=== PATIENT | female | born 1980 | race Caucasian/White ===

== ENCOUNTER 2016-07-28 13:05 | Day surgery (SDC) | payer OTHER ==
[2016-07-28 13:26] VITALS: BMI 36.8
[2016-07-28 13:38] LABS: BASO # 0.1 K/uL (0.0-0.2); BASO % 0.8 % (0.0-2.0); EOS # 0.2 K/uL (0.0-0.7); EOS % 2.1 % (0.0-4.0); HEMATOCRIT 33.2 % (34.0-47.0); LYMPH % 31.8 % (20.0-40.0); MEAN CORPUSCULAR HEMOGLOBIN 21.7 pg (27.0-31.0); MEAN CORPUSCULAR HGB CONC 31.1 g/dL (33.0-37.0); MEAN PLATELET VOLUME 7.8 fL (7.2-11.7); MONO # 0.7 K/uL (0.0-0.8); MONO % 7.1 % (0.0-10.0); RED CELL DISTRIBUTION WIDTH 19.2 % (11.5-14.5); WHITE BLOOD COUNT 9.5 K/uL (4.8-10.8)
[2016-07-28 13:44] LABS: MEAN CELL VOLUME 69.8 fL (81.0-99.0)
[2016-07-28 13:45] LABS: CHLORIDE 101 mmol/L (98-107); POTASSIUM 4.5 mmol/L (3.6-5.2); SODIUM 138 mmol/L (132-148)
[2016-07-28 13:48] LABS: BLOOD UREA NITROGEN 13 mg/dL (7-17); CARBON DIOXIDE 27 mmol/L (22-30); GFR AFRICAN-AMERICAN > 60; GLUCOSE,RANDOM 95 mg/dL (65-105)
[2016-07-28 13:49] LABS: CALCIUM 9.2 mg/dl (8.6-10.4)
[2016-07-28] MEDS ORDERED: Midazolam 2 MG/2 ML VIAL ONE (15:06)
[2016-07-28] MEDS ORDERED: Propofol 10 mg/ml Inj (20 ML) ONE (15:07)
[2016-07-28] MEDS ORDERED: cefTRIAXone IV 1 gm in Dextros 50 ML IVPB ONE (15:13)
[2016-07-28] MEDS ORDERED: Lactated Ringer's 1,000 ML IV ONE (15:15)
[2016-07-28] MEDS ORDERED: Iohexol 240 (50 ml) ONE (15:38)
[2016-07-28] MEDS ORDERED: Ciprofloxacin 400mg/200ml D5W 400 MG/200 ML BAG IVPB STA (16:01)
[2016-07-28] MEDS ORDERED: Dexamethasone 4 mg/1 ml IVP PRN (16:01)
[2016-07-28] MEDS ORDERED: HYDROmorphone 0.5 mg/0.5 ml ISec ONE (16:11)
[2016-07-28] MEDS: HYDROmorphone 0.5 mg/0.5 ml ISec IVP PRN ×2 (16:12→16:31)
[2016-07-28] MEDS ORDERED: Lactated Ringer's 1,000 ML IV SCH (16:15)
[2016-07-28] MEDS ORDERED: Gentamicin 80 mg in 0.9% NS 80 MG/100 ML BAG IVPB SCH (16:15)
[2016-07-28 17:31] VITALS: BP 132/70; PULSE 63; RESP 18; TEMP 97; O2SAT 100
--- NOTE | 2016-07-28 20:31 | OP ---
PROCEDURE DATE: 07/28/2016 PREOPERATIVE DIAGNOSES: Urolithiasis, retained stent, hematuria, recurrent infections. POSTOPERATIVE DIAGNOSES: Urolithiasis, retained stent, hematuria, recurrent infections. PROCEDURES: Cystoscopy, removal of a right double-J stent, right retrograde pyelogram, insertion of right double-J stent with dangles. COMPLICATIONS: There were no complications. BLOOD LOSS: Less than 10 mL. FINDINGS: A stent in the ureter, in the bladder. The portion of the stent that is in the bladder. First of all, to start with, there are no pelvic or rectal masses. The stent that is in the bladder is encrusted on the outside, but the ____ of it looks like it is ope mary. I did not even try to put a wire in. I do want to say that the wire, when I took out the stent, it came our very, very easily. I also wanted to say the other finding is the stent is encrusted on the outside, but we were able to eventually remove it with actually no difficulty and even when we inspect the upper portion of the st ent, there is really very little encrustation. There is encrustation down below on the bladder, but that is it. Otherwise the stent went in easily, in terms of having ____ . PROCEDURE: After obtaining informed consent, the patient was placed on the table, routine monitors p laced, timeouts were called. We explained everything in Guatemalan. A very pleasant lady who we explained everything in Guatemalan, wha t our plans were. The original plan was that we are going to do our best to get rid of the stent. I n fact, now that I did the procedure, I know that we were able to. What we did was we inserted the cystoscope via the urethra and I saw the stent was very encrusted, so before touching anything further, I put a wire up to the kidney and it went up very easily. We then used a grasping forceps to grab out the stent and it came out very easily, again, even though the chase ttom was encrusted. I was thinking about doing a laser or something, but it just came out very well and easily without any damage. At this point, I had the wire up in the kidney and I put an open-ended catheter, injected contrast ma terial to make sure everything was patent and open, and then I put a wire back up to the kidney and I put a double-J stent in. The double J was left with dangles so we can just remove it simply. The patient will be discharged home on Motrin, antibiotics, pain medicine, and then further plans ___ _. Jose Cruz Reyes MD cc: [id number] TT: 07/28/2016 20:30:24 rn
--- NOTE | 2016-07-28 21:11 | HP ---
UROLOGY ADMISSION REASON FOR ADMISSION: Treatment of a retained stent and to try to remove it. HISTORY OF PRESENT ILLNESS: A very pleasant lady, very noncompliant. She is a 35 years old. Years back, I apparently had put a stent in. I checked my notes through this time. Actually in fact, we had placed a stent here. The patient at that time was seeing Dr. Courtney and there were issues gynecology-wills. From our end, patient knew she had a stent and just for whatever reason did not come back in. She kn ew she was supposed to remove the stent. Even now I have known about this for quite some time when harriet blandon is just very pleasant about the entire matter, but just extremely noncompliant. So, she is here now today to try to remove the stent. See the plans as well. I explained to the amarjit kaur in the office with a custom protection officer and with her that my best effort is going to be to remove the stent and if I do remove the stent, more likely than not I would put a stent back in [facility] to leave it for a day or so. But, more likely I would expect to get a second stent in because I suspect that she will have a lot o f encrustations. Particularly she was most recently in either [facility] or [facility], I spoke to the urologist there, a , who then referred the patient back to me. She was treated with antibiotics and was apparently septic and then she came to my office. We discus sed options and I have been trying to call her and my office has reached out and spoke to her several times, but it took a while until we got her in today. She is now for a cystoscopy and a stent removal and most likely a stent insertion and maybe even 2 st ents will be left in place, depending on what we find clinically. See the addendum below. PAST MEDICAL AND SURGICAL HISTORY: Otherwise, no other changes. GYNECOLOGIC HISTORY: Remarkable for lack of children. REVIEW OF SYSTEMS: Listed above, noncontributory, weight loss, etc. SOCIAL HISTORY: Unremarkable. PHYSICAL EXAMINATION: GENERAL: Well-nourished female, in no apparent distress. VITAL SIGNS: Within normal limits. ABDOMEN: Overall soft, nontender. PELVIC: Deferred to cystoscopy, but there is no real pelvic or rectal masses. I will mention that n ow. DIAGNOSES: 1. Retained stent. 2. Recurrent infections and hematuria. Very pleasant about the whole matter, but extremely noncompliant lady. PLAN: We discussed options with the patient. Today we are going to try to remove the stent. I expl ained to her that if the stent comes out easily I will put a new one back in. Once it dangles, will just remove it. I also explained to her with a custom protection officer (everything was done with a [employer] paper machine tender) that I was going to plan for the other possibility for a cystoscopy and a double J, 2 s tents inserted and then if we would need to work on the other stent that is encrusted, though I suspe ct it is going to be encrusted again with her history being recently in the [place], etc., but I explained to her that sometimes we get michael and we are able to remove the stent. Then, I explained all the different options, risks, benefits and alternatives with the patient. Jose Cruz Reyes MD cc: [id number] TT: 07/28/2016 21:10:54 natalio
== END 2016-07-28 18:42 | disposition home or self-care (01) ==
LOC: C.SDS 13:05
PROVIDERS: ATTEND Urology
DX: T83.098A Other mechanical complication of other urinary catheter, initial encounter (principal); N20.0 Calculus of kidney; R31.9 Hematuria, unspecified; N13.39 Other hydronephrosis
CPT/HCPCS: 36415; 50385; 74022; 80048; 84703; 85025; J0696; J0744; J1170; J1580; J1885; J7120

== ENCOUNTER 2016-09-26 18:44 | Emergency (ER) | payer SELFPAY ==
[2016-09-26 18:44] VITALS: BMI 36.8
[2016-09-26] MEDS ORDERED: Sodium Chloride 0.9% 1,000 ML IV ONE (19:39)
[2016-09-26] MEDS ORDERED: Sodium Chloride 0.9% 1,000 ML ONE (20:00)
[2016-09-26 20:13] LABS: BASO # 0.1 K/uL (0.0-0.2); BASO % 0.4 % (0.0-2.0); EOS # 0.1 K/uL (0.0-0.7); HEMATOCRIT 32.8 % (34.0-47.0); LYMPH # 2.4 K/uL (1.0-4.3); MEAN CELL VOLUME 69.8 fL (81.0-99.0); MEAN CORPUSCULAR HEMOGLOBIN 22.2 pg (27.0-31.0); MEAN CORPUSCULAR HGB CONC 31.8 g/dL (33.0-37.0); MEAN PLATELET VOLUME 8.3 fL (7.2-11.7); MONO # 0.9 K/uL (0.0-0.8); RED CELL DISTRIBUTION WIDTH 17.2 % (11.5-14.5); WHITE BLOOD COUNT 12.3 K/uL (4.8-10.8)
[2016-09-26 20:19] LABS: CHLORIDE 101 mmol/L (98-107); POTASSIUM 4.3 mmol/L (3.6-5.2); SODIUM 137 mmol/L (132-148)
[2016-09-26 20:21] LABS: AST/SGOT 42 U/L (14-36); BILIRUBIN,TOTAL 0.8 mg/dL (0.2-1.3); CARBON DIOXIDE 24 mmol/L (22-30); GFR AFRICAN-AMERICAN > 60
[2016-09-26 20:22] LABS: ALKALINE PHOSPHATASE 103 U/L (38-126); ALT/SGPT 62 U/L (9-52); BLOOD UREA NITROGEN 9 mg/dL (7-17); GLUCOSE,RANDOM 123 mg/dL (65-105); TOTAL PROTEIN 7.8 g/dL (6.3-8.3)
[2016-09-26] MEDS ORDERED: Morphine 4 MG/ML VIAL IV STA ×2 (20:51→23:49)
[2016-09-26] MEDS ORDERED: Morphine 4 MG/ML VIAL ONE (20:57)
[2016-09-26 21:24] LABS: RBC URINE 3222 /hpf (0-3); URINE BACTERIA RARE (<OCC); URINE BILIRUBIN NEGATIVE (NEGATIVE); URINE BLOOD 3+ (NEGATIVE); URINE COLOR Yellow (YELLOW); URINE GLUCOSE (UA) NORMAL (Normal); URINE KETONE 1+ mg/dL (NEGATIVE); URINE LEUKOCYTE ESTERASE NEG Leu/uL (Negative); URINE PROTEIN 2+ mg/dL (NEGATIVE); URINE UROBILINOGEN NORMAL mg/dL (0.2-1.0); WBC URINE 1 /hpf (0-5)
[2016-09-26] MEDS ORDERED: Iohexol 350mg/ml 100 ML ONE (21:41)
--- NOTE | 2016-09-26 23:47 | US ---
EXAM: US Pelvis, Transabdominal and Transvaginal CLINICAL HISTORY: 36 years old, female; Signs and symptoms; Other: Vaginal bleeding pain ? toa vs torsion; Additional info: Vaginal bleeding/pain ? toa vs. Torsion TECHNIQUE: Real-time transabdominal and transvaginal pelvic ultrasound (complete) with image documentation. Transvaginal imaging was used for better evaluation of the endometrium and adnexa. COMPARISON: CT - ABD PELVIS IV CONTRAST ONLY 05/27/2015 2:05:26 AM FINDINGS: Uterus/cervix: Two fibroids are again identified. These are located within the posterior fundus measuring 4.8 cm in greatest dimension, unchanged from previous study. Normal endometrial stripe thickness, measuring 2.5 mm. Right ovary: Again identified within the right ovary/right adnexa is an avascular complex cyst, measuring 5.0 x 4.6 x 4.7 cm. This has increased in size from previous examination but similar in morphology (as described on previous studies, as no imaging was available comparison). Normal blood flow. Increased to transmission is detected. There is Left ovary: Unremarkable in echogenicity and size measuring 2.8 x 2.4 x 2.5 cm. No mass. Normal blood flow. Free fluid: No free fluid. IMPRESSION: Fibroid uterus. Increased size of the avascular complex cyst within the right ovary. Morphologically, this focus is suggestive of an endometrioma, versus a hemorrhagic cyst. A tubo-ovarian abscess, versus ovarian torsion is less likely.
--- NOTE | 2016-09-27 00:11 | CT ---
EXAM: CT Abdomen and Pelvis With Intravenous Contrast CLINICAL HISTORY: 36 years old, female; Pain; Abdominal pain; Patient HX: 05-27-15; Additional info: Llq and suprapubic tenderness TECHNIQUE: Axial computed tomography images of the abdomen and pelvis with intravenous contrast. All CT scans at this facility use one or more dose reduction techniques, viz.: automated exposure control; ma/kV adjustment per patient size (including targeted exams where dose is matched to indication; i.e. head); or iterative reconstruction technique. Coronal and sagittal reformatted images were created and reviewed. CONTRAST: 100 mL of [id number] administered intravenously. COMPARISON: CT - ABD PELVIS IV CONTRAST ONLY 05/27/2015 2:05:26 AM FINDINGS: Lower thorax: The bilateral lung bases are clear. ABDOMEN: Liver: Borderline enlarged, without acute findings. Gallbladder and bile ducts: The gallbladder is distended, without calcified stones. No significant intra- or extrahepatic biliary ductal dilation. Pancreas: Enhances homogeneously. No ductal dilation. No discrete mass. Spleen: No acute findings. Adrenals: No acute findings. Kidneys and ureters: No acute findings. No hydronephrosis or renal calculi. No discrete solid mass. PELVIS: Bladder: No acute findings. Reproductive: Asymmetric enlargement of the right ovary is again identified, consistent with ultrasound findings of the same day. This finding is similar to previous examination performed 05/27/2015. Appendix: The appendix is not definitively visualized, however no pericecal inflammatory change is identified to suggest the presence of acute appendicitis. ABDOMEN and PELVIS: Stomach and bowel: No obstruction. No mucosal thickening. Peritoneum: No significant fluid collection. No free air. Lymph nodes: No pathologically enlarged lymph nodes. Vasculature: Unremarkable. Bones: No acute fracture. IMPRESSION: Asymmetric enlargement of the right ovary, consistent with previous ultrasound findings performed the same day. Please see sonographic evaluation of the pelvis for additional details, performed 30 minutes earlier.
[2016-09-27 00:49] VITALS: BP 132/84; PULSE 88; RESP 18; TEMP 98.6; O2SAT 99
--- NOTE | 2016-09-27 00:55 | C.PDOC ---
Time Seen by Provider: 09/26/16 19:38 Chief Complaint (Nursing): Abdominal Pain Past Medical History Vital Signs: Last Vital Signs Temp 98.6 F 09/27/16 00:48 Pulse 88 09/27/16 00:48 Resp 18 09/27/16 00:48 BP 132/84 09/27/16 00:48 Pulse Ox 99 09/27/16 00:48 - Medical History PMH: Anemia, Diabetes (type II), Kidney Stones, Chronic Kidney Disease Surgical History: Endoscopy - [facility] Procedures BLOW THERAPEUT INTO TUBE (06/09/14) D & C NEC (06/09/14) PACKED CELL TRANSFUSION (09/27/13) RETROGRADE PYELOGRAM (06/20/14) TRANSFUSE NONAUT RED BLOOD CELLS IN PERIPH VEIN, PERC (02/28/15) URETERAL CATHETERIZATION (06/20/14) Family History: States: Unknown Family Hx - Social History Hx Tobacco Use: Yes Hx Alcohol Use: No Hx Substance Use: No - Immunization History Hx Tetanus Toxoid Vaccination: No Hx Influenza Vaccination: No Hx Pneumococcal Vaccination: No ED Course And Treatment - Laboratory Results Result Diagrams: 09/26/16 20:00 09/26/16 20:00 O2 Sat by Pulse Oximetry: 99 Disposition - Disposition Referrals: [facility] Lisa Mock, [Non-Staff] - Disposition: HOME/ ROUTINE Disposition Time: 00:15 Condition: IMPROVED Additional Instructions: Thank you for letting us take care of you today. Your provider was Dr. Allen. You were treated for an ovarian cyst. The emergency medical care you received today was directed at your acute symptoms. If you were prescribed any medication, please fill it and take as directed. It may take several days for your symptoms to resolve. Return to the Emergency Department if your symptoms worsen, do not improve, or if you have any other problems. Please contact your doctor or call one of the physicians/clinics you have been referred to that are listed on the Patient Visit Information form that is included in your discharge packet. Bring any paperwork you were given at discharge with you along with any medications you are taking to your follow up visit. Our treatment cannot replace ongoing medical care by a primary care provider (PCP) outside of the emergency department. Thank you for allowing the [facility] team to be part of your care today. Follow up with your [facility] doctor in 3-4 days for re-evaluation and further management. Prescriptions: Ibuprofen [Motrin] 600 mg PO Q6 PRN #20 tab PRN Reason: Pain, Moderate (4-7) Instructions: Ovarian Cyst (ED) Forms: [facility] (French) - Clinical Impression Clinical Impression: Ovarian cyst
== END 2016-09-27 00:49 | disposition home or self-care (01) ==
LOC: C.ER 18:44
DX: N83.209 Unspecified ovarian cyst, unspecified side (principal)
CPT/HCPCS: 74177; 76830; 76856; 80053; 81001; 83690; 84702; 85025; 86850; 86900; 87086; 96361; 96374; 96375; 96376; 99284; J1885; J2270; J7040; Q9967

== ENCOUNTER 2016-10-16 | Emergency (ER) | payer SELFPAY ==
[2016-10-16 00:01] VITALS: BMI 36.8
[2016-10-16 00:28] LABS: RBC URINE < 1 /hpf (0-3); URINE BILIRUBIN NEGATIVE (NEGATIVE); URINE BLOOD NEGATIVE (NEGATIVE); URINE COLOR Yellow (YELLOW); URINE GLUCOSE (UA) NORMAL (Normal); URINE KETONE NEGATIVE (NEGATIVE); URINE LEUKOCYTE ESTERASE NEG Leu/uL (Negative); URINE PROTEIN NEGATIVE (NEGATIVE); URINE UROBILINOGEN NORMAL mg/dL (0.2-1.0); WBC URINE < 1 /hpf (0-5)
[2016-10-16 01:23] LABS: BASO # 0.1 K/uL (0.0-0.2); BASO % 0.5 % (0.0-2.0); EOS # 0.1 K/uL (0.0-0.7); EOS % 1.5 % (0.0-4.0); HEMATOCRIT 30.7 % (34.0-47.0); LYMPH # 2.5 K/uL (1.0-4.3); LYMPH % 25.9 % (20.0-40.0); MEAN CELL VOLUME 69.1 fL (81.0-99.0); MEAN CORPUSCULAR HEMOGLOBIN 21.4 pg (27.0-31.0); MEAN PLATELET VOLUME 7.8 fL (7.2-11.7); MONO # 0.9 K/uL (0.0-0.8); RED CELL DISTRIBUTION WIDTH 16.3 % (11.5-14.5); WHITE BLOOD COUNT 9.7 K/uL (4.8-10.8)
[2016-10-16 01:40] LABS: ALB/GLOB RATIO 0.9 (1.0-2.1); ALKALINE PHOSPHATASE 123 U/L (38-126); ALT/SGPT 69 U/L (9-52); AST/SGOT 43 U/L (14-36); BILIRUBIN,TOTAL 0.4 mg/dL (0.2-1.3); BLOOD UREA NITROGEN 12 mg/dL (7-17); CALCIUM 9.2 mg/dl (8.6-10.4); CARBON DIOXIDE 27 mmol/L (22-30); CHLORIDE 100 mmol/L (98-107); GFR AFRICAN-AMERICAN > 60; GLUCOSE,RANDOM 101 mg/dL (65-105); SODIUM 140 mmol/L (132-148); TOTAL PROTEIN 7.8 g/dL (6.3-8.3)
[2016-10-16] MEDS ORDERED: Morphine 4 MG/ML VIAL IV ONE (02:17)
--- NOTE | 2016-10-16 02:59 | US ---
EXAM: US Pelvis, Transvaginal CLINICAL HISTORY: 36 years old, female; Pain; Pelvic pain; Additional info: Severe right suprapubic pain TECHNIQUE: Real-time transvaginal pelvic ultrasound (complete) with image documentation. Transvaginal imaging was used for better evaluation of the endometrium and adnexa. COMPARISON: CT - ABD PELVIS PO IV CONTRAST 09/26/2016 10:57:02 PM FINDINGS: Uterus/cervix: Uterus measures 10.7 x 6.1 x 7.1 cm in size. Two uterine masses, larger measuring 6.4 x 5.8 x 6.6 cm. Endometrium: 0.5 cm in thickness. Right ovary: 5.8 x 4.1 x 4.8 cm in size. 4.0 x 4.1 x 4.8 cm septated hypoechoic lesion with internal echoes. Normal flow. Left ovary: 2.9 x 2.5 x 2.5 cm in size. No mass. Normal flow. Free fluid: No significant free fluid. Bladder: Empty bladder which cannot be evaluated with this probe. IMPRESSION: 1. Probable hemorrhagic RIGHT ovarian cyst. Recommend sonographic followup in 6 weeks to ensure resolution and exclude other etiologies. 2. Probable fibroid uterus.
--- NOTE | 2016-10-16 03:57 | C.PDOC ---
History Of Present Illness 36 year old female who presents to the ER with a complaint of right sided suprapubic pain for the past 4 days that has worsened today, associated with pelvic pressure. Denies vaginal bleeding, dysuria, hematuria, nausea, or vomiting. Time Seen by Provider: 10/16/16 00:28 Chief Complaint (Nursing): Female Genitourinary History Per: Patient History/Exam Limitations: no limitations Onset/Duration Of Symptoms: Hrs Current Symptoms Are (Timing): Still Present Quality Of Discomfort: Unable To Describe Associated Symptoms: denies: Fever, Chills, Nausea, Vomiting, Urinary Symptoms Alleviating Factors: None Recent travel outside of the [place]: No Abnormal Vaginal Bleeding: No Past Medical History Reviewed: Historical Data, Nursing Documentation, Vital Signs Vital Signs: Last Vital Signs Temp 97.9 F 10/16/16 04:29 Pulse 73 10/16/16 04:29 Resp 18 10/16/16 04:29 BP 106/66 10/16/16 04:29 Pulse Ox 98 10/16/16 04:45 - Medical History PMH: Anemia, Diabetes (type II), Kidney Stones, Chronic Kidney Disease Surgical History: Endoscopy - [facility] Procedures BLOW THERAPEUT INTO TUBE (06/09/14) D & C NEC (06/09/14) PACKED CELL TRANSFUSION (09/27/13) RETROGRADE PYELOGRAM (06/20/14) TRANSFUSE NONAUT RED BLOOD CELLS IN PERIPH VEIN, PERC (02/28/15) URETERAL CATHETERIZATION (06/20/14) Family History: States: Unknown Family Hx - Social History Hx Tobacco Use: Yes Hx Alcohol Use: No Hx Substance Use: No - Immunization History Hx Tetanus Toxoid Vaccination: No Hx Influenza Vaccination: No Hx Pneumococcal Vaccination: No Review Of Systems Constitutional: Negative for: Fever, Chills Gastrointestinal: Positive for: Abdominal Pain. Negative for: Nausea, Vomiting Genitourinary: Negative for: Dysuria, Hematuria, Vaginal Bleeding Physical Exam - Physical Exam Appears: Non-toxic Skin: Normal Color, Warm, Dry Head: Atraumatic, Normacephalic Oral Mucosa: Moist Chest: Symmetrical, No Tenderness Cardiovascular: Rhythm Regular, No Murmur Respiratory: Normal Breath Sounds, No Rales, No Rhonchi, No Wheezing Gastrointestinal/Abdominal: Soft, No Tenderness Pelvic: No Vaginal Bleeding, Vaginal Discharge (Minimal clear), No Cervical Motion Tenderness, No Adnexal Tenderness Neurological/Psych: Oriented x3, Normal Speech, Normal Cognition ED Course And Treatment - Laboratory Results Result Diagrams: 10/16/16 01:19 10/16/16 01:19 O2 Sat by Pulse Oximetry: 98 (Room air) Pulse Ox Interpretation: Normal - CT Scan/US Transvaginal US Other Rad Studies (CT/US): Read By Radiologist, Radiology Report Reviewed CT/US Interpretation: EXAM: US Pelvis, Transvaginal. CLINICAL HISTORY: 36 years old, female; Pain; Pelvic pain; Additional info: Severe right suprapubic pain. TECHNIQUE: Real-time transvaginal pelvic ultrasound (complete) with image documentation. Transvaginal. imaging was used for better evaluation of the endometrium and adnexa. COMPARISON: CT - ABD PELVIS PO IV CONTRAST 2016 10:57:02 PM. FINDINGS: Uterus/cervix: Uterus measures 10.7 x 6.1 x 7.1 cm in size. Two uterine masses, larger measuring. 6.4 x 5.8 x 6.6 cm. Endometrium: 0.5 cm in thickness. Right ovary: 5.8 x 4.1 x 4.8 cm in size. 4.0 x 4.1 x 4.8 cm septated hypoechoic lesion with internal. echoes. Normal flow. Left ovary: 2.9 x 2.5 x 2.5 cm in size. No mass. Normal flow. Free fluid: No significant free fluid. Bladder: Empty bladder which cannot be evaluated with this probe. IMPRESSION: 1. Probable hemorrhagic RIGHT ovarian cyst. Recommend sonographic followup in 6 weeks to. ensure resolution and exclude other etiologies. 2. Probable fibroid uterus. Progress Note: Urine culture and US ordered. Morphine administered. Patient is still complaining of pain after 2 of IV morphine, will give another 2 mg of morphine and toradol IV.Prior records reviewed, patient was found to have been seen multiple times in the past for the same complaint at multiple facilities and has had multiple diagnostic testing, she has been told multiple times to follow up with [facility]. Patient reports improvement of pain, will discharge home. Reassessment Condition: Improved Disposition Counseled Patient/Family Regarding: Diagnosis, Need For Followup, Rx Given - Disposition Disposition: HOME/ ROUTINE Disposition Time: 04:16 Condition: STABLE Additional Instructions: Please follow up with PMD Take meds as directed Return to ER if worse Prescriptions: Naproxen [Naprosyn] 1 tab PO BID PRN #20 tab PRN Reason: Pain Instructions: Ovarian Cyst (ED) - Clinical Impression Clinical Impression: Ovarian cyst - Scribe Statement The provider has reviewed the documentation as recorded by the Scribe Jhon Bach All medical record entries made by the Gurdeepibmary ann were at my direction and personally dictated by me. I have reviewed the chart and agree that the record accurately reflects my personal performance of the history, physical exam, medical decision making, and the department course for this patient. I have also personally directed, reviewed, and agree with the discharge instructions and disposition.
[2016-10-16 04:29] VITALS: BP 106/66; PULSE 73; RESP 18; TEMP 97.9
[2016-10-16 04:30] VITALS: O2SAT 98
== END 2016-10-16 04:43 | disposition home or self-care (01) ==
LOC: C.ER
DX: N83.201 Unspecified ovarian cyst, right side (principal); E11.22 Type 2 diabetes mellitus with diabetic chronic kidney disease; N18.9 Chronic kidney disease, unspecified; D64.9 Anemia, unspecified
CPT/HCPCS: 76830; 80053; 81001; 83690; 84703; 85025; 87086; 96374; 96375; 96376; 99285; J1885; J2270

== ENCOUNTER 2016-11-01 15:16 | Emergency (ER) | payer OTHER ==
[2016-11-01 15:16] VITALS: BMI 36.8
[2016-11-01] MEDS ORDERED: Sodium Chloride 0.9% 1,000 ML IV ONE (16:26)
[2016-11-01] MEDS ORDERED: Morphine 4 MG/ML VIAL ONE ×2 (16:37→17:45)
[2016-11-01 16:57] LABS: BASO % 0.3 % (0.0-2.0); EOS % 0.2 % (0.0-4.0); HEMATOCRIT 31.7 % (34.0-47.0); LYMPH # 1.8 K/uL (1.0-4.3); LYMPH % 13.9 % (20.0-40.0); MEAN CELL VOLUME 67.8 fL (81.0-99.0); MEAN CORPUSCULAR HEMOGLOBIN 21.2 pg (27.0-31.0); MEAN CORPUSCULAR HGB CONC 31.2 g/dL (33.0-37.0); MONO # 0.8 K/uL (0.0-0.8); MONO % 5.8 % (0.0-10.0); RED CELL DISTRIBUTION WIDTH 16.3 % (11.5-14.5); WHITE BLOOD COUNT 13.1 K/uL (4.8-10.8)
[2016-11-01 17:10] LABS: CHLORIDE 103 mmol/L (98-107); POTASSIUM 3.4 mmol/L (3.6-5.2); SODIUM 138 mmol/L (132-148)
[2016-11-01 17:12] LABS: ALB/GLOB RATIO 1.1 (1.0-2.1); AST/SGOT 39 U/L (14-36); BILIRUBIN,TOTAL 0.7 mg/dL (0.2-1.3); CARBON DIOXIDE 25 mmol/L (22-30); GFR AFRICAN-AMERICAN > 60; TOTAL PROTEIN 8.2 g/dL (6.3-8.3)
[2016-11-01 17:13] LABS: ALKALINE PHOSPHATASE 105 U/L (38-126); ALT/SGPT 61 U/L (9-52); BLOOD UREA NITROGEN 10 mg/dL (7-17); CALCIUM 8.9 mg/dl (8.6-10.4); GLUCOSE,RANDOM 139 mg/dL (65-105)
[2016-11-01 17:49] LABS: RBC URINE 191 /hpf (0-3); URINE BACTERIA OCC (<OCC); URINE BILIRUBIN NEGATIVE (NEGATIVE); URINE BLOOD 3+ (NEGATIVE); URINE COLOR Yellow (YELLOW); URINE GLUCOSE (UA) NORMAL (Normal); URINE KETONE TRACE mg/dL (NEGATIVE); URINE LEUKOCYTE ESTERASE NEG Leu/uL (Negative); URINE PROTEIN 2+ mg/dL (NEGATIVE); URINE UROBILINOGEN NORMAL mg/dL (0.2-1.0); WBC URINE 1 /hpf (0-5)
--- NOTE | 2016-11-01 21:30 | US ---
EXAM: US Pelvis Complete, Transabdominal CLINICAL HISTORY: 36 years old, female; Pain; Pelvic pain; Patient HX: Prior 10-16-2016 TECHNIQUE: Real-time transabdominal pelvic ultrasound (complete) with image documentation. COMPARISON: Pelvic ultrasound 10/16/16, CT abdomen pelvis 09/26/16 FINDINGS: Uterus: Body habitus and incomplete bladder distention limits evaluation of the uterus. Uterine contour is lobular. The uterus measures approximately 10.2 x 5.4 x 7 cm. Endometrium is poorly visualized. Endometrium measures approximately 6 mm in width. Fibroids are difficult to delineate Right ovary: Right ovary measures approximately 5.6 x 4.5 x 6 cm. There is a low attenuation 4 x 3 cm right ovarian lesion. There is expected blood flow on Doppler imaging Left ovary: Left ovary could not be identified Free fluid: There is no free fluid. Bladder: The bladder is partially distended. IMPRESSION: Limited by body habitus and incomplete bladder distention; fibroid uterus; prominent right ovary with low attenuation lesion difficult to characterize, no torsion; nonvisualization left ovary EXAM: US Pelvis, Transvaginal EXAM DATE/TIME: 11/01/2016 5:38 PM CLINICAL HISTORY: 36 years old, female; Pain; Pelvic pain; Patient HX: Prior 10-16-2016 TECHNIQUE: Real-time transvaginal pelvic ultrasound (complete) with image documentation. Transvaginal imaging was used for better evaluation of the endometrium and adnexa. COMPARISON: CT - ABD PELVIS PO IV CONTRAST 09/26/2016 10:57:02 PM; pelvic ultrasound 10/16/16; CT abdomen pelvis 05/27/15 FINDINGS: Uterus: Uterus measures approximately 11.6 x 7.9 x 7.4 cm. Myometrium is diffusely heterogeneous. Endometrium measures 4.2 mm in width. Endometrium is distorted by fibroids. There is 4.5 x 3.5 x 4.2 cm posterior fundal fibroid. There is a complex 5.6 x 5.3 x 5.5 cm posterior body fibroid. Additional lesions cannot be excluded. Right ovary: Right ovary measures approximately 6.6 x 5.6 x 6.5 cm. There is a complex 5.2 x 4.x 4.3 cm cystic ovarian lesion. There is flow in the periphery of the right ovary. Left ovary: Left ovary could not be identified. There are no left adnexal masses. Free fluid:There is no free fluid. Bladder: Not visualized IMPRESSION: Enlarged fibroid uterus; persistent complex cystic right ovarian lesion difficult to further characterize Gynecologic consultation is advised
--- NOTE | 2016-11-01 21:37 | CP.PCM.CON ---
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 but when she went to clinic today she was told to come to er.Patient denies any new exual partner.last time sexually active 3 months ago.Denies fever , chills, vaginal discharge LMP 10/30/2016.Pain got worse with her period and it waxes and wanes and is sharp PMH endometriosis, hx of hydronephrosis, obesity, diabetes PSH laparoscopy, hysteroscopy, d&c, lysis of adhesions, cystocospy with stent insertion OBGYN HX LMP 10/30/2016; hx of irregular periods; denies hx of gonorrhea or chlamydia Social hx denies tobacco,alcohol or illicit drug use Review of Systems - Review of Systems All systems: reviewed and no additional remarkable complaints except - Cardiovascular Cardiovascular: absent: Chest Pain, Dyspnea - Respiratory Respiratory: absent: Dyspnea - Gastrointestinal Gastrointestinal: Abdominal Pain. absent: Heartburn, Nausea, Vomiting - Endocrine Endocrine: absent: Cold Intolorance Past Patient History - Infectious Disease Hx of Infectious Diseases: None - Past Medical History & Family History Past Medical History?: Yes - Past Social History Smoking Status: Light Smoker < 10 Cigarettes Daily - CARDIAC Hx Cardiac Disorders: No - NEUROLOGICAL Hx Neurological Disorder: No - HEENT Hx Cataracts: No - RENAL Hx Chronic Kidney Disease: Yes Hx Kidney Stones: Yes - ENDOCRINE/METABOLIC Hx Endocrine Disorders: Yes Hx Diabetes Mellitus Type 2: Yes - HEMATOLOGICAL/ONCOLOGICAL Hx Anemia: Yes - INTEGUMENTARY Hx Dermatological Problems: No - MUSCULOSKELETAL/RHEUMATOLOGICAL Hx Musculoskeletal Disorders: No Hx Falls: No - GASTROINTESTINAL Hx Gastrointestinal Disorders: No - GENITOURINARY/GYNECOLOGICAL Other/Comment: Ovarian cysts - PSYCHIATRIC Hx Psychophysiologic Disorder: No Hx Substance Use: No - SURGICAL HISTORY Hx Surgeries: Yes Other/Comment: Kidney stent; laparoscopy, d&c, hysteroscopy - ANESTHESIA Hx Anesthesia: Yes Hx Anesthesia Reactions: No Hx Malignant Hyperthermia: No Meds Allergies/Adverse Reactions: Allergies Allergy/AdvReac Type Severity Reaction Status Date / Time No Known Allergies Allergy Verified 11/01/16 15:45 Physical Exam - Constitutional Appears: In Acute Distress - Respiratory Exam Respiratory Exam: Clear to Auscultation Bilateral, NORMAL BREATHING PATTERN - Cardiovascular Exam Cardiovascular Exam: REGULAR RHYTHM - GI/Abdominal Exam GI & Abdominal Exam: Normal Bowel Sounds, Soft, Tenderness. absent: Rebound, Rigid - Exam Additional comments: patient refused pelvic exam - Extremities Exam Extremities exam: Negative for: calf tenderness - Back Exam Back exam: absent: CVA tenderness (L), CVA tenderness (R) - Neurological Exam Neurological exam: Alert, Oriented x3 - Psychiatric Exam Psychiatric exam: Normal Affect, Normal Mood - Skin Skin Exam: Normal Color Results - Vital Signs Recent Vital Signs: Last Vital Signs Temp 99.3 F 11/01/16 20:14 Pulse 88 11/01/16 20:14 Resp 16 11/01/16 20:14 BP 152/96 H 11/01/16 20:14 Pulse Ox 100 11/01/16 20:14 - Labs Result Diagrams: 11/01/16 16:53 11/01/16 16:53 Labs: Laboratory Results - last 24 hr 11/01/16 11/01/16 11/01/16 16:53 16:53 16:53 WBC 13.1 H RBC 4.68 Hgb 9.9 L Hct 31.7 L MCV 67.8 L MCH 21.2 L MCHC 31.2 L RDW 16.3 H Plt Count 338 MPV 8.0 Neut % (Auto) 79.8 H Lymph % (Auto) 13.9 L [place] % (Auto) 5.8 Eos % (Auto) 0.2 Baso % (Auto) 0.3 Neut # 10.4 H Lymph # 1.8 [place] # 0.8 Eos # 0.0 Baso # 0.0 Differential Comment Sodium 138 Potassium 3.4 L Chloride 103 Carbon Dioxide 25 Anion Gap 14 BUN 10 Creatinine 0.6 L Est GFR ( Amer) > 60 Est GFR (Non-Af Amer) > 60 Random Glucose 139 H Calcium 8.9 Total Bilirubin 0.7 AST 39 H ALT 61 H Alkaline Phosphatase 105 Total Protein 8.2 Albumin 4.2 Globulin 4.0 H Albumin/Globulin Ratio 1.1 Urine Color Yellow Urine Clarity Clear Urine pH 6.0 Ur Specific [place] 1.025 Urine Protein 2+ H Urine Glucose (UA) Normal Urine Ketones Trace Urine Blood 3+ H Urine Nitrate Negative Urine Bilirubin Negative Urine Urobilinogen Normal Ur Leukocyte Esterase Neg Urine WBC (Auto) 1 Urine RBC (Auto) 191 H Ur Squamous Epith Cells 1 Urine Bacteria Occ H Urine HCG, Qual Negative Assessment & Plan - Assessment and Plan (Free Text) Assessment: 36 y/o female with pelvic pain.Hx of endometriosis.Multiple visits to er due to pelvic pain since 2013 as per records.Ultrasound reports from 2015 reviewed and noticed the consistent findings of complex right ovarian cyst since 2014.Cyst size essentially stable.Suspect endometrioma.On exam no signs of acute abdomen. Recommend pain management and follow up with chef concierge as outpatient to further discuss management options for endometriosis and pelvic pain Discussed with patient the importance of outpatient follow up and need to follow through the treatment.Patient voices understanding the rationale for follow up Keep blood sugars under control Continue workup and management as per ER physciain
--- NOTE | 2016-11-01 22:28 | C.PDOC ---
Time Seen by Provider: 11/01/16 16:17 Chief Complaint (Nursing): Female Genitourinary History Per: Patient, Family Onset/Duration Of Symptoms: Days (few) Current Symptoms Are (Timing): Still Present Severity: Severe Quality Of Discomfort: Cramping, "Pain" Alleviating Factors: None Additional History Per: Prior Records Last Menstral Period: Now Past Medical History Reviewed: Historical Data, Nursing Documentation, Vital Signs Vital Signs: Last Vital Signs Temp 99.3 F 11/01/16 20:14 Pulse 88 11/01/16 20:14 Resp 16 11/01/16 20:14 BP 152/96 H 11/01/16 20:14 Pulse Ox 100 11/01/16 20:14 - Medical History PMH: Anemia, Diabetes (type II), Kidney Stones Surgical History: Endoscopy - [facility] Procedures BLOW THERAPEUT INTO TUBE (06/09/14) D & C NEC (06/09/14) PACKED CELL TRANSFUSION (09/27/13) RETROGRADE PYELOGRAM (06/20/14) TRANSFUSE NONAUT RED BLOOD CELLS IN PERIPH VEIN, PERC (02/28/15) URETERAL CATHETERIZATION (06/20/14) Family History: States: Unknown Family Hx - Social History Hx Tobacco Use: Yes Hx Alcohol Use: No Hx Substance Use: No - Immunization History Hx Tetanus Toxoid Vaccination: Yes Hx Influenza Vaccination: No Hx Pneumococcal Vaccination: No Review Of Systems Except As Marked, All Systems Reviewed And Found Negative. Constitutional: Negative for: Fever, Weakness Cardiovascular: Negative for: Chest Pain Respiratory: Negative for: Shortness of Breath Gastrointestinal: Negative for: Vomiting, Diarrhea Genitourinary: Positive for: Vaginal Bleeding, Pelvic Pain. Negative for: Dysuria Musculoskeletal: Negative for: Neck Pain, Back Pain Skin: Negative for: Rash Neurological: Negative for: Weakness, Numbness Physical Exam - Physical Exam Appears: Non-toxic, Other (Uncomfortable, in pain) Skin: Normal Color, Warm, Dry, No Rash Head: Atraumatic, Normacephalic Eye(s): bilateral: Normal Inspection, PERRL, EOMI Neck: Normal ROM, Supple Cardiovascular: Rhythm Regular Respiratory: Normal Breath Sounds, No Accessory Muscle Use Gastrointestinal/Abdominal: Soft, Tenderness (suprapubic) Back: No CVA Tenderness Pelvic: Other (Patient refused) Extremity: Normal ROM Neurological/Psych: Oriented x3, Normal Motor, Normal Sensation ED Course And Treatment - Laboratory Results Result Diagrams: 11/01/16 16:53 11/01/16 16:53 Urine POC: Negative O2 Sat by Pulse Oximetry: 100 Pulse Ox Interpretation: Normal - CT Scan/US Pelvic US Other Rad Studies (CT/US): Read By Radiologist, Radiology Report Reviewed CT/US Interpretation: IMPRESSION: Enlarged fibroid uterus; persistent complex cystic right ovarian. lesion difficult to further characterize Progress - Interventions Interventions:: Observation, Intravenous fluid - Medications Administered Intravenous: NSAID, Opiate - Data Reviewed Data Reviewed: Lab, Diagnostic imaging, Old records - Patient Status Patient status: Mostly improved - Continuity of Care Discussed patient case with:: Patient, Family-HIPPA compliant, ED Nurse Discussed pt. case with reporting consultant/specialty: Obstetrics/Gynecology - Patient Plan Patient Plan: Discharge, F/U with PCP, Continue present meds Disposition Discussed With : Filiberto Spivey Comment: She examined pt in the ED. She states pt likely has endometriosis. Doctor Will See Patient In The: ED Counseled Patient/Family Regarding: Studies Performed, Diagnosis, Need For Followup, Rx Given - Disposition Disposition: HOME/ ROUTINE Disposition Time: 22:29 Condition: IMPROVED Additional Instructions: Follow up with your Behavioral Medical Director for further evaluation and treatment. Return to the ER if you develop fever, vomiting, worsening of symptoms or if you have any other concerns. Prescriptions: traMADol/Acetaminophen [Ultracet 325 MG-37.5 MG] 1 tab PO Q4 PRN #30 tab PRN Reason: Pain Instructions: Endometriosis (ED) Forms: [employer] (Palestinian) Print Language: KINYARWANDA - Clinical Impression Clinical Impression: Pelvic pain, Endometriosis
[2016-11-01 22:38] VITALS: BP 129/75; PULSE 93; RESP 18; TEMP 98.4; O2SAT 99
== END 2016-11-01 22:55 | disposition home or self-care (01) ==
LOC: C.ER 15:16
DX: N80.9 Endometriosis, unspecified (principal); R10.2 Pelvic and perineal pain
CPT/HCPCS: 76830; 76856; 80053; 81001; 84703; 85025; 96361; 96374; 96375; 96376; 99285; J1885; J2270; J7040

== ENCOUNTER 2016-11-21 21:09 | Emergency (ER) | payer SELFPAY ==
[2016-11-21 21:10] VITALS: BMI 36.8
[2016-11-21 21:16] VITALS: O2SAT 98
[2016-11-21] MEDS ORDERED: Sodium Chloride 0.9% 1,000 ML IV ONE (21:39)
[2016-11-21] MEDS ORDERED: DiphenhydrAMINE 50 mg/ml Inj IVP STA (21:40)
--- NOTE | 2016-11-21 21:47 | C.PDOC ---
History Of Present Illness 36 yo female w/PMHx of endometriosis, chronic abdominal pain, come in for evaluation suprapubic lower abdominal pain gradually developed for past few days. Pt reports, similar sx in past. Pt describes pain as localized, severe associated with mild pain on urination. Pt denies fever, chills, recent illness , sore throat, CP, SOB, dyspnea, diaphoresis, palpitation, V/D, hematuria, vaginal irritation or discharges. At present time, pt appears in severe pain, crunching over, crying in pain. FYI: records from previous visit to ED review, when pt was seen in ED multiple, times due to abdominal pain and Tx with narcotic. Last visit was on 10/23/16. Time Seen by Provider: 11/21/16 21:34 Chief Complaint (Nursing): Abdominal Pain History Per: Patient Onset/Duration Of Symptoms: Gradual Past Medical History Reviewed: Historical Data, Nursing Documentation, Vital Signs Vital Signs: Last Vital Signs Temp 98.1 F 11/22/16 00:49 Pulse 78 11/22/16 00:49 Resp 18 11/22/16 00:49 BP 113/70 11/22/16 00:49 Pulse Ox 98 11/22/16 00:49 - Medical History PMH: Anemia, Diabetes (type II), Kidney Stones, Chronic Kidney Disease Surgical History: Endoscopy - [facility] Procedures BLOW THERAPEUT INTO TUBE (06/09/14) D & C NEC (06/09/14) PACKED CELL TRANSFUSION (09/27/13) RETROGRADE PYELOGRAM (06/20/14) TRANSFUSE NONAUT RED BLOOD CELLS IN PERIPH VEIN, PERC (02/28/15) URETERAL CATHETERIZATION (06/20/14) Family History: States: No Known Family Hx - Social History Hx Tobacco Use: Yes Hx Alcohol Use: No Hx Substance Use: No - Immunization History Hx Tetanus Toxoid Vaccination: No Hx Influenza Vaccination: No Hx Pneumococcal Vaccination: No Review Of Systems Except As Marked, All Systems Reviewed And Found Negative. Constitutional: Negative for: Fever, Chills ENT: Negative for: Ear Discharge, Nose Discharge, Throat Pain Cardiovascular: Negative for: Chest Pain Respiratory: Negative for: Cough, Shortness of Breath, Wheezing Gastrointestinal: Positive for: Abdominal Pain. Negative for: Vomiting, Diarrhea, Melena, Hematochezia, Hematemesis Genitourinary: Negative for: Dysuria, Frequency, Incontinence Musculoskeletal: Negative for: Back Pain Skin: Negative for: Rash Neurological: Negative for: Weakness, Numbness, Altered Mental Status, Headache , Dizziness Physical Exam - Physical Exam Appears: Well, Non-toxic, No Acute Distress Skin: Normal Color, Warm, Dry, No Rash Eye(s): bilateral: PERRL Nose: No Flaring, No Discharge Oral Mucosa: Moist, No Drooling Throat: No Erythema, No Exudate, No Drooling Neck: Supple Cardiovascular: Rhythm Regular Respiratory: No Decreased Breath Sounds, No Accessory Muscle Use, No Stridor, No Wheezing Gastrointestinal/Abdominal: Soft, Tenderness ((+)diffuse lower abdominal tenderness more suprapubic.), No Distention, No Guarding, No Rebound Back: No CVA Tenderness Extremity: No Tenderness, No Deformity, No Swelling Neurological/Psych: Oriented x3, Normal Speech ED Course And Treatment - Laboratory Results Result Diagrams: 11/21/16 21:50 11/21/16 21:50 Lab Interpretation: No Changes Compared To Prior Results Urine POC: Negative O2 Sat by Pulse Oximetry: 98 Pulse Ox Interpretation: Normal - CT Scan/US Transvaginal US Other Rad Studies (CT/US): Read By Radiologist, Radiology Report Reviewed CT/US Interpretation: CLINICAL HISTORY: 36 years old, female; Pain; Other: Suprapubic pain. TECHNIQUE: Real-time transvaginal pelvic ultrasound (complete ) with image documentation. Transvaginal. imaging was used for better evaluation of the endometrium and adnexa. COMPARISON: PELVIS/TRANSVAG US 2016 6:42:32 PM. FINDINGS: Uterus/cervix: Uterus measures 11.3 x 5.6 x 7.9 cm in size. Few uterine masses, largest measuring. 4.2 x 2.7 x 4.5 cm. Endometrium : 0.5 cm in thickness. Right ovary: 6.3 x 5.2 x 6.1 cm in size. 4.9 x 4.5 x 4.6 cm septated hypoechoic lesion with internal. echoes. Normal flow. Left ovary: 2.8 x 2.6 x 2.5 cm in size. No mass. Normal flow. Free fluid: No significant free fluid. Bladder: Empty bladder which cannot be evaluated with this probe. IMPRESSION: 1. Probable complex RIGHT ovarian cyst. Recommend sonographic followup in 6 weeks to ensure. resolution and exclude other etiologies. 2. Probable fibroid uterus. Dictated and Authenticated by: Jeet De Jesus MD. 11/22/2016 12:01 AM Eastern Time ([place] & [place]) Progress Note: Pt was OBs in ED for 3 hours and reports mod improvement in sx. On re-evaluation, pt is awake, not in any apparent distress. Afebrile hemodynamicaly stable. Non-toxic. Tolerate Po well in ED. PulseOx 98% RA. ENT: no acute findings. Neck: Supple, (-) meningeal sign. Lungs: CTA B/L, BS equal B /L. ABd: benign, (-) guarding, (-) rebound. Back: (-) CVA tenderness. Blood work, UA results review and appears without acute changes compare to previous visit to ED ( last 2 weeks ago). Imaging review and also c/w previous findings on US, no acute new changes noted. Patient has clinical findings c/w abdominal pain, chronic, hx of endometriosis, Right ovarian cyst. pt advised on course of ds. ref. to f/u with MEDICAL UNIT SECRETARY in 2-3 days for re-evaluation, pain management for further pain control. Return to ED if any worsening for new changes. Disposition Counseled Patient/Family Regarding: Studies Performed, Diagnosis, Need For Followup, Rx Given - Disposition [facility] [Provider Group] [facility] [Provider Group] Disposition: HOME/ ROUTINE Disposition Time: 00:22 Condition: STABLE Additional Instructions: FOLLOW UP WITH MEDICAL UNIT SECRETARY AND PAIN MANAGEMENT IN 2-3 DAYS FOR RE-EVALUATION AND PAIN CONTROL. RETURN TO ED IF ANY NEW CHANGES. Instructions: Ovarian Cyst (ED), Abdominal Pain (ED) Forms: [employer] (Norwegian) Print Language: SOUTH KOREAN - Clinical Impression Clinical Impression: Ovarian cyst, Abdominal pain
[2016-11-21 21:54] LABS: BASO # 0.1 K/uL (0.0-0.2); BASO % 1.3 % (0.0-2.0); EOS # 0.3 K/uL (0.0-0.7); EOS % 2.8 % (0.0-4.0); HEMATOCRIT 28.8 % (34.0-47.0); LYMPH # 2.6 K/uL (1.0-4.3); LYMPH % 25.1 % (20.0-40.0); MEAN CELL VOLUME 66.7 fL (81.0-99.0); MEAN CORPUSCULAR HEMOGLOBIN 21.1 pg (27.0-31.0); MEAN CORPUSCULAR HGB CONC 31.6 g/dL (33.0-37.0); MEAN PLATELET VOLUME 7.6 fL (7.2-11.7); MONO # 0.8 K/uL (0.0-0.8); MONO % 7.2 % (0.0-10.0); NRBC % 0.2 % (0.0-2.0); RED CELL DISTRIBUTION WIDTH 16.2 % (11.5-14.5); WHITE BLOOD COUNT 10.5 K/uL (4.8-10.8)
[2016-11-21] MEDS ORDERED: DiphenhydrAMINE 50 mg/ml Inj ONE (21:57)
[2016-11-21] MEDS ORDERED: Sodium Chloride 0.9% 1,000 ML ONE (21:57)
[2016-11-21 22:11] LABS: CHLORIDE 100 mmol/L (98-107); POTASSIUM 3.7 mmol/L (3.6-5.2); SODIUM 134 mmol/L (132-148)
[2016-11-21 22:13] LABS: ALKALINE PHOSPHATASE 94 U/L (38-126); AST/SGOT 52 U/L (14-36); BILIRUBIN,TOTAL 0.5 mg/dL (0.2-1.3); CARBON DIOXIDE 22 mmol/L (22-30); GFR AFRICAN-AMERICAN > 60; TOTAL PROTEIN 8.3 g/dL (6.3-8.3)
[2016-11-21 22:14] LABS: ALT/SGPT 66 U/L (9-52); BLOOD UREA NITROGEN 11 mg/dL (7-17); CALCIUM 8.9 mg/dl (8.6-10.4); GLUCOSE,RANDOM 91 mg/dL (65-105)
[2016-11-21 22:16] LABS: RBC URINE < 1 /hpf (0-3); URINE BILIRUBIN NEGATIVE (NEGATIVE); URINE BLOOD NEGATIVE (NEGATIVE); URINE COLOR Straw (YELLOW); URINE GLUCOSE (UA) NORMAL (Normal); URINE KETONE NEGATIVE (NEGATIVE); URINE LEUKOCYTE ESTERASE NEG Leu/uL (Negative); URINE PROTEIN NEGATIVE (NEGATIVE); URINE UROBILINOGEN NORMAL mg/dL (0.2-1.0); WBC URINE < 1 /hpf (0-5)
--- NOTE | 2016-11-22 00:02 | US ---
EXAM: US Pelvis Complete, Transabdominal CLINICAL HISTORY: 36 years old, female; Pain; Other: Suprapubic pain TECHNIQUE: Real-time transabdominal pelvic ultrasound (complete) with image documentation. COMPARISON: PELVIS/TRANSVAG US 11/01/2016 6:42:32 PM FINDINGS: Uterus/cervix: Uterus measures 11.3 x 5.6 x 7.9 cm in size. Few uterine masses, largest measuring 4.2 x 2.7 x 4.5 cm. Endometrium: 0.5 cm in thickness. Right ovary: 6.3 x 5.2 x 6.1 cm in size. 4.9 x 4.5 x 4.6 cm septated hypoechoic lesion with internal echoes. Normal flow. Left ovary: 2.8 x 2.6 x 2.5 cm in size. No mass. Normal flow. Free fluid: No significant free fluid. Bladder: Unremarkable as visualized. IMPRESSION: 1. Probable complex RIGHT ovarian cyst. Recommend sonographic followup in 6 weeks to ensure resolution and exclude other etiologies. 2. Probable fibroid uterus. EXAM: US Pelvis, Transvaginal CLINICAL HISTORY: 36 years old, female; Pain; Other: Suprapubic pain TECHNIQUE: Real-time transvaginal pelvic ultrasound (complete) with image documentation. Transvaginal imaging was used for better evaluation of the endometrium and adnexa. COMPARISON: PELVIS/TRANSVAG US 11/01/2016 6:42:32 PM FINDINGS: Uterus/cervix: Uterus measures 11.3 x 5.6 x 7.9 cm in size. Few uterine masses, largest measuring 4.2 x 2.7 x 4.5 cm. Endometrium: 0.5 cm in thickness. Right ovary: 6.3 x 5.2 x 6.1 cm in size. 4.9 x 4.5 x 4.6 cm septated hypoechoic lesion with internal echoes. Normal flow. Left ovary: 2.8 x 2.6 x 2.5 cm in size. No mass. Normal flow. Free fluid: No significant free fluid. Bladder: Empty bladder which cannot be evaluated with this probe.
[2016-11-22 01:01] VITALS: BP 113/70; PULSE 78; RESP 18; TEMP 98.1
== END 2016-11-22 01:10 | disposition home or self-care (01) ==
LOC: C.ER 21:09
DX: N83.209 Unspecified ovarian cyst, unspecified side (principal); R10.30 Lower abdominal pain, unspecified
CPT/HCPCS: 76830; 76856; 80053; 81001; 84703; 85025; 87086; 96365; 96375; 99284; G0480; J1200; J1741; J7040

== ENCOUNTER 2017-08-07 22:35 | Emergency (ER) | payer SELFPAY ==
[2017-08-07 22:35] VITALS: BMI 36.8
[2017-08-07 22:59] LABS: BASO # 0.1 K/uL (0.0-0.2); BASO % 1.1 % (0.0-2.0); EOS # 0.1 K/uL (0.0-0.7); EOS % 1.3 % (0.0-4.0); HEMOGLOBIN 9.8 g/dL (11.0-16.0); LYMPH # 2.7 K/uL (1.0-4.3); LYMPH % 27.1 % (20.0-40.0); MEAN CELL VOLUME 67.6 fL (81.0-99.0); MEAN CORPUSCULAR HEMOGLOBIN 21.8 pg (27.0-31.0); MEAN CORPUSCULAR HGB CONC 32.3 g/dL (33.0-37.0); MEAN PLATELET VOLUME 8.1 fL (7.2-11.7); MONO # 0.7 K/uL (0.0-0.8); MONO % 7.1 % (0.0-10.0); NEUT # 6.3 K/uL (1.8-7.0); NEUT % 63.4 % (50.0-75.0); RBC 4.48 Mil/uL (3.80-5.20); RED CELL DISTRIBUTION WIDTH 16.4 % (11.5-14.5)
[2017-08-07] MEDS ORDERED: Ammonia 2% Inhalant ONE (23:11)
[2017-08-07 23:18] LABS: ALB/GLOB RATIO 1.2 (1.0-2.1); ALBUMIN 4.3 g/dL (3.5-5.0); ALT/SGPT 63 U/L (9-52); AST/SGOT 42 U/L (14-36); BLOOD UREA NITROGEN 10 mg/dL (7-17); CALCIUM 9.1 mg/dl (8.6-10.4); GFR AFRICAN-AMERICAN > 60; GFR NON-AFRICAN AMERICAN > 60
[2017-08-07] MEDS ORDERED: Lactated Ringer's 1,000 ML IVB ONE (23:59)
--- NOTE | 2017-08-08 00:51 | C.PDOC ---
Time Seen by Provider: 08/07/17 23:38 Chief Complaint (Nursing): Altered Mental Status History Per: Patient, EMS Onset/Duration Of Symptoms: Other (tonight) Usual Baseline: Alert Oriented, Ambulatory Exacerbating Factor(s): Unknown Severity: Moderate Additional History Per: Prior Records Associated Symptoms: Confused Past Medical History Reviewed: Historical Data, Nursing Documentation, Vital Signs Vital Signs: Last Vital Signs Temp 97.8 F 08/07/17 22:43 Pulse 87 08/07/17 22:43 Resp 22 08/07/17 22:43 BP 135/79 08/07/17 22:43 Pulse Ox 100 08/08/17 00:52 - Medical History PMH: Anemia, Diabetes (type II), Kidney Stones, Chronic Kidney Disease Other PMH: Endometriosis Surgical History: Endoscopy - [facility] Procedures BLOW THERAPEUT INTO TUBE (06/09/14) D & C NEC (06/09/14) PACKED CELL TRANSFUSION (09/27/13) RETROGRADE PYELOGRAM (06/20/14) TRANSFUSE NONAUT RED BLOOD CELLS IN PERIPH VEIN, PERC (02/28/15) URETERAL CATHETERIZATION (06/20/14) Family History: States: Unknown Family Hx - Social History Hx Tobacco Use: Yes Hx Alcohol Use: No Hx Substance Use: No - Immunization History Hx Tetanus Toxoid Vaccination: No Hx Influenza Vaccination: No Hx Pneumococcal Vaccination: No Review Of Systems Except As Marked, All Systems Reviewed And Found Negative. Constitutional: Negative for: Fever Cardiovascular: Negative for: Chest Pain Respiratory: Negative for: Shortness of Breath Gastrointestinal: Positive for: Abdominal Pain (lower). Negative for: Vomiting Musculoskeletal: Negative for: Neck Pain, Back Pain Skin: Negative for: Rash Neurological: Positive for: Altered Mental Status. Negative for: Headache Psych: Negative for: Suicidal ideation Physical Exam - Physical Exam Appears: Non-toxic, No Acute Distress Skin: Normal Color, Warm, Dry Head: Atraumatic, Normacephalic Eye(s): bilateral: PERRL Neck: Normal ROM, Supple Cardiovascular: Rhythm Regular Respiratory: Normal Breath Sounds, No Accessory Muscle Use Gastrointestinal/Abdominal: Soft, Tenderness (suprapubic) Extremity: Normal ROM Neurological/Psych: Oriented x3, Slow To Respond With Command Gait: Unable To Assess ED Course And Treatment - Laboratory Results Result Diagrams: 08/07/17 22:57 08/07/17 22:57 O2 Sat by Pulse Oximetry: 100 Pulse Ox Interpretation: Normal Disposition - Disposition Disposition Time: 00:58 Condition: FAIR - Clinical Impression Clinical Impression: Altered mental status Physician Patient Turnover Patient Signed Over To: Jimmy Hu Handoff Comments: to f/up head CT and reassess/dispo pt.
[2017-08-08 01:24] LABS: HCG,QUALITATIVE URINE NEGATIVE (NEGATIVE)
[2017-08-08 01:34] LABS: SQUAMOUS EPITHIAL 1 /hpf (0-5); URINE BILIRUBIN NEGATIVE (NEGATIVE); URINE BLOOD NEGATIVE (NEGATIVE); URINE CLARITY Clear (Clear); URINE COLOR Straw (YELLOW); URINE GLUCOSE (UA) 3+ mg/dL (Normal); URINE LEUKOCYTE ESTERASE NEG Leu/uL (Negative); URINE PROTEIN NEGATIVE (NEGATIVE); URINE UROBILINOGEN NORMAL mg/dL (0.2-1.0)
[2017-08-08 01:40] LABS: BARBITURATES, UR NEGATIVE (NEGATIVE); BENZODIAZEPINES, UR NEGATIVE (NEGATIVE); OPIATES, UR NEGATIVE (NEGATIVE); PHENCYCLIDINE, UR NEGATIVE (NEGATIVE)
[2017-08-08 02:39] VITALS: BP 132/71; PULSE 92; TEMP 98.1; O2SAT 99
[2017-08-08 02:51] VITALS: RESP 18
--- NOTE | 2017-08-08 08:22 | CT ---
PROCEDURE: CT HEAD WITHOUT CONTRAST. HISTORY: Altered mental status COMPARISON: None available. TECHNIQUE: Axial computed tomography images were obtained through the head/brain without intravenous contrast. Radiation dose: Total exam DLP = 803 mGy-cm. This CT exam was performed using one or more of the following dose reduction techniques: Automated exposure control, adjustment of the mA and/or kV according to patient size, and/or use of iterative reconstruction technique. FINDINGS: HEMORRHAGE: No intracranial hemorrhage. BRAIN: No mass effect or edema. No atrophy or chronic microvascular ischemic changes. VENTRICLES: Unremarkable. No hydrocephalus. CALVARIUM: Unremarkable. PARANASAL SINUSES: Unremarkable as visualized. No significant inflammatory changes. MASTOID AIR CELLS: Unremarkable as visualized. No inflammatory changes. OTHER FINDINGS: None. IMPRESSION: No acute intracranial abnormalities. If symptoms persists, consider MRI. These findings were preliminarily reported at 1:05 a.m. on 08/08/[address] Vernon Constantino from [facility].
== END 2017-08-08 02:48 | disposition home or self-care (01) ==
LOC: C.ER 22:35
DX: F41.9 Anxiety disorder, unspecified (principal); F12.10 Cannabis abuse, uncomplicated; E11.22 Type 2 diabetes mellitus with diabetic chronic kidney disease; N18.9 Chronic kidney disease, unspecified
CPT/HCPCS: 70450; 80053; 81001; 82948; 84703; 85025; 99285; G0480; J7120

== ENCOUNTER 2017-11-21 17:50 | Inpatient (IN) | payer MEDICAID ==
[2017-11-21 17:51] VITALS: BMI 36.8
[2017-11-21 18:28] LABS: SQUAMOUS EPITHIAL 6 /hpf (0-5); URINE BACTERIA FEW (<OCC); URINE BILIRUBIN NEGATIVE (NEGATIVE); URINE BLOOD 1+ (NEGATIVE); URINE CLARITY Clear (Clear); URINE COLOR Straw (YELLOW); URINE GLUCOSE (UA) 3+ mg/dL (Normal); URINE LEUKOCYTE ESTERASE 1+ Leu/uL (Negative); URINE PROTEIN NEGATIVE (NEGATIVE); URINE UROBILINOGEN NORMAL mg/dL (0.2-1.0)
[2017-11-21 18:29] LABS: HCG,QUALITATIVE URINE NEGATIVE (NEGATIVE)
[2017-11-21] MEDS ORDERED: Sodium Chloride 0.9% 1,000 ML IV ONE ×2 (19:05→19:57)
[2017-11-21 19:23] LABS: BASO % 0.5 % (0.0-2.0); EOS # 0.1 K/uL (0.0-0.7); EOS % 1.1 % (0.0-4.0); LYMPH # 2.1 K/uL (1.0-4.3); LYMPH % 22.7 % (20.0-40.0); MEAN CORPUSCULAR HEMOGLOBIN 18.2 pg (27.0-31.0); MONO # 0.5 K/uL (0.0-0.8); MONO % 5.6 % (0.0-10.0); NEUT # 6.5 K/uL (1.8-7.0); NEUT % 70.1 % (50.0-75.0); NRBC % 0.1 % (0.0-2.0); RBC 4.16 Mil/uL (3.80-5.20); WHITE BLOOD COUNT 9.3 K/uL (4.8-10.8)
[2017-11-21 19:26] LABS: HEMOGLOBIN 7.6 g/dL (11.0-16.0); MEAN CELL VOLUME 60.7 fL (81.0-99.0)
--- NOTE | 2017-11-21 19:36 | C.PDOC ---
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 ALso c/o abdominal pain. States she has had the abdominal pain for over 8 years, varying in intensity. (+) dizziness, (+) sob (+) palpitations (+) mild swelling to her legs (L >R), fever (subjective), chills, and excessive thirst. Reports she is compliant with her medications and had a reading of 140 this morning when she checked her glucose. Patient also notes her last menstrual cycle from October 25 to was heavy. Admits she has not been sexually active for 2 weeks due to the vaginal pain. Denies concern for STDs. Denies vomiting, nausea, vaginal discharge, chest pain, syncope, travel and any other associated symptoms. Time Seen by Provider: 11/21/17 18:04 Chief Complaint (Nursing): Female Genitourinary History Per: Patient History/Exam Limitations: no limitations Onset/Duration Of Symptoms: Days Current Symptoms Are (Timing): Still Present Past Medical History Reviewed: Historical Data, Nursing Documentation, Vital Signs Vital Signs: Last Vital Signs Temp 98.6 F 11/21/17 17:57 Pulse 106 H 11/21/17 17:57 Resp 18 11/21/17 17:57 BP 108/73 11/21/17 17:57 Pulse Ox 99 11/21/17 17:57 - Medical History PMH: Anemia, Diabetes (type II), Kidney Stones, Chronic Kidney Disease Surgical History: Endoscopy - [facility] Procedures BLOW THERAPEUT INTO TUBE (06/09/14) D & C NEC (06/09/14) PACKED CELL TRANSFUSION (09/27/13) RETROGRADE PYELOGRAM (06/20/14) TRANSFUSE NONAUT RED BLOOD CELLS IN PERIPH VEIN, PERC (02/28/15) URETERAL CATHETERIZATION (06/20/14) Family History: States: Unknown Family Hx - Social History Hx Tobacco Use: Yes Hx Alcohol Use: No Hx Substance Use: No - Immunization History Hx Tetanus Toxoid Vaccination: No Hx Influenza Vaccination: No Hx Pneumococcal Vaccination: No Review Of Systems Except As Marked, All Systems Reviewed And Found Negative. Constitutional: Positive for: Fever, Chills, Other (excessive thirst.) Gastrointestinal: Negative for: Nausea, Vomiting Genitourinary: Positive for: Other (vaginal pain and irritation. small amounts of blood in the urine. ) Musculoskeletal: Positive for: Leg Pain (left leg swelling. ) Neurological: Positive for: Dizziness Physical Exam - Physical Exam Appears: Non-toxic, No Acute Distress, Other (obese) Skin: Normal Color, Warm, Dry Head: Atraumatic, Normacephalic Eye(s): bilateral: Normal Inspection, EOMI Nose: Normal Oral Mucosa: Moist Neck: Normal ROM, Supple Chest: Symmetrical, No Deformity Cardiovascular: Rhythm Regular Respiratory: Normal Breath Sounds, No Rales, No Rhonchi, No Wheezing Gastrointestinal/Abdominal: Soft, Tenderness (to the lower abdomen. ), No Mass, No Distention, No Rebound Back: No CVA Tenderness, No Vertebral Tenderness, No Paraspinal Tenderness Pelvic: No Normal External Exam (mild erythema), Vaginal Discharge ((+) thick white clumping, pt unable to tolerate full pelvic exam, Female pure culture operator: La Chance) Extremity: Normal ROM (x4), Pedal Edema (mild) Neurological/Psych: Oriented x3, Normal Speech, Normal Motor, Normal Sensation Gait: Steady ED Course And Treatment - Laboratory Results Result Diagrams: 11/21/17 19:18 11/21/17 19:18 O2 Sat by Pulse Oximetry: 99 (RA) Pulse Ox Interpretation: Normal Progress Note: Blood work sent. Given Diflucan and Novolin R. Urine culture sent. Urinalysis and Urine HCG ordered. Case discussed with Dr Manuel, agree dupon plan and admission. Case discussed with Dr Wallace, agreed upon admission and consult COMPACTOR DRIVER. Case discussed with Dr Saeed, informed of the consult. Disposition - Disposition Disposition: HOSPITALIZED Disposition Time: 20:30 Condition: STABLE - Clinical Impression Clinical Impression: Uncontrolled diabetes mellitus, Symptomatic anemia, Vulvovaginal candidiasis - PA / ENGINEERING PROGRAM ANALYST / Resident Statement MD/DO has reviewed & agrees with the documentation as recorded. - Scribe Statement The provider has reviewed the documentation as recorded by the Scribe (La Chance) All medical record entries made by the Scribe were at my direction and personally dictated by me. I have reviewed the chart and agree that the record accurately reflects my personal performance of the history, physical exam, medical decision making, and the department course for this patient. I have also personally directed, reviewed, and agree with the discharge instructions and disposition.
[2017-11-21 19:56] LABS: ALB/GLOB RATIO 1.1 (1.0-2.1); ALBUMIN 3.6 g/dL (3.5-5.0); ALT/SGPT 56 U/L (9-52); AST/SGOT 26 U/L (14-36); BLOOD UREA NITROGEN 15 mg/dL (7-17); CALCIUM 8.6 mg/dl (8.6-10.4); GFR NON-AFRICAN AMERICAN > 60; LIPASE 193 U/L (23-300)
[2017-11-21] MEDS ORDERED: (Novolin R) Insulin Human Regular 100 units/ml vial IVP ONE ×2 (20:05→21:50)
[2017-11-21] MEDS ORDERED: (Novolin R) Insulin Human Regular 100 units/ml vial ONE (20:19)
[2017-11-21] MEDS ORDERED: Glucagon Recombinant 1 mg Inj IM PRN (21:50)
[2017-11-21] MEDS ORDERED: Dextrose 50% SYRINGE Inj (50 ml) IV PRN (21:50)
[2017-11-21] MEDS: (Novolin R) Insulin Human Regular 100 units/ml vial SC SCH ×2 (22:51→22:56)
[2017-11-21] MEDS ORDERED: Tramadol 25 mg PO ONE (23:58)
[2017-11-22] MEDS: (Novolin R) Insulin Human Regular 100 units/ml vial SC SCH ×2 (00:08→21:40)
--- NOTE | 2017-11-22 00:11 | CP.PCM.HP ---
<Franky Alatorre - Last Filed: 11/22/17 00:09> History of Present Illness - History of Present Illness History of Present Illness: Franky Alatorre PGY1 H&P for Dr. Wallace Pt is a 37yo F with PMH endometriosis, DM2 who presented to ED with abdominal pain, vaginal itchiness, and increased thirst x2 weeks. She repots a constant, intense wilfred abdominal pain that she rates 7/10. She tried taking advil at home which did not help. She also reports vaginal irritation that causes pain with urination. She tried using monistat at home which hdid not help. She also reports increased thirst and urination, nausea, and decreased appetite and a 8lb weight loss over the past 2 weeks. She reports taking her insulin(?) and metformin 500 at home as prescribed and checking her sugars which ranged from 70-140, with the highest reading being 400. She reports associated palpitations, dizziness, and chest pain when walking. She also reports subjective fever, chills, and sweating. She denies any headaches, blurry vision, or diarrhea. LMP was 9/10 until 11/09, which was heavy with many clots. SxH: laparoscopy (endometriosis) SocH: smokes 2 cigs/day x15 yrs, denies etoh or recreational drug use FamH: DM in mother and father Allergies: NKDA Meds: insulin (unspecified), metformin 500 PMD: none Present on Admission - Present on Admission Any Indicators Present on Admission: No Review of Systems - Review of Systems Review of Systems: as per HPI Past Patient History - Infectious Disease Hx of Infectious Diseases: None - Past Medical History & Family History Past Medical History?: Yes - Past Social History Smoking Status: Light Smoker < 10 Cigarettes Daily - CARDIAC Hx Cardiac Disorders: No - NEUROLOGICAL Hx Neurological Disorder: No - HEENT Hx Cataracts: No - RENAL Hx Chronic Kidney Disease: Yes Hx Kidney Stones: Yes - ENDOCRINE/METABOLIC Hx Endocrine Disorders: Yes Hx Diabetes Mellitus Type 2: Yes - HEMATOLOGICAL/ONCOLOGICAL Hx Anemia: Yes - INTEGUMENTARY Hx Dermatological Problems: No - MUSCULOSKELETAL/RHEUMATOLOGICAL Hx Musculoskeletal Disorders: No Hx Falls: No - GASTROINTESTINAL Hx Gastrointestinal Disorders: No - PSYCHIATRIC Hx Substance Use: No - SURGICAL HISTORY Hx Surgeries: Yes Other/Comment: Kidney stent; laparoscopy, d&c, hysteroscopy - ANESTHESIA Hx Anesthesia: Yes Hx Anesthesia Reactions: No Hx Malignant Hyperthermia: No Meds Allergies/Adverse Reactions: Allergies Allergy/AdvReac Type Severity Reaction Status Date / Time No Known Allergies Allergy Verified 08/07/17 22:52 Physical Exam - Constitutional Appears: Well, No Acute Distress - Head Exam Head Exam: ATRAUMATIC, NORMOCEPHALIC - Eye Exam Eye Exam: EOMI, Normal appearance, PERRL Pupil Exam: NORMAL ACCOMODATION - ENT Exam ENT Exam: Mucous Membranes Moist - Respiratory Exam Respiratory Exam: Clear to Auscultation Bilateral, NORMAL BREATHING PATTERN. absent: Rales, Rhonchi, Wheezes - Cardiovascular Exam Cardiovascular Exam: REGULAR RHYTHM, +S1, +S2. absent: Gallop, Rubs, Systolic Murmur - GI/Abdominal Exam GI & Abdominal Exam: Normal Bowel Sounds, Soft, Tenderness. absent: Distended, Firm, Guarding Additional comments: tenderness to palpation of lower abdomen suprapubic tenderness - Extremities Exam Extremities exam: Positive for: normal inspection. Negative for: pedal edema - Neurological Exam Neurological exam: Alert, CN II-XII Intact, Oriented x3 - Psychiatric Exam Psychiatric exam: Normal Affect, Normal Mood - Skin Skin Exam: Normal Color Results - Vital Signs Recent Vital Signs: Last Vital Signs Temp 98.7 F 11/21/17 22:45 Pulse 87 11/21/17 22:45 Resp 16 11/21/17 22:45 BP 105/70 11/21/17 22:45 Pulse Ox 98 11/21/17 22:45 - Labs Result Diagrams: 11/21/17 19:18 11/21/17 19:18 Labs: Laboratory Results - last 24 hr 11/21/17 11/21/17 11/21/17 18:17 19:18 19:18 WBC 9.3 RBC 4.16 Hgb 7.6 L D Hct 25.2 L MCV 60.7 L D MCH 18.2 L MCHC 30.0 L RDW 18.0 H Plt Count 338 MPV 9.0 Neut % (Auto) 70.1 Lymph % (Auto) 22.7 Carlton % (Auto) 5.6 Eos % (Auto) 1.1 Baso % (Auto) 0.5 Neut # (Auto) 6.5 Lymph # (Auto) 2.1 Carlton # (Auto) 0.5 Eos # (Auto) 0.1 Baso # (Auto) 0.0 Differential Comment D-Dimer, Quantitative Sodium 130 L Potassium 4.2 Chloride 96 L Carbon Dioxide 23 Anion Gap 15 BUN 15 Creatinine 0.7 Est GFR ( Amer) > 60 Est GFR (Non-Af Amer) > 60 POC Glucose (mg/dL) Random Glucose 594 H* D Calcium 8.6 Total Bilirubin 0.4 AST 26 ALT 56 H Alkaline Phosphatase 153 H D Total Protein 6.7 Albumin 3.6 Globulin 3.1 Albumin/Globulin Ratio 1.1 Lipase 193 Urine Color Straw Urine Clarity Clear Urine pH 6.0 Ur Specific Omro 1.028 Urine Protein Negative Urine Glucose (UA) 3+ H Urine Ketones 1+ H Urine Blood 1+ H Urine Nitrate Negative Urine Bilirubin Negative Urine Urobilinogen Normal Ur Leukocyte Esterase 1+ H Urine WBC (Auto) 3 Urine RBC (Auto) 7 H Ur Squamous Epith Cells 6 H Urine Bacteria Few H Urine Yeast (Budding) Rare H Urine HCG, Qual Negative B-Hydroxybutyrate 0.70 H Blood Type Antibody Screen 11/21/17 11/21/17 11/21/17 19:18 20:16 21:47 WBC RBC Hgb Hct MCV MCH MCHC RDW Plt Count MPV Neut % (Auto) Lymph % (Auto) Carlton % (Auto) Eos % (Auto) Baso % (Auto) Neut # (Auto) Lymph # (Auto) Carlton # (Auto) Eos # (Auto) Baso # (Auto) Differential Comment D-Dimer, Quantitative < 200 Sodium Potassium Chloride Carbon Dioxide Anion Gap BUN Creatinine Est GFR ( Amer) Est GFR (Non-Af Amer) POC Glucose (mg/dL) 402 H* Random Glucose Calcium Total Bilirubin AST ALT Alkaline Phosphatase Total Protein Albumin Globulin Albumin/Globulin Ratio Lipase Urine Color Urine Clarity Urine pH Ur Specific Omro Urine Protein Urine Glucose (UA) Urine Ketones Urine Blood Urine Nitrate Urine Bilirubin Urine Urobilinogen Ur Leukocyte Esterase Urine WBC (Auto) Urine RBC (Auto) Ur Squamous Epith Cells Urine Bacteria Urine Yeast (Budding) Urine HCG, Qual B-Hydroxybutyrate Blood Type B NEGATIVE Antibody Screen Negative 11/21/17 23:52 WBC RBC Hgb Hct MCV MCH MCHC RDW Plt Count MPV Neut % (Auto) Lymph % (Auto) Carlton % (Auto) Eos % (Auto) Baso % (Auto) Neut # (Auto) Lymph # (Auto) Carlton # (Auto) Eos # (Auto) Baso # (Auto) Differential Comment D-Dimer, Quantitative Sodium Potassium Chloride Carbon Dioxide Anion Gap BUN Creatinine Est GFR ( Amer) Est GFR (Non-Af Amer) POC Glucose (mg/dL) 397 H Random Glucose Calcium Total Bilirubin AST ALT Alkaline Phosphatase Total Protein Albumin Globulin Albumin/Globulin Ratio Lipase Urine Color Urine Clarity Urine pH Ur Specific Omro Urine Protein Urine Glucose (UA) Urine Ketones Urine Blood Urine Nitrate Urine Bilirubin Urine Urobilinogen Ur Leukocyte Esterase Urine WBC (Auto) Urine RBC (Auto) Ur Squamous Epith Cells Urine Bacteria Urine Yeast (Budding) Urine HCG, Qual B-Hydroxybutyrate Blood Type Antibody Screen Assessment & Plan - Assessment and Plan (Free Text) Assessment: Pt is a 37yo F with PMH endometriosis, DM2 who presented to ED with abdominal pain, vaginal itchiness, and increased thirst x2 weeks admitted for evaluation and treatment of hyperglycemia Plan: Hyperglycemia - Pt with h/o DM2, reports compliance with home insulin and metformin - Glucose 594 - Given insulin 5u IV in ED - Accuchecks q6h - Sliding scale low dose - Hold home meds Abdominal Pain - Likely secondary to endometriosis - Long menstrual period with heavy bleeding - H/H 7.6/25.2 - To transfuse 1u PRBC - Monitor CBC in AM - f/u Iron studies - OB consulted, Dr. Saeed f/u recs Vaginal Itching - Likely secondary to yeast infection - Pt given 1 dose diflucan 150 in ED - UA + yeast - f/u UCx PPX - DVT: SCDs - GI: Pepcid - HHD Case reviewed and plan discussed with Dr. Wallace <August Wallace - Last Filed: 11/22/17 06:02> Results - Vital Signs Recent Vital Signs: Last Vital Signs Temp 98.3 F 11/22/17 05:11 Pulse 91 H 11/22/17 05:11 Resp 20 11/22/17 05:11 BP 110/63 11/22/17 05:11 Pulse Ox 98 11/22/17 05:11 - Labs Result Diagrams: 11/21/17 19:18 11/21/17 19:18 Labs: Laboratory Results - last 24 hr 11/21/17 11/21/17 11/21/17 18:17 19:18 19:18 WBC 9.3 RBC 4.16 Hgb 7.6 L D Hct 25.2 L MCV 60.7 L D MCH 18.2 L MCHC 30.0 L RDW 18.0 H Plt Count 338 MPV 9.0 Neut % (Auto) 70.1 Lymph % (Auto) 22.7 Carlton % (Auto) 5.6 Eos % (Auto) 1.1 Baso % (Auto) 0.5 Neut # (Auto) 6.5 Lymph # (Auto) 2.1 Carlton # (Auto) 0.5 Eos # (Auto) 0.1 Baso # (Auto) 0.0 Differential Comment D-Dimer, Quantitative Sodium 130 L Potassium 4.2 Chloride 96 L Carbon Dioxide 23 Anion Gap 15 BUN 15 Creatinine 0.7 Est GFR ( Amer) > 60 Est GFR (Non-Af Amer) > 60 POC Glucose (mg/dL) Random Glucose 594 H* D Calcium 8.6 Total Bilirubin 0.4 AST 26 ALT 56 H Alkaline Phosphatase 153 H D Total Protein 6.7 Albumin 3.6 Globulin 3.1 Albumin/Globulin Ratio 1.1 Lipase 193 Urine Color Straw Urine Clarity Clear Urine pH 6.0 Ur Specific Omro 1.028 Urine Protein Negative Urine Glucose (UA) 3+ H Urine Ketones 1+ H Urine Blood 1+ H Urine Nitrate Negative Urine Bilirubin Negative Urine Urobilinogen Normal Ur Leukocyte Esterase 1+ H Urine WBC (Auto) 3 Urine RBC (Auto) 7 H Ur Squamous Epith Cells 6 H Urine Bacteria Few H Urine Yeast (Budding) Rare H Urine HCG, Qual Negative B-Hydroxybutyrate 0.70 H Blood Type Antibody Screen 11/21/17 11/21/17 11/21/17 19:18 20:16 21:47 WBC RBC Hgb Hct MCV MCH MCHC RDW Plt Count MPV Neut % (Auto) Lymph % (Auto) Carlton % (Auto) Eos % (Auto) Baso % (Auto) Neut # (Auto) Lymph # (Auto) Carlton # (Auto) Eos # (Auto) Baso # (Auto) Differential Comment D-Dimer, Quantitative < 200 Sodium Potassium Chloride Carbon Dioxide Anion Gap BUN Creatinine Est GFR ( Amer) Est GFR (Non-Af Amer) POC Glucose (mg/dL) 402 H* Random Glucose Calcium Total Bilirubin AST ALT Alkaline Phosphatase Total Protein Albumin Globulin Albumin/Globulin Ratio Lipase Urine Color Urine Clarity Urine pH Ur Specific Omro Urine Protein Urine Glucose (UA) Urine Ketones Urine Blood Urine Nitrate Urine Bilirubin Urine Urobilinogen Ur Leukocyte Esterase Urine WBC (Auto) Urine RBC (Auto) Ur Squamous Epith Cells Urine Bacteria Urine Yeast (Budding) Urine HCG, Qual B-Hydroxybutyrate Blood Type B NEGATIVE Antibody Screen Negative 11/21/17 11/22/17 23:52 02:14 WBC RBC Hgb Hct MCV MCH MCHC RDW Plt Count MPV Neut % (Auto) Lymph % (Auto) Carlton % (Auto) Eos % (Auto) Baso % (Auto) Neut # (Auto) Lymph # (Auto) Carlton # (Auto) Eos # (Auto) Baso # (Auto) Differential Comment D-Dimer, Quantitative Sodium Potassium Chloride Carbon Dioxide Anion Gap BUN Creatinine Est GFR ( Amer) Est GFR (Non-Af Amer) POC Glucose (mg/dL) 397 H > 500 H* Random Glucose Calcium Total Bilirubin AST ALT Alkaline Phosphatase Total Protein Albumin Globulin Albumin/Globulin Ratio Lipase Urine Color Urine Clarity Urine pH Ur Specific Omro Urine Protein Urine Glucose (UA) Urine Ketones Urine Blood Urine Nitrate Urine Bilirubin Urine Urobilinogen Ur Leukocyte Esterase Urine WBC (Auto) Urine RBC (Auto) Ur Squamous Epith Cells Urine Bacteria Urine Yeast (Budding) Urine HCG, Qual B-Hydroxybutyrate Blood Type Antibody Screen Assessment & Plan - Date & Time Date: 11/22/17 (I have seen and examined the patient. I agree with the findings and plan of care as documented by Dr. Alatorre. Patient with uncontrolled diabetes. Reports to be compliant with home meds. Hold home meds for now. Accuchecks and NISS. Adjust as necessary. Also with anemia secondary to vaginal bleed. History of endometriosis. Consult to lumber handler. Transfuse 1 unit PRBCs. Recheck CBC in AM. Monitor for acute changes.) Time: 06:00 Attending/Attestation - Attestation I have personally seen and examined this patient.: Yes I have fully participated in the care of the patient.: Yes I have reviewed all pertinent clinical information: Yes
[2017-11-22] MEDS ORDERED: (Novolin R) Insulin Human Regular 100 units/ml vial IVP ONE (02:50)
[2017-11-22] MEDS ORDERED: Tramadol 25 mg PO ONE (03:00)
[2017-11-22 06:54] LABS: IRON 17 ug/dL (37-170)
[2017-11-22 07:01] LABS: ALB/GLOB RATIO 1.1 (1.0-2.1); ALBUMIN 3.6 g/dL (3.5-5.0); ALT/SGPT 46 U/L (9-52); AST/SGOT 23 U/L (14-36); BLOOD UREA NITROGEN 12 mg/dL (7-17); CALCIUM 8.8 mg/dl (8.6-10.4); GFR NON-AFRICAN AMERICAN > 60
[2017-11-22 07:04] LABS: % IRON SATURATION 4 (20-55); TOTAL IRON BINDING CAPACITY 413 ug/dL (250-450)
[2017-11-22 07:11] LABS: BASO % 0.3 % (0.0-2.0); EOS # 0.1 K/uL (0.0-0.7); EOS % 1.4 % (0.0-4.0); HEMOGLOBIN 8.2 g/dL (11.0-16.0); LYMPH # 3.5 K/uL (1.0-4.3); LYMPH % 35.2 % (20.0-40.0); MEAN CORPUSCULAR HEMOGLOBIN 19.1 pg (27.0-31.0); MEAN CORPUSCULAR HGB CONC 30.9 g/dL (33.0-37.0); MONO # 0.7 K/uL (0.0-0.8); NEUT # 5.6 K/uL (1.8-7.0); NEUT % 56.1 % (50.0-75.0); RBC 4.29 Mil/uL (3.80-5.20)
[2017-11-22] MEDS ORDERED: (Novolog) Insulin Aspart, Recombinant 100 u/ml 10 ml vial SC SCH ×3 (07:30→08:45)
[2017-11-22 10:14] LABS: HDL CHOLESTEROL 31 mg/dL (30-70)
[2017-11-22] MEDS ORDERED: Morphine 4 MG/ML VIAL IV ONE (10:20)
[2017-11-22 10:28] LABS: LDL CHOLESTEROL 45 mg/dL (0-129)
[2017-11-22] MEDS ORDERED: Bupivacaine 0.5% Inj(30mL) INJ ONE (10:30)
[2017-11-22] MEDS ORDERED: MethylPREDNISolone Depo 40 mg/ml Inj IM ONE (10:30)
[2017-11-22 10:44] LABS: SQUAMOUS EPITHIAL 2 /hpf (0-5); URINE BACTERIA OCC (<OCC); URINE BILIRUBIN NEGATIVE (NEGATIVE); URINE BLOOD NEGATIVE (NEGATIVE); URINE CLARITY Clear (Clear); URINE COLOR Yellow (YELLOW); URINE GLUCOSE (UA) 2+ mg/dL (Normal); URINE LEUKOCYTE ESTERASE 3+ Leu/uL (Negative); URINE PROTEIN NEGATIVE (NEGATIVE); URINE UROBILINOGEN NORMAL mg/dL (0.2-1.0)
--- NOTE | 2017-11-22 11:57 | CP.PCM.PN ---
<Kathrine Jerry P - Last Filed: 11/22/17 22:07> Subjective - Date & Time of Evaluation Date of Evaluation: 11/22/17 Time of Evaluation: 08:00 - Subjective Subjective: PGY-[address] Carcamo. Patient seen and examined sitting in bed, in acute distress with pain. She reported having cramps and severe L lower abdominal pain post ultrasound. She graded her pain to be a 12/10, and cramping. Patient also complains of vaginal pruritis. She denies vaginal bleeding, nausea, vomiting, diarrhea/constipation, headache, dizziness, chest pain or shortness of breath. Objective - Vital Signs/Intake and Output Vital Signs (last 24 hours): Temp Pulse Resp BP Pulse Ox 99.0 F 83 20 115/69 97 11/22/17 07:00 11/22/17 10:26 11/22/17 07:00 11/22/17 10:26 11/22/17 07:00 Intake and Output: 11/22/17 11/22/17 06:59 18:59 Intake Total 420 Balance 420 - Medications Medications: Current Medications Acetaminophen (Tylenol 325mg Tab) 650 mg PO Q6 PRN PRN Reason: Pain, Mild (1-3) Dextrose (Dextrose 50% Inj) 0 ml IV STAT PRN; Protocol PRN Reason: Hypoglycemia Protocol Dextrose (Glutose 15) 0 gm PO ONCE PRN; Protocol PRN Reason: Hypoglycemia Protocol Famotidine (Pepcid) 20 mg PO BID [facility] Last Admin: 11/22/17 10:18 Dose: 20 mg Glucagon (Glucagen Diagnostic Kit) 0 mg IM STAT PRN; Protocol PRN Reason: Hypoglycemia Protocol Dextrose (Dextrose 5% In Water 1000 Ml) 1,000 mls @ 0 mls/hr IV .Q0M PRN; Protocol PRN Reason: Hypoglycemia Protocol Insulin Aspart (Novolog) 0 unit SC ACHS [facility]; Protocol Pneumococcal Polyvalent Vaccine (Pneumovax 23 Vaccine) 0.5 ml IM .ONCE ONE Stop: 11/23/17 14:01 - Labs Labs: 11/22/17 06:30 11/22/17 06:30 - Constitutional Appears: In Acute Distress (with pain) - Head Exam Head Exam: ATRAUMATIC, NORMOCEPHALIC - Eye Exam Eye Exam: EOMI - ENT Exam ENT Exam: Mucous Membranes Moist - Respiratory Exam Respiratory Exam: Clear to Ausculation Bilateral. absent: Rales, Rhonchi, Wheezes - Cardiovascular Exam Cardiovascular Exam: REGULAR RHYTHM, +S1, +S2 - GI/Abdominal Exam GI & Abdominal Exam: Guarding, Soft, Tenderness (LLQ). absent: Rebound - Extremities Exam Extremities Exam: Full ROM. absent: Calf Tenderness, Pedal Edema - Neurological Exam Neurological Exam: Alert, Awake, Oriented x3 - Psychiatric Exam Psychiatric exam: Normal Affect, Normal Mood - Skin Skin Exam: Dry, Normal Color, Warm Assessment and Plan - Assessment and Plan (Free Text) Plan: Pt is a 37yo F with PMH endometriosis, DM2 who presented to ED with abdominal pain, vaginal itchiness, and increased thirst x2 weeks admitted for evaluation and treatment of hyperglycemia, abdominal pain, and anemia Hyperglycemia - Pt with h/o DM2, takes metformin and uses 18 units of a friend's insulin at bedtime - Accuchecks q6h - Sliding scale low dose - Hb A1c: 10.6 - Dr. Parker, endocrinology consulted. Help appreciated Novolin 20u HS Novolin 12u ACBD Abdominal Pain - US:Mild increase in size of complex right ovarian cyst with low-level echoes. Given the appearance and relative interval stability, this most likely represents an endometrioma. Left ovary not discretely identified. Septated cyst versus hydrosalpinx posterior to the uterus. This measures approximately 5.4 cm in greatest dimension and was not noted previously. Recommend follow-up transvaginal pelvic ultrasound examination in 6-8 weeks. Two discrete uterine fibroids. No other significant abnormality. - CT abdomen/pelvis: f/u - Tylenol 650 Q6H PRN for moderate pain - Morphine 2mg IV Q6H for severe pain Anemia likely secondary to menorrhagia - Long menstrual period with heavy bleeding - H/H 7.6/25.2 -> 8.8/26.6 following 1u PRBC - Monitor CBC - Iron: 17, TIBC: 413, %sat: 4 - OB consulted, Dr. Saeed f/u recs recommend outpatient endometrial biopsy UTI - UA: + Leuk esterase, +few bacteria - f/u Urine Cx - Rocephin 1g Q24H Vaginal Itching - UA + yeast - Pt given 1 dose diflucan 150 in ED PPX - DVT: SCDs - GI: Pepcid - HHD <Borker,Lanny V - Last Filed: 11/24/17 19:17> Objective - Vital Signs/Intake and Output Vital Signs (last 24 hours): Temp Pulse Resp BP Pulse Ox 98.2 F 94 H 20 108/69 99 11/24/17 07:00 11/24/17 07:00 11/24/17 07:00 11/24/17 07:00 11/24/17 08:14 - Medications Medications: Current Medications Acetaminophen (Tylenol 325mg Tab) 650 mg PO Q6 PRN PRN Reason: Pain, Mild (1-3) Last Admin: 11/24/17 14:36 Dose: 650 mg Dextrose (Dextrose 50% Inj) 0 ml IV STAT PRN; Protocol PRN Reason: Hypoglycemia Protocol Dextrose (Glutose 15) 0 gm PO ONCE PRN; Protocol PRN Reason: Hypoglycemia Protocol Famotidine (Pepcid) 20 mg PO BID [facility] Last Admin: 11/24/17 18:25 Dose: 20 mg Glucagon (Glucagen Diagnostic Kit) 0 mg IM STAT PRN; Protocol PRN Reason: Hypoglycemia Protocol Sodium Chloride (Sodium Chloride 0.9%) 1,000 mls @ 100 mls/hr IV .Q10H [facility] Last Admin: 11/24/17 12:57 Dose: 100 mls/hr Piperacillin Sod/Tazobactam (Sod 3.375 gm/ Sodium Chloride) 100 mls @ 200 mls/hr IVPB Q6H [facility]; Protocol Last Admin: 11/24/17 14:37 Dose: 200 mls/hr Insulin Human NPH (Novolin N) 50 unit SC HS [facility] Insulin Human Regular (Novolin R) 0 unit SC ACHS [facility]; Protocol Last Admin: 11/24/17 18:23 Dose: 3 units Insulin Human Regular (Novolin R) 20 unit SC AC [facility] Last Admin: 11/24/17 18:24 Dose: 20 u Miconazole Nitrate (Monistat 7 Vaginal Cream) 1 ea VG DAILY [facility] Last Admin: 11/24/17 13:02 Dose: 1 appl Rosuvastatin Calcium (Crestor) 2.5 mg PO HS [facility] Saccharomyces Boulardii (Florastor) 250 mg PO BID [facility] Last Admin: 11/24/17 18:23 Dose: 250 mg Tramadol HCl (Ultram) 25 mg PO TID PRN PRN Reason: Pain, moderate (4-7) Last Admin: 11/24/17 18:25 Dose: 25 mg - Labs Labs: 11/24/17 07:00 11/24/17 07:00 Attending/Attestation - Attestation I have personally seen and examined this patient.: Yes I have fully participated in the care of the patient.: Yes I have reviewed all pertinent clinical information, including history, physical exam and plan: Yes Notes (Text): This is a late computer entry for 11/22/2017. Patient seen, examined, case discussed with biomedical equipment technician. Patient seen at bedside this afternoon. Patient reports sugars are about 1 4170 but also reports at times sugars are 300. Patient reports she takes metformin but also admits that she bars her friends insulin and gives herself 18 units. I did ask her has shares a doctor about starting insulin she says no I've. I've asked her how does she determine 18 units she is unable to really indicate to me why. I did indicate to her that is quite inappropriate for her to restart insulin without proper guidance of a doctor. I also indicated to her that by taking her friends insulin insurance her friends insulin supply. She also reports dysuria for some days. We will check a UA and urine culture. We'll start her on empiric treatment of Rocephin 1 g IV every 24. Patient is also reporting left lower quadrant pain unclear if it's related to her fibroids or if there is anything else. HVAC/R INSTRUCTOR is on the case. Patient reports that she has attempted OCPs of last used 2 years ago, she reports reports desire for children which she has not had them yet. I've consulted endocrine in light of patient's A1c of 10.6. Education is a poorly controlled diabetic. Endocrine has started her on insulin we will adjust accordingly during hospitalization. 1) Poorly controlled diabetic Insulin-dependent diabetic Assessment/plan * Pt with h/o DM2, takes metformin and uses 18 units of a friend's insulin at bedtime * Hypoglycemic protocol * Accuchecks qAC and HS * Sliding scale low dose * Hb A1c: 10.6--->will need to start insulin in light of a1c>9.5 * Dr. Parker, endocrinology consulted. Help appreciated * Novolin 20u HS * Novolin 12u ACBD 2) Abdominal Pain Endometrioma Complex Ovarian Cyst Assessment/plan * Ob-store detective consult-->help appreciated * US:Mild increase in size of complex right ovarian cyst with low-level echoes. Given the appearance and relative interval stability, this most likely represents an endometrioma. Left ovary not discretely identified. Septated cyst versus hydrosalpinx posterior to the uterus. This measures approximately 5.4 cm in greatest dimension and was not noted previously. Recommend follow- up transvaginal pelvic ultrasound examination in 6-8 weeks. Two discrete uterine fibroids. No other significant abnormality. * CT abdomen/pelvis by mouth and IV contrast: f/u * Tylenol 650 Q6H PRN for moderate pain * Morphine 2mg IV Q6H for severe pain 3) Symptomatic Anemia likely secondary to menorrhagia Assessment/plan * Long menstrual period with heavy bleeding * US:Mild increase in size of complex right ovarian cyst with low-level echoes. Given the appearance and relative interval stability, this most likely represents an endometrioma. Left ovary not discretely identified. Septated cyst versus hydrosalpinx posterior to the uterus. This measures approximately 5.4 cm in greatest dimension and was not noted previously. Recommend follow- up transvaginal pelvic ultrasound examination in 6-8 weeks. Two discrete uterine fibroids. No other significant abnormality. 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
[2017-11-22] MEDS: (Novolog) Insulin Aspart, Recombinant 100 u/ml 10 ml vial SC SCH ×2 (12:17→17:15)
--- NOTE | 2017-11-22 14:23 | US ---
Date of service: 11/22/2017 HISTORY: Hx of Menorrhagia COMPARISON: None available. TECHNIQUE: Transabdominal and transvaginal. Please note that the transvaginal portion of the examination was limited by patient discomfort. FINDINGS: UTERUS: Measures 10.4 x 6.2 x 7.3 cm. Posterior subserosal/intramural uterine fibroid, 3.1 x 4.1 x 4.7 cm. Grossly no change from prior. Fundal subserosal/intramural fibroid, 2.0 x 3.4 x 3.6 cm, slightly smaller than on prior examination at which time it measured 3.9 cm in greatest dimension. No other discrete uterine mass. ENDOMETRIUM: Measures 6 mm in diameter. Unremarkable. CERVIX: No cervical abnormality identified. RIGHT OVARY: Measures 7.9 x 7.0 x 6.4 cm. No solid mass. Normal blood flow demonstrated. Complex cyst with homogeneous low-level echoes and a single internal septation. This measures 5.1 x 5.7 x 5.7 cm. Previously, this measured 4.9 cm in greatest dimension. Slight increase in size. No change in morphology. LEFT OVARY: Not discretely identified. Please note that there is a complex septated cyst posterior to the uterus with a thick internal septation measuring approximately 3.7 x 5.0 x 5.4 cm. This was not seen on prior examination it is possible that this is a hydrosalpinx and tubular rather than a septated cyst. This could be arising from the left ovary or could represent a paraovarian cyst. Follow-up with transvaginal pelvic ultrasound examination is advised in 6-8 weeks. FREE FLUID: No significant free fluid noted. OTHER FINDINGS: None. IMPRESSION: Mild increase in size of complex right ovarian cyst with low-level echoes. Given the appearance and relative interval stability, this most likely represents an endometrioma. Left ovary not discretely identified. Septated cyst versus hydrosalpinx posterior to the uterus. This measures approximately 5.4 cm in greatest dimension and was not noted previously. Recommend follow-up transvaginal pelvic ultrasound examination in 6-8 weeks. Two discrete uterine fibroids. No other significant abnormality.
--- NOTE | 2017-11-22 14:37 | CP.PCM.CON ---
History of Present Illness - History of Present Illness History of Present Illness: patient presents with abdominal pain, confined to LLQ. sometimes improved with motrin or ibuprofen. she also endorses vaginal itching. Review of Systems - Review of Systems All systems: reviewed and no additional remarkable complaints except - Constitutional Constitutional: As Per HPI. absent: Chills, Fever - Gastrointestinal Gastrointestinal: Abdominal Pain Additional comments: denies diarrhea or change in bowel habits - Genitourinary Genitourinary: As Per HPI - Reproductive: Female Reproductive:Female: As Per HPI, Heavy Menses - Menstruation Menstruation: Cycle >35 Days, Cycle Variable Past Patient History - Infectious Disease Hx of Infectious Diseases: None - Tetanus Immunizations Tetanus Immunization: Unknown - Past Medical History & Family History Past Medical History?: Yes Past Family History: Reviewed and not pertinent Pertinent Family History: parent with diabetes - Past Social History Smoking Status: Light Smoker < 10 Cigarettes Daily - CARDIAC Hx Cardiac Disorders: No - PULMONARY Hx Respiratory Disorders: No - NEUROLOGICAL Hx Neurological Disorder: No - HEENT Hx Cataracts: No - RENAL Hx Chronic Kidney Disease: Yes Hx Kidney Stones: Yes - ENDOCRINE/METABOLIC Hx Endocrine Disorders: Yes Hx Diabetes Mellitus Type 2: Yes - HEMATOLOGICAL/ONCOLOGICAL Hx Anemia: Yes - INTEGUMENTARY Hx Dermatological Problems: No - MUSCULOSKELETAL/RHEUMATOLOGICAL Hx Musculoskeletal Disorders: No Hx Falls: No - GASTROINTESTINAL Hx Gastrointestinal Disorders: No - PSYCHIATRIC Hx Substance Use: No - SURGICAL HISTORY Hx Surgeries: Yes Other/Comment: Kidney stent; laparoscopy, d&c, hysteroscopy - ANESTHESIA Hx Anesthesia: Yes Hx Anesthesia Reactions: No Hx Malignant Hyperthermia: No Meds Allergies/Adverse Reactions: Allergies Allergy/AdvReac Type Severity Reaction Status Date / Time No Known Allergies Allergy Verified 08/07/17 22:52 - Medications Medications: Current Medications Acetaminophen (Tylenol 325mg Tab) 650 mg PO Q6 PRN PRN Reason: Pain, Mild (1-3) Dextrose (Dextrose 50% Inj) 0 ml IV STAT PRN; Protocol PRN Reason: Hypoglycemia Protocol Dextrose (Glutose 15) 0 gm PO ONCE PRN; Protocol PRN Reason: Hypoglycemia Protocol Famotidine (Pepcid) 20 mg PO BID [facility] Last Admin: 11/22/17 10:18 Dose: 20 mg Glucagon (Glucagen Diagnostic Kit) 0 mg IM STAT PRN; Protocol PRN Reason: Hypoglycemia Protocol Dextrose (Dextrose 5% In Water 1000 Ml) 1,000 mls @ 0 mls/hr IV .Q0M PRN; Protocol PRN Reason: Hypoglycemia Protocol Insulin Aspart (Novolog) 0 unit SC ACHS [facility]; Protocol Last Admin: 11/22/17 12:17 Dose: 10 units Miconazole Nitrate (Miconazole 2% Cream) 1 ea TOP BID [facility] Morphine Sulfate (Morphine) 2 mg IV Q6 PRN PRN Reason: Pain, moderate (4-7) Pneumococcal Polyvalent Vaccine (Pneumovax 23 Vaccine) 0.5 ml IM .ONCE ONE Stop: 11/23/17 14:01 Physical Exam - Head Exam Head Exam: ATRAUMATIC - GI/Abdominal Exam GI & Abdominal Exam: Normal Bowel Sounds, Soft - Exam External exam: Erythema Bimanual exam: NORMAL BIMANUAL EXAM Results - Vital Signs Recent Vital Signs: Last Vital Signs Temp 99.0 F 11/22/17 07:00 Pulse 72 11/22/17 12:00 Resp 20 11/22/17 07:00 BP 115/69 11/22/17 10:26 Pulse Ox 97 11/22/17 07:00 - Labs Result Diagrams: 11/22/17 06:30 11/22/17 06:30 Labs: Laboratory Results - last 24 hr 11/21/17 11/21/17 11/21/17 18:17 19:18 19:18 WBC 9.3 RBC 4.16 Hgb 7.6 L D Hct 25.2 L MCV 60.7 L D MCH 18.2 L MCHC 30.0 L RDW 18.0 H Plt Count 338 MPV 9.0 Neut % (Auto) 70.1 Lymph % (Auto) 22.7 [place] % (Auto) 5.6 Eos % (Auto) 1.1 Baso % (Auto) 0.5 Neut # (Auto) 6.5 Lymph # (Auto) 2.1 [place] # (Auto) 0.5 Eos # (Auto) 0.1 Baso # (Auto) 0.0 Differential Comment D-Dimer, Quantitative Sodium 130 L Potassium 4.2 Chloride 96 L Carbon Dioxide 23 Anion Gap 15 BUN 15 Creatinine 0.7 Est GFR ( Amer) > 60 Est GFR (Non-Af Amer) > 60 POC Glucose (mg/dL) Random Glucose 594 H* D Hemoglobin A1c Calcium 8.6 Iron TIBC % Saturation Total Bilirubin 0.4 AST 26 ALT 56 H Alkaline Phosphatase 153 H D Total Protein 6.7 Albumin 3.6 Globulin 3.1 Albumin/Globulin Ratio 1.1 Triglycerides Cholesterol LDL Cholesterol Direct HDL Cholesterol Lipase 193 Urine Color Straw Urine Clarity Clear Urine pH 6.0 Ur Specific [place] 1.028 Urine Protein Negative Urine Glucose (UA) 3+ H Urine Ketones 1+ H Urine Blood 1+ H Urine Nitrate Negative Urine Bilirubin Negative Urine Urobilinogen Normal Ur Leukocyte Esterase 1+ H Urine WBC (Auto) 3 Urine RBC (Auto) 7 H Ur Squamous Epith Cells 6 H Urine Bacteria Few H Urine Yeast (Budding) Rare H Urine HCG, Qual Negative B-Hydroxybutyrate 0.70 H Blood Type Antibody Screen 11/21/17 11/21/17 11/21/17 19:18 20:16 21:47 WBC RBC Hgb Hct MCV MCH MCHC RDW Plt Count MPV Neut % (Auto) Lymph % (Auto) [place] % (Auto) Eos % (Auto) Baso % (Auto) Neut # (Auto) Lymph # (Auto) [place] # (Auto) Eos # (Auto) Baso # (Auto) Differential Comment D-Dimer, Quantitative < 200 Sodium Potassium Chloride Carbon Dioxide Anion Gap BUN Creatinine Est GFR ( Amer) Est GFR (Non-Af Amer) POC Glucose (mg/dL) 402 H* Random Glucose Hemoglobin A1c Calcium Iron TIBC % Saturation Total Bilirubin AST ALT Alkaline Phosphatase Total Protein Albumin Globulin Albumin/Globulin Ratio Triglycerides Cholesterol LDL Cholesterol Direct HDL Cholesterol Lipase Urine Color Urine Clarity Urine pH Ur Specific [place] Urine Protein Urine Glucose (UA) Urine Ketones Urine Blood Urine Nitrate Urine Bilirubin Urine Urobilinogen Ur Leukocyte Esterase Urine WBC (Auto) Urine RBC (Auto) Ur Squamous Epith Cells Urine Bacteria Urine Yeast (Budding) Urine HCG, Qual B-Hydroxybutyrate Blood Type B NEGATIVE Antibody Screen Negative 11/21/17 11/22/17 11/22/17 23:52 02:14 06:19 WBC RBC Hgb Hct MCV MCH MCHC RDW Plt Count MPV Neut % (Auto) Lymph % (Auto) [place] % (Auto) Eos % (Auto) Baso % (Auto) Neut # (Auto) Lymph # (Auto) [place] # (Auto) Eos # (Auto) Baso # (Auto) Differential Comment D-Dimer, Quantitative Sodium Potassium Chloride Carbon Dioxide Anion Gap BUN Creatinine Est GFR ( Amer) Est GFR (Non-Af Amer) POC Glucose (mg/dL) 397 H > 500 H* 310 H Random Glucose Hemoglobin A1c Calcium Iron TIBC % Saturation Total Bilirubin AST ALT Alkaline Phosphatase Total Protein Albumin Globulin Albumin/Globulin Ratio Triglycerides Cholesterol LDL Cholesterol Direct HDL Cholesterol Lipase Urine Color Urine Clarity Urine pH Ur Specific [place] Urine Protein Urine Glucose (UA) Urine Ketones Urine Blood Urine Nitrate Urine Bilirubin Urine Urobilinogen Ur Leukocyte Esterase Urine WBC (Auto) Urine RBC (Auto) Ur Squamous Epith Cells Urine Bacteria Urine Yeast (Budding) Urine HCG, Qual B-Hydroxybutyrate Blood Type Antibody Screen 11/22/17 11/22/17 11/22/17 06:30 06:30 06:30 WBC 10.0 RBC 4.29 Hgb 8.2 L Hct 26.6 L MCV 62.0 L MCH 19.1 L MCHC 30.9 L RDW 19.0 H Plt Count 327 MPV 9.0 Neut % (Auto) 56.1 Lymph % (Auto) 35.2 [place] % (Auto) 7.0 Eos % (Auto) 1.4 Baso % (Auto) 0.3 Neut # (Auto) 5.6 Lymph # (Auto) 3.5 [place] # (Auto) 0.7 Eos # (Auto) 0.1 Baso # (Auto) 0.0 Differential Comment D-Dimer, Quantitative Sodium 138 Potassium 4.3 Chloride 103 Carbon Dioxide 23 Anion Gap 16 BUN 12 Creatinine 0.6 L Est GFR ( Amer) > 60 Est GFR (Non-Af Amer) > 60 POC Glucose (mg/dL) Random Glucose 327 H Hemoglobin A1c Calcium 8.8 Iron 17 L TIBC 413 % Saturation 4 L Total Bilirubin 0.4 AST 23 ALT 46 Alkaline Phosphatase 117 Total Protein 6.8 Albumin 3.6 Globulin 3.2 Albumin/Globulin Ratio 1.1 Triglycerides Cholesterol LDL Cholesterol Direct HDL Cholesterol Lipase Urine Color Urine Clarity Urine pH Ur Specific [place] Urine Protein Urine Glucose (UA) Urine Ketones Urine Blood Urine Nitrate Urine Bilirubin Urine Urobilinogen Ur Leukocyte Esterase Urine WBC (Auto) Urine RBC (Auto) Ur Squamous Epith Cells Urine Bacteria Urine Yeast (Budding) Urine HCG, Qual B-Hydroxybutyrate Blood Type Antibody Screen 11/22/17 11/22/17 11/22/17 09:59 09:59 09:59 WBC RBC Hgb Hct MCV MCH MCHC RDW Plt Count MPV Neut % (Auto) Lymph % (Auto) [place] % (Auto) Eos % (Auto) Baso % (Auto) Neut # (Auto) Lymph # (Auto) [place] # (Auto) Eos # (Auto) Baso # (Auto) Differential Comment D-Dimer, Quantitative Sodium Potassium Chloride Carbon Dioxide Anion Gap BUN Creatinine Est GFR ( Amer) Est GFR (Non-Af Amer) POC Glucose (mg/dL) Random Glucose Hemoglobin A1c 10.6 H D Calcium Iron TIBC % Saturation Total Bilirubin AST ALT Alkaline Phosphatase Total Protein Albumin Globulin Albumin/Globulin Ratio Triglycerides 119 D Cholesterol 102 LDL Cholesterol Direct 45 HDL Cholesterol 31 Lipase Urine Color Yellow Urine Clarity Clear Urine pH 6.0 Ur Specific [place] 1.012 Urine Protein Negative Urine Glucose (UA) 2+ H Urine Ketones Trace Urine Blood Negative Urine Nitrate Negative Urine Bilirubin Negative Urine Urobilinogen Normal Ur Leukocyte Esterase 3+ H Urine WBC (Auto) 13 H Urine RBC (Auto) 4 H Ur Squamous Epith Cells 2 Urine Bacteria Occ H Urine Yeast (Budding) Urine HCG, Qual B-Hydroxybutyrate Blood Type Antibody Screen Assessment & Plan (1) Uncontrolled diabetes mellitus Status: Acute (2) Vulvovaginal candidiasis Status: Acute (3) Abdominal pain Status: Acute (4) Ovarian cyst Status: Acute (5) Uterine fibroid Status: Acute - Assessment and Plan (Free Text) Assessment: 38 yo nulligravida with abdominal pain diabetes management as per primary team yeast infection s/p fluconazole continue miconazole cool compress for relief abdominal pain imaging reviewed uterine fibroids and right ovarian cyst - slightly larger than prior patient considering surgical management advised that medical condition should be optimized prior to intervention abnormal uterine bleeding recommend outpatient endometrial biopsy patient will need outpatient CASINO DEALER follow up once diabetes control achieved
[2017-11-22] MEDS ORDERED: Iohexol 240 (50 ml) PO ONE (17:00)
[2017-11-22] MEDS ORDERED: Miconazole 2% Cream(30 gm) TOP SCH (18:00)
[2017-11-22] MEDS ORDERED: Iohexol 300 100 ML IJ ONE (19:28)
[2017-11-22] MEDS ORDERED: (Novolin N) Insulin Human Isophane (NPH) 100 u/ml 10 ml vial SC SCH (22:00)
[2017-11-23] MEDS ORDERED: (Novolin R) Insulin Human Regular 100 units/ml vial SC ONE (02:33)
--- NOTE | 2017-11-23 04:36 | CON ---
DATE: 11/22/2017 ENDOCRINOLOGY CONSULT LOCATION: Room 657. HISTORY OF PRESENT ILLNESS: This is a 37-year-old female with recent uncontrolled type 2 insulin-requiring diabetes with worsening vaginal infection and associated polyuria and polydipsia and is being referred now for diabetic evaluation because of recent hyperglycemic acceleration as noted thereof. PAST MEDICAL HISTORY: History of type 2 diabetes, currently on metformin taking as 850 mg b.i.d. with erratic use of insulin because of financial constraints. FAMILY HISTORY: Positive for diabetes and hypertension. SOCIAL HISTORY: The patient admits to smoking half a pack a day some years now. Has a supportive family otherwise. REVIEW OF SYSTEMS: As mentioned above. Admits to generalized body weakness with episodic dizziness and lightheadedness, worse on the day of admission. No chest pains, palpitations, or PNDs. Her oral intake is variable with occasional nausea and dyspepsia. Also admits to marked polyuria, nocturia, and polydipsia. PHYSICAL EXAMINATION: GENERAL: This is an obese female, in no apparent distress. VITAL SIGNS: With a blood pressure of 140/80, pulse of 70 beats per minute and regular, temperature 98, respirations 20. Height is 5 feet and 8 inches. Weight is 238 pounds. HEENT: Head is normocephalic. Eyes anicteric with pink conjunctivae. Funduscopy is not possible at this time. Ears, nose and throat otherwise normal. NECK: Supple. Thyroid gland is normal in size. No carotid bruits or cervical adenopathy. CARDIOPULMONARY: Some adynamic precordium. S1 and S2 are rapid and regular. LUNGS: Clear to auscultation. ABDOMEN: Flat, soft with positive bowel sounds. EXTREMITIES: Peripheral edema. Pulses are +2 bilaterally. LABORATORY DATA: Chemistry showed a BUN of 12, sodium 138, potassium 4.3, chloride 103, CO2 of 23, glucose 327, and creatinine 0.6. A1c 10.6%. ASSESSMENT: This is a 37-year-old female with uncontrolled and decompensated type 2 insulin-requiring diabetes and is now being referred for diabetic evaluation and management. There is also underlying morbid obesity contributing to the increased insulin resistance and further impaired glucose tolerance thereof. PLAN OF MANAGEMENT: We will modify her current insulin regimen to a more affordable and conventional insulin vials as available. We will start Novolin NPH as 20 units at bedtime today and modify the coverage scale to obviate hypoglycemia. We will also add Novolin regular insulin as 12 units b.i.d. before breakfast and dinner to start tomorrow morning. We will obtain serial chemistries and supplement accordingly as needed. We will continue the IV hydration as ordered. We will follow. Marcelle Parker MD
[2017-11-23 07:30] LABS: BASO % 0.6 % (0.0-2.0); EOS # 0.2 K/uL (0.0-0.7); EOS % 2.5 % (0.0-4.0); HEMOGLOBIN 8.5 g/dL (11.0-16.0); LYMPH # 2.5 K/uL (1.0-4.3); LYMPH % 34.5 % (20.0-40.0); MEAN CELL VOLUME 61.5 fL (81.0-99.0); MEAN CORPUSCULAR HEMOGLOBIN 18.9 pg (27.0-31.0); MEAN CORPUSCULAR HGB CONC 30.8 g/dL (33.0-37.0); MEAN PLATELET VOLUME 8.7 fL (7.2-11.7); MONO # 0.5 K/uL (0.0-0.8); NEUT # 4.1 K/uL (1.8-7.0); NEUT % 55.4 % (50.0-75.0); RBC 4.51 Mil/uL (3.80-5.20); RED CELL DISTRIBUTION WIDTH 19.1 % (11.5-14.5); WHITE BLOOD COUNT 7.4 K/uL (4.8-10.8)
[2017-11-23] MEDS ORDERED: (Novolin R) Insulin Human Regular 100 units/ml vial SC SCH (07:30)
[2017-11-23 08:22] LABS: ALB/GLOB RATIO 1.1 (1.0-2.1); ALBUMIN 3.5 g/dL (3.5-5.0); ALT/SGPT 66 U/L (9-52); AST/SGOT 53 U/L (14-36); BLOOD UREA NITROGEN 8 mg/dL (7-17); GFR NON-AFRICAN AMERICAN > 60
[2017-11-23] MEDS: (Novolin R) Insulin Human Regular 100 units/ml vial SC SCH ×6 (08:30→21:19)
[2017-11-23] MEDS ORDERED: Influenza Vaccine 60 MCG/0.5 ML SYR (3 yr & up) IM ONE (14:00)
[2017-11-23] MEDS ORDERED: Pneumococcal 23-Valent Vaccine IM ONE (14:00)
--- NOTE | 2017-11-23 14:19 | CT ---
Date of service: 11/22/2017 PROCEDURE: CT Abdomen and Pelvis with contrast HISTORY: LLQ abdominal pain COMPARISON: None. TECHNIQUE: Contrast dose: 100 cc of Omni 300 Radiation dose: Total exam DLP = 1184 mGy-cm. This CT exam was performed using one or more of the following dose reduction techniques: Automated exposure control, adjustment of the mA and/or kV according to patient size, and/or use of iterative reconstruction technique. FINDINGS: LOWER THORAX: Unremarkable. LIVER: Unremarkable. No gross lesion or ductal dilatation. GALLBLADDER AND BILE DUCTS: Unremarkable. PANCREAS: Unremarkable. No gross lesion or ductal dilatation. SPLEEN: Unremarkable. ADRENALS: Unremarkable. No mass. KIDNEYS AND URETERS: Unremarkable. No hydronephrosis. No solid mass. VASCULATURE: Unremarkable. No aortic aneurysm. BOWEL: Unremarkable. No obstruction. No gross mural thickening. APPENDIX: Normal appendix. PERITONEUM: Unremarkable. No free fluid. No free air. LYMPH NODES: Unremarkable. No enlarged lymph nodes. BLADDER: Unremarkable. REPRODUCTIVE: There is a large right ovarian cyst which has slightly increased in size now measuring 5 x 6.8 cm previously 4 x 5.7 cm in the coronal plane. Smaller cysts are seen superior to the uterine fundus. BONES: No acute fracture. OTHER FINDINGS: None. IMPRESSION: There is a large right ovarian cyst which has slightly increased in size now measuring 5 x 6.8 cm previously 4 x 5.7 cm in the coronal plane. Smaller cysts are seen superior to the uterine fundus. No acute intra-abdominal findings.
--- NOTE | 2017-11-23 16:26 | PN ---
DATE: 11/23/2017 ENDO FOLLOWUP NOTE LOCATION: In room 657. SUBJECTIVE: This is a 37-year-old female with recent uncontrolled type 2 insulin-requiring diabetes, now being followed closely for metabolic management. Her glycemic levels are fluctuating as noted overnight and the glucose values have ranged from 423 to 446 mg/dL. Her A1c is 10.6%, which is quite elevated and indicative of very poor suboptimal metabolic control of her diabetic condition. LABORATORY DATA: Her chemistries showed a BUN of 8, sodium 135, potassium 4.3, chloride 98, CO2 of 28, glucose 354, and creatinine 0.6. ASSESSMENT AND PLAN: So this time, we will modify once again her basal and bolus insulin regimen and increase the NPH to 40 units subcutaneously at bedtime daily to start tonight. We will modify her prandial insulin to a higher dose of regular insulin given as 14 units subcutaneously t.i.d. before each meal start at lunch time today as ordered. We will modify the coverage scale to obviate hypoglycemia and detailed orders have been given. We will obtain serial chemistries and supplement accordingly as needed. We will follow. Marcelle Parker MD
--- NOTE | 2017-11-23 20:38 | CP.PCM.PN ---
Subjective - Date & Time of Evaluation Date of Evaluation: 11/23/17 Time of Evaluation: 08:00 - Subjective Subjective: PGY-[address] Lu. Patient seen and examined laying in bed. In no acute distress. She reported feeling better than yesterday, she is still having the abdominal pain but grades it to be a 6/10 today. She feels that the medications helps with the pain. She denies headache, dizziness, nausea, vomiting, fevers or chills, she has some constipation. Objective - Vital Signs/Intake and Output Vital Signs (last 24 hours): Temp Pulse Resp BP Pulse Ox 98.2 F 91 H 20 127/75 98 11/23/17 15:51 11/23/17 15:51 11/23/17 15:51 11/23/17 15:51 11/23/17 15:51 Intake and Output: 11/23/17 11/24/17 18:59 06:59 Intake Total 120 Balance 120 - Medications Medications: Current Medications Acetaminophen (Tylenol 325mg Tab) 650 mg PO Q6 PRN PRN Reason: Pain, Mild (1-3) Dextrose (Dextrose 50% Inj) 0 ml IV STAT PRN; Protocol PRN Reason: Hypoglycemia Protocol Dextrose (Glutose 15) 0 gm PO ONCE PRN; Protocol PRN Reason: Hypoglycemia Protocol Famotidine (Pepcid) 20 mg PO BID CECI Last Admin: 11/23/17 17:33 Dose: 20 mg Glucagon (Glucagen Diagnostic Kit) 0 mg IM STAT PRN; Protocol PRN Reason: Hypoglycemia Protocol Dextrose (Dextrose 5% In Water 1000 Ml) 1,000 mls @ 0 mls/hr IV .Q0M PRN; Protocol PRN Reason: Hypoglycemia Protocol Ceftriaxone Sodium 1 gm/ (Sodium Chloride) 100 mls @ 100 mls/hr IVPB Q24H CECI; Protocol Last Admin: 11/23/17 16:16 Dose: 100 mls/hr Insulin Human NPH (Novolin N) 40 unit SC HS CECI Insulin Human Regular (Novolin R) 0 unit SC ACHS CECI; Protocol Last Admin: 11/23/17 17:29 Dose: 4 units Insulin Human Regular (Novolin R) 14 unit SC AC CECI Last Admin: 11/23/17 16:30 Dose: 14 units Ketorolac Tromethamine (Toradol) 30 mg IVP Q6 PRN PRN Reason: Pain, moderate (4-7) Last Admin: 11/23/17 15:52 Dose: 30 mg Morphine Sulfate (Morphine) 2 mg IV Q6 PRN PRN Reason: Pain, moderate (4-7) Last Admin: 11/23/17 09:05 Dose: 2 mg - Labs Labs: 11/23/17 07:22 11/23/17 07:22 - Constitutional Appears: No Acute Distress - Head Exam Head Exam: ATRAUMATIC, NORMOCEPHALIC - Eye Exam Eye Exam: EOMI - ENT Exam ENT Exam: Mucous Membranes Moist - Neck Exam Neck Exam: Full ROM, Normal Inspection - Respiratory Exam Respiratory Exam: Clear to Ausculation Bilateral. absent: Rales, Rhonchi, Wheezes - Cardiovascular Exam Cardiovascular Exam: REGULAR RHYTHM, +S1, +S2 - GI/Abdominal Exam GI & Abdominal Exam: Soft, Tenderness (LLQ), Normal Bowel Sounds - Extremities Exam Extremities Exam: Full ROM, Normal Inspection. absent: Pedal Edema, Tenderness - Back Exam Back Exam: CVA tenderness (R) - Neurological Exam Neurological Exam: Alert, Awake - Psychiatric Exam Psychiatric exam: Normal Affect, Normal Mood - Skin Skin Exam: Dry, Normal Color, Warm Assessment and Plan - Assessment and Plan (Free Text) Plan: Pt is a 37yo F with PMH endometriosis, DM2 who presented to ED with abdominal pain, vaginal itchiness, and increased thirst x2 weeks admitted for evaluation and treatment of hyperglycemia, abdominal pain, and anemia Hyperglycemia - Pt with h/o DM2, takes metformin and uses 18 units of a friend's insulin at bedtime - Accuchecks q6h - Sliding scale low dose - Hb A1c: 10.6 - Dr. Parker, endocrinology consulted. Help appreciated Blood glucose levels continue to be elevated Novolin N increased to 40u HS Novolin increased to 14u ACBD Abdominal Pain - US: Mild increase in size of complex right ovarian cyst with low-level echoes. Given the appearance and relative interval stability, this most likely represents an endometrioma. Left ovary not discretely identified. Septated cyst versus hydrosalpinx posterior to the uterus. This measures approximately 5.4 cm in greatest dimension and was not noted previously. Recommend follow-up transvaginal pelvic ultrasound examination in 6-8 weeks. Two discrete uterine fibroids. No other significant abnormality. - CT abdomen/pelvis: There is a large right ovarian cyst which has slightly increased in size now measuring 5 x 6.8 cm previously 4 x 5.7 cm in the coronal plane. Smaller cysts are seen superior to the uterine fundus. No acute intra- abdominal findings. (see full report) - Tylenol 650 Q6H PRN for moderate pain - Tramadol 25mg PO TID for severe pain Anemia likely secondary to menorrhagia - Long menstrual period with heavy bleeding - H/H 7.6/25.2 -> 8.5/27.8 following 1u PRBC - Monitor CBC - Iron: 17, TIBC: 413, %sat: 4 - OB consulted, Dr. Saeed f/u recs recommend outpatient endometrial biopsy Pyelonephritis - UA: + Leuk esterase, +few bacteria - Urine Cx:Gram positive cocci, preliminary - Rocephin 1g IV Q24H for 6-7 days (started 11/22/17) Vaginal Candidiasis - UA + yeast - Pt given 1 dose diflucan 150 in ED PPX - DVT: SCDs - GI: Pepcid - HHD
[2017-11-23] MEDS ORDERED: (Novolin N) Insulin Human Isophane (NPH) 100 u/ml 10 ml vial SC SCH (22:00)
[2017-11-24] MEDS: Tramadol 25 mg PO PRN ×3 (00:10→18:25)
[2017-11-24 07:29] LABS: BASO # 0.1 K/uL (0.0-0.2); BASO % 0.8 % (0.0-2.0); EOS # 0.2 K/uL (0.0-0.7); HEMOGLOBIN 8.7 g/dL (11.0-16.0); LYMPH # 2.1 K/uL (1.0-4.3); LYMPH % 28.6 % (20.0-40.0); MEAN CELL VOLUME 61.8 fL (81.0-99.0); MEAN CORPUSCULAR HGB CONC 30.8 g/dL (33.0-37.0); MEAN PLATELET VOLUME 8.8 fL (7.2-11.7); MONO # 0.5 K/uL (0.0-0.8); MONO % 7.1 % (0.0-10.0); NEUT # 4.6 K/uL (1.8-7.0); NEUT % 61.5 % (50.0-75.0); NRBC % 0.1 % (0.0-2.0); RBC 4.54 Mil/uL (3.80-5.20); RED CELL DISTRIBUTION WIDTH 18.9 % (11.5-14.5); WHITE BLOOD COUNT 7.5 K/uL (4.8-10.8)
[2017-11-24 07:54] LABS: ALB/GLOB RATIO 1.1 (1.0-2.1); ALBUMIN 3.6 g/dL (3.5-5.0); ALT/SGPT 75 U/L (9-52); AST/SGOT 61 U/L (14-36); BLOOD UREA NITROGEN 8 mg/dL (7-17); CALCIUM 9.1 mg/dl (8.6-10.4); GFR NON-AFRICAN AMERICAN > 60
[2017-11-24] MEDS: (Novolin R) Insulin Human Regular 100 units/ml vial SC SCH ×7 (08:52→21:53)
--- NOTE | 2017-11-24 09:37 | CP.PCM.HP ---
History of Present Illness - History of Present Illness History of Present Illness: PGY-[address] Carcamo. Past Patient History - Infectious Disease Hx of Infectious Diseases: None - Tetanus Immunizations Tetanus Immunization: Unknown - Past Medical History & Family History Past Medical History?: Yes Past Family History: Reviewed and not pertinent - Past Social History Smoking Status: Light Smoker < 10 Cigarettes Daily - CARDIAC Hx Cardiac Disorders: No - PULMONARY Hx Respiratory Disorders: No - NEUROLOGICAL Hx Neurological Disorder: No - HEENT Hx Cataracts: No - RENAL Hx Chronic Kidney Disease: Yes Hx Kidney Stones: Yes - ENDOCRINE/METABOLIC Hx Endocrine Disorders: Yes Hx Diabetes Mellitus Type 2: Yes - HEMATOLOGICAL/ONCOLOGICAL Hx Anemia: Yes - INTEGUMENTARY Hx Dermatological Problems: No - MUSCULOSKELETAL/RHEUMATOLOGICAL Hx Musculoskeletal Disorders: No Hx Falls: No - GASTROINTESTINAL Hx Gastrointestinal Disorders: No - PSYCHIATRIC Hx Substance Use: No - SURGICAL HISTORY Hx Surgeries: Yes Other/Comment: Kidney stent; laparoscopy, d&c, hysteroscopy - ANESTHESIA Hx Anesthesia: Yes Hx Anesthesia Reactions: No Hx Malignant Hyperthermia: No Meds Allergies/Adverse Reactions: Allergies Allergy/AdvReac Type Severity Reaction Status Date / Time No Known Allergies Allergy Verified 08/07/17 22:52 Results - Vital Signs Recent Vital Signs: Last Vital Signs Temp 98.2 F 11/24/17 07:00 Pulse 94 H 11/24/17 07:00 Resp 20 11/24/17 07:00 BP 108/69 11/24/17 07:00 Pulse Ox 99 11/24/17 08:14 - Labs Result Diagrams: 11/24/17 07:00 11/24/17 07:00 Labs: Laboratory Results - last 24 hr 11/23/17 11/23/17 11/23/17 06:56 11:32 16:31 WBC RBC Hgb Hct MCV MCH MCHC RDW Plt Count MPV Neut % (Auto) Lymph % (Auto) [place] % (Auto) Eos % (Auto) Baso % (Auto) Neut # (Auto) Lymph # (Auto) [place] # (Auto) Eos # (Auto) Baso # (Auto) Sodium Potassium Chloride Carbon Dioxide Anion Gap BUN Creatinine Est GFR ( Amer) Est GFR (Non-Af Amer) POC Glucose (mg/dL) 320 H 458 H* 330 H Random Glucose Calcium Total Bilirubin AST ALT Alkaline Phosphatase Total Protein Albumin Globulin Albumin/Globulin Ratio 11/23/17 11/24/17 11/24/17 21:11 02:37 06:13 WBC RBC Hgb Hct MCV MCH MCHC RDW Plt Count MPV Neut % (Auto) Lymph % (Auto) [place] % (Auto) Eos % (Auto) Baso % (Auto) Neut # (Auto) Lymph # (Auto) [place] # (Auto) Eos # (Auto) Baso # (Auto) Sodium Potassium Chloride Carbon Dioxide Anion Gap BUN Creatinine Est GFR ( Amer) Est GFR (Non-Af Amer) POC Glucose (mg/dL) 421 H* 331 H 319 H Random Glucose Calcium Total Bilirubin AST ALT Alkaline Phosphatase Total Protein Albumin Globulin Albumin/Globulin Ratio 11/24/17 11/24/17 07:00 07:00 WBC 7.5 RBC 4.54 Hgb 8.7 L Hct 28.1 L MCV 61.8 L MCH 19.0 L MCHC 30.8 L RDW 18.9 H Plt Count 321 MPV 8.8 Neut % (Auto) 61.5 Lymph % (Auto) 28.6 [place] % (Auto) 7.1 Eos % (Auto) 2.0 Baso % (Auto) 0.8 Neut # (Auto) 4.6 Lymph # (Auto) 2.1 [place] # (Auto) 0.5 Eos # (Auto) 0.2 Baso # (Auto) 0.1 Sodium 137 Potassium 4.3 Chloride 99 Carbon Dioxide 28 Anion Gap 15 BUN 8 Creatinine 0.6 L Est GFR ( Amer) > 60 Est GFR (Non-Af Amer) > 60 POC Glucose (mg/dL) Random Glucose 316 H Calcium 9.1 Total Bilirubin 0.5 AST 61 H ALT 75 H Alkaline Phosphatase 103 Total Protein 6.8 Albumin 3.6 Globulin 3.2 Albumin/Globulin Ratio 1.1
[2017-11-24] MEDS ORDERED: Amoxicillin-Clav 500-125 mg Tab PO SCH (10:30)
[2017-11-24] MEDS: Sodium Chloride 0.9% 1,000 ML IV SCH ×2 (12:57→21:45)
[2017-11-24] MEDS: Miconazole 2% Vaginal Cream(45 gm) VG SCH (13:02)
[2017-11-24] MEDS: Piperacillin/Tazobact 3.375 GM in Sodium Chloride 100 ML IVPB SCH ×2 (14:37→19:16)
[2017-11-24 15:12] LABS: CK-MB < 0.22 ng/mL (0.0-3.38)
[2017-11-24 18:08] LABS: SQUAMOUS EPITHIAL 4 /hpf (0-5); URINE BILIRUBIN NEGATIVE (NEGATIVE); URINE BLOOD 1+ (NEGATIVE); URINE CLARITY Clear (Clear); URINE COLOR Straw (YELLOW); URINE GLUCOSE (UA) 3+ mg/dL (Normal); URINE LEUKOCYTE ESTERASE NEG Leu/uL (Negative); URINE PROTEIN NEGATIVE (NEGATIVE); URINE UROBILINOGEN NORMAL mg/dL (0.2-1.0)
[2017-11-24] MEDS: Saccharomyces Boulardi 250 mg Cap PO SCH (18:23)
--- NOTE | 2017-11-24 19:41 | PN ---
DATE: 11/24/2017 ENDO FOLLOWUP NOTE LOCATION: In room 657. SUBJECTIVE: This is a 37-year-old female with recent uncontrolled type 2 insulin-requiring diabetes, now being followed closely for metabolic management. Her glycemic levels are still fluctuating as noted overnight and the glucose values have ranged from 319 to 351 mg/dL. LABORATORY DATA: Her chemistries showed a BUN of 8, sodium 137, potassium 4.3, chloride , CO2 of 28, glucose 316, and creatinine 0.6. ASSESSMENT AND PLAN: So at this time because of the tremendous underlying insulin resistance, the patient needs a much higher dosing of her insulin regimen to override the insulin resistance thereof. We will titrate once again her basal and bolus insulin regimen and increase the NPH to 50 units subcutaneously at bedtime daily to start tonight. We will also increase her regular insulin to 20 units subcutaneously t.i.d. before meals as ordered. We will titrate incrementally as indicated to optimize metabolic control. We will obtain serial chemistries and supplement accordingly as needed. We will also from the diabetic care at this point and would suggest that she can titrate upwards especially her basal insulin until she has a fasting glucose level of around 140 to 180 mg/dL and the postprandial glucose level around 140 to 200 mg/dL. We will also recommend addition of glycemic therapy as indicated to help improve the insulin sensitivity thereof. We will follow. Marcelle Parker MD
[2017-11-24] MEDS: Rosuvastatin Calcium 2.5 mg Tab PO SCH (21:34)
[2017-11-24] MEDS: (Novolin N) Insulin Human Isophane (NPH) 100 u/ml 10 ml vial SC SCH (22:10)
--- NOTE | 2017-11-24 22:10 | CP.PCM.PN ---
<Kathrine Jerry P - Last Filed: 11/24/17 22:08> Subjective - Date & Time of Evaluation Date of Evaluation: 11/24/17 Time of Evaluation: 08:00 - Subjective Subjective: Patient seen and evaluated at bedside. Reports continued pain in the LLQ, R flank as well as vaginal puritis. Also reports palpitations with ambulation. Denies chest pain, shortness of breath, nausea, vomiting, diarrhea, fevers and chills. Blood sugars remain elevated. Objective - Vital Signs/Intake and Output Vital Signs (last 24 hours): Temp Pulse Resp BP Pulse Ox 98.0 F 73 20 99/62 L 97 11/24/17 15:00 11/24/17 15:00 11/24/17 15:00 11/24/17 15:00 11/24/17 15:00 - Medications Medications: Current Medications Acetaminophen (Tylenol 325mg Tab) 650 mg PO Q6 PRN PRN Reason: Pain, Mild (1-3) Last Admin: 11/24/17 21:37 Dose: 650 mg Dextrose (Dextrose 50% Inj) 0 ml IV STAT PRN; Protocol PRN Reason: Hypoglycemia Protocol Dextrose (Glutose 15) 0 gm PO ONCE PRN; Protocol PRN Reason: Hypoglycemia Protocol Famotidine (Pepcid) 20 mg PO BID [facility] Last Admin: 11/24/17 18:25 Dose: 20 mg Glucagon (Glucagen Diagnostic Kit) 0 mg IM STAT PRN; Protocol PRN Reason: Hypoglycemia Protocol Sodium Chloride (Sodium Chloride 0.9%) 1,000 mls @ 100 mls/hr IV .Q10H [facility] Last Admin: 11/24/17 21:45 Dose: Not Given Piperacillin Sod/Tazobactam (Sod 3.375 gm/ Sodium Chloride) 100 mls @ 200 mls/hr IVPB Q6H [facility]; Protocol Last Admin: 11/24/17 19:16 Dose: 200 mls/hr Insulin Human NPH (Novolin N) 50 unit SC HS [facility] Insulin Human Regular (Novolin R) 0 unit SC ACHS [facility]; Protocol Last Admin: 11/24/17 21:53 Dose: Not Given Insulin Human Regular (Novolin R) 20 unit SC AC [facility] Last Admin: 11/24/17 18:24 Dose: 20 u Miconazole Nitrate (Monistat 7 Vaginal Cream) 1 ea VG DAILY [facility] Last Admin: 11/24/17 13:02 Dose: 1 appl Rosuvastatin Calcium (Crestor) 2.5 mg PO HS [facility] Last Admin: 11/24/17 21:34 Dose: 2.5 mg Saccharomyces Boulardii (Florastor) 250 mg PO BID [facility] Last Admin: 11/24/17 18:23 Dose: 250 mg Tramadol HCl (Ultram) 25 mg PO TID PRN PRN Reason: Pain, moderate (4-7) Last Admin: 11/24/17 18:25 Dose: 25 mg - Labs Labs: 11/24/17 07:00 11/24/17 07:00 - Additional Findings Additional findings: Appears: No Acute Distress - Head Exam Head Exam: ATRAUMATIC, NORMOCEPHALIC - Eye Exam Eye Exam: EOMI - ENT Exam ENT Exam: Mucous Membranes Moist - Neck Exam Neck Exam: Full ROM, Normal Inspection - Respiratory Exam Respiratory Exam: Clear to Ausculation Bilateral. absent: Rales, Rhonchi, Wheezes - Cardiovascular Exam Cardiovascular Exam: REGULAR RHYTHM, +S1, +S2 - GI/Abdominal Exam GI & Abdominal Exam: Soft, Tenderness (LLQ), Normal Bowel Sounds - Extremities Exam Extremities Exam: Full ROM, Normal Inspection. absent: Pedal Edema, Tenderness - Back Exam Back Exam: R CVA tenderness - Neurological Exam Neurological Exam: Alert, Awake - Psychiatric Exam Psychiatric exam: Normal Affect, Normal Mood - Skin Skin Exam: Dry, Normal Color, Warm Assessment and Plan - Assessment and Plan (Free Text) Plan: Pt is a 37yo F with PMH endometriosis, DM2 who presented to ED with abdominal pain, vaginal itchiness, and increased thirst x2 weeks admitted for evaluation and treatment of hyperglycemia, abdominal pain, and anemia Uncontrolled DM2 - Pt with h/o DM2, takes metformin and uses 18 units of a friend's insulin at bedtime - Accuchecks q6h - Sliding scale low dose - Hb A1c: 10.6 - Dr. Parker, endocrinology consulted. Help appreciated Blood glucose levels continue to be elevated Novolin N increased to 50u HS Novolin R increased to 20u TID - Crestor 2.5mg - IVF Abdominal Pain - US: Mild increase in size of complex right ovarian cyst with low-level echoes. Given the appearance and relative interval stability, this most likely represents an endometrioma. Left ovary not discretely identified. Septated cyst versus hydrosalpinx posterior to the uterus. This measures approximately 5.4 cm in greatest dimension and was not noted previously. Recommend follow-up transva ginal pelvic ultrasound examination in 6-8 weeks. Two discrete uterine fibroids. No other significant abnormality. - CT abdomen/pelvis: There is a large right ovarian cyst which has slightly increased in size now measuring 5 x 6.8 cm previously 4 x 5.7 cm in the coronal plane. Smaller cysts are seen superior to the uterine fundus. No acute intra- abdominal findings. (see full report) - Tylenol 650 Q6H PRN for moderate pain - Tramadol 25mg PO TID for severe pain Anemia likely secondary to menorrhagia - Long menstrual period with heavy bleeding - H/H 7.6/25.2 -> 8.5/27.8 following 1u PRBC - Monitor CBC - Iron: 17, TIBC: 413, %sat: 4 - OB consulted, Dr. Saeed f/u recs recommend outpatient endometrial biopsy Pyelonephritis - 11/21 UA: + Leuk esterase, +few bacteria - 11/24 repeat UA: 3+protein, 1+ blood, 2 wbc, 2rbc - 11/21 Urine Cx: Staph aureus, yeast - f/u repeat cx - Due to sensitivities, started Zosyn 3.375 IV Q6H on 11/24/17. D'hugo Rocephin 1g IV Q24H Vaginal Candidiasis - UA + yeast - Pt given 1 dose diflucan 150 in ED - Miconazole 2% PPX - DVT: SCDs - GI: Pepcid - HHD - Florastor 250 BID - PT/OT <Lanny Carcamo V - Last Filed: 11/25/17 15:33> Objective - Vital Signs/Intake and Output Vital Signs (last 24 hours): Temp Pulse Resp BP Pulse Ox 97.7 F 67 20 102/59 L 96 11/25/17 07:00 11/25/17 07:00 11/25/17 07:00 11/25/17 07:00 11/25/17 07:00 Intake and Output: 11/25/17 11/25/17 06:59 18:59 Intake Total 700 Balance 700 - Medications Medications: Current Medications Acetaminophen (Tylenol 325mg Tab) 650 mg PO Q6 PRN PRN Reason: Pain, Mild (1-3) Last Admin: 11/25/17 13:27 Dose: 650 mg Dextrose (Dextrose 50% Inj) 0 ml IV STAT PRN; Protocol PRN Reason: Hypoglycemia Protocol Dextrose (Glutose 15) 0 gm PO ONCE PRN; Protocol PRN Reason: Hypoglycemia Protocol Famotidine (Pepcid) 20 mg PO BID [facility] Last Admin: 11/25/17 09:12 Dose: 20 mg Glucagon (Glucagen Diagnostic Kit) 0 mg IM STAT PRN; Protocol PRN Reason: Hypoglycemia Protocol Sodium Chloride (Sodium Chloride 0.9%) 1,000 mls @ 100 mls/hr IV .Q10H [facility] Last Admin: 11/25/17 06:26 Dose: 100 mls/hr Piperacillin Sod/Tazobactam (Sod 3.375 gm/ Sodium Chloride) 100 mls @ 200 mls/hr IVPB Q6H [facility]; Protocol Last Admin: 11/25/17 14:22 Dose: 200 mls/hr Insulin Human NPH (Novolin N) 50 unit SC [facility] Last Admin: 11/24/17 22:10 Dose: 50 u Insulin Human Regular (Novolin R) 0 unit SC ACHS [facility]; Protocol Last Admin: 11/25/17 14:26 Dose: 4 units Insulin Human Regular (Novolin R) 20 unit SC AC [facility] Last Admin: 11/25/17 14:25 Dose: 20 u Metformin HCl (Glucophage) 850 mg PO BID [facility] Miconazole Nitrate (Monistat 7 Vaginal Cream) 1 ea VG DAILY [facility] Last Admin: 11/25/17 09:12 Dose: 1 appl Phenazopyridine HCl (Pyridium) 200 mg PO TIDPC [facility] Pneumococcal Polyvalent Vaccine (Pneumovax 23 Vaccine) 0.5 ml IM .ONCE ONE Stop: 11/27/17 01:01 Rosuvastatin Calcium (Crestor) 2.5 mg PO [facility] Last Admin: 11/24/17 21:34 Dose: 2.5 mg Saccharomyces Boulardii (Florastor) 250 mg PO BID [facility] Last Admin: 11/25/17 09:11 Dose: 250 mg Tramadol HCl (Ultram) 25 mg PO TID PRN PRN Reason: Pain, moderate (4-7) Last Admin: 11/25/17 11:14 Dose: 25 mg - Labs Labs: 11/25/17 06:19 11/25/17 06:19 Attending/Attestation - Attestation I have personally seen and examined this patient.: Yes I have fully participated in the care of the patient.: Yes I have reviewed all pertinent clinical information, including history, physical exam and plan: Yes Notes (Text): This is a late computer entry for 11/24/2017 Patient seen, examined, case discussed with medical superintendent. Patient seen at bedside this afternoon. Patient sugars to uncontrolled. Insulin adjusted per endocrinology. Patient being treated for pyelonephritis. Patient reports a left lower quadrant pain suprapubic pain. Will order repeat UA urine culture to see the urinary tract infection is clearing. Order for physical therapy eval and treat. She complained of one episode of palpitations this morning SERENA is negative. 1) Poorly controlled diabetic Insulin-dependent diabetic Assessment/plan * Pt with h/o DM2, takes metformin and uses 18 units of a friend's insulin at b edtime * Hypoglycemic protocol * Accuchecks qAC and HS * Hb A1c: 10.6--->will need to start insulin in light of a1c>9.5 * Dr. Parker, endocrinology consulted. Help appreciated * Novolin N 50 units subcutaneous daily at bedtime * Novolin R 20 u AC * Regular insulin sliding scale * Crestor 2.5 by mouth daily at bedtime * And is 100 mL/h * Dietitian referral * certified breastfeeding educator 2) Abdominal Pain Endometrioma Complex Ovarian Cyst Assessment/plan * Ob-infusion nurse consult-->help appreciated * US:Mild increase in size of complex right ovarian cyst with low-level echoes. Given the appearance and relative interval stability, this most likely represents an endometrioma. Left ovary not discretely identified. Septated cyst versus hydrosalpinx posterior to the uterus. This measures approximately 5.4 cm in greatest dimension and was not noted previously. Recommend follow- up transvaginal pelvic ultrasound examination in 6-8 weeks. Two discrete uterine fibroids. No other significant abnormality. * CT abdomen/pelvis by mouth and IV contrast: Large right ovarian cyst which has slightly increased in size now 56.8 previously 4 x 5.7 in coronal plane small cysts are seen superior in the uterine fundus. No intra-abdominal findings * Tylenol 650 Q6H PRN for moderate pain * Morphine 2mg IV Q6H for severe pain * OB-GRAVEL SCREENER hospitalist * patient considering surgical management * advised that medical condition should be optimized prior to intervention 3) Symptomatic Anemia likely secondary to menorrhagia Assessment/plan * Long menstrual period with heavy bleeding * US:Mild increase in size of complex right ovarian cyst with low-level echoes. Given the appearance and relative interval stability, this most likely represents an endometrioma. Left ovary not discretely identified. Septated cyst versus hydrosalpinx posterior to the uterus. This measures approximately 5.4 cm in greatest dimension and was not noted previously. Recommend follow- up transvaginal pelvic ultrasound examination in 6-8 weeks. Two discrete uterine fibroids. No other significant abnormality. * CT abdomen/pelvis by mouth and IV contrast: Large right ovarian cyst which has slightly increased in size now 56.8 previously 4 x 5.7 in coronal plane small cysts are seen superior in the uterine fundus. No intra-abdominal findings * H/H 7.6/25.2 -> 8.8/26.6 following 1u PRBC * Monitor CBC * Iron: 17, TIBC: 413, %sat: 4 * OB-GRAVEL SCREENER hospitalist * recommend outpatient endometrial biopsy 4)Pyelonephritis Dysuria Assessment/plan * UA: + Leuk esterase, +few bacteria * Urine culture: Staph Aureus and E.coli---MSSA sensitive * Patient switched to Zosyn 3.375 IV every 6 are since 11/24/2017 * NS 100 mL/h * Tramdol 25 mg by mouth 3 times a day for moderate pain * Floor start to 50 by mouth twice a day 5) Vaginal Itching Assessment/plan * UA + yeast * Monistat 7 vaginal cream 1 each per vagina daily * Per obgyn, * s/p fluconazole * continue miconazole * cool compress for relief 6) PPX * DVT PPX: SCDs * Chemical anticoagulaton secondary to worsening anemia secondary to menorhaagia * GI: Pepcid 20mg PO BID * Physical therapy eval and treat
[2017-11-25] MEDS: Piperacillin/Tazobact 3.375 GM in Sodium Chloride 100 ML IVPB SCH ×4 (00:44→19:30)
[2017-11-25] MEDS: Tramadol 25 mg PO PRN ×2 (01:31→11:14)
--- NOTE | 2017-11-25 03:17 | CP.PCM.PN ---
<Min Mac - Last Filed: 11/25/17 08:43> Subjective - Date & Time of Evaluation Date of Evaluation: 11/25/17 Time of Evaluation: 08:44 - Subjective Subjective: Min Mac PGY-1, Medicine progress note Pt was seen and examined at bedside. Pt had episode of nausea overnight, without vomiting, with treatment of Zofran 4 mg PO. Pt state sthat her nausea has improved. She reports abdominal pain, worse on the left lower abdomen and left flank. She denies dyspnea on exertion but states that she feels like her heart rate increases while walking. Denies chest pain, shortness of breath, vomiting, diarrhea, fevers and chills. Objective - Vital Signs/Intake and Output Vital Signs (last 24 hours): Temp Pulse Resp BP Pulse Ox 98.2 F 96 H 20 109/75 98 11/24/17 23:05 11/25/17 01:30 11/24/17 23:05 11/25/17 01:30 11/24/17 23:05 Intake and Output: 11/24/17 11/25/17 18:59 06:59 Intake Total 700 Balance 700 - Medications Medications: Current Medications Acetaminophen (Tylenol 325mg Tab) 650 mg PO Q6 PRN PRN Reason: Pain, Mild (1-3) Last Admin: 11/24/17 21:37 Dose: 650 mg Dextrose (Dextrose 50% Inj) 0 ml IV STAT PRN; Protocol PRN Reason: Hypoglycemia Protocol Dextrose (Glutose 15) 0 gm PO ONCE PRN; Protocol PRN Reason: Hypoglycemia Protocol Famotidine (Pepcid) 20 mg PO BID [facility] Last Admin: 11/24/17 18:25 Dose: 20 mg Glucagon (Glucagen Diagnostic Kit) 0 mg IM STAT PRN; Protocol PRN Reason: Hypoglycemia Protocol Sodium Chloride (Sodium Chloride 0.9%) 1,000 mls @ 100 mls/hr IV .Q10H [facility] Last Admin: 11/24/17 21:45 Dose: Not Given Piperacillin Sod/Tazobactam (Sod 3.375 gm/ Sodium Chloride) 100 mls @ 200 mls/hr IVPB Q6H [facility]; Protocol Last Admin: 11/25/17 00:44 Dose: 200 mls/hr Insulin Human NPH (Novolin N) 50 unit SC HS [facility] Last Admin: 11/24/17 22:10 Dose: 50 u Insulin Human Regular (Novolin R) 0 unit SC ACHS [facility]; Protocol Last Admin: 11/24/17 21:53 Dose: Not Given Insulin Human Regular (Novolin R) 20 unit SC AC [facility] Last Admin: 11/24/17 18:24 Dose: 20 u Miconazole Nitrate (Monistat 7 Vaginal Cream) 1 ea VG DAILY [facility] Last Admin: 11/24/17 13:02 Dose: 1 appl Rosuvastatin Calcium (Crestor) 2.5 mg PO HS [facility] Last Admin: 11/24/17 21:34 Dose: 2.5 mg Saccharomyces Boulardii (Florastor) 250 mg PO BID [facility] Last Admin: 11/24/17 18:23 Dose: 250 mg Tramadol HCl (Ultram) 25 mg PO TID PRN PRN Reason: Pain, moderate (4-7) Last Admin: 11/25/17 01:31 Dose: 25 mg - Labs Labs: 11/24/17 07:00 11/24/17 07:00 - Constitutional Appears: Non-toxic, No Acute Distress - Head Exam Head Exam: NORMAL INSPECTION, NORMOCEPHALIC - Eye Exam Eye Exam: EOMI, Normal appearance - ENT Exam ENT Exam: Mucous Membranes Moist - Neck Exam Neck Exam: Normal Inspection - Respiratory Exam Respiratory Exam: Clear to Ausculation Bilateral, NORMAL BREATHING PATTERN. absent: Rales, Rhonchi, Wheezes, Respiratory Distress - Cardiovascular Exam Cardiovascular Exam: REGULAR RHYTHM, +S1, +S2 - GI/Abdominal Exam GI & Abdominal Exam: Soft, Tenderness (moderate LLQ tenderness), Normal Bowel Sounds. absent: Firm, Guarding, Rigid, Rebound - Extremities Exam Extremities Exam: Normal Inspection. absent: Calf Tenderness, Pedal Edema, Tenderness - Back Exam Back Exam: CVA tenderness (L), CVA tenderness (R), NORMAL INSPECTION - Neurological Exam Neurological Exam: Alert, Awake - Psychiatric Exam Psychiatric exam: Normal Affect, Normal Mood - Skin Skin Exam: Dry, Normal Color, Warm Assessment and Plan - Assessment and Plan (Free Text) Assessment: Pt is a 37yo F with PMH endometriosis, DM2 who presented to ED with abdominal pain, vaginal itchiness, and increased thirst x2 weeks admitted for evaluation and treatment of hyperglycemia, abdominal pain, and anemia Uncontrolled DM2 - Pt with h/o DM2, takes metformin and uses 18 units of a friend's insulin at bedtime - Accuchecks q6h - Sliding scale low dose - Hb A1c: 10.6 - Dr. Parker, endocrinology consulted. Help appreciated Blood glucose levels continue to be elevated Novolin N increased to 50u HS Novolin R increased to 20u ACHS - Crestor 2.5mg - IVF Abdominal Pain - US: Mild increase in size of complex right ovarian cyst with low-level echoes. Given the appearance and relative interval stability, this most likely represents an endometrioma. Left ovary not discretely identified. Septated cyst versus hydrosalpinx posterior to the uterus. This measures approximately 5.4 cm in greatest dimension and was not noted previously. Recommend follow-up transvaginal pelvic ultrasound examination in 6-8 weeks. Two discrete uterine fibroids. No other significant abnormality. - CT abdomen/pelvis: There is a large right ovarian cyst which has slightly increased in size now measuring 5 x 6.8 cm previously 4 x 5.7 cm in the coronal plane. Smaller cysts are seen superior to the uterine fundus. No acute intra- abdominal findings. (see full report) - Tylenol 650 Q6H PRN for moderate pain - Tramadol 25mg PO TID for severe pain Anemia likely secondary to menorrhagia - Long menstrual period with heavy bleeding - H/H 7.6/25.2 -> 8.5/27.8 following 1u PRBC - H/H is stable - Iron: 17, TIBC: 413, %sat: 4 - OB consulted, Dr. Saeed f/u recs recommend outpatient endometrial biopsy Pyelonephritis - no leukocytosis, pt afebrile not tachycardic - 11/21 UA: + Leuk esterase, +few bacteria - 11/24 repeat UA: 3+protein, 1+ blood, 2 wbc, 2rbc - 11/21 Urine Cx: Staph aureus, yeast - f/u repeat cx - Continue Zosyn 3.375 IV Q6H (11/24). Vaginal Candidiasis - UA + yeast - Pt given 1 dose diflucan 150 in ED - Miconazole 2% PPX - DVT: SCDs - GI: Pepcid - HHD - Florastor 250 BID - PT/OT Case discussed with attending physician <Lanny Carcamo V - Last Filed: 10/13/18 15:54> Objective - Vital Signs/Intake and Output Vital Signs (last 24 hours): Temp Pulse Resp BP Pulse Ox 97.7 F 67 20 102/59 L 96 11/25/17 07:00 11/25/17 07:00 11/25/17 07:00 11/25/17 07:00 11/25/17 07:00 Intake and Output: 11/25/17 11/25/17 06:59 18:59 Intake Total 700 Balance 700 - Medications Medications: Current Medications Acetaminophen (Tylenol 325mg Tab) 650 mg PO Q6 PRN PRN Reason: Pain, Mild (1-3) Last Admin: 11/25/17 13:27 Dose: 650 mg Dextrose (Dextrose 50% Inj) 0 ml IV STAT PRN; Protocol PRN Reason: Hypoglycemia Protocol Dextrose (Glutose 15) 0 gm PO ONCE PRN; Protocol PRN Reason: Hypoglycemia Protocol Famotidine (Pepcid) 20 mg PO BID [facility] Last Admin: 11/25/17 09:12 Dose: 20 mg Glucagon (Glucagen Diagnostic Kit) 0 mg IM STAT PRN; Protocol PRN Reason: Hypoglycemia Protocol Sodium Chloride (Sodium Chloride 0.9%) 1,000 mls @ 100 mls/hr IV .Q10H [facility] Last Admin: 11/25/17 06:26 Dose: 100 mls/hr Piperacillin Sod/Tazobactam (Sod 3.375 gm/ Sodium Chloride) 100 mls @ 200 mls/hr IVPB Q6H [facility]; Protocol Last Admin: 11/25/17 14:22 Dose: 200 mls/hr Insulin Human NPH (Novolin N) 50 unit SC HS [facility] Last Admin: 11/24/17 22:10 Dose: 50 u Insulin Human Regular (Novolin R) 0 unit SC ACHS [facility]; Protocol Last Admin: 11/25/17 14:26 Dose: 4 units Insulin Human Regular (Novolin R) 20 unit SC AC [facility] Last Admin: 11/25/17 14:25 Dose: 20 u Metformin HCl (Glucophage) 850 mg PO BID [facility] Miconazole Nitrate (Monistat 7 Vaginal Cream) 1 ea VG DAILY [facility] Last Admin: 11/25/17 09:12 Dose: 1 appl Phenazopyridine HCl (Pyridium) 200 mg PO TIDPC [facility] Pneumococcal Polyvalent Vaccine (Pneumovax 23 Vaccine) 0.5 ml IM .ONCE ONE Stop: 11/27/17 01:01 Rosuvastatin Calcium (Crestor) 2.5 mg PO HS [facility] Last Admin: 11/24/17 21:34 Dose: 2.5 mg Saccharomyces Boulardii (Florastor) 250 mg PO BID [facility] Last Admin: 11/25/17 09:11 Dose: 250 mg Tramadol HCl (Ultram) 25 mg PO TID PRN PRN Reason: Pain, moderate (4-7) Last Admin: 11/25/17 11:14 Dose: 25 mg - Labs Labs: 11/25/17 06:19 11/25/17 06:19 Attending/Attestation - Attestation I have personally seen and examined this patient.: Yes I have fully participated in the care of the patient.: Yes I have reviewed all pertinent clinical information, including history, physical exam and plan: Yes Notes (Text): Patient seen, examined, case discussed with medical office administrator. Patient seen this morning. Patient denies feeling lightheadedness, denies di zziness, reports left lower quadrant pain is more or less the same compared to yesterday as well as she does have left-sided CVA tenderness. We are awaiting results of urine culture from the . We will start her on when necessary Toradol to reduce inflammation from infection. We'll start on peridium will advise her of the side effects will cause redness. Sugars are better controlled. Will continue IV antibiotic for coverage of pyelonephritis. 1) Poorly controlled diabetic Insulin-dependent diabetic Assessment/plan * Pt with h/o DM2, takes metformin and uses 18 units of a friend's insulin at bedtime * Hypoglycemic protocol * Accuchecks qAC and HS * Hb A1c: 10.6--->will need to start insulin in light of a1c>9.5 * Dr. Parker, endocrinology consulted. Help appreciated * Novolin N 50 units subcutaneous daily at bedtime * Novolin R 20 u AC * Regular insulin sliding scale * Metformin 850mg PO BID * Crestor 2.5 by mouth daily at bedtime * NS 100 mL/h * Dietitian referral * public health educator 2) Abdominal Pain Endometrioma Complex Ovarian Cyst Assessment/plan * Ob-licensed tax consultant consult-->help appreciated * US:Mild increase in size of complex right ovarian cyst with low-level echoes. Given the appearance and relative interval stability, this most likely represents an endometrioma. Left ovary not discretely identified. Septated cyst versus hydrosalpinx posterior to the uterus. This measures approximately 5.4 cm in greatest dimension and was not noted previously. Recommend follow- up transvaginal pelvic ultrasound examination in 6-8 weeks. Two discrete uterine fibroids. No other significant abnormality. * CT abdomen/pelvis by mouth and IV contrast: Large right ovarian cyst which has slightly increased in size now 56.8 previously 4 x 5.7 in coronal plane small cysts are seen superior in the uterine fundus. No intra-abdominal findings * Tylenol 650 Q6H PRN for moderate pain * Morphine 2mg IV Q6H for severe pain * OB-SENIOR FIELD ENGINEER hospitalist * patient considering surgical management * advised that medical condition should be optimized prior to intervention 3) Symptomatic Anemia likely secondary to menorrhagia Assessment/plan * Long menstrual period with heavy bleeding * US:Mild increase in size of complex right ovarian cyst with low-level echoes. Given the appearance and relative interval stability, this most likely represents an endometrioma. Left ovary not discretely identified. Septated cyst versus hydrosalpinx posterior to the uterus. This measures approximately 5.4 cm in greatest dimension and was not noted previously. Recommend follow- up transvaginal pelvic ultrasound examination in 6-8 weeks. Two discrete uterine fibroids. No other significant abnormality. * CT abdomen/pelvis by mouth and IV contrast: Large right ovarian cyst which has slightly increased in size now 56.8 previously 4 x 5.7 in coronal plane small cysts are seen superior in the uterine fundus. No intra-abdominal findings * H/H 7.6/25.2 -> 8.8/26.6 following 1u PRBC * Monitor CBC * Iron: 17, TIBC: 413, %sat: 4 * OB-SENIOR FIELD ENGINEER hospitalist * recommend outpatient endometrial biopsy 4)Pyelonephritis Dysuria Assessment/plan * UA: + Leuk esterase, +few bacteria * Urine culture: Staph Aureus and E.coli---MSSA sensitive * Pending repeat urine culture from 11/24/2017 * Patient switched to Zosyn 3.375 IV every 6 are since 11/24/2017 * NS 100 mL/h * Tramdol 25 mg by mouth 3 times a day for moderate pain * Floor start to 50 by mouth twice a day * Patient started on pyridium * Note side effect will cause coloring of urine 5) Vaginal Itching Assessment/plan * UA + yeast * Monistat 7 vaginal cream 1 each per vagina daily * Per obgyn, * s/p fluconazole * continue miconazole * cool compress for relief 6) PPX * DVT PPX: SCDs * Chemical anticoagulaton secondary to worsening anemia secondary to menorhaagia * GI: Pepcid 20mg PO BID * Physical therapy eval and treat: home * d/c telemetry * Patient may shower Disposition: we are awaiting repeat urine culture from 11/24/17 to show clearance of UTI while on Zosyn will switch to PO meds. Patient will need voucher to offset cost of insulin and will need insulin foundation paperwork to be filled to prepare for delivery to her house.
[2017-11-25] MEDS: Sodium Chloride 0.9% 1,000 ML IV SCH (06:26)
[2017-11-25 06:42] LABS: BASO # 0.1 K/uL (0.0-0.2); BASO % 0.7 % (0.0-2.0); EOS # 0.2 K/uL (0.0-0.7); EOS % 2.3 % (0.0-4.0); HEMOGLOBIN 8.1 g/dL (11.0-16.0); LYMPH # 2.4 K/uL (1.0-4.3); MEAN CELL VOLUME 62.4 fL (81.0-99.0); MEAN CORPUSCULAR HGB CONC 30.4 g/dL (33.0-37.0); MEAN PLATELET VOLUME 8.8 fL (7.2-11.7); MONO # 0.7 K/uL (0.0-0.8); MONO % 9.5 % (0.0-10.0); NEUT # 4.3 K/uL (1.8-7.0); NEUT % 56.5 % (50.0-75.0); NRBC % 0.1 % (0.0-2.0); RBC 4.26 Mil/uL (3.80-5.20); RED CELL DISTRIBUTION WIDTH 18.8 % (11.5-14.5); WHITE BLOOD COUNT 7.6 K/uL (4.8-10.8)
[2017-11-25 07:49] LABS: ALBUMIN 3.2 g/dL (3.5-5.0); ALT/SGPT 70 U/L (9-52); AST/SGOT 52 U/L (14-36); BLOOD UREA NITROGEN 9 mg/dL (7-17); CALCIUM 8.6 mg/dl (8.6-10.4); GFR NON-AFRICAN AMERICAN > 60
[2017-11-25] MEDS: (Novolin R) Insulin Human Regular 100 units/ml vial SC SCH ×6 (08:31→17:00)
[2017-11-25] MEDS: Saccharomyces Boulardi 250 mg Cap PO SCH ×2 (09:11→17:58)
[2017-11-25] MEDS: Miconazole 2% Vaginal Cream(45 gm) VG SCH (09:12)
[2017-11-25] MEDS ORDERED: Tramadol 25 mg PO ONE (15:43)
--- NOTE | 2017-11-25 18:12 | PN ---
DATE: 11/25/2017 ENDO FOLLOWUP NOTE LOCATION: Room 657. SUBJECTIVE: This is a 37-year-old female with recent uncontrolled type 2 insulin requiring diabetes, now being followed closely for metabolic management. Her glycemic levels are fluctuating, but improved as noted overnight and the glucose values have ranged from 223 to 290 mg/dL. LABORATORY DATA: Her chemistries showed a BUN of 9, sodium 137, potassium 4.3, chloride 103, CO2 of 26, glucose 223, and creatinine 0.6. ASSESSMENT AND PLAN: So at this time, we will continue the same modified basal and bolus insulin regimen to allow for dose equilibration and keep her on the NPH given at 50 units subcutaneous at bedtime daily as given. We will also continue the regular insulin given at 30 units subcutaneous t.i.d. before meals as ordered. We will titrate incrementally as indicated to optimize metabolic control. We will resume and restart her metformin given at 850 mg b.i.d. as ordered. We will sign off from the endocrine care at this time and would recommend the same dosing regimen as currently ordered. We will follow. Marcelle Parker MD
[2017-11-25] MEDS ORDERED: Vitamins A & D Oint UD Foilpak TOP PRN (20:05)
[2017-11-25] MEDS: (Novolin N) Insulin Human Isophane (NPH) 100 u/ml 10 ml vial SC SCH (22:03)
[2017-11-26] MEDS: Piperacillin/Tazobact 3.375 GM in Sodium Chloride 100 ML IVPB SCH ×4 (00:08→18:10)
[2017-11-26] MEDS: Sodium Chloride 0.9% 1,000 ML IV SCH ×2 (00:14→14:00)
[2017-11-26 07:25] LABS: BASO % 0.6 % (0.0-2.0); EOS # 0.1 K/uL (0.0-0.7); EOS % 1.7 % (0.0-4.0); HEMOGLOBIN 7.9 g/dL (11.0-16.0); LYMPH # 2.5 K/uL (1.0-4.3); LYMPH % 36.2 % (20.0-40.0); MEAN CELL VOLUME 62.3 fL (81.0-99.0); MEAN CORPUSCULAR HEMOGLOBIN 18.6 pg (27.0-31.0); MEAN CORPUSCULAR HGB CONC 29.8 g/dL (33.0-37.0); MONO # 0.6 K/uL (0.0-0.8); MONO % 9.2 % (0.0-10.0); NEUT # 3.6 K/uL (1.8-7.0); NEUT % 52.3 % (50.0-75.0); NRBC % 0.1 % (0.0-2.0); RBC 4.22 Mil/uL (3.80-5.20); RED CELL DISTRIBUTION WIDTH 19.5 % (11.5-14.5); WHITE BLOOD COUNT 6.9 K/uL (4.8-10.8)
[2017-11-26 07:56] LABS: ALT/SGPT 51 U/L (9-52); AST/SGOT 21 U/L (14-36); BLOOD UREA NITROGEN 7 mg/dL (7-17); CALCIUM 8.4 mg/dl (8.6-10.4); GFR NON-AFRICAN AMERICAN > 60
[2017-11-26] MEDS: (Novolin R) Insulin Human Regular 100 units/ml vial SC SCH ×7 (08:30→21:55)
[2017-11-26] MEDS: Saccharomyces Boulardi 250 mg Cap PO SCH ×2 (09:14→18:08)
[2017-11-26] MEDS: Miconazole 2% Vaginal Cream(45 gm) VG SCH (09:17)
[2017-11-26] MEDS: Tramadol 25 mg PO PRN (13:15)
[2017-11-26] MEDS ORDERED: Oxycodone/Acetaminophen 5/325 mg Tab PO STA (15:58)
--- NOTE | 2017-11-26 16:51 | CP.PCM.PN ---
Subjective - Date & Time of Evaluation Date of Evaluation: 11/26/17 Time of Evaluation: 13:00 - Subjective Subjective: Medical attending note Patient seen, examined. Patient denies headache, denies chest pain, denies palpitations, denies nausea, a denies vomiting. Patient reports left lower quadrant pain about the same compared to yesterday. Patient reports mild left flank pain. Patient denies dysuria. Patient reports she felt better after her shower yesterday. Objective - Vital Signs/Intake and Output Vital Signs (last 24 hours): Temp Pulse Resp BP Pulse Ox 97.8 F 65 20 131/78 98 11/26/17 07:00 11/26/17 07:00 11/26/17 07:00 11/25/17 23:50 11/26/17 07:00 Intake and Output: 11/26/17 11/26/17 06:59 18:59 Intake Total 2400 Balance 2400 - Medications Medications: Current Medications Acetaminophen (Tylenol 325mg Tab) 650 mg PO Q6 PRN PRN Reason: Pain, Mild (1-3) Last Admin: 11/26/17 15:25 Dose: 650 mg Dextrose (Dextrose 50% Inj) 0 ml IV STAT PRN; Protocol PRN Reason: Hypoglycemia Protocol Dextrose (Glutose 15) 0 gm PO ONCE PRN; Protocol PRN Reason: Hypoglycemia Protocol Famotidine (Pepcid) 20 mg PO BID [facility] Last Admin: 11/26/17 09:14 Dose: 20 mg Glucagon (Glucagen Diagnostic Kit) 0 mg IM STAT PRN; Protocol PRN Reason: Hypoglycemia Protocol Sodium Chloride (Sodium Chloride 0.9%) 1,000 mls @ 100 mls/hr IV .Q10H [facility] Last Admin: 11/26/17 00:14 Dose: 100 mls/hr Piperacillin Sod/Tazobactam (Sod 3.375 gm/ Sodium Chloride) 100 mls @ 200 mls/hr IVPB Q6H [facility]; Protocol Last Admin: 11/26/17 14:17 Dose: 200 mls/hr Insulin Human NPH (Novolin N) 50 unit SC HS [facility] Last Admin: 11/25/17 22:03 Dose: 50 u Insulin Human Regular (Novolin R) 0 unit SC ACHS [facility]; Protocol Last Admin: 11/26/17 14:13 Dose: Not Given Insulin Human Regular (Novolin R) 20 unit SC AC [facility] Last Admin: 11/26/17 14:13 Dose: Not Given Ketorolac Tromethamine (Toradol) 10 mg PO Q6 PRN PRN Reason: Pain, moderate (4-7) Last Admin: 11/26/17 04:08 Dose: 10 mg Metformin HCl (Glucophage) 850 mg PO BID [facility] Last Admin: 11/26/17 09:13 Dose: 850 mg Miconazole Nitrate (Monistat 7 Vaginal Cream) 1 ea VG DAILY [facility] Last Admin: 11/26/17 09:17 Dose: 1 appl Phenazopyridine HCl (Pyridium) 200 mg PO TIDPC [facility] Last Admin: 11/26/17 14:17 Dose: 200 mg Pneumococcal Polyvalent Vaccine (Pneumovax 23 Vaccine) 0.5 ml IM .ONCE ONE Stop: 11/27/17 01:01 Rosuvastatin Calcium (Crestor) 2.5 mg PO HS [facility] Last Admin: 11/24/17 21:34 Dose: 2.5 mg Saccharomyces Boulardii (Florastor) 250 mg PO BID [facility] Last Admin: 11/26/17 09:14 Dose: 250 mg Tramadol HCl (Ultram) 25 mg PO TID PRN PRN Reason: Pain, moderate (4-7) Last Admin: 11/26/17 13:15 Dose: 25 mg Vitamin A (Vitamin A & D Oint Ud Foilpak) 1 ea TOP DAILY PRN PRN Reason: dry lips Last Admin: 11/25/17 22:03 Dose: 1 ea - Labs Labs: 11/26/17 07:15 11/26/17 07:15 - Constitutional Appears: Non-toxic, No Acute Distress - Head Exam Head Exam: NORMAL INSPECTION - Eye Exam Eye Exam: EOMI - ENT Exam ENT Exam: Mucous Membranes Moist - Respiratory Exam Respiratory Exam: Clear to Ausculation Bilateral, NORMAL BREATHING PATTERN. absent: Rales, Rhonchi, Wheezes - Cardiovascular Exam Cardiovascular Exam: REGULAR RHYTHM, +S1, +S2 - GI/Abdominal Exam GI & Abdominal Exam: Distended (obese habitus), Soft, Tenderness (mild left lower quadrant), Normal Bowel Sounds, Rebound (left lower quadrant). absent: Firm, Guarding, Rigid - Extremities Exam Extremities Exam: absent: Pedal Edema, Tenderness - Back Exam Back Exam: CVA tenderness (L) - Neurological Exam Neurological Exam: Alert, Awake, Oriented x3 - Psychiatric Exam Psychiatric exam: Normal Affect, Normal Mood - Skin Skin Exam: Dry, Intact, Normal Color, Warm Assessment and Plan (1) Pyelonephritis Status: Acute (2) Symptomatic anemia Status: Acute (3) Uncontrolled diabetes mellitus Status: Acute (4) Prophylactic measure Status: Acute Attending/Attestation - Attestation I have personally seen and examined this patient.: Yes I have fully participated in the care of the patient.: Yes I have reviewed all pertinent clinical information, including history, physical exam and plan: Yes Notes (Text): patient seen, examined. Patient sugars are better controlled. Patient is receiving when necessary Toradol. Given patient a dose of Percocet see if pain was improved. Sugars are better controlled. Will continue IV antibiotic for coverage of pyelonephritis. patient's repeat urine culture. Plan for discharge planning tomorrow. Upon discharge patient will need insulin, glucometer, test strips, syringes, lancets. Case management to assist in providing Rishi to offset initial costs of insulin. Patient to have insulin foundation set up for further insulin to be delivered to the [facility]. Medicine team to follow-up with case management for insulin foundation forms to be filled out prior to discharge for patient. Patient on day 2 of Zosyn. Repeat urine cultures negative. Patient started on peridium yesterday. Patient receiving Monistat today is day 3. Upon discharge the followin) Novolin N 50 units at night (5030 = 1 500 units over one month) patient will need 2 vials for one month coverage. 2) Novolin R 20 units before each meal ( 2030 = 600 units over one month) 1 vial should suffice for one month coverage. 3) metformin 850 mg by mouth twice a day Please educate patient that she is receiving 2 different insulin types 1 at night and the second insulin before each meal. 4) Crestor 2.5 mg once at night 5) ferrous sulfate 325 mg by mouth 3 times a day: these advise patient that side effects including constipation and black stool. Recommended to drink wit oral orange juice to increase absorption. Can use [id number] stool softeners. 6) complete Monistat for yeast Patient recommended to establish care at the [facility]. Patient has been seen at the [facility]. Patient will need referral to both rn diabetes educator, podiatry and ophthalmology for diabetic screening exams, and for the [facility] clinic. patient to have repeat CBC Assessment/Plan 1) Poorly controlled diabetic Insulin-dependent diabetic Assessment/plan * Pt with h/o DM2, takes metformin and uses 18 units of a friend's insulin at bedtime * Hypoglycemic protocol * Accuchecks qAC and HS * Hb A1c: 10.6--->will need to start insulin in light of a1c>9.5 * Dr. Parker, endocrinology consulted. Help appreciated * Novolin N 50 units subcutaneous daily at bedtime * Novolin R 20 u AC * Regular insulin sliding scale * Metformin 850mg PO BID * Crestor 2.5 by mouth daily at bedtime * NS 100 mL/h * Dietitian referral * community educator 2) Abdominal Pain Endometrioma Complex Ovarian Cyst Assessment/plan * Ob-roller turner consult-->help appreciated * US:Mild increase in size of complex right ovarian cyst with low-level echoes. Given the appearance and relative interval stability, this most likely r epresents an endometrioma. Left ovary not discretely identified. Septated cyst versus hydrosalpinx posterior to the uterus. This measures approximately 5.4 cm in greatest dimension and was not noted previously. Recommend follow- up transvaginal pelvic ultrasound examination in 6-8 weeks. Two discrete uterine fibroids. No other significant abnormality. * CT abdomen/pelvis by mouth and IV contrast: Large right ovarian cyst which has slightly increased in size now 56.8 previously 4 x 5.7 in coronal plane small cysts are seen superior in the uterine fundus. No intra-abdominal findings * Tylenol 650 Q6H PRN for moderate pain * Morphine 2mg IV Q6H for severe pain * OB-CAUSTIC PURIFICATION OPERATOR hospitalist * patient considering surgical management * advised that medical condition should be optimized prior to intervention 3) Symptomatic Anemia likely secondary to menorrhagia Assessment/plan * Long menstrual period with heavy bleeding * US:Mild increase in size of complex right ovarian cyst with low-level echoes. Given the appearance and relative interval stability, this most likely re presents an endometrioma. Left ovary not discretely identified. Septated cyst versus hydrosalpinx posterior to the uterus. This measures approximately 5.4 cm in greatest dimension and was not noted previously. Recommend follow- up transvaginal pelvic ultrasound examination in 6-8 weeks. Two discrete uterine fibroids. No other significant abnormality. * CT abdomen/pelvis by mouth and IV contrast: Large right ovarian cyst which has slightly increased in size now 56.8 previously 4 x 5.7 in coronal plane small cysts are seen superior in the uterine fundus. No intra-abdominal findings * H/H 7.6/25.2 -> 8.8/26.6 following 1u PRBC * Monitor CBC * Iron: 17, TIBC: 413, %sat: 4 * OB-CAUSTIC PURIFICATION OPERATOR hospitalist * recommend outpatient endometrial biopsy 4)Pyelonephritis Dysuria Assessment/plan * UA: + Leuk esterase, +few bacteria * Urine culture: Staph Aureus and E.coli---MSSA sensitive * Patient switched to Zosyn 3.375 IV every 6 are since 11/24/2017 * Repeat urine culture: no growth * NS 100 mL/h * Tramdol 25 mg by mouth 3 times a day for moderate pain * Floor start to 50 by mouth twice a day * Patient c/w on pyridium * Note side effect will cause coloring of urine 5) Vaginal Itching Assessment/plan * UA + yeast * Monistat 7 vaginal cream 1 each per vagina daily * Per obgyn, * s/p fluconazole * continue miconazole * cool compress for relief 6) PPX * DVT PPX: SCDs * Chemical anticoagulaton secondary to worsening anemia secondary to menorhaagia * GI: Pepcid 20mg PO BID * Physical therapy eval and treat: home * d/c telemetry * Patient may shower Disposition: pain control for pyleonephritis. to setup patient with voucher and insulin foundation prior to discharge for diabetes.
[2017-11-26] MEDS: Rosuvastatin Calcium 2.5 mg Tab PO SCH (21:33)
[2017-11-26] MEDS: (Novolin N) Insulin Human Isophane (NPH) 100 u/ml 10 ml vial SC SCH (22:17)
[2017-11-27] MEDS: Piperacillin/Tazobact 3.375 GM in Sodium Chloride 100 ML IVPB SCH ×4 (00:22→19:04)
[2017-11-27] MEDS ORDERED: Pneumococcal 23-Valent Vaccine IM ONE (01:00)
[2017-11-27 06:58] LABS: BASO # 0.1 K/uL (0.0-0.2); BASO % 0.7 % (0.0-2.0); EOS # 0.1 K/uL (0.0-0.7); EOS % 1.9 % (0.0-4.0); HEMOGLOBIN 7.6 g/dL (11.0-16.0); LYMPH # 2.6 K/uL (1.0-4.3); LYMPH % 36.1 % (20.0-40.0); MEAN CELL VOLUME 62.6 fL (81.0-99.0); MEAN CORPUSCULAR HEMOGLOBIN 18.7 pg (27.0-31.0); MEAN CORPUSCULAR HGB CONC 29.9 g/dL (33.0-37.0); MONO # 0.5 K/uL (0.0-0.8); MONO % 6.8 % (0.0-10.0); NEUT % 54.5 % (50.0-75.0); NRBC % 0.1 % (0.0-2.0); RBC 4.07 Mil/uL (3.80-5.20); RED CELL DISTRIBUTION WIDTH 19.4 % (11.5-14.5); WHITE BLOOD COUNT 7.2 K/uL (4.8-10.8)
[2017-11-27] MEDS: Sodium Chloride 0.9% 1,000 ML IV SCH ×4 (07:00→19:02)
[2017-11-27 07:06] LABS: ALBUMIN 3.1 g/dL (3.5-5.0); ALT/SGPT 40 U/L (9-52); AST/SGOT 15 U/L (14-36); BLOOD UREA NITROGEN 6 mg/dL (7-17); CALCIUM 8.3 mg/dl (8.6-10.4); GFR NON-AFRICAN AMERICAN > 60
[2017-11-27] MEDS: (Novolin R) Insulin Human Regular 100 units/ml vial SC SCH ×7 (08:12→21:50)
[2017-11-27] MEDS: Saccharomyces Boulardi 250 mg Cap PO SCH ×2 (10:11→17:48)
[2017-11-27] MEDS: Miconazole 2% Vaginal Cream(45 gm) VG SCH (10:12)
--- NOTE | 2017-11-27 15:04 | CP.PCM.PN ---
Subjective - Date & Time of Evaluation Date of Evaluation: 11/27/17 Time of Evaluation: 08:00 - Subjective Subjective: Min Mac PGY-1, Medicine progress note Pt was seen and examined at bedside. No acute events overnight. Pt reports that her abdominal pain is better. Pt denies fever, chills, chest pain, dyspnea, abdominal pain, n/v/d, dysuria, burning on urination. Objective - Vital Signs/Intake and Output Vital Signs (last 24 hours): Temp Pulse Resp BP Pulse Ox 98.1 F 66 20 113/73 99 11/27/17 07:00 11/27/17 07:00 11/27/17 07:00 11/27/17 07:00 11/27/17 07:00 - Medications Medications: Current Medications Acetaminophen (Tylenol 325mg Tab) 650 mg PO Q6 PRN PRN Reason: Pain, Mild (1-3) Last Admin: 11/26/17 21:33 Dose: 650 mg Dextrose (Dextrose 50% Inj) 0 ml IV STAT PRN; Protocol PRN Reason: Hypoglycemia Protocol Dextrose (Glutose 15) 0 gm PO ONCE PRN; Protocol PRN Reason: Hypoglycemia Protocol Famotidine (Pepcid) 20 mg PO BID [facility] Last Admin: 11/27/17 10:11 Dose: 20 mg Glucagon (Glucagen Diagnostic Kit) 0 mg IM STAT PRN; Protocol PRN Reason: Hypoglycemia Protocol Piperacillin Sod/Tazobactam (Sod 3.375 gm/ Sodium Chloride) 100 mls @ 200 mls/hr IVPB Q6H [facility]; Protocol Last Admin: 11/27/17 13:14 Dose: 200 mls/hr Insulin Human NPH (Novolin N) 50 unit SC HS [facility] Last Admin: 11/26/17 22:17 Dose: 50 u Insulin Human Regular (Novolin R) 0 unit SC ACHS [facility]; Protocol Last Admin: 11/27/17 12:08 Dose: 3 units Insulin Human Regular (Novolin R) 20 unit SC AC [facility] Last Admin: 11/27/17 12:07 Dose: 20 u Ketorolac Tromethamine (Toradol) 10 mg PO Q6 PRN PRN Reason: Pain, moderate (4-7) Last Admin: 11/27/17 08:27 Dose: 10 mg Metformin HCl (Glucophage) 850 mg PO BID [facility] Last Admin: 11/27/17 10:12 Dose: 850 mg Miconazole Nitrate (Monistat 7 Vaginal Cream) 1 ea VG DAILY [facility] Last Admin: 11/27/17 10:12 Dose: 1 appl Phenazopyridine HCl (Pyridium) 200 mg PO TIDPC [facility] Last Admin: 11/27/17 13:14 Dose: 200 mg Rosuvastatin Calcium (Crestor) 2.5 mg PO HS [facility] Last Admin: 11/26/17 21:33 Dose: 2.5 mg Saccharomyces Boulardii (Florastor) 250 mg PO BID [facility] Last Admin: 11/27/17 10:11 Dose: 250 mg Tramadol HCl (Ultram) 25 mg PO TID PRN PRN Reason: Pain, moderate (4-7) Last Admin: 11/26/17 13:15 Dose: 25 mg Vitamin A (Vitamin A & D Oint Ud Foilpak) 1 ea TOP DAILY PRN PRN Reason: dry lips Last Admin: 11/25/17 22:03 Dose: 1 ea - Labs Labs: 11/27/17 06:47 11/27/17 06:47 - Constitutional Appears: Non-toxic, No Acute Distress - Head Exam Head Exam: NORMAL INSPECTION - Eye Exam Eye Exam: EOMI, Normal appearance - ENT Exam ENT Exam: Mucous Membranes Moist - Neck Exam Neck Exam: Normal Inspection - Respiratory Exam Respiratory Exam: Clear to Ausculation Bilateral. absent: Rales, Rhonchi, Wheezes - Cardiovascular Exam Cardiovascular Exam: REGULAR RHYTHM, +S1, +S2 - GI/Abdominal Exam GI & Abdominal Exam: Soft, Tenderness (LLQ tenderness), Normal Bowel Sounds, Rebound. absent: Distended, Firm, Guarding, Rigid - Extremities Exam Extremities Exam: Normal Inspection. absent: Calf Tenderness, Pedal Edema, Te nderness - Back Exam Back Exam: CVA tenderness (L), NORMAL INSPECTION - Neurological Exam Neurological Exam: Alert, Awake - Psychiatric Exam Psychiatric exam: Normal Affect, Normal Mood - Skin Skin Exam: Dry, Normal Color, Warm Assessment and Plan - Assessment and Plan (Free Text) Assessment: Pt is a 37yo F with PMH endometriosis, DM2 who presented to ED with abdominal pain, vaginal itchiness, and increased thirst x2 weeks admitted for evaluation and treatment of hyperglycemia, abdominal pain, and anemia 1) Poorly controlled diabetic Insulin-dependent diabetic * Pt with h/o DM2, takes metformin and uses 18 units of a friend's insulin at bedtime * Hypoglycemic protocol * Accuchecks qAC and HS * Hb A1c: 10.6--->will need to start insulin in light of a1c>9.5 * Dr. Parker, endocrinology consulted. Help appreciated * Novolin N 50 units subcutaneous daily at bedtime * Novolin R 20 u AC * Regular insulin sliding scale * Metformin 850mg PO BID * Crestor 2.5 by mouth daily at bedtime * continue NS 100 mL/h * Dietitian referral * clinical trial educator 2) Abdominal Pain Endometrioma Complex Ovarian Cyst * Ob-awning assembler consult-->help appreciated * US:Mild increase in size of complex right ovarian cyst with low-level echoes. Given the appearance and relative interval stability, this most likely represents an endometrioma. Left ovary not discretely identified. Septated cyst versus hydrosalpinx posterior to the uterus. This measures approximately 5.4 cm in greatest dimension and was not noted previously. Recommend follow-u p transvaginal pelvic ultrasound examination in 6-8 weeks. Two discrete uterine fibroids. No other significant abnormality. * CT abdomen/pelvis by mouth and IV contrast: Large right ovarian cyst which has slightly increased in size now 56.8 previously 4 x 5.7 in coronal plane small cysts are seen superior in the uterine fundus. No intra-abdominal findings * Tylenol 650 Q6H PRN for moderate pain * Morphine 2mg IV Q6H for severe pain * OB-MANAGER TRAINEE hospitalist * patient considering surgical management * advised that medical condition should be optimized prior to intervention 3) Symptomatic Anemia likely secondary to menorrhagia * Long menstrual period with heavy bleeding * US:Mild increase in size of complex right ovarian cyst with low-level echoes. Given the appearance and relative interval stability, this most likely represents an endometrioma. Left ovary not discretely identified. Septated cyst versus hydrosalpinx posterior to the uterus. This measures approximately 5.4 cm in greatest dimension and was not noted previously. Recommend follow- up transvaginal pelvic ultrasound examination in 6-8 weeks. Two discrete uterine fibroids. No other significant abnormality. * CT abdomen/pelvis by mouth and IV contrast: Large right ovarian cyst which has slightly increased in size now 56.8 previously 4 x 5.7 in coronal plane small cysts are seen superior in the uterine fundus. No intra-abdominal findings * H/H 7.6/25.2 -> 8.8/26.6 following 1u PRBC * Monitor CBC * H/H is stable. 7.6 today, 7.9 yesterday * Iron: 17, TIBC: 413, %sat: 4 * OB-MANAGER TRAINEE hospitalist * recommend outpatient endometrial biopsy 4)Pyelonephritis Dysuria * UA: + Leuk esterase, +few bacteria * Urine culture: Staph Aureus and E.coli---MSSA sensitive * Patient switched to Zosyn 3.375 IV every 6h since 11/24/2017 * Repeat urine culture: no growth * blood culture x negative prelim for 3 days * NS 100 mL/h * Tramdol 25 mg by mouth 3 times a day for moderate pain * Floor start to 50 by mouth twice a day * Patient c/w on pyridium * Note side effect will cause coloring of urine * Infectious disease consulted, Dr. Anthony * echocardiogram due to staph in the urine * Bactrim DS x1 tab PO q12h 5) Vaginal Itching * UA + yeast * Monistat 7 vaginal cream 1 each per vagina daily * Per obgyn, * s/p fluconazole * continue miconazole * cool compress for relief 6) PPX * DVT PPX: SCDs * Chemical anticoagulaton secondary to worsening anemia secondary to menorhaagia * GI: Pepcid 20mg PO BID * Physical therapy eval and treat: home * d/c telemetry Disposition: pain control for pyleonephritis. to setup patient with voucher and insulin foundation prior to discharge for diabetes. Case reviewed and discussed with attending physician, Dr. Lu
[2017-11-27] MEDS ORDERED: Tmp-Smz 800 mg-160 mg DS Tab PO SCH (16:00)
--- NOTE | 2017-11-27 19:10 | CP.PCM.CON ---
History of Present Illness - History of Present Illness History of Present Illness: dictated Past Patient History - Infectious Disease Hx of Infectious Diseases: None - Tetanus Immunizations Tetanus Immunization: Unknown - Past Medical History & Family History Past Medical History?: Yes - Past Social History Smoking Status: Never Smoked - CARDIAC Hx Cardiac Disorders: No - PULMONARY Hx Respiratory Disorders: No - NEUROLOGICAL Hx Neurological Disorder: No - HEENT Hx Cataracts: No - RENAL Hx Chronic Kidney Disease: Yes Hx Kidney Stones: Yes - ENDOCRINE/METABOLIC Hx Diabetes Mellitus Type 2: Yes - HEMATOLOGICAL/ONCOLOGICAL Hx Anemia: Yes - INTEGUMENTARY Hx Dermatological Problems: No - MUSCULOSKELETAL/RHEUMATOLOGICAL Hx Musculoskeletal Disorders: No Hx Falls: No - GASTROINTESTINAL Hx Gastrointestinal Disorders: No - PSYCHIATRIC Hx Substance Use: No - SURGICAL HISTORY Hx Surgeries: Yes Other/Comment: Kidney stent; laparoscopy, d&c, hysteroscopy - ANESTHESIA Hx Anesthesia: Yes Hx Anesthesia Reactions: No Hx Malignant Hyperthermia: No Meds Allergies/Adverse Reactions: Allergies Allergy/AdvReac Type Severity Reaction Status Date / Time No Known Allergies Allergy Verified 08/07/17 22:52 - Medications Medications: Current Medications Acetaminophen (Tylenol 325mg Tab) 650 mg PO Q6 PRN PRN Reason: Pain, Mild (1-3) Last Admin: 11/26/17 21:33 Dose: 650 mg Dextrose (Dextrose 50% Inj) 0 ml IV STAT PRN; Protocol PRN Reason: Hypoglycemia Protocol Dextrose (Glutose 15) 0 gm PO ONCE PRN; Protocol PRN Reason: Hypoglycemia Protocol Famotidine (Pepcid) 20 mg PO BID [facility] Last Admin: 11/27/17 17:49 Dose: 20 mg Fluconazole (Diflucan) 150 mg PO DAILY [facility]; Protocol Last Admin: 11/27/17 16:56 Dose: 150 mg Glucagon (Glucagen Diagnostic Kit) 0 mg IM STAT PRN; Protocol PRN Reason: Hypoglycemia Protocol Piperacillin Sod/Tazobactam (Sod 3.375 gm/ Sodium Chloride) 100 mls @ 200 mls/hr IVPB Q6H [facility]; Protocol Last Admin: 11/27/17 13:14 Dose: 200 mls/hr Sodium Chloride (Sodium Chloride 0.9%) 1,000 mls @ 100 mls/hr IV .Q10H [facility] Insulin Human NPH (Novolin N) 50 unit SC HS [facility] Last Admin: 11/26/17 22:17 Dose: 50 u Insulin Human Regular (Novolin R) 0 unit SC ACHS [facility]; Protocol Last Admin: 11/27/17 16:52 Dose: Not Given Insulin Human Regular (Novolin R) 20 unit SC AC [facility] Last Admin: 11/27/17 16:52 Dose: Not Given Ketorolac Tromethamine (Toradol) 10 mg PO Q6 PRN PRN Reason: Pain, moderate (4-7) Last Admin: 11/27/17 17:49 Dose: 10 mg Metformin HCl (Glucophage) 850 mg PO BID [facility] Last Admin: 11/27/17 17:49 Dose: 850 mg Miconazole Nitrate (Monistat 7 Vaginal Cream) 1 ea VG DAILY [facility] Last Admin: 11/27/17 10:12 Dose: 1 appl Phenazopyridine HCl (Pyridium) 200 mg PO TIDPC [facility] Last Admin: 11/27/17 17:48 Dose: 200 mg Rosuvastatin Calcium (Crestor) 2.5 mg PO HS [facility] Last Admin: 11/26/17 21:33 Dose: 2.5 mg Saccharomyces Boulardii (Florastor) 250 mg PO BID [facility] Last Admin: 11/27/17 17:48 Dose: 250 mg Tramadol HCl (Ultram) 25 mg PO TID PRN PRN Reason: Pain, moderate (4-7) Last Admin: 11/26/17 13:15 Dose: 25 mg Trimethoprim/Sulfamethoxazole (Bactrim Ds Tab) 1 tab PO Q12H [facility]; Protocol Last Admin: 11/27/17 16:48 Dose: 1 tab Vitamin A (Vitamin A & D Oint Ud Foilpak) 1 ea TOP DAILY PRN PRN Reason: dry lips Last Admin: 11/25/17 22:03 Dose: 1 ea Results - Vital Signs Recent Vital Signs: Last Vital Signs Temp 98.1 F 11/27/17 15:00 Pulse 66 11/27/17 15:00 Resp 20 11/27/17 15:00 BP 110/72 11/27/17 15:00 Pulse Ox 95 11/27/17 15:00 - Labs Result Diagrams: 11/27/17 06:47 11/27/17 06:47 Labs: Laboratory Results - last 24 hr 11/26/17 11/27/17 11/27/17 21:01 06:05 06:47 WBC 7.2 RBC 4.07 Hgb 7.6 L Hct 25.5 L MCV 62.6 L MCH 18.7 L MCHC 29.9 L RDW 19.4 H Plt Count 246 MPV 9.0 Neut % (Auto) 54.5 Lymph % (Auto) 36.1 [place] % (Auto) 6.8 Eos % (Auto) 1.9 Baso % (Auto) 0.7 Neut # (Auto) 4.0 Lymph # (Auto) 2.6 [place] # (Auto) 0.5 Eos # (Auto) 0.1 Baso # (Auto) 0.1 Sodium Potassium Chloride Carbon Dioxide Anion Gap BUN Creatinine Est GFR ( Amer) Est GFR (Non-Af Amer) POC Glucose (mg/dL) 300 H 239 H Random Glucose Calcium Phosphorus Magnesium Total Bilirubin AST ALT Alkaline Phosphatase Total Protein Albumin Globulin Albumin/Globulin Ratio 11/27/17 11/27/17 11/27/17 06:47 11:08 17:19 WBC RBC Hgb Hct MCV MCH MCHC RDW Plt Count MPV Neut % (Auto) Lymph % (Auto) [place] % (Auto) Eos % (Auto) Baso % (Auto) Neut # (Auto) Lymph # (Auto) [place] # (Auto) Eos # (Auto) Baso # (Auto) Sodium 139 Potassium 4.3 Chloride 105 Carbon Dioxide 27 Anion Gap 11 BUN 6 L Creatinine 0.6 L Est GFR ( Amer) > 60 Est GFR (Non-Af Amer) > 60 POC Glucose (mg/dL) 275 H 81 Random Glucose 225 H Calcium 8.3 L Phosphorus 3.3 Magnesium 1.8 Total Bilirubin 0.4 AST 15 ALT 40 Alkaline Phosphatase 75 Total Protein 6.1 L Albumin 3.1 L Globulin 3.0 Albumin/Globulin Ratio 1.0
--- NOTE | 2017-11-27 20:46 | CARD ---
APPROVED REPORT Date of service: 11/24/2017 EKG Measurement Heart [id number] <Conclusion> Normal sinus rhythm Normal ECG
[2017-11-27] MEDS: Rosuvastatin Calcium 2.5 mg Tab PO SCH (22:01)
[2017-11-27] MEDS: Tramadol 25 mg PO PRN (22:02)
[2017-11-27] MEDS: (Novolin N) Insulin Human Isophane (NPH) 100 u/ml 10 ml vial SC SCH (22:04)
[2017-11-28] MEDS: Piperacillin/Tazobact 3.375 GM in Sodium Chloride 100 ML IVPB SCH ×4 (00:29→19:00)
--- NOTE | 2017-11-28 03:44 | CON ---
DATE: 11/27/2017 INFECTIOUS DISEASE CONSULT REQUESTED BY: Lanny Carcamo DO HISTORY OF PRESENT ILLNESS: This patient is 37-year-old with history of endometriosis, abdominal pain, itching. She was admitted on 11/22. She has been here. I am asked to evaluate her for antibiotics to go home with. She complains of mild abdominal pain, otherwise, is feeling better. Denies any urinary discomfort or any rash. She is diabetic. She is not having any chest pain. No nausea, no vomiting. No fevers at this time. She has been on Zosyn, and she also got miconazole. SURGICAL HISTORY: Significant for laparoscopy for endometriosis. SOCIAL HISTORY: Significant for smoking 2 cigarettes per day into 15 years. Denies any ETOH or recreational medications. ALLERGIES: NO ALLERGIES. MEDICATIONS: She is on metformin before. Her medications, she is on here Pepcid. She was getting Novolin N, Novolin R, Toradol. She is on Glucophage, Monistat cream, Pyridium, and she is on Zosyn and Florastor. FAMILY HISTORY: Noncontributory except that the parents have diabetes. PAST MEDICAL HISTORY: smoker. No cardiac. No neurologic. She does have history of chronic kidney disease, kidney stones, diabetic, anemia. No skin problems. No joint pains. No psych issues. She did have surgery for a kidney stent and laparoscopy, and D and C and hysteroscopy. She denies any back pain. PHYSICAL EXAMINATION: VITAL SIGNS: On exam now, I find her temperature is 98.1, heart rate of 66, blood pressure 113/73, respirations are 20. HEENT: Head is atraumatic, normocephalic. She is still drowsy, probably on the pain medications. Eye movements are unremarkable. NECK: Supple. JVP is flat. LUNGS: Clear. No crackles or rales present. HEART: S1, S2 regular. No murmur present. ABDOMEN: Soft, nontender. No guarding, no rigidity present. She complains of mild pain in the suprapubic area, otherwise. EXTREMITIES: Have no edema, clubbing, or cyanosis. Micro wills, her blood cultures were negative. Urine culture has Staph aureus and yeast, and she has no CVA tenderness. Urine culture is negative. Blood cultures were negative, 11/22. She had a pelvic CT done which shows a large right ovarian cyst which is slightly increased now measuring 5 x 6.8 and 4 x 5.7, so she needs to follow with the MOTORCYCLE REPAIRER. She has no other acute abnormalities. Urine culture, no hydronephrosis. No solid mass, so at this time, since she has Staph aureus, I will order an echo just to be sure. However, blood cultures have been negative and if this is negative, then we can switch her. She can probably go on Bactrim and give her one dose of Diflucan 150 mg to treat, and she needs to take care of her MOTORCYCLE REPAIRER issues as well as diabetes as outpatient. Radha Anthony MD
[2017-11-28] MEDS: Sodium Chloride 0.9% 1,000 ML IV SCH ×2 (06:09→06:10)
[2017-11-28] MEDS: (Novolin R) Insulin Human Regular 100 units/ml vial SC SCH ×7 (08:30→21:34)
[2017-11-28] MEDS: Saccharomyces Boulardi 250 mg Cap PO SCH ×2 (11:00→17:23)
[2017-11-28] MEDS: Tmp-Smz 800 mg-160 mg DS Tab PO SCH ×2 (11:00→17:22)
[2017-11-28 11:36] LABS: BASO % 0.5 % (0.0-2.0); EOS # 0.1 K/uL (0.0-0.7); EOS % 1.6 % (0.0-4.0); HEMOGLOBIN 7.7 g/dL (11.0-16.0); LYMPH # 2.3 K/uL (1.0-4.3); LYMPH % 32.1 % (20.0-40.0); MEAN CELL VOLUME 62.3 fL (81.0-99.0); MEAN CORPUSCULAR HEMOGLOBIN 18.9 pg (27.0-31.0); MEAN CORPUSCULAR HGB CONC 30.3 g/dL (33.0-37.0); MEAN PLATELET VOLUME 9.1 fL (7.2-11.7); MONO # 0.5 K/uL (0.0-0.8); MONO % 6.5 % (0.0-10.0); NEUT # 4.3 K/uL (1.8-7.0); NEUT % 59.3 % (50.0-75.0); NRBC % 0.1 % (0.0-2.0); RBC 4.04 Mil/uL (3.80-5.20); RED CELL DISTRIBUTION WIDTH 19.1 % (11.5-14.5); WHITE BLOOD COUNT 7.2 K/uL (4.8-10.8)
[2017-11-28 11:51] LABS: ALB/GLOB RATIO 1.1 (1.0-2.1); ALBUMIN 3.3 g/dL (3.5-5.0); ALT/SGPT 34 U/L (9-52); AST/SGOT 18 U/L (14-36); BLOOD UREA NITROGEN 10 mg/dL (7-17); CALCIUM 8.6 mg/dl (8.6-10.4); GFR NON-AFRICAN AMERICAN > 60
[2017-11-28] MEDS: Miconazole 2% Vaginal Cream(45 gm) VG SCH (11:51)
--- NOTE | 2017-11-28 19:33 | CARD ---
APPROVED REPORT Date of service: 11/28/2017 EXAM: Two-dimensional and M-mode echocardiogram with Doppler and color Doppler. Other Information Quality : Good[employer] : RISK FACTORS Diabetes 2D DIMENSIONS IVSd1.0 (0.7-1.1cm)LVDd5.1 (3.9-5.9cm) PWd0.9 (0.7-1.1cm)LA Clxurs18 (18-58mL) LVDs3.4 (2.5-4.0cm)FS (%) 33.9 % LVEF (%)62.5 (>50%)LVEF (Kessler's)61.75 % M-Mode DIMENSIONS Left Atrium (MM)4.23 (2.5-4.0cm)IVSd0.88 (0.7-1.1cm) Aortic Root2.78 (2.2-3.7cm)LVDd5.27 (4.0-5.6cm) Aortic Cusp Exc.1.96 (1.5-2.0cm)PWd0.83 (0.7-1.1cm) FS (%) 33 %LVDs3.52 (2.0-3.8cm) LVEF (%)61 (>50%) Mitral Valve MV E Qbgkvbny166.1cm/sMV A Xcdtzfzu91.9cm/sE/A ratio1.1 TDI Lateral E' Peak V14.06cm/sMedial E' Peak V8.04cm/sE/Lateral E'7.8 E/Medial E'13.6 Tricuspid Valve TR Peak Nhmjpatb906aj/sTR Peak Gr.23mmHg <Conclusion> poor window. normal size lv,ra & rv. la is mildly dilated. normal lv wall motion,thickness,systolic & diastolic funciton with lvef of 60-65%. normal aortic,mitral,tv & pv. trace mr & tr. no pericardial effusion. normal size aortic root. ivc is mildly dilated,2.4 cm.
[2017-11-28] MEDS: Rosuvastatin Calcium 2.5 mg Tab PO SCH (21:34)
[2017-11-28] MEDS: (Novolin N) Insulin Human Isophane (NPH) 100 u/ml 10 ml vial SC SCH (21:34)
--- NOTE | 2017-11-28 22:33 | CP.PCM.PN ---
<Kathrine Jerry P - Last Filed: 11/28/17 22:25> Subjective - Date & Time of Evaluation Date of Evaluation: 11/28/17 Time of Evaluation: 06:00 - Subjective Subjective: PGY-[address] Shaw. Patient seen and examined. States LLQ pain is improved. Reports lightheadedness with walking and generalized weakness. Denies chest pain, shortness of breath, palpitations, fever, and chills. Hemoglobin dropped to 7.6 today. Patient transfused 1unit of PRBC. Objective - Vital Signs/Intake and Output Vital Signs (last 24 hours): Temp Pulse Resp BP Pulse Ox 98.7 F 78 18 124/71 99 11/28/17 18:07 11/28/17 18:07 11/28/17 18:07 11/28/17 18:07 11/28/17 16:04 Intake and Output: 11/28/17 11/29/17 18:59 06:59 Intake Total 2950 Balance 2950 - Medications Medications: Current Medications Acetaminophen (Tylenol 325mg Tab) 650 mg PO Q6 PRN PRN Reason: Pain, Mild (1-3) Last Admin: 11/26/17 21:33 Dose: 650 mg Dextrose (Dextrose 50% Inj) 0 ml IV STAT PRN; Protocol PRN Reason: Hypoglycemia Protocol Dextrose (Glutose 15) 0 gm PO ONCE PRN; Protocol PRN Reason: Hypoglycemia Protocol Famotidine (Pepcid) 20 mg PO BID [facility] Last Admin: 11/28/17 17:22 Dose: 20 mg Fluconazole (Diflucan) 150 mg PO DAILY [facility]; Protocol Last Admin: 11/28/17 11:00 Dose: 150 mg Glucagon (Glucagen Diagnostic Kit) 0 mg IM STAT PRN; Protocol PRN Reason: Hypoglycemia Protocol Sodium Chloride (Sodium Chloride 0.9%) 1,000 mls @ 100 mls/hr IV .Q10H [facility] Last Admin: 11/28/17 06:10 Dose: Not Given Insulin Human NPH (Novolin N) 50 unit SC HS [facility] Last Admin: 11/28/17 21:34 Dose: 50 u Insulin Human Regular (Novolin R) 0 unit SC ACHS [facility]; Protocol Last Admin: 11/28/17 21:34 Dose: Not Given Insulin Human Regular (Novolin R) 20 unit SC AC [facility] Last Admin: 11/28/17 17:24 Dose: 20 u Ketorolac Tromethamine (Toradol) 10 mg PO Q6 PRN PRN Reason: Pain, moderate (4-7) Last Admin: 11/28/17 21:39 Dose: 10 mg Metformin HCl (Glucophage) 850 mg PO BID [facility] Last Admin: 11/28/17 17:22 Dose: 850 mg Miconazole Nitrate (Monistat 7 Vaginal Cream) 1 ea VG DAILY [facility] Stop: 12/01/17 11:00 Phenazopyridine HCl (Pyridium) 200 mg PO TIDPC [facility] Last Admin: 11/28/17 17:23 Dose: 200 mg Rosuvastatin Calcium (Crestor) 2.5 mg PO HS [facility] Last Admin: 11/28/17 21:34 Dose: 2.5 mg Saccharomyces Boulardii (Florastor) 250 mg PO BID [facility] Last Admin: 11/28/17 17:23 Dose: 250 mg Tramadol HCl (Ultram) 25 mg PO TID PRN PRN Reason: Pain, moderate (4-7) Last Admin: 11/27/17 22:02 Dose: 25 mg Trimethoprim/Sulfamethoxazole (Bactrim Ds Tab) 1 tab PO BID [facility]; Protocol Last Admin: 11/28/17 17:22 Dose: 1 tab Vitamin A (Vitamin A & D Oint Ud Foilpak) 1 ea TOP DAILY PRN PRN Reason: dry lips Last Admin: 11/25/17 22:03 Dose: 1 ea - Labs Labs: 11/28/17 11:20 11/28/17 11:20 - Constitutional Appears: No Acute Distress - Head Exam Head Exam: ATRAUMATIC, NORMOCEPHALIC - Eye Exam Eye Exam: EOMI - ENT Exam ENT Exam: Mucous Membranes Moist - Neck Exam Neck Exam: Full ROM, Normal Inspection - Respiratory Exam Respiratory Exam: Clear to Ausculation Bilateral, NORMAL BREATHING PATTERN. absent: Rales, Rhonchi, Wheezes - Cardiovascular Exam Cardiovascular Exam: REGULAR RHYTHM, +S1, +S2 - GI/Abdominal Exam GI & Abdominal Exam: Soft, Tenderness (mild LLQ), Normal Bowel Sounds. absent: Guarding, Rebound - Extremities Exam Extremities Exam: Full ROM. absent: Calf Tenderness, Normal Inspection (spider veins over L anterior lower leg, mild tenderness, no swelling, warmth, erythema ) - Neurological Exam Neurological Exam: Alert, Awake, Oriented x3 - Psychiatric Exam Psychiatric exam: Normal Affect, Normal Mood - Skin Skin Exam: Dry, Normal Color, Warm Assessment and Plan - Assessment and Plan (Free Text) Plan: Pt is a 37yo F with PMH endometriosis, DM2 who presented to ED with abdominal pain, vaginal itchiness, and increased thirst x2 weeks admitted for evaluation and treatment of hyperglycemia, abdominal pain, and anemia 1) Poorly controlled diabetic Insulin-dependent diabetic * Pt with h/o DM2, takes metformin and uses 18 units of a friend's insulin at bedtime * Hypoglycemic protocol * Accuchecks qAC and HS * Hb A1c: 10.6--->will need to start insulin in light of a1c>9.5 * Dr. Parker, endocrinology consulted. Help appreciated * Novolin N 50 units subcutaneous daily at bedtime * Novolin R 20 u AC * Regular insulin sliding scale * Metformin 850mg PO BID * follow up on economic options to dc patient with * Crestor 2.5 by mouth daily at bedtime * continue NS 100 mL/h * Dietitian referral * staff development educator- Patient education completed on 11/24. Arkray meter given to patient and instructions for use reviewed with patient. 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 Given the appearance and relative interval stability, this most likely represents an endometrioma. Left ovary not discretely identified. Septated cyst versus hydrosalpinx posterior to the uterus. This measures approximately 5.4 cm in greatest dimension and was not noted previously. Recommend follow- up transvaginal pelvic ultrasound examination in 6-8 weeks. Two discrete uterine fibroids. No other significant abnormality. * CT abdomen/pelvis by mouth and IV contrast: Large right ovarian cyst which has slightly increased in size now 56.8 previously 4 x 5.7 in coronal plane small cysts are seen superior in the uterine fundus. No intra-abdominal findings * Tylenol 650 Q6H PRN for moderate pain * Toradol 10mg PO Q6H PRN for severe pain * OB-WATCH ELECTRICIAN hospitalist * patient considering surgical management * advised that medical condition should be optimized prior to intervention * recommend out patient endometrial biopsy 3) Symptomatic Anemia likely secondary to menorrhagia * Long menstrual period with heavy bleeding * US:Mild increase in size of complex right ovarian cyst with low-level echoes. Given the appearance and relative interval stability, this most likely represents an endometrioma. Left ovary not discretely identified. Septated cyst versus hydrosalpinx posterior to the uterus. This measures approximately 5.4 cm in greatest dimension and was not noted previously. Recommend follow- up transvaginal pelvic ultrasound examination in 6-8 weeks. Two discrete uterine fibroids. No other significant abnormality. * CT abdomen/pelvis by mouth and IV contrast: Large right ovarian cyst which has slightly increased in size now 56.8 previously 4 x 5.7 in coronal plane small cysts are seen superior in the uterine fundus. No intra-abdominal findings * On admission H/H 7.6/25.2 -> 8.8/26.6 following 1u PRBC * 11/28 hgb drop to 7.6, patient sx with lightheadedness, 1unit PRBC transfused * Monitor CBC * Iron: 17, TIBC: 413, %sat: 4 * Stool occult negative * Recommend outpatient GI follow up for colonoscopy. This was relayed to patient and she expressed understanding. * OB-[employer]ATCH ELECT[employer]ICIAN hospitalist * recommend outpatient endometrial biopsy 4) Clinically suspected pyelonephritis with UTI Dysuria * UA: + Leuk esterase, +few bacteria * Urine culture: Staph Aureus and E.coli * Repeat urine cx negative * Patient switched to Zosyn 3.375 IV every 6h since 11/24/2017, completed 11/28 * Repeat urine culture: no growth * blood culture x negative prelim for 3 days * NS 100 mL/h * Tramdol 25 mg by mouth 3 times a day for moderate pain * Floor start to 50 by mouth twice a day * Patient c/w on pyridium * Note side effect will cause coloring of urine * Infectious disease consulted, Dr. Anthony * f/u echocardiogram due to staph in the urine * Bactrim DS x1 tab PO q12h 5) Vaginal candidiasis * UA + yeast * Monistat 7 vaginal cream 1 each per vagina daily * Per obgyn, * s/p fluconazole * continue miconazole * cool compress for relief 6) PPX * DVT PPX: SCDs * Chemical anticoagulaton secondary to worsening anemia secondary to menorhaagia * GI: Pepcid 20mg PO BID * Physical therapy eval and treat: home * d/c telemetry Disposition: Insulin foundation to be completed prior to discharge for diabetes. Will f/u with Dr. Parker regarding most economic medication option to d/c patient on. Patient transfused 1 unit PRBC today due to symptomatic anemia. Recheck CBC in AM. If stable, may be discharged. All grades 1 thru 6 home teacher and GI follow up recommendations were explained to patient and was given opportunity to ask questions. Patient expressed understanding. <Santino Shaw - Last Filed: 11/29/17 19:28> Objective - Vital Signs/Intake and Output Vital Signs (last 24 hours): Temp Pulse Resp BP Pulse Ox 98.5 F 73 20 93/55 L 97 11/29/17 16:00 11/29/17 16:00 11/29/17 16:00 11/29/17 16:00 11/29/17 16:00 Intake and Output: 11/29/17 11/30/17 18:59 06:59 Intake Total 1280 Balance 1280 - Medications Medications: Current Medications Acetaminophen (Tylenol 325mg Tab) 650 mg PO Q6 [facility] Stop: 11/30/17 15:30 Last Admin: 11/29/17 16:20 Dose: 650 mg Dextrose (Dextrose 50% Inj) 0 ml IV STAT PRN; Protocol PRN Reason: Hypoglycemia Protocol Dextrose (Glutose 15) 0 gm PO ONCE PRN; Protocol PRN Reason: Hypoglycemia Protocol Famotidine (Pepcid) 20 mg PO BID [facility] Last Admin: 11/29/17 17:06 Dose: 20 mg Glucagon (Glucagen Diagnostic Kit) 0 mg IM STAT PRN; Protocol PRN Reason: Hypoglycemia Protocol Sodium Chloride (Sodium Chloride 0.9%) 1,000 mls @ 100 mls/hr IV .Q10H [facility] Last Admin: 11/29/17 14:22 Dose: 100 mls/hr Insulin Human NPH (Novolin N) 50 unit SC HS [facility] Last Admin: 11/28/17 21:34 Dose: 50 u Insulin Human Regular (Novolin R) 0 unit SC ACHS [facility]; Protocol Last Admin: 11/29/17 17:07 Dose: Not Given Insulin Human Regular (Novolin R) 20 unit SC AC [facility] Last Admin: 11/29/17 17:09 Dose: 20 u Metformin HCl (Glucophage) 850 mg PO BID [facility] Last Admin: 11/29/17 17:06 Dose: 850 mg Miconazole Nitrate (Monistat 7 Vaginal Cream) 1 ea VG DAILY [facility] Stop: 12/01/17 11:00 Last Admin: 11/29/17 11:00 Dose: 1 ea Phenazopyridine HCl (Pyridium) 200 mg PO TIDPC [facility] Last Admin: 11/29/17 17:06 Dose: 200 mg Rosuvastatin Calcium (Crestor) 2.5 mg PO HS [facility] Last Admin: 11/28/17 21:34 Dose: 2.5 mg Saccharomyces Boulardii (Florastor) 250 mg PO BID [facility] Last Admin: 11/29/17 17:06 Dose: 250 mg Trimethoprim/Sulfamethoxazole (Bactrim Ds Tab) 1 tab PO BID [facility]; Protocol Last Admin: 11/29/17 17:06 Dose: 1 tab Vitamin A (Vitamin A & D Oint Ud Foilpak) 1 ea TOP DAILY PRN PRN Reason: dry lips Last Admin: 11/25/17 22:03 Dose: 1 ea - Labs Labs: 11/29/17 08:00 11/29/17 08:00 Attending/Attestation - Attestation I have personally seen and examined this patient.: Yes I have fully participated in the care of the patient.: Yes I have reviewed all pertinent clinical information, including history, physical exam and plan: Yes Notes (Text): 11/29/17 19:27 This is a late entry. Patient was seen and examined with resident. Care of this patient was gone over in detail with the resident. Santino Shaw D.O.
[2017-11-28 22:45] LABS: HEMOGLOBIN 9.1 g/dL (11.0-16.0); MEAN CELL VOLUME 63.2 fL (81.0-99.0); MEAN CORPUSCULAR HEMOGLOBIN 19.5 pg (27.0-31.0); MEAN CORPUSCULAR HGB CONC 30.9 g/dL (33.0-37.0); MEAN PLATELET VOLUME 8.7 fL (7.2-11.7); RBC 4.67 Mil/uL (3.80-5.20); RED CELL DISTRIBUTION WIDTH 20.9 % (11.5-14.5); WHITE BLOOD COUNT 10.2 K/uL (4.8-10.8)
[2017-11-29] MEDS: Sodium Chloride 0.9% 1,000 ML IV SCH ×4 (00:54→21:40)
[2017-11-29 08:10] LABS: BASO % 0.4 % (0.0-2.0); EOS # 0.1 K/uL (0.0-0.7); EOS % 1.1 % (0.0-4.0); LYMPH # 2.6 K/uL (1.0-4.3); LYMPH % 30.3 % (20.0-40.0); MEAN CELL VOLUME 63.2 fL (81.0-99.0); MEAN CORPUSCULAR HEMOGLOBIN 19.1 pg (27.0-31.0); MEAN CORPUSCULAR HGB CONC 30.2 g/dL (33.0-37.0); MEAN PLATELET VOLUME 8.6 fL (7.2-11.7); MONO # 0.6 K/uL (0.0-0.8); MONO % 7.4 % (0.0-10.0); NEUT # 5.3 K/uL (1.8-7.0); NEUT % 60.8 % (50.0-75.0); NRBC % 0.1 % (0.0-2.0); RBC 4.72 Mil/uL (3.80-5.20); RED CELL DISTRIBUTION WIDTH 21.7 % (11.5-14.5); WHITE BLOOD COUNT 8.7 K/uL (4.8-10.8)
[2017-11-29 08:22] LABS: ALB/GLOB RATIO 1.2 (1.0-2.1); ALBUMIN 3.7 g/dL (3.5-5.0); ALT/SGPT 33 U/L (9-52); AST/SGOT 20 U/L (14-36); BLOOD UREA NITROGEN 9 mg/dL (7-17); GFR NON-AFRICAN AMERICAN > 60
[2017-11-29] MEDS: (Novolin R) Insulin Human Regular 100 units/ml vial SC SCH ×7 (08:24→21:39)
[2017-11-29] MEDS: Tramadol 25 mg PO PRN (08:41)
[2017-11-29] MEDS: Tmp-Smz 800 mg-160 mg DS Tab PO SCH ×2 (09:53→17:06)
[2017-11-29] MEDS: Saccharomyces Boulardi 250 mg Cap PO SCH ×2 (09:53→17:06)
[2017-11-29] MEDS: Miconazole 2% Vaginal Cream(45 gm) VG SCH (11:00)
--- NOTE | 2017-11-29 20:26 | CP.PCM.PN ---
<Kathrine Jerry P - Last Filed: 11/29/17 22:46> Subjective - Date & Time of Evaluation Date of Evaluation: 11/29/17 Time of Evaluation: 08:00 - Subjective Subjective: PGY-[address] Ludmila Shaw. Patient seen and examined at bedside. States she feels much better following blood transfusion last night. However reports mild dizziness on ambulation this morning, which she attributes to her blood glucose being low at 74. Patient states she has not had much of an appetite and has not been eating much of her meals. Patient was educated on the importance of finishing her meals and never skipping. Denies chest pain, shortness of breath, nausea, vomiting, diarrhea, constipation, and syncope. Objective - Vital Signs/Intake and Output Vital Signs (last 24 hours): Temp Pulse Resp BP Pulse Ox 98.5 F 73 20 93/55 L 97 11/29/17 16:00 11/29/17 16:00 11/29/17 16:00 11/29/17 16:00 11/29/17 16:00 Intake and Output: 11/29/17 11/30/17 18:59 06:59 Intake Total 1280 Balance 1280 - Medications Medications: Current Medications Acetaminophen (Tylenol 325mg Tab) 650 mg PO Q6 [facility] Stop: 11/30/17 15:30 Last Admin: 11/29/17 16:20 Dose: 650 mg Dextrose (Dextrose 50% Inj) 0 ml IV STAT PRN; Protocol PRN Reason: Hypoglycemia Protocol Dextrose (Glutose 15) 0 gm PO ONCE PRN; Protocol PRN Reason: Hypoglycemia Protocol Famotidine (Pepcid) 20 mg PO BID [facility] Last Admin: 11/29/17 17:06 Dose: 20 mg Glucagon (Glucagen Diagnostic Kit) 0 mg IM STAT PRN; Protocol PRN Reason: Hypoglycemia Protocol Sodium Chloride (Sodium Chloride 0.9%) 1,000 mls @ 100 mls/hr IV .Q10H [facility] Last Admin: 11/29/17 14:22 Dose: 100 mls/hr Insulin Human NPH (Novolin N) 50 unit SC HS [facility] Last Admin: 11/28/17 21:34 Dose: 50 u Insulin Human Regular (Novolin R) 0 unit SC ACHS [facility]; Protocol Last Admin: 11/29/17 17:07 Dose: Not Given Insulin Human Regular (Novolin R) 20 unit SC AC [facility] Last Admin: 11/29/17 17:09 Dose: 20 u Metformin HCl (Glucophage) 850 mg PO BID [facility] Last Admin: 11/29/17 17:06 Dose: 850 mg Miconazole Nitrate (Monistat 7 Vaginal Cream) 1 ea VG DAILY [facility] Stop: 12/01/17 11:00 Last Admin: 11/29/17 11:00 Dose: 1 ea Phenazopyridine HCl (Pyridium) 200 mg PO TIDPC [facility] Last Admin: 11/29/17 17:06 Dose: 200 mg Rosuvastatin Calcium (Crestor) 2.5 mg PO HS [facility] Last Admin: 11/28/17 21:34 Dose: 2.5 mg Saccharomyces Boulardii (Florastor) 250 mg PO BID [facility] Last Admin: 11/29/17 17:06 Dose: 250 mg Trimethoprim/Sulfamethoxazole (Bactrim Ds Tab) 1 tab PO BID [facility]; Protocol Last Admin: 11/29/17 17:06 Dose: 1 tab Vitamin A (Vitamin A & D Oint Ud Foilpak) 1 ea TOP DAILY PRN PRN Reason: dry lips Last Admin: 11/25/17 22:03 Dose: 1 ea - Labs Labs: 11/29/17 08:00 11/29/17 08:00 - Constitutional Appears: No Acute Distress - Head Exam Head Exam: ATRAUMATIC, NORMOCEPHALIC - Eye Exam Eye Exam: EOMI, Normal appearance, PERRL - ENT Exam ENT Exam: Mucous Membranes Moist - Respiratory Exam Respiratory Exam: Clear to Ausculation Bilateral. absent: Rales, Rhonchi, Wheezes - Cardiovascular Exam Cardiovascular Exam: REGULAR RHYTHM, +S1, +S2 - GI/Abdominal Exam GI & Abdominal Exam: Soft, Tenderness (mild LLQ), Normal Bowel Sounds. absent: Guarding, Rebound - Extremities Exam Extremities Exam: Full ROM, Tenderness (mild over varicose veins of L lower leg. No swelling, redness or warmth.). absent: Pedal Edema - Neurological Exam Neurological Exam: Alert, Awake, Oriented x3 - Psychiatric Exam Psychiatric exam: Normal Affect, Normal Mood - Skin Skin Exam: Dry, Intact, Normal Color, Warm Assessment and Plan - Assessment and Plan (Free Text) Plan: Pt is a 37yo F with PMHx of endometriosis, DM2 who presented to ED with abdominal pain, vaginal itchiness, and increased thirst x2 weeks admitted for evaluation and treatment of hyperglycemia, abdominal pain, and anemia 1) Poorly controlled diabetic Insulin-dependent diabetic * Pt with h/o DM2, takes metformin and uses 18 units of a friend's insulin at bedtime * Hypoglycemic protocol * Accuchecks qAC and HS * Hb A1c: 10.6--->will need to start insulin in light of a1c>9.5 * Dr. Parker, endocrinology consulted. Help appreciated * Novolin N 50 units subcutaneous daily at bedtime * Novolin R 20 u AC * Regular insulin sliding scale * Metformin 850mg PO BID * Crestor 2.5 by mouth daily at bedtime * continue NS 100 mL/h * Dietitian referral * early childhood special educator- Patient education completed on 11/24. Arkray meter given to patient and instructions for use reviewed with patient. 2) Abdominal Pain Endometrioma Complex Ovarian Cyst * Ob-block setter gypsum consult-->help appreciated * US:Mild increase in size of complex right ovarian cyst with low-level echoes. Given the appearance and relative interval stability, this most likely represents an endometrioma. Left ovary not discretely identified. Septated cyst versus hydrosalpinx posterior to the uterus. This measures approximately 5.4 cm in greatest dimension and was not noted previously. Recommend follow- up transvaginal pelvic ultrasound examination in 6-8 weeks. Two discrete uterine fibroids. No other significant abnormality. * CT abdomen/pelvis by mouth and IV contrast: Large right ovarian cyst which has slightly increased in size now 56.8 previously 4 x 5.7 in coronal plane small cysts are seen superior in the uterine fundus. No intra-abdominal findings * Tylenol 650 Q6H [facility] through 11/30 3:30pm for moderate pain * Discontinue Toradol 10mg PO Q6H PRN * OB-ORTHODONTIC TECHNICIAN ASSISTANT hospitalist * patient considering surgical management * advised that medical condition should be optimized prior to intervention * recommend out patient endometrial biopsy 3) Symptomatic Anemia likely secondary to menorrhagia * Long menstrual period with heavy bleeding * US:Mild increase in size of complex right ovarian cyst with low-level echoes. Given the appearance and relative interval stability, this most likely represents an endometrioma. Left ovary not discretely identified. Septated cyst versus hydrosalpinx posterior to the uterus. This measures approximately 5.4 cm in greatest dimension and was not noted previously. Recommend follow- up transvaginal pelvic ultrasound examination in 6-8 weeks. Two discrete uterine fibroids. No other significant abnormality. * CT abdomen/pelvis by mouth and IV contrast: Large right ovarian cyst which has slightly increased in size now 56.8 previously 4 x 5.7 in coronal plane small cysts are seen superior in the uterine fundus. No intra-abdominal findings * On admission H/H 7.6/25.2 -> 8.8/26.6 following 1u PRBC * 11/28 hgb drop to 7.6, patient sx with lightheadedness, 1unit PRBC transfused * Monitor CBC * Iron: 17, TIBC: 413, %sat: 4 * Stool occult negative * Recommend outpatient GI follow up for colonoscopy. This was relayed to patient and she expressed understanding. * OB-ORTHODONTIC TECHNICIAN ASSISTANT hospitalist * recommend outpatient endometrial biopsy 4) Clinically suspected pyelonephritis with UTI Dysuria * UA: + Leuk esterase, +few bacteria * Urine culture: Staph Aureus and E.coli * Repeat urine cx negative * Patient switched to Zosyn 3.375 IV every 6h since 11/24/2017, completed 11/28 * Repeat urine culture: no growth * blood culture x negative prelim for 3 days * NS 100 mL/h * Tramdol 25 mg by mouth 3 times a day for moderate pain * Floor start to 50 by mouth twice a day * Patient c/w on pyridium * Note side effect will cause coloring of urine * Infectious disease consulted, Dr. Anthony * echocardiogram: EF 62.5%, LA mildly dilated, Trace MR and TR, IVC mildly dilated at 2.4cm, otherwise normal (see full report) * Bactrim DS x1 tab PO q12h 5) Vaginal candidiasis * UA + yeast * Monistat 7 vaginal cream 1 each per vagina daily, ms 12/01 * Per obgyn, * s/p fluconazole * continue miconazole * cool compress for relief 6) PPX * DVT PPX: SCDs * Chemical anticoagulaton secondary to worsening anemia secondary to menorhaagia * GI: Pepcid 20mg PO BID * Physical therapy eval and treat: home * d/c telemetry Disposition: Discharge pending Insulin foundation approval, paperwork submitted. Dr. Parker recommended to dc patient on current insulin regimen. All block setter gypsum and GI follow up recommendations were explained to patient and was given opportunity to ask questions. Patient expressed understanding. <Santino Shaw - Last Filed: 12/03/17 19:12> Objective - Vital Signs/Intake and Output Vital Signs (last 24 hours): Temp Pulse Resp BP Pulse Ox 98.5 F 100 H 20 123/80 97 12/03/17 16:00 12/03/17 16:00 12/03/17 16:00 12/03/17 16:00 12/03/17 16:00 Intake and Output: 12/03/17 12/04/17 18:59 06:59 Intake Total 500 Balance 500 - Medications Medications: Current Medications Acetaminophen (Tylenol 325mg Tab) 650 mg PO Q6 PRN PRN Reason: Pain, moderate (4-7) Last Admin: 12/02/17 21:34 Dose: 650 mg Dextrose (Dextrose 50% Inj) 0 ml IV STAT PRN; Protocol PRN Reason: Hypoglycemia Protocol Dextrose (Glutose 15) 0 gm PO ONCE PRN; Protocol PRN Reason: Hypoglycemia Protocol Famotidine (Pepcid) 20 mg PO BID [facility] Last Admin: 12/03/17 17:38 Dose: 20 mg Glucagon (Glucagen Diagnostic Kit) 0 mg IM STAT PRN; Protocol PRN Reason: Hypoglycemia Protocol Insulin Human NPH (Novolin N) 25 unit SC [facility] Last Admin: 12/02/17 21:30 Dose: 25 units Insulin Human Regular (Novolin R) 0 unit SC [facility]; Protocol Last Admin: 12/03/17 16:30 Dose: Not Given Insulin Human Regular (Novolin R) 20 unit SC AC [facility] Last Admin: 12/03/17 17:00 Dose: 20 u Lisinopril (Zestril) 2.5 mg PO DAILY [facility] Last Admin: 12/03/17 11:10 Dose: 2.5 mg Metformin HCl (Glucophage) 850 mg PO BID [facility] Last Admin: 12/01/17 09:02 Dose: 850 mg Phenazopyridine HCl (Pyridium) 200 mg PO TIDPC [facility] Last Admin: 12/03/17 17:40 Dose: 200 mg Rosuvastatin Calcium (Crestor) 2.5 mg PO HS [facility] Last Admin: 12/02/17 21:30 Dose: 2.5 mg Saccharomyces Boulardii (Florastor) 250 mg PO BID [facility] Last Admin: 12/03/17 17:38 Dose: 250 mg Tramadol HCl (Ultram) 25 mg PO TID PRN PRN Reason: Pain, severe (8-10) Last Admin: 12/03/17 16:09 Dose: 25 mg Trimethoprim/Sulfamethoxazole (Bactrim Ds Tab) 1 tab PO Q12H [facility]; Protocol Stop: 12/08/17 20:00 Last Admin: 12/03/17 16:13 Dose: 1 tab Vitamin A (Vitamin A & D Oint Ud Foilpak) 1 ea TOP DAILY PRN PRN Reason: dry lips Last Admin: 11/25/17 22:03 Dose: 1 ea - Labs Labs: 12/03/17 07:20 12/03/17 07:20 Attending/Attestation - Attestation I have personally seen and examined this patient.: Yes I have fully participated in the care of the patient.: Yes I have reviewed all pertinent clinical information, including history, physical exam and plan: Yes Notes (Text): 12/03/17 19:08 This is a late entry Care of this patient was gone over in detail with resident Dr. Claritza Shaw D.O.
[2017-11-29] MEDS: Rosuvastatin Calcium 2.5 mg Tab PO SCH (21:39)
[2017-11-29] MEDS: (Novolin N) Insulin Human Isophane (NPH) 100 u/ml 10 ml vial SC SCH (21:39)
[2017-11-30 06:42] LABS: BASO # 0.1 K/uL (0.0-0.2); BASO % 0.7 % (0.0-2.0); EOS # 0.1 K/uL (0.0-0.7); EOS % 1.5 % (0.0-4.0); HEMOGLOBIN 8.7 g/dL (11.0-16.0); LYMPH # 3.4 K/uL (1.0-4.3); LYMPH % 37.8 % (20.0-40.0); MEAN CELL VOLUME 63.3 fL (81.0-99.0); MEAN CORPUSCULAR HEMOGLOBIN 19.3 pg (27.0-31.0); MEAN CORPUSCULAR HGB CONC 30.5 g/dL (33.0-37.0); MEAN PLATELET VOLUME 8.8 fL (7.2-11.7); MONO # 0.7 K/uL (0.0-0.8); MONO % 7.9 % (0.0-10.0); NEUT # 4.7 K/uL (1.8-7.0); NEUT % 52.1 % (50.0-75.0); NRBC % 0.1 % (0.0-2.0); RBC 4.51 Mil/uL (3.80-5.20); RED CELL DISTRIBUTION WIDTH 21.8 % (11.5-14.5)
[2017-11-30 06:45] LABS: ALB/GLOB RATIO 1.1 (1.0-2.1); ALBUMIN 3.4 g/dL (3.5-5.0); ALT/SGPT 28 U/L (9-52); AST/SGOT 22 U/L (14-36); BLOOD UREA NITROGEN 9 mg/dL (7-17); CALCIUM 9.1 mg/dl (8.6-10.4); GFR NON-AFRICAN AMERICAN > 60
[2017-11-30] MEDS: Sodium Chloride 0.9% 1,000 ML IV SCH (08:00)
[2017-11-30] MEDS: (Novolin R) Insulin Human Regular 100 units/ml vial SC SCH ×7 (08:30→21:44)
[2017-11-30] MEDS: Saccharomyces Boulardi 250 mg Cap PO SCH ×2 (09:40→17:52)
[2017-11-30] MEDS: Tmp-Smz 800 mg-160 mg DS Tab PO SCH ×2 (09:40→17:52)
[2017-11-30] MEDS: Miconazole 2% Vaginal Cream(45 gm) VG SCH (09:42)
[2017-11-30] MEDS ORDERED: Tramadol 25 mg PO ONE (09:45)
--- NOTE | 2017-11-30 11:09 | CP.PCM.PN ---
<Kathrine Jerry P - Last Filed: 11/30/17 20:42> Subjective - Date & Time of Evaluation Date of Evaluation: 11/30/17 Time of Evaluation: 08:00 - Subjective Subjective: PGY-[address] Shaw. Patient seen and evaluated at bedside. Patient is resting in bed in no acute distress. States that she feels a slight generalized weakness and persistent LLQ pain. Patient denies fevers, chills, nausea, vomiting, chest pain, palpitations, shortness of breath. Objective - Vital Signs/Intake and Output Vital Signs (last 24 hours): Temp Pulse Resp BP Pulse Ox 98.1 F 74 20 106/63 95 11/30/17 08:23 11/30/17 08:23 11/30/17 08:23 11/30/17 08:23 11/30/17 08:23 - Medications Medications: Current Medications Acetaminophen (Tylenol 325mg Tab) 650 mg PO Q6 [facility] Stop: 11/30/17 15:30 Last Admin: 11/30/17 05:47 Dose: 650 mg Dextrose (Dextrose 50% Inj) 0 ml IV STAT PRN; Protocol PRN Reason: Hypoglycemia Protocol Dextrose (Glutose 15) 0 gm PO ONCE PRN; Protocol PRN Reason: Hypoglycemia Protocol Famotidine (Pepcid) 20 mg PO BID [facility] Last Admin: 11/30/17 09:40 Dose: 20 mg Glucagon (Glucagen Diagnostic Kit) 0 mg IM STAT PRN; Protocol PRN Reason: Hypoglycemia Protocol Sodium Chloride (Sodium Chloride 0.9%) 1,000 mls @ 100 mls/hr IV .Q10H [facility] Last Admin: 11/30/17 08:00 Dose: Not Given Insulin Human NPH (Novolin N) 50 unit SC HS [facility] Last Admin: 11/29/17 21:39 Dose: Not Given Insulin Human Regular (Novolin R) 0 unit SC ACHS [facility]; Protocol Last Admin: 11/30/17 08:30 Dose: Not Given Insulin Human Regular (Novolin R) 20 unit SC AC [facility] Last Admin: 11/30/17 08:30 Dose: 20 u Metformin HCl (Glucophage) 850 mg PO BID [facility] Last Admin: 11/30/17 09:40 Dose: 850 mg Miconazole Nitrate (Monistat 7 Vaginal Cream) 1 ea VG DAILY [facility] Stop: 12/01/17 11:00 Last Admin: 11/30/17 09:42 Dose: 1 ea Phenazopyridine HCl (Pyridium) 200 mg PO TIDPC [facility] Last Admin: 11/30/17 09:40 Dose: 200 mg Rosuvastatin Calcium (Crestor) 2.5 mg PO HS [facility] Last Admin: 11/29/17 21:39 Dose: 2.5 mg Saccharomyces Boulardii (Florastor) 250 mg PO BID [facility] Last Admin: 11/30/17 09:40 Dose: 250 mg Trimethoprim/Sulfamethoxazole (Bactrim Ds Tab) 1 tab PO BID [facility]; Protocol Last Admin: 11/30/17 09:40 Dose: 1 tab Vitamin A (Vitamin A & D Oint Ud Foilpak) 1 ea TOP DAILY PRN PRN Reason: dry lips Last Admin: 11/25/17 22:03 Dose: 1 ea - Labs Labs: 11/30/17 06:25 11/30/17 06:25 - Additional Findings Additional findings: - Constitutional Appears: No Acute Distress - Head Exam Head Exam: ATRAUMATIC, NORMOCEPHALIC - Eye Exam Eye Exam: EOMI, Normal appearance, PERRL - ENT Exam ENT Exam: Mucous Membranes Moist - Respiratory Exam Respiratory Exam: Clear to Ausculation Bilateral. absent: Rales, Rhonchi, Wheezes - Cardiovascular Exam Cardiovascular Exam: REGULAR RHYTHM, +S1, +S2 - GI/Abdominal Exam GI & Abdominal Exam: Soft, Tenderness (mild LLQ), Normal Bowel Sounds. absent: Guarding, Rebound - Extremities Exam Extremities Exam: Full ROM, non-tender. absent: Pedal Edema - Neurological Exam Neurological Exam: Alert, Awake, Oriented x3 - Psychiatric Exam Psychiatric exam: Normal Affect, Normal Mood - Skin Skin Exam: Dry, Intact, Normal Color, Warm Assessment and Plan - Assessment and Plan (Free Text) Plan: Pt is a 37yo F with PMHx of endometriosis, DM2 who presented to ED with abdominal pain, vaginal itchiness, and increased thirst x2 weeks admitted for evaluation and treatment of hyperglycemia, abdominal pain, UTI, and anemia 1) Poorly controlled diabetic Insulin-dependent diabetic * Pt with h/o DM2, takes metformin and uses 18 units of a friend's insulin at bedtime * Hypoglycemic protocol * Accuchecks qAC and HS * Hb A1c: 10.6, will need to start insulin in light of a1c>9.5 * Dr. Parker, endocrinology consulted. Help appreciated * Novolin N 50 units subcutaneous daily at bedtime * Novolin R 20 u AC * Regular insulin sliding scale * Metformin 850mg PO BID * Crestor 2.5 by mouth daily at bedtime * continue NS 100 mL/h * Dietitian referral * tobacco educator- Patient education completed on 11/24. Arkray meter given to patient and instructions for use reviewed with patient. 2) Abdominal Pain Endometrioma Complex Ovarian Cyst * Ob-duralumin metalworker consult, help appreciated * US:Mild increase in size of complex right ovarian cyst with low-level echoes. Given the appearance and relative interval stability, this most likely represents an endometrioma. Left ovary not discretely identified. Septated cyst versus hydrosalpinx posterior to the uterus. This measures approximately 5.4 cm in greatest dimension and was not noted previously. Recommend follow- up transvaginal pelvic ultrasound examination in 6-8 weeks. Two discrete uterine fibroids. No other significant abnormality. * CT abdomen/pelvis by mouth and IV contrast: Large right ovarian cyst which has slightly increased in size now 56.8 previously 4 x 5.7 in coronal plane small cysts are seen superior in the uterine fundus. No intra-abdominal findings * Tylenol 650 Q6H [facility] through 11/30 3:30pm for moderate pain * Discontinue Toradol 10mg PO Q6H PRN * OB-ARTIFICIAL CANDY MAKER hospitalist * patient considering surgical management * advised that medical condition should be optimized prior to intervention * recommend out patient endometrial biopsy 3) Symptomatic Anemia likely secondary to menorrhagia * Long menstrual period with heavy bleeding * US:Mild increase in size of complex right ovarian cyst with low-level echoes. Given the appearance and relative interval stability, this most likely represents an endometrioma. Left ovary not discretely identified. Septated cyst versus hydrosalpinx posterior to the uterus. This measures approximately 5.4 cm in greatest dimension and was not noted previously. Recommend follow- up transvaginal pelvic ultrasound examination in 6-8 weeks. Two discrete uterine fibroids. No other significant abnormality. * CT abdomen/pelvis by mouth and IV contrast: Large right ovarian cyst which has slightly increased in size now 56.8 previously 4 x 5.7 in coronal plane small cysts are seen superior in the uterine fundus. No intra-abdominal findings * On admission H/H 7.6/25.2 -> 8.8/26.6 following 1u PRBC * 11/28 hgb drop to 7.6, patient sx with lightheadedness, 1unit PRBC transfused * Monitor CBC * Iron: 17, TIBC: 413, %sat: 4 * Stool occult negative * Recommend outpatient GI follow up for colonoscopy. This was relayed to patient and she expressed understanding. * OB-ARTIFICIAL CANDY MAKER hospitalist * recommend outpatient endometrial biopsy 4) Clinically suspected pyelonephritis with UTI Dysuria * UA: + Leuk esterase, +few bacteria * Urine culture: Staph Aureus and E.coli * Repeat urine cx negative * Patient switched to Zosyn 3.375 IV every 6h since 11/24/2017, completed 11/28 * Repeat urine culture: no growth * blood culture x negative prelim for 3 days * NS 100 mL/h * Tramdol 25 mg by mouth 3 times a day for moderate pain * Floor start to 50 by mouth twice a day * Patient c/w on pyridium * Note side effect will cause coloring of urine * Infectious disease consulted, Dr. Anthony * echocardiogram: EF 62.5%, LA mildly dilated, Trace MR and TR, IVC mildly dilated at 2.4cm, otherwise normal (see full report) * Bactrim DS x1 tab PO q12h 5) Vaginal candidiasis * UA + yeast * Monistat 7 vaginal cream 1 each per vagina daily, dc 12/01 * Per obgyn, * s/p fluconazole * continue miconazole * cool compress for relief 6) PPX * DVT PPX: SCDs * Chemical anticoagulaton secondary to worsening anemia secondary to menorhaagia * GI: Pepcid 20mg PO BID * Physical therapy eval and treat: home * d/c telemetry Disposition: Discharge pending Insulin foundation approval, paperwork was submitted. All duralumin metalworker and GI follow up recommendations were explained to patient and was given opportunity to ask questions. Patient expressed understanding. <Santino Shaw - Last Filed: 12/03/17 19:12> Objective - Vital Signs/Intake and Output Vital Signs (last 24 hours): Temp Pulse Resp BP Pulse Ox 98.5 F 100 H 20 123/80 97 12/03/17 16:00 12/03/17 16:00 12/03/17 16:00 12/03/17 16:00 12/03/17 16:00 Intake and Output: 12/03/17 12/04/17 18:59 06:59 Intake Total 500 Balance 500 - Medications Medications: Current Medications Acetaminophen (Tylenol 325mg Tab) 650 mg PO Q6 PRN PRN Reason: Pain, moderate (4-7) Last Admin: 12/02/17 21:34 Dose: 650 mg Dextrose (Dextrose 50% Inj) 0 ml IV STAT PRN; Protocol PRN Reason: Hypoglycemia Protocol Dextrose (Glutose 15) 0 gm PO ONCE PRN; Protocol PRN Reason: Hypoglycemia Protocol Famotidine (Pepcid) 20 mg PO BID [facility] Last Admin: 12/03/17 17:38 Dose: 20 mg Glucagon (Glucagen Diagnostic Kit) 0 mg IM STAT PRN; Protocol PRN Reason: Hypoglycemia Protocol Insulin Human NPH (Novolin N) 25 unit SC [facility] Last Admin: 12/02/17 21:30 Dose: 25 units Insulin Human Regular (Novolin R) 0 unit SC ACHS [facility]; Protocol Last Admin: 12/03/17 16:30 Dose: Not Given Insulin Human Regular (Novolin R) 20 unit SC AC [facility] Last Admin: 12/03/17 17:00 Dose: 20 u Lisinopril (Zestril) 2.5 mg PO DAILY [facility] Last Admin: 12/03/17 11:10 Dose: 2.5 mg Metformin HCl (Glucophage) 850 mg PO BID [facility] Last Admin: 12/01/17 09:02 Dose: 850 mg Phenazopyridine HCl (Pyridium) 200 mg PO TIDPC [facility] Last Admin: 12/03/17 17:40 Dose: 200 mg Rosuvastatin Calcium (Crestor) 2.5 mg PO [facility] Last Admin: 12/02/17 21:30 Dose: 2.5 mg Saccharomyces Boulardii (Florastor) 250 mg PO BID [facility] Last Admin: 12/03/17 17:38 Dose: 250 mg Tramadol HCl (Ultram) 25 mg PO TID PRN PRN Reason: Pain, severe (8-10) Last Admin: 12/03/17 16:09 Dose: 25 mg Trimethoprim/Sulfamethoxazole (Bactrim Ds Tab) 1 tab PO Q12H [facility]; Protocol Stop: 12/08/17 20:00 Last Admin: 12/03/17 16:13 Dose: 1 tab Vitamin A (Vitamin A & D Oint Ud Foilpak) 1 ea TOP DAILY PRN PRN Reason: dry lips Last Admin: 11/25/17 22:03 Dose: 1 ea - Labs Labs: 12/03/17 07:20 12/03/17 07:20 Attending/Attestation - Attestation I have personally seen and examined this patient.: Yes I have fully participated in the care of the patient.: Yes I have reviewed all pertinent clinical information, including history, physical exam and plan: Yes Notes (Text): 12/03/17 19:12 This is a late entry Care of this patient was gone over in detail with resident Dr. Claritza Shaw D.O.
[2017-11-30] MEDS: Tramadol 25 mg PO PRN (20:33)
[2017-11-30] MEDS: Rosuvastatin Calcium 2.5 mg Tab PO SCH (21:54)
[2017-11-30] MEDS: (Novolin N) Insulin Human Isophane (NPH) 100 u/ml 10 ml vial SC SCH (21:55)
[2017-12-01 08:04] LABS: BASO # 0.1 K/uL (0.0-0.2); BASO % 0.6 % (0.0-2.0); EOS # 0.2 K/uL (0.0-0.7); EOS % 1.7 % (0.0-4.0); HEMOGLOBIN 9.3 g/dL (11.0-16.0); LYMPH # 2.7 K/uL (1.0-4.3); LYMPH % 28.8 % (20.0-40.0); MEAN CORPUSCULAR HEMOGLOBIN 19.6 pg (27.0-31.0); MEAN CORPUSCULAR HGB CONC 30.6 g/dL (33.0-37.0); MEAN PLATELET VOLUME 9.1 fL (7.2-11.7); MONO # 0.7 K/uL (0.0-0.8); MONO % 7.7 % (0.0-10.0); NEUT # 5.7 K/uL (1.8-7.0); NEUT % 61.2 % (50.0-75.0); NRBC % 0.1 % (0.0-2.0); RBC 4.76 Mil/uL (3.80-5.20); RED CELL DISTRIBUTION WIDTH 22.8 % (11.5-14.5); WHITE BLOOD COUNT 9.3 K/uL (4.8-10.8)
[2017-12-01] MEDS: Tramadol 25 mg PO PRN ×2 (08:18→17:41)
[2017-12-01] MEDS: (Novolin R) Insulin Human Regular 100 units/ml vial SC SCH ×7 (08:19→21:37)
[2017-12-01 08:25] LABS: ALB/GLOB RATIO 1.1 (1.0-2.1); ALT/SGPT 31 U/L (9-52); AST/SGOT 28 U/L (14-36); BLOOD UREA NITROGEN 10 mg/dL (7-17); CALCIUM 9.4 mg/dl (8.6-10.4); GFR NON-AFRICAN AMERICAN > 60
[2017-12-01] MEDS: Tmp-Smz 800 mg-160 mg DS Tab PO SCH ×2 (09:01→17:34)
[2017-12-01] MEDS: Saccharomyces Boulardi 250 mg Cap PO SCH ×2 (09:01→17:34)
[2017-12-01] MEDS: Miconazole 2% Vaginal Cream(45 gm) VG SCH (09:04)
--- NOTE | 2017-12-01 10:03 | CP.PCM.PN ---
<Kathrine Jerry P - Last Filed: 12/01/17 20:06> Subjective - Date & Time of Evaluation Date of Evaluation: 12/01/17 Time of Evaluation: 10:03 - Subjective Subjective: PGY-[address] Shaw, Patient was seen and examined. Resting in bed, no acute distress. States she has persistent LLQ abdominal pain described as pulsating sensation that waxes and wanes. Reports getting fatigued when walking laps in the hallways. Patient states she had an episode of sudden generalized weakness and diaphoresis last night, which resolved after having apple juice. Her blood sugar was taken after having juice and was 111. Denies current weakness, diaphoresis, chest pain, shortness of breath, nausea, vomiting, fever and chills. Objective - Vital Signs/Intake and Output Vital Signs (last 24 hours): Temp Pulse Resp BP Pulse Ox 98.7 F 78 20 110/67 97 12/01/17 08:00 12/01/17 08:00 12/01/17 08:00 12/01/17 08:00 12/01/17 08:00 Intake and Output: 12/01/17 12/01/17 06:59 18:59 Intake Total 820 Balance 820 - Medications Medications: Current Medications Acetaminophen (Tylenol 325mg Tab) 650 mg PO Q6 PRN PRN Reason: Pain, moderate (4-7) Last Admin: 12/01/17 00:21 Dose: 650 mg Dextrose (Dextrose 50% Inj) 0 ml IV STAT PRN; Protocol PRN Reason: Hypoglycemia Protocol Dextrose (Glutose 15) 0 gm PO ONCE PRN; Protocol PRN Reason: Hypoglycemia Protocol Famotidine (Pepcid) 20 mg PO BID [facility] Last Admin: 12/01/17 09:01 Dose: 20 mg Glucagon (Glucagen Diagnostic Kit) 0 mg IM STAT PRN; Protocol PRN Reason: Hypoglycemia Protocol Insulin Human NPH (Novolin N) 50 unit SC HS [facility] Last Admin: 11/30/17 21:55 Dose: 50 u Insulin Human Regular (Novolin R) 0 unit SC ACHS [facility]; Protocol Last Admin: 12/01/17 08:21 Dose: Not Given Insulin Human Regular (Novolin R) 20 unit SC AC [facility] Last Admin: 12/01/17 08:19 Dose: 20 u Lisinopril (Zestril) 2.5 mg PO DAILY [facility] Last Admin: 12/01/17 09:02 Dose: 2.5 mg Metformin HCl (Glucophage) 850 mg PO BID [facility] Last Admin: 12/01/17 09:02 Dose: 850 mg Miconazole Nitrate (Monistat 7 Vaginal Cream) 1 ea VG DAILY [facility] Stop: 12/01/17 11:00 Last Admin: 12/01/17 09:04 Dose: 1 ea Phenazopyridine HCl (Pyridium) 200 mg PO TIDPC [facility] Last Admin: 12/01/17 08:09 Dose: 200 mg Rosuvastatin Calcium (Crestor) 2.5 mg PO HS [facility] Last Admin: 11/30/17 21:54 Dose: 2.5 mg Saccharomyces Boulardii (Florastor) 250 mg PO BID [facility] Last Admin: 12/01/17 09:01 Dose: 250 mg Tramadol HCl (Ultram) 25 mg PO TID PRN PRN Reason: Pain, severe (8-10) Last Admin: 12/01/17 08:18 Dose: 25 mg Trimethoprim/Sulfamethoxazole (Bactrim Ds Tab) 1 tab PO BID [facility]; Protocol Last Admin: 12/01/17 09:01 Dose: 1 tab Vitamin A (Vitamin A & D Oint Ud Foilpak) 1 ea TOP DAILY PRN PRN Reason: dry lips Last Admin: 11/25/17 22:03 Dose: 1 ea - Labs Labs: 12/01/17 07:55 12/01/17 07:55 - Head Exam Head Exam: ATRAUMATIC, NORMOCEPHALIC - Eye Exam Eye Exam: EOMI, PERRL - ENT Exam ENT Exam: Mucous Membranes Moist - Neck Exam Neck Exam: Full ROM, Normal Inspection - Respiratory Exam Respiratory Exam: Clear to Ausculation Bilateral. absent: Rales, Rhonchi, Wheezes - Cardiovascular Exam Cardiovascular Exam: REGULAR RHYTHM, +S1, +S2 - GI/Abdominal Exam GI & Abdominal Exam: Soft, Tenderness ( LLQ tenderness), Normal Bowel Sounds, Rebound - Extremities Exam Extremities Exam: Full ROM, Normal Inspection. absent: Pedal Edema, Tenderness - Neurological Exam Neurological Exam: Alert, Awake, Oriented x3 - Psychiatric Exam Psychiatric exam: Normal Affect, Normal Mood - Skin Skin Exam: Dry, Normal Color, Warm Assessment and Plan - Assessment and Plan (Free Text) Plan: Pt is a 37yo F with PMHx of endometriosis, DM2 who presented to ED with abdominal pain, vaginal itchiness, and increased thirst x2 weeks admitted for evaluation and treatment of hyperglycemia, abdominal pain, UTI, and anemia 1) Poorly controlled diabetic Insulin-dependent diabetic * Pt with h/o DM2, takes metformin and uses 18 units of a friend's insulin at bedtime * Hypoglycemic protocol * Accuchecks qAC and HS * Hb A1c: 10.6, will need to start insulin in light of a1c>9.5 * Dr. Parker, endocrinology consulted. Help appreciated * Novolin N 50 units decreased to 25 units HS in light of hypoglycemic episode * Novolin R 20 u AC * Regular insulin sliding scale * Metformin 850mg PO BID Hold until 12/04 for repeat cat scan with IV contrast * Crestor 2.5 by mouth daily at bedtime * Dietitian referral * nurses educator- Patient education completed on 11/24. Arkray meter given to patient and instructions for use reviewed with patient. 2) Abdominal Pain Endometrioma Complex Ovarian Cyst * Ob-lettuce trimmer consult, help appreciated * US:Mild increase in size of complex right ovarian cyst with low-level echoes. Given the appearance and relative interval stability, this most likely represents an endometrioma. Left ovary not discretely identified. Septated cyst versus hydrosalpinx posterior to the uterus. This measures approximately 5.4 cm in greatest dimension and was not noted previously. Recommend follow-u p transvaginal pelvic ultrasound examination in 6-8 weeks. Two discrete uterine fibroids. No other significant abnormality. * CT abdomen/pelvis by mouth and IV contrast: Large right ovarian cyst which has slightly increased in size now 56.8 previously 4 x 5.7 in coronal plane small cysts are seen superior in the uterine fundus. No intra-abdominal findings * Tylenol 650 Q6H [facility] through 11/30 3:30pm for moderate pain * Discontinue Toradol 10mg PO Q6H PRN * OB-MILITARY TECHNOLOGY MANAGER hospitalist * patient considering surgical management * advised that medical condition should be optimized prior to intervention * recommend out patient endometrial biopsy 3) Symptomatic Anemia likely secondary to menorrhagia * Long menstrual period with heavy bleeding * US:Mild increase in size of complex right ovarian cyst with low-level echoes. Given the appearance and relative interval stability, this most likely represents an endometrioma. Left ovary not discretely identified. Septated cyst versus hydrosalpinx posterior to the uterus. This measures approximately 5.4 cm in greatest dimension and was not noted previously. Recommend follow- up transvaginal pelvic ultrasound examination in 6-8 weeks. Two discrete uterine fibroids. No other significant abnormality. * CT abdomen/pelvis by mouth and IV contrast: Large right ovarian cyst which has slightly increased in size now 56.8 previously 4 x 5.7 in coronal plane small cysts are seen superior in the uterine fundus. No intra-abdominal findings * On admission H/H 7.6/25.2 -> 8.8/26.6 following 1u PRBC * 11/28 hgb drop to 7.6, patient sx with lightheadedness, 1unit PRBC transfused * Monitor CBC * Iron: 17, TIBC: 413, %sat: 4 * Stool occult negative * Recommend outpatient GI follow up for colonoscopy. This was relayed to patient and she expressed understanding. * OB-MILITARY TECHNOLOGY MANAGER hospitalist * recommend outpatient endometrial biopsy * F/u repeat cat scan due to persistent LLQ with new rebound tenderness 12/01 4) Clinically suspected pyelonephritis with UTI Dysuria * UA: + Leuk esterase, +few bacteria * Urine culture: Staph Aureus and E.coli * Repeat urine cx negative * Patient switched to Zosyn 3.375 IV every 6h since 11/24/2017, completed 11/28 * Repeat urine culture: no growth * blood culture x negative prelim for 3 days * NS 100 mL/h * Tramdol 25 mg by mouth 3 times a day for moderate pain * Floor start to 50 by mouth twice a day * Patient c/w on pyridium * Note side effect will cause coloring of urine * Infectious disease consulted, Dr. Anthony * echocardiogram: EF 62.5%, LA mildly dilated, Trace MR and TR, IVC mildly dilated at 2.4cm, otherwise normal (see full report) * Bactrim DS x1 tab PO q12h 5) Vaginal candidiasis * UA + yeast * Monistat 7 vaginal cream 1 each per vagina daily, dc 12/01 * Per obgyn, * s/p fluconazole * continue miconazole * cool compress for relief 6) PPX * DVT PPX: SCDs * Chemical anticoagulaton secondary to worsening anemia secondary to menorhaagia * GI: Pepcid 20mg PO BID * Physical therapy eval and treat: home * d/c telemetry Disposition: Discharge pending [employer] approval, paperwork was s ubmitted. All lettuce trimmer and GI follow up recommendations were explained to patient and was given opportunity to ask questions. Patient expressed understanding. <Santino Shaw - Last Filed: 12/03/17 19:12> Objective - Vital Signs/Intake and Output Vital Signs (last 24 hours): Temp Pulse Resp BP Pulse Ox 98.5 F 100 H 20 123/80 97 12/03/17 16:00 12/03/17 16:00 12/03/17 16:00 12/03/17 16:00 12/03/17 16:00 Intake and Output: 12/03/17 12/04/17 18:59 06:59 Intake Total 500 Balance 500 - Medications Medications: Current Medications Acetaminophen (Tylenol 325mg Tab) 650 mg PO Q6 PRN PRN Reason: Pain, moderate (4-7) Last Admin: 12/02/17 21:34 Dose: 650 mg Dextrose (Dextrose 50% Inj) 0 ml IV STAT PRN; Protocol PRN Reason: Hypoglycemia Protocol Dextrose (Glutose 15) 0 gm PO ONCE PRN; Protocol PRN Reason: Hypoglycemia Protocol Famotidine (Pepcid) 20 mg PO BID [facility] Last Admin: 12/03/17 17:38 Dose: 20 mg Glucagon (Glucagen Diagnostic Kit) 0 mg IM STAT PRN; Protocol PRN Reason: Hypoglycemia Protocol Insulin Human NPH (Novolin N) 25 unit SC [facility] Last Admin: 12/02/17 21:30 Dose: 25 units Insulin Human Regular (Novolin R) 0 unit SC ACHS [facility]; Protocol Last Admin: 12/03/17 16:30 Dose: Not Given Insulin Human Regular (Novolin R) 20 unit SC AC [facility] Last Admin: 12/03/17 17:00 Dose: 20 u Lisinopril (Zestril) 2.5 mg PO DAILY [facility] Last Admin: 12/03/17 11:10 Dose: 2.5 mg Metformin HCl (Glucophage) 850 mg PO BID [facility] Last Admin: 12/01/17 09:02 Dose: 850 mg Phenazopyridine HCl (Pyridium) 200 mg PO TIDPC [facility] Last Admin: 12/03/17 17:40 Dose: 200 mg Rosuvastatin Calcium (Crestor) 2.5 mg PO [facility] Last Admin: 12/02/17 21:30 Dose: 2.5 mg Saccharomyces Boulardii (Florastor) 250 mg PO BID [facility] Last Admin: 12/03/17 17:38 Dose: 250 mg Tramadol HCl (Ultram) 25 mg PO TID PRN PRN Reason: Pain, severe (8-10) Last Admin: 12/03/17 16:09 Dose: 25 mg Trimethoprim/Sulfamethoxazole (Bactrim Ds Tab) 1 tab PO Q12H [facility]; Protocol Stop: 12/08/17 20:00 Last Admin: 12/03/17 16:13 Dose: 1 tab Vitamin A (Vitamin A & D Oint Ud Foilpak) 1 ea TOP DAILY PRN PRN Reason: dry lips Last Admin: 11/25/17 22:03 Dose: 1 ea - Labs Labs: 12/03/17 07:20 12/03/17 07:20 Attending/Attestation - Attestation I have personally seen and examined this patient.: Yes I have fully participated in the care of the patient.: Yes I have reviewed all pertinent clinical information, including history, physical exam and plan: Yes Notes (Text): 12/03/17 19:12 This is a late entry Care of this patient was gone over in detail with resident Dr. Claritza Shaw D.O.
[2017-12-01] MEDS ORDERED: Miconazole 2% Vaginal Cream(45 gm) VG SCH (11:30)
[2017-12-01] MEDS: Rosuvastatin Calcium 2.5 mg Tab PO SCH (21:43)
[2017-12-01] MEDS: (Novolin N) Insulin Human Isophane (NPH) 100 u/ml 10 ml vial SC SCH (21:43)
[2017-12-02 08:26] LABS: BASO # 0.1 K/uL (0.0-0.2); MEAN CORPUSCULAR HEMOGLOBIN 19.4 pg (27.0-31.0); MONO # 0.7 K/uL (0.0-0.8); RBC 5.12 Mil/uL (3.80-5.20)
[2017-12-02] MEDS: (Novolin R) Insulin Human Regular 100 units/ml vial SC SCH ×7 (08:27→21:39)
--- NOTE | 2017-12-02 08:38 | CP.PCM.PN ---
<Kathrine Jerry P - Last Filed: 12/02/17 20:57> Subjective - Date & Time of Evaluation Date of Evaluation: 12/02/17 Time of Evaluation: 08:38 - Subjective Subjective: PGY-[address] Shaw. Patient seen and examined at bedside. Watching tv in bed, in no acute distress. States she wishes to go home. Reports persistent LLQ pain. NPH insulin dose was decreased, no hypoglycemic episode last night. Denies fevers, chills, nausea, vomiting, diarrhea, constipation, chest pain and shortness of breath. Objective - Vital Signs/Intake and Output Vital Signs (last 24 hours): Temp Pulse Resp BP Pulse Ox 98.4 F 102 H 20 106/72 96 12/02/17 08:08 12/02/17 08:08 12/02/17 08:08 12/02/17 08:08 12/02/17 08:08 Intake and Output: 12/02/17 12/02/17 06:59 18:59 Intake Total 240 Balance 240 - Medications Medications: Current Medications Acetaminophen (Tylenol 325mg Tab) 650 mg PO Q6 PRN PRN Reason: Pain, moderate (4-7) Last Admin: 12/01/17 21:48 Dose: 650 mg Dextrose (Dextrose 50% Inj) 0 ml IV STAT PRN; Protocol PRN Reason: Hypoglycemia Protocol Dextrose (Glutose 15) 0 gm PO ONCE PRN; Protocol PRN Reason: Hypoglycemia Protocol Famotidine (Pepcid) 20 mg PO BID [facility] Last Admin: 12/01/17 17:34 Dose: 20 mg Glucagon (Glucagen Diagnostic Kit) 0 mg IM STAT PRN; Protocol PRN Reason: Hypoglycemia Protocol Insulin Human NPH (Novolin N) 25 unit SC HS [facility] Last Admin: 12/01/17 21:43 Dose: 25 units Insulin Human Regular (Novolin R) 0 unit SC ACHS [facility]; Protocol Last Admin: 12/02/17 08:27 Dose: Not Given Insulin Human Regular (Novolin R) 20 unit SC AC [facility] Last Admin: 12/02/17 08:27 Dose: 20 u Lisinopril (Zestril) 2.5 mg PO DAILY [facility] Last Admin: 12/01/17 09:02 Dose: 2.5 mg Metformin HCl (Glucophage) 850 mg PO BID [facility] Last Admin: 12/01/17 09:02 Dose: 850 mg Phenazopyridine HCl (Pyridium) 200 mg PO TIDPC [facility] Last Admin: 12/02/17 08:28 Dose: 200 mg Rosuvastatin Calcium (Crestor) 2.5 mg PO HS [facility] Last Admin: 12/01/17 21:43 Dose: 2.5 mg Saccharomyces Boulardii (Florastor) 250 mg PO BID [facility] Last Admin: 12/01/17 17:34 Dose: 250 mg Tramadol HCl (Ultram) 25 mg PO TID PRN PRN Reason: Pain, severe (8-10) Last Admin: 12/01/17 17:41 Dose: 25 mg Trimethoprim/Sulfamethoxazole (Bactrim Ds Tab) 1 tab PO BID [facility]; Protocol Stop: 12/08/17 23:59 Last Admin: 12/01/17 17:34 Dose: 1 tab Vitamin A (Vitamin A & D Oint Ud Foilpak) 1 ea TOP DAILY PRN PRN Reason: dry lips Last Admin: 11/25/17 22:03 Dose: 1 ea - Labs Labs: 12/01/17 07:55 12/01/17 07:55 - Constitutional Appears: Non-toxic, No Acute Distress - Head Exam Head Exam: ATRAUMATIC, NORMOCEPHALIC - Eye Exam Eye Exam: EOMI, Normal appearance - ENT Exam ENT Exam: Mucous Membranes Moist - Neck Exam Neck Exam: Full ROM - Respiratory Exam Respiratory Exam: Clear to Ausculation Bilateral. absent: Rales, Rhonchi, Whee zes - Cardiovascular Exam Cardiovascular Exam: REGULAR RHYTHM, +S1, +S2 - GI/Abdominal Exam GI & Abdominal Exam: Soft, Tenderness (mild LLQ tenderness), Normal Bowel Sounds. absent: Guarding, Rebound - Extremities Exam Extremities Exam: Full ROM, Normal Inspection. absent: Calf Tenderness, Pedal Edema, Tenderness - Neurological Exam Neurological Exam: Alert, Awake, Oriented x3 - Psychiatric Exam Psychiatric exam: Normal Affect, Normal Mood - Skin Skin Exam: Dry, Normal Color, Warm Assessment and Plan - Assessment and Plan (Free Text) Plan: Pt is a 37yo F with PMHx of endometriosis, DM2 who presented to ED with abdominal pain, vaginal itchiness, and increased thirst x2 weeks admitted for e valuation and treatment of hyperglycemia, abdominal pain, UTI, and anemia 1) Poorly controlled diabetic Insulin-dependent diabetic * Pt with h/o DM2, takes metformin and uses 18 units of a friend's insulin at bedtime * Hypoglycemic protocol * Accuchecks qAC and HS * Hb A1c: 10.6, will need to start insulin in light of a1c>9.5 * Dr. Parker, endocrinology consulted. Help appreciated * Novolin N 50 units decreased to 25 units HS in light of hypoglycemic episode * accuchecks ranging from 266-133 * Novolin R 20 u AC * Regular insulin sliding scale * Metformin 850mg PO BID Hold until 12/04 for repeat cat scan with IV contrast * Crestor 2.5 by mouth daily at bedtime * Dietitian referral * freight adjuster- Patient education completed on 11/24. Arkray meter given to patient and instructions for use reviewed with patient. 2) Abdominal Pain Endometrioma Complex Ovarian Cyst * Ob-project intern consult, help appreciated * US:Mild increase in size of complex right ovarian cyst with low-level echoes. Given the appearance and relative interval stability, this most likely represents an endometrioma. Left ovary not discretely identified. Septated cyst versus hydrosalpinx posterior to the uterus. This measures approximately 5.4 cm in greatest dimension and was not noted previously. Recommend follow- up transvaginal pelvic ultrasound examination in 6-8 weeks. Two discrete uterine fibroids. No other significant abnormality. * CT abdomen/pelvis by mouth and IV contrast: Large right ovarian cyst which has slightly increased in size now 56.8 previously 4 x 5.7 in coronal plane small cysts are seen superior in the uterine fundus. No intra-abdominal findings * Tylenol 650 Q6H [facility] through 11/30 3:30pm for moderate pain * Discontinue Toradol 10mg PO Q6H PRN * OB-BIOANALYST hospitalist * patient considering surgical management * advised that medical condition should be optimized prior to intervention * recommend out patient endometrial biopsy * 12/[address] scan due to persistent LLQ with new rebound tenderness: Again identified within the region of the right adnexa and midline superior pelvis are contiguous large loculated complex septated cystic lesions measuring approximately 5.5 x 4.0 centimeters and 7.8 x 4.8 centimeters. Overall, this appears similar in size and configuration to the prior study dated 11/22/2017. This is of uncertain clinical etiology and may represent complex adnexal/ovarian cysts/cystic lesions. Alternatively, this may represent underlying hydro and or pyosalpinx and or tubo-ovarian abscess and or additional etiology. Clinical correlation. Continued interval follow-up is recommended. Correlation with pelvic ultrasound may be helpful if clinically indicated. 3) Symptomatic Anemia likely secondary to menorrhagia * Long menstrual period with heavy bleeding * US:Mild increase in size of complex right ovarian cyst with low-level echoes. Given the appearance and relative interval stability, this most likely represents an endometrioma. Left ovary not discretely identified. Septated cyst versus hydrosalpinx posterior to the uterus. This measures approximately 5.4 cm in greatest dimension and was not noted previously. Recommend follow- up transvaginal pelvic ultrasound examination in 6-8 weeks. Two discrete uterine fibroids. No other significant abnormality. * CT abdomen/pelvis by mouth and IV contrast: Large right ovarian cyst which has slightly increased in size now 56.8 previously 4 x 5.7 in coronal plane small cysts are seen superior in the uterine fundus. No intra-abdominal findings * On admission H/H 7.6/25.2 -> 8.8/26.6 following 1u PRBC * 11/28 hgb drop to 7.6, patient sx with lightheadedness, 1unit PRBC transfused * Monitor CBC * Iron: 17, TIBC: 413, %sat: 4 * Stool occult negative * Recommend outpatient GI follow up for colonoscopy. This was relayed to patient and she expressed understanding. * OB-BIOANALYST hospitalist * recommend outpatient endometrial biopsy 4) Clinically suspected pyelonephritis with UTI Dysuria * UA: + Leuk esterase, +few bacteria * Urine culture: Staph Aureus and E.coli * Repeat urine cx negative * Patient switched to Zosyn 3.375 IV every 6h since 11/24/2017, completed 11/28 * Repeat urine culture: no growth * blood culture x negative prelim for 3 days * NS 100 mL/h * Tramdol 25 mg by mouth 3 times a day for moderate pain * Floor start to 50 by mouth twice a day * Patient c/w on pyridium * Note side effect will cause coloring of urine * Infectious disease consulted, Dr. Anthony * echocardiogram: EF 62.5%, LA mildly dilated, Trace MR and TR, IVC mildly dilated at 2.4cm, otherwise normal (see full report) * Bactrim DS x1 tab PO q12h 5) Vaginal candidiasis * UA + yeast * Monistat 7 vaginal cream 1 each per vagina daily, dc 12/01 * Per obgyn, * s/p fluconazole * continue miconazole * cool compress for relief 6) PPX * DVT PPX: SCDs * Chemical anticoagulaton secondary to worsening anemia secondary to menorhaagia * GI: Pepcid 20mg PO BID * Physical therapy eval and treat: home * d/c telemetry Disposition: Discharge pending [employer] approval, paperwork was submitted. All project intern and GI follow up recommendations were explained to patient and was given opportunity to ask questions. Patient expressed understanding. <Santino Shaw - Last Filed: 12/03/17 19:13> Objective - Vital Signs/Intake and Output Vital Signs (last 24 hours): Temp Pulse Resp BP Pulse Ox 98.5 F 100 H 20 123/80 97 12/03/17 16:00 12/03/17 16:00 12/03/17 16:00 12/03/17 16:00 12/03/17 16:00 Intake and Output: 12/03/17 12/04/17 18:59 06:59 Intake Total 500 Balance 500 - Medications Medications: Current Medications Acetaminophen (Tylenol 325mg Tab) 650 mg PO Q6 PRN PRN Reason: Pain, moderate (4-7) Last Admin: 12/02/17 21:34 Dose: 650 mg Dextrose (Dextrose 50% Inj) 0 ml IV STAT PRN; Protocol PRN Reason: Hypoglycemia Protocol Dextrose (Glutose 15) 0 gm PO ONCE PRN; Protocol PRN Reason: Hypoglycemia Protocol Famotidine (Pepcid) 20 mg PO BID [facility] Last Admin: 12/03/17 17:38 Dose: 20 mg Glucagon (Glucagen Diagnostic Kit) 0 mg IM STAT PRN; Protocol PRN Reason: Hypoglycemia Protocol Insulin Human NPH (Novolin N) 25 unit SC HS [facility] Last Admin: 12/02/17 21:30 Dose: 25 units Insulin Human Regular (Novolin R) 0 unit SC ACHS [facility]; Protocol Last Admin: 12/03/17 16:30 Dose: Not Given Insulin Human Regular (Novolin R) 20 unit SC AC [facility] Last Admin: 12/03/17 17:00 Dose: 20 u Lisinopril (Zestril) 2.5 mg PO DAILY [facility] Last Admin: 12/03/17 11:10 Dose: 2.5 mg Metformin HCl (Glucophage) 850 mg PO BID [facility] Last Admin: 12/01/17 09:02 Dose: 850 mg Phenazopyridine HCl (Pyridium) 200 mg PO TIDPC [facility] Last Admin: 12/03/17 17:40 Dose: 200 mg Rosuvastatin Calcium (Crestor) 2.5 mg PO HS [facility] Last Admin: 12/02/17 21:30 Dose: 2.5 mg Saccharomyces Boulardii (Florastor) 250 mg PO BID [facility] Last Admin: 12/03/17 17:38 Dose: 250 mg Tramadol HCl (Ultram) 25 mg PO TID PRN PRN Reason: Pain, severe (8-10) Last Admin: 12/03/17 16:09 Dose: 25 mg Trimethoprim/Sulfamethoxazole (Bactrim Ds Tab) 1 tab PO Q12H [facility]; Protocol Stop: 12/08/17 20:00 Last Admin: 12/03/17 16:13 Dose: 1 tab Vitamin A (Vitamin A & D Oint Ud Foilpak) 1 ea TOP DAILY PRN PRN Reason: dry lips Last Admin: 11/25/17 22:03 Dose: 1 ea - Labs Labs: 12/03/17 07:20 12/03/17 07:20 Attending/Attestation - Attestation I have personally seen and examined this patient.: Yes I have fully participated in the care of the patient.: Yes I have reviewed all pertinent clinical information, including history, physical exam and plan: Yes Notes (Text): 12/03/17 19:13 This is a late entry Care of this patient was gone over in detail with resident Hebert ArmstrongO.
[2017-12-02 08:42] LABS: ALB/GLOB RATIO 1.2 (1.0-2.1); ALBUMIN 4.2 g/dL (3.5-5.0); ALT/SGPT 37 U/L (9-52); AST/SGOT 36 U/L (14-36); BLOOD UREA NITROGEN 11 mg/dL (7-17); CALCIUM 9.6 mg/dl (8.6-10.4); GFR NON-AFRICAN AMERICAN > 60
[2017-12-02 08:43] LABS: BASO % 0.7 % (0.0-2.0); EOS # 0.1 K/uL (0.0-0.7); EOS % 1.6 % (0.0-4.0); LYMPH # 3.5 K/uL (1.0-4.3); LYMPH % 37.6 % (20.0-40.0); MEAN CELL VOLUME 64.1 fL (81.0-99.0); MEAN CORPUSCULAR HGB CONC 30.3 g/dL (33.0-37.0); MEAN PLATELET VOLUME 8.7 fL (7.2-11.7); MONO % 7.1 % (0.0-10.0); RED CELL DISTRIBUTION WIDTH 23.4 % (11.5-14.5); WHITE BLOOD COUNT 9.3 K/uL (4.8-10.8)
[2017-12-02] MEDS: Tramadol 25 mg PO PRN ×2 (08:43→17:01)
[2017-12-02] MEDS: Tmp-Smz 800 mg-160 mg DS Tab PO SCH ×2 (10:36→17:01)
[2017-12-02] MEDS: Saccharomyces Boulardi 250 mg Cap PO SCH ×2 (10:37→17:01)
[2017-12-02] MEDS ORDERED: Iodixanol 320 MG/ML 100 ML BOTTLE IV ONE (15:34)
--- NOTE | 2017-12-02 17:06 | CT ---
Date of service: 12/02/2017 PROCEDURE: CT Abdomen and Pelvis with intravenous contrast HISTORY: Left lower quadrant abdominal pain COMPARISON: 11/22/2017 TECHNIQUE: Multiple contiguous axial images were performed through the abdomen and pelvis with the use of intravenous contrast. Subsequently, sagittal and coronal reformatted images were obtained. Radiation dose: Total exam DLP = 1194.61 mGy-cm. This CT exam was performed using one or more of the following dose reduction techniques: Automated exposure control, adjustment of the mA and/or kV according to patient size, and/or use of iterative reconstruction technique. FINDINGS: LOWER THORAX: Unremarkable. LIVER: Unremarkable. No gross lesion or ductal dilatation. GALLBLADDER AND BILE DUCTS: Unremarkable. PANCREAS: Unremarkable. No gross lesion or ductal dilatation. SPLEEN: Unremarkable. ADRENALS: Unremarkable. No mass. KIDNEYS AND URETERS: Unremarkable. No hydronephrosis. No solid mass. VASCULATURE: Unremarkable. No aortic aneurysm. BOWEL: Unremarkable. No obstruction. No gross mural thickening. APPENDIX: Unremarkable. Normal appendix. PERITONEUM: Unremarkable. No free fluid. No free air. LYMPH NODES: Unremarkable. No enlarged lymph nodes. BLADDER: Unremarkable. REPRODUCTIVE: Heterogeneous uterus with some internal low-attenuation foci. Nonspecific. Clinical correlation. Again identified within the region of the right adnexa and midline superior pelvis are contiguous large loculated complex septated cystic lesions measuring approximately 5.5 x 4.0 centimeters and 7.8 x 4.8 centimeters. Overall, this appears similar in size and configuration to the prior study dated 11/22/2017. This is of uncertain clinical etiology and may represent complex adnexal/ovarian cysts/cystic lesions. Alternatively, this may represent underlying hydro and or pyosalpinx and or tubo-ovarian abscess and or additional etiology. Clinical correlation. Continued interval follow-up is recommended. Correlation with pelvic ultrasound may be helpful if clinically indicated. BONES: No acute fracture. OTHER FINDINGS: Small fat containing umbilical hernia. IMPRESSION: Again identified within the region of the right adnexa and midline superior pelvis are contiguous large loculated complex septated cystic lesions measuring approximately 5.5 x 4.0 centimeters and 7.8 x 4.8 centimeters. Overall, this appears similar in size and configuration to the prior study dated 11/22/2017. This is of uncertain clinical etiology and may represent complex adnexal/ovarian cysts/cystic lesions. Alternatively, this may represent underlying hydro and or pyosalpinx and or tubo-ovarian abscess and or additional etiology. Clinical correlation. Continued interval follow-up is recommended. Correlation with pelvic ultrasound may be helpful if clinically indicated. Heterogeneous uterus with some internal low-attenuation foci. Nonspecific. Clinical correlation.
[2017-12-02] MEDS: Rosuvastatin Calcium 2.5 mg Tab PO SCH (21:30)
[2017-12-02] MEDS: (Novolin N) Insulin Human Isophane (NPH) 100 u/ml 10 ml vial SC SCH (21:30)
[2017-12-03 07:39] LABS: BASO # 0.1 K/uL (0.0-0.2); BASO % 0.6 % (0.0-2.0); EOS # 0.2 K/uL (0.0-0.7); EOS % 2.2 % (0.0-4.0); HEMOGLOBIN 9.6 g/dL (11.0-16.0); LYMPH # 3.3 K/uL (1.0-4.3); LYMPH % 36.6 % (20.0-40.0); MEAN CELL VOLUME 63.9 fL (81.0-99.0); MEAN CORPUSCULAR HEMOGLOBIN 19.7 pg (27.0-31.0); MEAN CORPUSCULAR HGB CONC 30.9 g/dL (33.0-37.0); MEAN PLATELET VOLUME 8.8 fL (7.2-11.7); MONO # 0.7 K/uL (0.0-0.8); MONO % 8.1 % (0.0-10.0); NEUT # 4.7 K/uL (1.8-7.0); NEUT % 52.5 % (50.0-75.0); NRBC % 0.1 % (0.0-2.0); RBC 4.87 Mil/uL (3.80-5.20); RED CELL DISTRIBUTION WIDTH 24.9 % (11.5-14.5); WHITE BLOOD COUNT 8.9 K/uL (4.8-10.8)
[2017-12-03] MEDS: (Novolin R) Insulin Human Regular 100 units/ml vial SC SCH ×7 (08:20→22:00)
--- NOTE | 2017-12-03 08:48 | CP.PCM.PN ---
Subjective - Date & Time of Evaluation Date of Evaluation: 12/03/17 Time of Evaluation: 08:48 - Subjective Subjective: PGY-[address] Shaw. Patient seen and examined at bedside. Patient resting comfortably. No acute events overnight. Patient's blood sugars noted to be controlled with metformin on hold following CT with IV contrast. Patient continues to report persistent LLQ pain. Denies fevers, chills, nausea, vomiting, dizziness, lightheadedness, chest pain, palpitations and shortness of breath. Objective - Vital Signs/Intake and Output Vital Signs (last 24 hours): Temp Pulse Resp BP Pulse Ox 97.1 F L 100 H 18 112/72 98 12/03/17 01:00 12/03/17 01:00 12/03/17 01:00 12/03/17 01:00 12/03/17 01:00 Intake and Output: 12/03/17 12/03/17 06:59 18:59 Intake Total 250 Output Total 400 Balance -150 - Medications Medications: Current Medications Acetaminophen (Tylenol 325mg Tab) 650 mg PO Q6 PRN PRN Reason: Pain, moderate (4-7) Last Admin: 12/02/17 21:34 Dose: 650 mg Dextrose (Dextrose 50% Inj) 0 ml IV STAT PRN; Protocol PRN Reason: Hypoglycemia Protocol Dextrose (Glutose 15) 0 gm PO ONCE PRN; Protocol PRN Reason: Hypoglycemia Protocol Famotidine (Pepcid) 20 mg PO BID [facility] Last Admin: 12/02/17 17:01 Dose: 20 mg Glucagon (Glucagen Diagnostic Kit) 0 mg IM STAT PRN; Protocol PRN Reason: Hypoglycemia Protocol Insulin Human NPH (Novolin N) 25 unit SC HS [facility] Last Admin: 12/02/17 21:30 Dose: 25 units Insulin Human Regular (Novolin R) 0 unit SC ACHS [facility]; Protocol Last Admin: 12/03/17 08:20 Dose: Not Given Insulin Human Regular (Novolin R) 20 unit SC AC [facility] Last Admin: 12/02/17 16:55 Dose: 20 u Lisinopril (Zestril) 2.5 mg PO DAILY [facility] Last Admin: 12/02/17 10:37 Dose: 2.5 mg Metformin HCl (Glucophage) 850 mg PO BID [facility] Last Admin: 12/01/17 09:02 Dose: 850 mg Phenazopyridine HCl (Pyridium) 200 mg PO TIDPC [facility] Last Admin: 12/02/17 17:30 Dose: 200 mg Rosuvastatin Calcium (Crestor) 2.5 mg PO HS [facility] Last Admin: 12/02/17 21:30 Dose: 2.5 mg Saccharomyces Boulardii (Florastor) 250 mg PO BID [facility] Last Admin: 12/02/17 17:01 Dose: 250 mg Tramadol HCl (Ultram) 25 mg PO TID PRN PRN Reason: Pain, severe (8-10) Last Admin: 12/02/17 17:01 Dose: 25 mg Trimethoprim/Sulfamethoxazole (Bactrim Ds Tab) 1 tab PO BID [facility]; Protocol Stop: 12/08/17 23:59 Last Admin: 12/02/17 17:01 Dose: 1 tab Vitamin A (Vitamin A & D Oint Ud Foilpak) 1 ea TOP DAILY PRN PRN Reason: dry lips Last Admin: 11/25/17 22:03 Dose: 1 ea - Labs Labs: 12/03/17 07:20 12/02/17 08:20 - Additional Findings Additional findings: - Constitutional Appears: Non-toxic, No Acute Distress - Head Exam Head Exam: ATRAUMATIC, NORMOCEPHALIC - Eye Exam Eye Exam: EOMI, Normal appearance - ENT Exam ENT Exam: Mucous Membranes Moist - Neck Exam Neck Exam: Full ROM - Respiratory Exam Respiratory Exam: Clear to Ausculation Bilateral. absent: Rales, Rhonchi, Wheezes - Cardiovascular Exam Cardiovascular Exam: REGULAR RHYTHM, +S1, +S2 - GI/Abdominal Exam GI & Abdominal Exam: Soft, Tenderness (mild LLQ tenderness), Normal Bowel Sounds. absent: Guarding, Rebound - Extremities Exam Extremities Exam: Full ROM, Normal Inspection. absent: Calf Tenderness, Pedal Edema, Tenderness - Neurological Exam Neurological Exam: Alert, Awake, Oriented x3 - Psychiatric Exam Psychiatric exam: Normal Affect, Normal Mood - Skin Skin Exam: Dry, Normal Color, Warm Assessment and Plan - Assessment and Plan (Free Text) Plan: Pt is a 37yo F with PMHx of endometriosis, DM2 who presented to ED with abdom inal pain, vaginal itchiness, and increased thirst x2 weeks admitted for evaluation and treatment of hyperglycemia, abdominal pain, UTI, and anemia 1) Poorly controlled diabetic Insulin-dependent diabetic * Pt with h/o DM2, takes metformin and uses 18 units of a friend's insulin at bedtime * Hypoglycemic protocol * Accuchecks qAC and HS * Hb A1c: 10.6, will need to start insulin in light of a1c>9.5 * Dr. Parker, endocrinology consulted. Help appreciated * Novolin N 50 units decreased to 25 units HS in light of hypoglycemic episode * accuchecks ranging from 266-133 * Novolin R 20 u AC * lisinopril 2.5mg PO daily * Regular insulin sliding scale * Metformin 850mg PO BID will be discontinued, as patient's blood sugars are well controlled without it * Crestor 2.5 by mouth daily at bedtime * Dietitian referral * religious educator- Patient education completed on 11/24. Arkray meter given to patient and instructions for use reviewed with patient. 2) Abdominal Pain Endometrioma Complex Ovarian Cyst * Ob-gynecology teacher consult, help appreciated * US:Mild increase in size of complex right ovarian cyst with low-level echoes. Given the appearance and relative interval stability, this most likely represents an endometrioma. Left ovary not discretely identified. Septated cyst versus hydrosalpinx posterior to the uterus. This measures approximately 5.4 cm in greatest dimension and was not noted previously. Recommend follow- up transvaginal pelvic ultrasound examination in 6-8 weeks. Two discrete uterine fibroids. No other significant abnormality. * CT abdomen/pelvis by mouth and IV contrast: Large right ovarian cyst which has slightly increased in size now 56.8 previously 4 x 5.7 in coronal plane small cysts are seen superior in the uterine fundus. No intra-abdominal findings * Tylenol 650 Q6H [facility] through 11/30 3:30pm for moderate pain * Discontinue Toradol 10mg PO Q6H PRN * OB-ENGINE REPAIRER hospitalist * patient considering surgical management * advised that medical condition should be optimized prior to intervention * recommend out patient endometrial biopsy * 12/[address] scan due to persistent LLQ with new rebound tenderness: Again identified within the region of the right adnexa and midline superior pelvis are contiguous large loculated complex septated cystic lesions measuring approximately 5.5 x 4.0 centimeters and 7.8 x 4.8 centimeters. Overall, this appears similar in size and configuration to the prior study dated 11/22/2017. This is of uncertain clinical etiology and may represent complex adnexal/ovarian cysts/cystic lesions. Alternatively, this may represent underlying hydro and or pyosalpinx and or tubo-ovarian abscess and or additional etiology. Clinical correlation. Continued interval follow-up is recommended. Correlation with pelvic ultrasound may be helpful if clinically indicated. 3) Symptomatic Anemia likely secondary to menorrhagia * Long menstrual period with heavy bleeding * US:Mild increase in size of complex right ovarian cyst with low-level echoes. Given the appearance and relative interval stability, this most likely represents an endometrioma. Left ovary not discretely identified. Septated cyst versus hydrosalpinx posterior to the uterus. This measures approximately 5.4 cm in greatest dimension and was not noted previously. Recommend follow- up transvaginal pelvic ultrasound examination in 6-8 weeks. Two discrete uterine fibroids. No other significant abnormality. * CT abdomen/pelvis by mouth and IV contrast: Large right ovarian cyst which has slightly increased in size now 56.8 previously 4 x 5.7 in coronal plane small cysts are seen superior in the uterine fundus. No intra-abdominal findings * On admission H/H 7.6/25.2 -> 8.8/26.6 following 1u PRBC * 11/28 hgb drop to 7.6, patient sx with lightheadedness, 1unit PRBC transfused * Monitor CBC * Iron: 17, TIBC: 413, %sat: 4 * Stool occult negative * Recommend outpatient GI follow up for colonoscopy. This was relayed to patient and she expressed understanding. * OB-ENGINE REPAIRER hospitalist * recommend outpatient endometrial biopsy 4) Clinically suspected pyelonephritis with UTI Dysuria * UA: + Leuk esterase, +few bacteria * Urine culture: Staph Aureus and E.coli * Repeat urine cx negative * Patient switched to Zosyn 3.375 IV every 6h since 11/24/2017, completed 11/28 * Repeat urine culture: no growth * blood culture x negative prelim for 3 days * NS 100 mL/h * Tramdol 25 mg by mouth 3 times a day for moderate pain * Floor start to 50 by mouth twice a day * Patient c/w on pyridium * Note side effect will cause coloring of urine * Infectious disease consulted, Dr. Anthony * echocardiogram: EF 62.5%, LA mildly dilated, Trace MR and TR, IVC mildly dilated at 2.4cm, otherwise normal (see full report) * Bactrim DS x1 tab PO q12h, last dose 12/08 5) Vaginal candidiasis * UA + yeast * Monistat 7 vaginal cream 1 each per vagina daily, dc 12/01 * Per obgyn, * s/p fluconazole * continue miconazole * cool compress for relief 6) PPX * DVT PPX: SCDs * Chemical anticoagulaton secondary to worsening anemia secondary to menorhaagia * GI: Pepcid 20mg PO BID * Physical therapy eval and treat: home * d/c telemetry Disposition: Repeat CT unchanged. ObGyn team recommend outpatient follow up through [facility] for repeat transvaginal US in 6-8 weeks and outpatient endometrial biopsy. Patient also recommended to obtain referral for outpatient colonoscopy due to episode of blood streaked stool on day of presentation. This was explained to patient and she expressed understanding. Patient's insulin foundation meds to be arranged to be sent to her home. [employer] form voucher is in chart for discounted medications. Patient is to be registered at the [facility] clinic and have appointment scheduled, after which she may be discharged.
[2017-12-03 09:18] LABS: ALB/GLOB RATIO 1.1 (1.0-2.1); BLOOD UREA NITROGEN 13 mg/dL (7-17); CALCIUM 9.6 mg/dl (8.6-10.4); GFR NON-AFRICAN AMERICAN > 60
[2017-12-03 09:19] LABS: ALT/SGPT 50 U/L (9-52); AST/SGOT 47 U/L (14-36)
[2017-12-03] MEDS: Tmp-Smz 800 mg-160 mg DS Tab PO SCH ×2 (09:41→16:13)
[2017-12-03] MEDS: Saccharomyces Boulardi 250 mg Cap PO SCH ×2 (09:41→17:38)
[2017-12-03] MEDS: Tramadol 25 mg PO PRN ×2 (09:42→16:09)
[2017-12-03] MEDS: Rosuvastatin Calcium 2.5 mg Tab PO SCH (21:41)
[2017-12-03] MEDS: (Novolin N) Insulin Human Isophane (NPH) 100 u/ml 10 ml vial SC SCH (21:41)
[2017-12-04] MEDS: Tmp-Smz 800 mg-160 mg DS Tab PO SCH ×2 (03:58→17:00)
[2017-12-04 08:05] LABS: BASO # 0.1 K/uL (0.0-0.2); EOS # 0.2 K/uL (0.0-0.7); EOS % 2.1 % (0.0-4.0); NRBC % 0.1 % (0.0-2.0)
[2017-12-04] MEDS: (Novolin R) Insulin Human Regular 100 units/ml vial SC SCH ×7 (08:07→22:30)
[2017-12-04 08:27] VITALS: RESP 20
[2017-12-04 08:39] LABS: AST/SGOT 51 U/L (14-36); GFR NON-AFRICAN AMERICAN > 60
[2017-12-04 08:48] LABS: HEMOGLOBIN 10.5 g/dL (11.0-16.0); LYMPH % 36.8 % (20.0-40.0); MEAN CELL VOLUME 64.3 fL (81.0-99.0); MEAN CORPUSCULAR HEMOGLOBIN 20.1 pg (27.0-31.0); MEAN CORPUSCULAR HGB CONC 31.3 g/dL (33.0-37.0); MONO # 0.7 K/uL (0.0-0.8); MONO % 6.8 % (0.0-10.0); NEUT # 5.8 K/uL (1.8-7.0); NEUT % 53.3 % (50.0-75.0); RBC 5.22 Mil/uL (3.80-5.20); RED CELL DISTRIBUTION WIDTH 25.6 % (11.5-14.5); WHITE BLOOD COUNT 10.9 K/uL (4.8-10.8)
[2017-12-04 09:26] LABS: ALB/GLOB RATIO 1.1 (1.0-2.1); ALBUMIN 4.5 g/dL (3.5-5.0); ALT/SGPT 61 U/L (9-52); BLOOD UREA NITROGEN 14 mg/dL (7-17); CALCIUM 9.7 mg/dl (8.6-10.4)
[2017-12-04] MEDS: Saccharomyces Boulardi 250 mg Cap PO SCH ×2 (09:37→17:31)
[2017-12-04] MEDS: Tramadol 25 mg PO PRN ×2 (09:43→17:42)
--- NOTE | 2017-12-04 15:42 | CP.PCM.PN ---
<Babar Flores - Last Filed: 12/04/17 15:32> Subjective - Date & Time of Evaluation Date of Evaluation: 12/04/17 Time of Evaluation: 15:32 - Subjective Subjective: PGY-[address] Carcamo Patient seen and examined at bedside. Patient has no acute complaints. No acute events overnight per nursing. Patient has been tolerating meals. Patient is ready to be discharged once her insulin and insulin supplies are delivered to the hospital, which should be tomorrow morning. Patient does continue to complain of the same persistent LLQ pain. Patient denies any chest pain, headaches, dizziness, abdominal pain, nausea, or vomiting. Objective - Vital Signs/Intake and Output Vital Signs (last 24 hours): Temp Pulse Resp BP Pulse Ox 98.3 F 90 20 109/73 97 12/04/17 08:25 12/04/17 08:25 12/04/17 08:25 12/04/17 08:25 12/04/17 08:25 Intake and Output: 12/04/17 12/04/17 06:59 18:59 Intake Total 1150 Output Total 600 Balance 550 - Medications Medications: Current Medications Acetaminophen (Tylenol 325mg Tab) 650 mg PO Q6 PRN PRN Reason: Pain, moderate (4-7) Last Admin: 12/04/17 13:32 Dose: 650 mg Dextrose (Dextrose 50% Inj) 0 ml IV STAT PRN; Protocol PRN Reason: Hypoglycemia Protocol Dextrose (Glutose 15) 0 gm PO ONCE PRN; Protocol PRN Reason: Hypoglycemia Protocol Famotidine (Pepcid) 20 mg PO BID COUNT INCLUDES THE [facility] Last Admin: 12/04/17 09:37 Dose: 20 mg Glucagon (Glucagen Diagnostic Kit) 0 mg IM STAT PRN; Protocol PRN Reason: Hypoglycemia Protocol Insulin Human NPH (Novolin N) 25 unit SC HS COUNT INCLUDES THE [facility] Last Admin: 12/03/17 21:41 Dose: 25 units Insulin Human Regular (Novolin R) 0 unit SC ACHS COUNT INCLUDES THE [facility]; Protocol Last Admin: 12/04/17 11:31 Dose: Not Given Insulin Human Regular (Novolin R) 20 unit SC AC COUNT INCLUDES THE [facility] Last Admin: 12/04/17 11:38 Dose: 20 u Lisinopril (Zestril) 2.5 mg PO DAILY COUNT INCLUDES THE [facility] Last Admin: 12/04/17 09:37 Dose: 2.5 mg Phenazopyridine HCl (Pyridium) 200 mg PO TIDPC COUNT INCLUDES THE [facility] Last Admin: 12/04/17 13:29 Dose: 200 mg Rosuvastatin Calcium (Crestor) 2.5 mg PO HS COUNT INCLUDES THE [facility] Last Admin: 12/03/17 21:41 Dose: 2.5 mg Saccharomyces Boulardii (Florastor) 250 mg PO BID COUNT INCLUDES THE [facility] Last Admin: 12/04/17 09:37 Dose: 250 mg Tramadol HCl (Ultram) 25 mg PO TID PRN PRN Reason: Pain, severe (8-10) Last Admin: 12/04/17 09:43 Dose: 25 mg Trimethoprim/Sulfamethoxazole (Bactrim Ds Tab) 1 tab PO Q12H COUNT INCLUDES THE [facility]; Protocol Stop: 12/08/17 20:00 Last Admin: 12/04/17 03:58 Dose: 1 tab Vitamin A (Vitamin A & D Oint Ud Foilpak) 1 ea TOP DAILY PRN PRN Reason: dry lips Last Admin: 11/25/17 22:03 Dose: 1 ea - Labs Labs: 12/04/17 07:51 12/04/17 07:51 - Head Exam Head Exam: ATRAUMATIC, NORMAL INSPECTION, NORMOCEPHALIC - Eye Exam Eye Exam: EOMI, Normal appearance, PERRL - ENT Exam ENT Exam: Mucous Membranes Moist - Neck Exam Neck Exam: Full ROM, Normal Inspection. absent: Tenderness - Respiratory Exam Respiratory Exam: Clear to Ausculation Bilateral, NORMAL BREATHING PATTERN. absent: Rhonchi, Wheezes - Cardiovascular Exam Cardiovascular Exam: REGULAR RHYTHM, +S1, +S2 - GI/Abdominal Exam GI & Abdominal Exam: Soft, Tenderness (LLQ tenderness), Normal Bowel Sounds - Extremities Exam Extremities Exam: Normal Inspection. absent: Pedal Edema, Tenderness - Neurological Exam Neurological Exam: Alert, Awake, CN II-XII Intact, Oriented x3 - Psychiatric Exam Psychiatric exam: Normal Affect, Normal Mood - Skin Skin Exam: Dry, Intact, Normal Color, Warm Assessment and Plan - Assessment and Plan (Free Text) Assessment: Plan: Pt is a 37yo F with PMHx of endometriosis, DM2 who presented to ED with abdominal pain, vaginal itchiness, and increased thirst x2 weeks admitted for evaluation and treatment of hyperglycemia, abdominal pain, UTI/, and anemia 1) Poorly controlled diabetic Insulin-dependent diabetic * Pt with h/o DM2, takes metformin and uses 18 units of a friend's insulin at bedtime * Hypoglycemic protocol * Accuchecks qAC and HS * Hb A1c: 10.6, will need to start insulin in light of a1c>9.5 * Dr. Parker, endocrinology consulted. Help appreciated * Novolin N 50 units decreased to 25 units HS in light of hypoglycemic episode * accuchecks ranging from 266-133 * Novolin R 20 u AC * lisinopril 2.5mg PO daily * Regular insulin sliding scale * Metformin 850mg PO BID will be discontinued, as patient's blood sugars are well controlled without it * Crestor 2.5 by mouth daily at bedtime * Dietitian referral * forming mill operator- Patient education completed on 11/24. [employer] meter given to patient and instructions for use reviewed with patient. * Plan to discharge tomorrow: Awaiting home supply of insulin and supplies that will be delivered to [facility] tomorrow morning. Patient to be discharged once these arrive. [facility] will provide additional insulin beyond one month supply at reduced or no cost. 2) Abdominal Pain Endometrioma Complex Ovarian Cyst * Ob-sales compensation analyst consult, help appreciated * US:Mild increase in size of complex right ovarian cyst with low-level echoes. Given the appearance and relative interval stability, this most likely represents an endometrioma. Left ovary not discretely identified. Septated cyst versus hydrosalpinx posterior to the uterus. This measures approximately 5.4 cm in greatest dimension and was not noted previously. Recommend follow- up transvaginal pelvic ultrasound examination in 6-8 weeks. Two discrete u terine fibroids. No other significant abnormality. * CT abdomen/pelvis by mouth and IV contrast: Large right ovarian cyst which has slightly increased in size now 56.8 previously 4 x 5.7 in coronal plane small cysts are seen superior in the uterine fundus. No intra-abdominal findings * Tylenol 650 Q6H CECI through 11/30 3:30pm for moderate pain * [facility] hospitalist * patient considering surgical management * advised that medical condition should be optimized prior to intervention * recommend out patient endometrial biopsy * 12/[address] scan due to persistent LLQ with new rebound tenderness: Again identified within the region of the right adnexa and midline superior pelvis are contiguous large loculated complex septated cystic lesions measuring approximately 5.5 x 4.0 centimeters and 7.8 x 4.8 centimeters. Overall, this appears similar in size and configuration to the prior study dated 11/22/2017. This is of uncertain clinical etiology and may represent complex adnexal/ovarian cysts/cystic lesions. Alternatively, this may represent underlying hydro and or pyosalpinx and or tubo-ovarian abscess and or additional etiology. Clinical correlation. Continued interval follow-up is r ecommended. Correlation with pelvic ultrasound may be helpful if clinically indicated. 3) Symptomatic Anemia likely secondary to menorrhagia * Long menstrual period with heavy bleeding * US:Mild increase in size of complex right ovarian cyst with low-level echoes. Given the appearance and relative interval stability, this most likely represents an endometrioma. Left ovary not discretely identified. Septated cyst versus hydrosalpinx posterior to the uterus. This measures approximately 5.4 cm in greatest dimension and was not noted previously. Recommend follow-up transvaginal pelvic ultrasound examination in 6-8 weeks. Two discrete uterine fibroids. No other significant abnormality. * CT abdomen/pelvis by mouth and IV contrast: Large right ovarian cyst which has slightly increased in size now 56.8 previously 4 x 5.7 in coronal plane small cysts are seen superior in the uterine fundus. No intra-abdominal findings * On admission H/H 7.6/25.2 -> 8.8/26.6 following 1u PRBC * 11/28 hgb drop to 7.6, patient sx with lightheadedness, 1unit PRBC transfused * Monitor CBC * Iron: 17, TIBC: 413, %sat: 4 * Stool occult negative * Recommend outpatient GI follow up for colonoscopy. This was relayed to patient and she expressed understanding. * [facility] hospitalist * recommend outpatient endometrial biopsy 4) Clinically suspected pyelonephritis with UTI Dysuria * UA: + Leuk esterase, +few bacteria * Urine culture: Staph Aureus and E.coli * Repeat urine cx negative * Patient switched to Zosyn 3.375 IV every 6h since 11/24/2017, completed 11/28 * Repeat urine culture: no growth * blood culture x negative prelim for 3 days * NS 100 mL/h * Tramdol 25 mg by mouth 3 times a day for moderate pain * Florastor 250 mg by mouth twice a day * Patient c/w on pyridium * Note side effect will cause coloring of urine * Infectious disease consulted, Dr. Anthony * echocardiogram: EF 62.5%, LA mildly dilated, Trace MR and TR, IVC mildly dilated at 2.4cm, otherwise normal (see full report) * Bactrim DS x1 tab PO q12h, last dose 12/08 5) Vaginal candidiasis * UA + yeast * Monistat 7 vaginal cream 1 each per vagina daily, dc 12/01 * Per obgyn, * s/p fluconazole * continue miconazole * cool compress for relief 6) PPX * DVT PPX: SCDs * Chemical anticoagulaton secondary to worsening anemia secondary to menorhaagia * GI: Pepcid 20mg PO BID * Physical therapy eval and treat: home * d/c telemetry Assessment and plan discussed with Dr. Carlos Alberto Flores, PGY-1 Disposition: Repeat CT unchanged. ObGyn team recommend outpatient follow up through [facility] for repeat transvaginal US in 6-8 weeks and outpatient endometrial biopsy. Patient also recommended to obtain referral for outpatient colonoscopy due to episode of blood streaked stool on da y of presentation. This was explained to patient and she expressed understanding. Arrangements have been made for patient to receive free medications with the [employer] form, and beyond one month supply through the [facility]. The patient has an appointment in the [facility] clinic at December 21 at 2pm for follow up. <Lanny Carcamo V - Last Filed: 12/04/17 21:31> Objective - Vital Signs/Intake and Output Vital Signs (last 24 hours): Temp Pulse Resp BP Pulse Ox 98.6 F 96 H 20 108/71 96 12/04/17 16:52 12/04/17 16:52 12/04/17 16:52 12/04/17 16:52 12/04/17 16:52 - Medications Medications: Current Medications Acetaminophen (Tylenol 325mg Tab) 650 mg PO Q6 PRN PRN Reason: Pain, moderate (4-7) Last Admin: 12/04/17 13:32 Dose: 650 mg Dextrose (Dextrose 50% Inj) 0 ml IV STAT PRN; Protocol PRN Reason: Hypoglycemia Protocol Dextrose (Glutose 15) 0 gm PO ONCE PRN; Protocol PRN Reason: Hypoglycemia Protocol Famotidine (Pepcid) 20 mg PO BID [facility] Last Admin: 12/04/17 17:35 Dose: 20 mg Glucagon (Glucagen Diagnostic Kit) 0 mg IM STAT PRN; Protocol PRN Reason: Hypoglycemia Protocol Insulin Human NPH (Novolin N) 25 unit SC HS COUNT INCLUDES THE [facility] Last Admin: 12/03/17 21:41 Dose: 25 units Insulin Human Regular (Novolin R) 0 unit SC ACHS COUNT INCLUDES THE [facility]; Protocol Last Admin: 12/04/17 17:00 Dose: 3 units Insulin Human Regular (Novolin R) 20 unit SC AC COUNT INCLUDES THE [facility] Last Admin: 12/04/17 17:00 Dose: 20 u Lisinopril (Zestril) 2.5 mg PO DAILY COUNT INCLUDES THE [facility] Last Admin: 12/04/17 09:37 Dose: 2.5 mg Phenazopyridine HCl (Pyridium) 200 mg PO TIDPC COUNT INCLUDES THE [facility] Last Admin: 12/04/17 17:36 Dose: 200 mg Rosuvastatin Calcium (Crestor) 2.5 mg PO HS COUNT INCLUDES THE [facility] Last Admin: 12/03/17 21:41 Dose: 2.5 mg Saccharomyces Boulardii (Florastor) 250 mg PO BID COUNT INCLUDES THE [facility] Last Admin: 12/04/17 17:31 Dose: 250 mg Tramadol HCl (Ultram) 25 mg PO TID PRN PRN Reason: Pain, severe (8-10) Last Admin: 12/04/17 17:42 Dose: 25 mg Trimethoprim/Sulfamethoxazole (Bactrim Ds Tab) 1 tab PO Q12H COUNT INCLUDES THE [facility]; Protocol Stop: 12/08/17 20:00 Last Admin: 12/04/17 17:00 Dose: 1 tab Vitamin A (Vitamin A & D Oint Ud Foilpak) 1 ea TOP DAILY PRN PRN Reason: dry lips Last Admin: 11/25/17 22:03 Dose: 1 ea - Labs Labs: 12/04/17 07:51 12/04/17 07:51 Assessment and Plan (1) Pyelonephritis Status: Acute (2) Symptomatic anemia Status: Acute (3) Uncontrolled diabetes mellitus Status: Acute (4) Prophylactic measure Status: Acute Attending/Attestation - Attestation I have personally seen and examined this patient.: Yes I have fully participated in the care of the patient.: Yes I have reviewed all pertinent clinical information, including history, physical exam and plan: Yes Notes (Text): Patient seen, examined and case discussed with director of medical education. Patient LLQ improved compared to last meeting with patient last week. Patient had repeat CT scan which showed no change. Patient's to receive insulin from [facility] tomorrow morning and shortly after be discharged. Medications upon discharge: 1) Metformin 850mg PO BID 2) Lisinopril 2.5mg PO daily 3) Novolin N 25 units subcutaneous daily at bedtime 4) Novolin R 20 u AC 5) Bactrim DS 1 tab PO BID to complete on 12/08/17 6) Crestor 2.5mg PO qHS or Lipitor equivalent one month supply. Patient will need to f/u in the clinic as noted in disposition. Assessment/Plan 1) Poorly controlled diabetic Insulin-dependent diabetic Assessment/plan * Pt with h/o DM2, takes metformin and uses 18 units of a friend's insulin at bedtime * Hypoglycemic protocol * Accuchecks qAC and HS * Hb A1c: 10.6--->will need to start insulin in light of a1c>9.5 * Dr. Parker, endocrinology consulted. Help appreciated * Novolin N 25 units subcutaneous daily at bedtime (we will need to indicate to patient * Novolin R 20 u AC (will need 2 vials to cover one month supply) * Regular insulin sliding scale * Metformin 850mg PO BID * Lisinopril 2.5mg PO daily * Crestor 2.5 by mouth daily at bedtime * Dietitian referral * forming mill operator 2) Abdominal Pain Endometrioma Complex Ovarian Cyst Assessment/plan * Ob-sales compensation analyst consult-->help appreciated * US:Mild increase in size of complex right ovarian cyst with low-level echoes. Given the appearance and relative interval stability, this most likely represents an endometrioma. Left ovary not discretely identified. Septated cyst versus hydrosalpinx posterior to the uterus. This measures approximately 5.4 cm in greatest dimension and was not noted previously. Recommend follow- up transvaginal pelvic ultrasound examination in 6-8 weeks. Two discrete uterine fibroids. No other significant abnormality. * CT abdomen/pelvis by mouth and IV contrast: Large right ovarian cyst which has slightly increased in size now 56.8 previously 4 x 5.7 in coronal plane small cysts are seen superior in the uterine fundus. No intra-abdominal findings * 12/[address] scan due to persistent LLQ with new rebound tenderness: Again identified within the region of the right adnexa and midline superior pelvis are contiguous large loculated complex septated cystic lesions measuring approximately 5.5 x 4.0 centimeters and 7.8 x 4.8 centimeters. Overall, this appears similar in size and configuration to the prior study dated 11/22/2017. This is of uncertain clinical etiology and may represent complex adnexal/ovarian cysts/cystic lesions. Alternatively, this may represent underlying hydro and or pyosalpinx and or tubo-ovarian abscess and or additional etiology. Clinical correlation. Continued interval follow-up is recommended. Correlation with pelvic ultrasound may be helpful if clinically indicated. * Tylenol 650 Q6H PRN for moderate pain * Morphine 2mg IV Q6H for severe pain * [facility] hospitalist * patient considering surgical management * advised that medical condition should be optimized prior to intervention 3) Symptomatic Anemia likely secondary to menorrhagia Assessment/plan * Long menstrual period with heavy bleeding * US:Mild increase in size of complex right ovarian cyst with low-level echoes. Given the appearance and relative interval stability, this most likely repr esents an endometrioma. Left ovary not discretely identified. Septated cyst versus hydrosalpinx posterior to the uterus. This measures approximately 5.4 cm in greatest dimension and was not noted previously. Recommend follow-up transvaginal pelvic ultrasound examination in 6-8 weeks. Two discrete uterine fibroids. No other significant abnormality. * CT abdomen/pelvis by mouth and IV contrast: Large right ovarian cyst which has slightly increased in size now 56.8 previously 4 x 5.7 in coronal plane small cysts are seen superior in the uterine fundus. No intra-abdominal findings * H/H 7.6/25.2 -> 8.8/26.6 following 1u PRBC * Monitor CBC * Iron: 17, TIBC: 413, %sat: 4 * [facility] hospitalist * recommend outpatient endometrial biopsy 4)Pyelonephritis Dysuria Assessment/plan * UA: + Leuk esterase, +few bacteria * Urine culture: Staph Aureus and E.coli---MSSA sensitive * Patient switched to Zosyn 3.375 IV every 6 are since 11/24/2017-11/28/17 * Repeat urine culture: no growth * echocardiogram: EF 62.5%, LA mildly dilated, Trace MR and TR, IVC mildly dilated at 2.4cm, otherwise normal (see full report) * Bactrim DS x1 tab PO q12h, last dose 12/08 * Patient will need probiotic or natural probiotic while on antibiotic 5) Vaginal Itching Assessment/plan * UA + yeast * Completed Monistat 7 vaginal cream 1 each per vagina daily * Per obgyn, * s/p fluconazole * continue miconazole * cool compress for relief 6) PPX * DVT PPX: SCDs * Chemical anticoagulaton secondary to worsening anemia secondary to menorhaagia * GI: Pepcid 20mg PO BID * Physical therapy eval and treat: home * d/c telemetry * Patient may shower Disposition: Repeat CT unchanged. * ObGyn team recommend outpatient follow up through [facility] for repeat transvaginal US in 6-8 weeks and outpatient endometrial biopsy. * Patient also recommended to obtain referral for outpatient colonoscopy due to episode of blood streaked stool on day of presentation. This was explained to patient and she expressed understanding. * Arrangements have been made for patient to receive free medications with the [employer] form, and beyond one month supply through the [facility]. * The patient has an appointment in the [facility] clinic at December 21 at 2pm for follow up. * She will need referrals to [facility] for repeat tranvaginal/pelvis US. Patient has not yet children yet but desires in future. Patient will need referral for her screening including podiatry, opthalamology, and medical laboratory technician for her yearly diabetic screening exams.
[2017-12-04] MEDS: Rosuvastatin Calcium 2.5 mg Tab PO SCH (22:29)
[2017-12-04] MEDS: (Novolin N) Insulin Human Isophane (NPH) 100 u/ml 10 ml vial SC SCH (22:30)
[2017-12-05] MEDS: Tmp-Smz 800 mg-160 mg DS Tab PO SCH (03:29)
[2017-12-05 07:22] LABS: ALB/GLOB RATIO 1.1 (1.0-2.1); ALBUMIN 3.9 g/dL (3.5-5.0); ALT/SGPT 61 U/L (9-52); AST/SGOT 49 U/L (14-36); BLOOD UREA NITROGEN 14 mg/dL (7-17); CALCIUM 9.1 mg/dl (8.6-10.4); GFR NON-AFRICAN AMERICAN > 60
[2017-12-05 07:28] LABS: BASO # 0.1 K/uL (0.0-0.2); BASO % 0.5 % (0.0-2.0); EOS # 0.1 K/uL (0.0-0.7); EOS % 1.2 % (0.0-4.0); HEMOGLOBIN 9.6 g/dL (11.0-16.0); LYMPH # 3.6 K/uL (1.0-4.3); LYMPH % 31.3 % (20.0-40.0); MEAN CELL VOLUME 64.6 fL (81.0-99.0); MEAN CORPUSCULAR HEMOGLOBIN 19.6 pg (27.0-31.0); MEAN CORPUSCULAR HGB CONC 30.2 g/dL (33.0-37.0); MEAN PLATELET VOLUME 8.8 fL (7.2-11.7); MONO # 0.9 K/uL (0.0-0.8); MONO % 7.5 % (0.0-10.0); NEUT # 6.8 K/uL (1.8-7.0); NEUT % 59.5 % (50.0-75.0); RBC 4.91 Mil/uL (3.80-5.20); RED CELL DISTRIBUTION WIDTH 25.2 % (11.5-14.5); WHITE BLOOD COUNT 11.4 K/uL (4.8-10.8)
[2017-12-05] MEDS: (Novolin R) Insulin Human Regular 100 units/ml vial SC SCH ×4 (08:13→12:05)
--- NOTE | 2017-12-05 08:32 | CP.PCM.DIS ---
Provider - Provider Date of Admission: 11/24/17 11:40 Attending physician: Lanny Carcamo DO Time Spent in preparation of Discharge (in minutes): 45 Diagnosis - Discharge Diagnosis (1) Pyelonephritis Status: Acute (2) Uncontrolled diabetes mellitus Status: Chronic (3) Ovarian cyst Status: Chronic (4) Uterine fibroid Status: Chronic Hospital Course - Lab Results Lab Results: Micro Results 11/24/17 14:45 Blood Blood Culture - Final NO GROWTH AFTER 5 DAYS 11/24/17 14:45 Blood Gram Stain - Final TEST NOT PERFORMED 11/24/17 14:00 Blood Blood Culture - Final NO GROWTH AFTER 5 DAYS 11/24/17 14:00 Blood Gram Stain - Final TEST NOT PERFORMED 11/24/17 17:57 Urine,Clean Catch Urine Culture - Final No Growth (<1,000 CFU/ML) 11/21/17 18:17 Urine Urine Culture - Final Staphylococcus Aureus Yeast Species Most Recent Lab Values WBC 11.4 K/uL (4.8-10.8) H 12/05/17 06:17 RBC 4.91 Mil/uL (3.80-5.20) 12/05/17 06:17 Hgb 9.6 g/dL (11.0-16.0) L 12/05/17 06:17 Hct 31.7 % (34.0-47.0) L 12/05/17 06:17 MCV 64.6 fL (81.0-99.0) L 12/05/17 06:17 MCH 19.6 pg (27.0-31.0) L 12/05/17 06:17 MCHC 30.2 g/dL (33.0-37.0) L 12/05/17 06:17 RDW 25.2 % (11.5-14.5) H 12/05/17 06:17 Plt Count 230 K/uL (130-400) 12/05/17 06:17 MPV 8.8 fL (7.2-11.7) 12/05/17 06:17 Neut % (Auto) 59.5 % (50.0-75.0) 12/05/17 06:17 Lymph % (Auto) 31.3 % (20.0-40.0) 12/05/17 06:17 [place] % (Auto) 7.5 % (0.0-10.0) 12/05/17 06:17 Eos % (Auto) 1.2 % (0.0-4.0) 12/05/17 06:17 Baso % (Auto) 0.5 % (0.0-2.0) 12/05/17 06:17 Neut # (Auto) 6.8 K/uL (1.8-7.0) 12/05/17 06:17 Lymph # (Auto) 3.6 K/uL (1.0-4.3) 12/05/17 06:17 [place] # (Auto) 0.9 K/uL (0.0-0.8) H 12/05/17 06:17 Eos # (Auto) 0.1 K/uL (0.0-0.7) 12/05/17 06:17 Baso # (Auto) 0.1 K/uL (0.0-0.2) 12/05/17 06:17 Differential Comment 11/21/17 19:18 D-Dimer, Quantitative < 200 ng/mlDDU (0-243) 11/21/17 19:18 Sodium 136 mmol/L (132-148) 12/05/17 06:17 Potassium 4.4 mmol/L (3.6-5.2) 12/05/17 06:17 Chloride 102 mmol/L (98-107) 12/05/17 06:17 Carbon Dioxide 22 mmol/L (22-30) 12/05/17 06:17 Anion Gap 16 (10-20) 12/05/17 06:17 BUN 14 mg/dL (7-17) 12/05/17 06:17 Creatinine 0.8 mg/dL (0.7-1.2) 12/05/17 06:17 Est GFR ( Amer) > 60 12/05/17 06:17 Est GFR (Non-Af Amer) > 60 12/05/17 06:17 POC Glucose (mg/dL) 140 mg/dL (65-110) H 12/04/17 21:06 Random Glucose 278 mg/dL (65-105) H 12/05/17 06:17 Hemoglobin A1c 10.6 % (4.2-6.5) H D 11/22/17 09:59 Calcium 9.1 mg/dl (8.6-10.4) 12/05/17 06:17 Phosphorus 3.3 mg/dL (2.5-4.5) 11/27/17 06:47 Magnesium 1.8 mg/dL (1.6-2.3) 11/27/17 06:47 Iron 17 ug/dL (37-170) L 11/22/17 06:30 TIBC 413 ug/dL (250-450) 11/22/17 06:30 % Saturation 4 (20-55) L 11/22/17 06:30 Total Bilirubin 0.4 mg/dL (0.2-1.3) 12/05/17 06:17 AST 49 U/L (14-36) H 12/05/17 06:17 ALT 61 U/L (9-52) H 12/05/17 06:17 Alkaline Phosphatase 109 U/L (38-126) 12/05/17 06:17 Total Creatine Kinase 21 U/L (30-135) L 11/24/17 14:20 CK-MB (Mass) < 0.22 ng/mL (0.0-3.38) 11/24/17 14:20 Troponin I < 0.0120 ng/mL (0.00-0.120) 11/24/17 14:20 Total Protein 7.5 g/dL (6.3-8.3) 12/05/17 06:17 Albumin 3.9 g/dL (3.5-5.0) 12/05/17 06:17 Globulin 3.6 gm/dL (2.2-3.9) 12/05/17 06:17 Albumin/Globulin Ratio 1.1 (1.0-2.1) 12/05/17 06:17 Triglycerides 119 mg/dL (0-149) D 11/22/17 09:59 Cholesterol 102 mg/dL (0-199) 11/22/17 09:59 LDL Cholesterol Direct 45 mg/dL (0-129) 11/22/17 09:59 HDL Cholesterol 31 mg/dL (30-70) 11/22/17 09:59 Lipase 193 U/L (23-300) 11/21/17 19:18 Urine Color Straw (YELLOW) 11/24/17 17:57 Urine Clarity Clear (Clear) 11/24/17 17:57 Urine pH 7.0 (5.0-8.0) 11/24/17 17:57 Ur Specific [place] 1.022 (1.003-1.030) 11/24/17 17:57 Urine Protein Negative mg/dL (NEGATIVE) 11/24/17 17:57 Urine Glucose (UA) 3+ mg/dL (Normal) H 11/24/17 17:57 Urine Ketones Negative mg/dL (NEGATIVE) 11/24/17 17:57 Urine Blood 1+ (NEGATIVE) H 11/24/17 17:57 Urine Nitrate Negative (NEGATIVE) 11/24/17 17:57 Urine Bilirubin Negative (NEGATIVE) 11/24/17 17:57 Urine Urobilinogen Normal mg/dL (0.2-1.0) 11/24/17 17:57 Ur Leukocyte Esterase Neg Josie/uL (Negative) 11/24/17 17:57 Urine WBC (Auto) 2 /hpf (0-5) 11/24/17 17:57 Urine RBC (Auto) 2 /hpf (0-3) 11/24/17 17:57 Ur Squamous Epith Cells 4 /hpf (0-5) 11/24/17 17:57 Urine Bacteria Occ (<OCC) H 11/22/17 09:59 Urine Yeast (Budding) Rare /hpf (NEGATIVE) H 11/21/17 18:17 Urine HCG, Qual Negative (NEGATIVE) 12/02/17 13:42 Stool Occult Blood Negative (NEGATIVE) 11/28/17 12:06 B-Hydroxybutyrate 0.70 mM (0.02-0.27) H 11/21/17 19:18 Blood Type B NEGATIVE 11/28/17 12:20 Antibody Screen Negative 11/28/17 12:20 - Hospital Course Hospital Course: HPI on Admission: Pt is a 37yo F with PMH endometriosis, DM2 who presented to ED with abdominal pain, vaginal itchiness, and increased thirst x2 weeks. She repots a constant, intense wilfred abdominal pain that she rates 7/10. She tried taking advil at home which did not help. She also reports vaginal irritation that causes pain with urination. She tried using monistat at home which hdid not help. She also reports increased thirst and urination, nausea, and decreased appetite and a 8lb weight loss over the past 2 weeks. She reports taking her insulin(?) and metformin 500 at home as prescribed and checking her sugars which ranged from 70-140, with the highest reading being 400. She reports associated palpitations, dizziness, and chest pain when walking. She also reports subjective fever, chills, and sweating. She denies any headaches, blurry vision, or diarrhea. LMP was 10/23 until 11/09, which was heavy with many clots. SxH: laparoscopy (endometriosis) SocH: smokes 2 cigs/day x15 yrs, denies etoh or recreational drug use FamH: DM in mother and father Allergies: NKDA Meds: insulin (unspecified), metformin 500 PMD: none Hospital Course: Patient initially presented to [facility] ED with abdominal pain, vaginal itchiness, and increased thirst. She was subsequently admitted for uncontrolled DM with an A1C of 10.6 and anemia with initial hemoglobin of 7.6. motor vehicle light assembler was consulted, as this patient has a history of recurrent endometriosis. Endocrine was consulted for management of patient's hyperglycemia requiring insulin for A1C >9.5. On admission, patient was transfused one unit PRBCs for HgB 7.6, with post- transfusion HgB 8.8 On 11/28, patient was transfused an additional unit of PRBCs for HgB 7.6 with patient complaining of lightheadedness, for a total of 2 units during admission. Patient did also have a reported episode of blood- streaked stool, but stool occult was negative. Patient has a history of uterine fibroids and has had heavy menstrual bleeding. Patient stated that her last menstrual period prior to admission was very heavy with clotting. Latin Dance Instructor consult was obtained, as well as relevant imaging which revealed uterine fibroids and a large, complex R ovarian cyst. Throughout her hospital course, patient's insulin regimen was continuously adjusted per Endocrine, Dr. Parker. Initial Novolin N dose was decreased from 50 U SC HS to 25 U SC HS for an episode of mildly symptomatic hypoglycemia. Initial urinalysis on 11/21 was positive for urine glucose and 1+ leukocyte esterase. Initial urine cultures grew staph aureus. On exam, patient was noted to have CVA tenderness with history of dysuria, so pyelonephritis was suspected. Patient was treated with IV Zosyn. Symptoms improved clinically and final repeat urine cultures were negative for bacterial growth. Patient was also treated for yeast infection with Monistat, and her vaginal itchiness subsequently resolved. Upon discharge, patient is to follow up in [facility] for primary care and Latin Dance Instructor. Latin Dance Instructor recommends outpatient TVUS and endometrial biopsy. It is also recommended that patient schedule a colonoscopy outpatient, due to persistent anemia with possible bloody stool. Imaging: * Abd/Pelvis/Transvaginal US 11/22/17: Mild increase in size of complex right ovarian cyst with low-level echoes. Given the appearance and relative interval stability, this most likely represents an endometrioma. Left ovary not discretely identified. Septated cyst versus hydrosalpinx posterior to the uterus. This measures approximately 5.4 cm in greatest dimension and was not noted previously. Recommend follow-up transvaginal pelvic ultrasound examination in 6-8 weeks. Two discrete uterine fibroids. No other significant abnormality. * CT abdomen/pelvis with PO and IV contrast 11/22/17: Large right ovarian cyst which has slightly increased in size now 56.8 previously 4 x 5.7 in coronal plane small cysts are seen superior in the uterine fundus. No intra-abdominal findingsin * CT abd/pelvis with PO and IV contrast 12/02/17: Again identified within the region of the right adnexa and midline superior pelvis are contiguous large loculated complex septated cystic lesions measuring approximately 5.5 x 4.0 centimeters and 7.8 x 4.8 centimeters. Overall, this appears similar in size and configuration to the prior study dated 11/22/2017. This is of uncertain clinical etiology and may represent complex adnexal/ovarian cysts/cystic lesions. Alternatively, this may represent underlying hydro and or pyosalpinx and or tubo-ovarian abscess and or additional etiology. Clinical correlation. Continued interval follow-up is recommended. Correlation with pelvic ultrasound may be helpful if clinically indicated. * Echocardiogram 11/27/17: EF 62.5%, LA mildly dilated, Trace MR and TR, IVC mildly dilated at 2.4cm, otherwise normal (see full report) Discharge Exam - Head Exam Head Exam: ATRAUMATIC, NORMAL INSPECTION, NORMOCEPHALIC - Eye Exam Eye Exam: EOMI, Normal appearance Pupil Exam: NORMAL ACCOMODATION, PERRL - Neck Exam Neck exam: Full Rom - Respiratory Exam Respiratory Exam: Clear to PA & Lateral, NORMAL BREATHING PATTERN, UNREMARKABLE - Cardiovascular Exam Cardiovascular Exam: REGULAR RHYTHM, RRR, +S1, +S2 - GI/Abdominal Exam GI & Abdominal Exam: Normal Bowel Sounds, Tenderness (LLQ tenderness). absent: Distended, Firm, Guarding - Neurological Exam Neurological exam: Alert, CN II-XII Intact, Oriented x3 - Psychiatric Exam Psychiatric exam: Normal Affect, Normal Mood - Skin Skin Exam: Dry, Intact, Normal Color, Warm Discharge Plan - Discharge Medications Prescriptions: Lisinopril 2.5 mg PO DAILY #30 tablet metFORMIN [glucOPHAGE] 850 mg PO BID #30 tab Rosuvastatin Calcium 2.5 [Crestor] 2.5 mg PO HS #30 tab Sulfamethoxazole/Trimethoprim [Bactrim DS 800 mg-160 mg] 1 tab PO BID #8 tab - Follow Up Plan Condition: STABLE Instructions: Type 2 Diabetes, Anemia Caused by Low Iron, Adult (DC), Diabetes Type 2 (DC), Sulfamethoxazole and Trimethoprim, Lisinopril, Metformin, Rosuvastatin Additional Instructions: Patient is cleared for discharge per Dr. Carcamo. Please continue to take the following medications. Prescriptions have been provided in your chart: -Novolin N 25 units, injected under the skin in the evening -Novolin R 20 units injected under the skin in the morning -Atorvastatin 10mg one tab by mouth at bedtime -Lisinopril 2.5 mg one tab by mouth at 8am daily -Bactrim double strength one tab by mouth twice daily at 8am and 8pm until 12/08 A voucher has been provided so that your prescriptions can be received free of cost for one month. Insulin and insulin supplies will be provided at no or reduced cost beyond that time through the [facility]. An appointment has also been made for the patient to follow up in the [facility] on 12/21 at 2pm. Additionally, a referral has been provided for the patient to follow up with LOAD DISPATCHER, Dr. Dey. Patient is recommended to have endometrial biopsy and transvaginal ultrasound with Latin Dance Instructor as an outpatient. Outpatient colonoscopy has also been recommended. Arrangements for these procedures and respective appointments can be made through follow up appointments in [facility]. Patient should also have yearly eye and foot exams to be arranged in the clinic. Please return to the ER if symptoms recur or worsen. You can keep track of your blood sugar using blood glucose logs. Free printable blood sugar logs can be found at the following address. [email or web address] [email or web address] If you have high blood glucose, make notes in your log and talk with your health care team about whether you need to change your meal plan, physical activity, or diabetes medicines. Having low blood glucose means that your blood glucose level is too low (below 70 mg/dl). Low blood glucose can be dangerous. Symptoms include being: hungry light-headed or confused nervous and shaky sleepy sweaty If you think your blood glucose is too low, check it. If its below 70 mg/dl, have 1 of these items right away to raise your blood glucose level: 3 or 4 glucose tablets 1 serving of glucose gel (the amount equal to 15 grams of carbohydrate) cup (4 ounces) of fruit juice cup (4 ounces) of a regular (not diet) soft drink 8 ounces of milk 5 or 6 pieces of hard candy 1 tablespoon of sugar or honey After 15 minutes, check your blood glucose again. If its still below 70 mg/dl, have another serving. Repeat these steps until your blood glucose is at least 70 mg/dl. El paciente est autorizado para el amy por Dr. Carcamo. Por favor contine tomando los siguientes medicamentos. Las recetas se mcpherson proporcionado en gee tabla: -Novolin N 25 unidades, inyectadas bajo la piel por la noche. -Novolin R 20 unidades inyectadas bajo la piel por la maana. -Atorvastatina 10 mg aurelia pestaa por va oral a la hora de acostarse -Lisinopril 2.5 mg aurelia pestaa por va oral a las 8 am todos los noel -Bactrim doble fuerza aurelia pestaa por va oral dos veces al da a las 8 am y 8 pm hasta el 12/08 Se womack proporcionado un comprobante para que scott recetas se puedan recibir sin costo alguno latosha un mes. La insulina y los suministros de insulina se proporcionarn sin costo o con un costo reducido ms all de rc tiempo a travs de [facility]. Lizett se womack programado aurelia dioni para que el paciente realice el seguimiento en la clnica del [facility] el 12/21 a las 2pm. Adems, se womack proporcionado aurelia referencia para que el paciente realice un seguimiento con un obstetra / gineclogo, el Dr. Dey. Se recomienda que el paciente se someta a aurelia biopsia endometrial y aurelia ecografa transvaginal con Ob / Telephone Order Clerk pauline paciente ambulatorio. Lizett se womack recomendado la colonoscopia ambulatoria. Los arreglos para estos procedimientos y las citas respectivas se pueden hacer a travs de citas de seguimiento en la [facility]. El paciente lizett debe realizarse exmenes anuales de los ojos y los pies en la clnica. Por favor regrese a la guera de emergencias si los sntomas reaparecen o empeoran . - Puede hacer un seguimiento de gee azcar en la can utilizando registros de glucosa en la can. Registros de azcar en la can para imprimir gratis se pueden encontrar en la siguiente direccin. [email or web address] Si tiene un nivel alto de glucosa en la can, tome notas en gee registro y hable con gee equipo de atencin mdica sobre si necesita cambiar Gee plan de alimentacin, actividad fsica o medicamentos para la diabetes. Tener un nivel bajo de glucosa en la can significa que gee nivel de glucosa en la can es demasiado bajo (por debajo de 70 mg / dl). La glucosa baja en la can puede ser peligroso. Los sntomas incluyen ser: hambriento mareado o confundido nervioso y tembloroso somnoliento sudoroso Si trini que gee nivel de glucosa en can es demasiado bajo, verifquelo. Si esta abajo 70 mg / dl, tenga 1 de estos elementos de inmediato para aumentar gee can nivel de glucosa 3 o 4 tabletas de glucosa 1 porcin de gel de glucosa (la cantidad igual a 15 gramos de carbohidrato) taza (4 onzas) de jugo de frutas taza (4 onzas) de un refresco regular (no de dieta) 8 onzas de leche 5 o 6 piezas de caramelo talisha 1 cucharada de azcar o miel Despus de 15 minutos, revise gee glucosa en can nuevamente. Si todava est Por debajo de 70 mg / dl, tiene otra porcin. Repita estos pasos hasta Gee glucosa en can es de al menos 70 mg / dl. Referrals: Miguel Dey MD [Medical Doctor] -
[2017-12-05 08:40] VITALS: BP 105/72; PULSE 97; TEMP 97.9; O2SAT 97
[2017-12-05] MEDS: Saccharomyces Boulardi 250 mg Cap PO SCH (10:13)
[2017-12-05] MEDS: Tramadol 25 mg PO PRN (10:14)
== END 2017-12-05 13:30 | disposition home or self-care (01) | DRG 690 ==
LOC: C.ER 17:50 → C.9E 20:30 → C.6T 21:30 → OBSVTOIN 11-24 11:40 → C.3T 11-27 22:58 → UNDODISIN 12-05 12:07 → C.6T 12-05 12:22
PROVIDERS: ADMIT Hospitalist; ATTEND Hospitalist
DX: N12 Tubulo-interstitial nephritis, not specified as acute or chronic (principal); K59.00 Constipation, unspecified; L29.8 Other pruritus; N83.291 Other ovarian cyst, right side; N92.0 Excessive and frequent menstruation with regular cycle; N80.9 Endometriosis, unspecified; E66.01 Morbid (severe) obesity due to excess calories; Z68.35 Body mass index [BMI] 35.0-35.9, adult; E11.22 Type 2 diabetes mellitus with diabetic chronic kidney disease; E11.649 Type 2 diabetes mellitus with hypoglycemia without coma; E11.65 Type 2 diabetes mellitus with hyperglycemia; F17.210 Nicotine dependence, cigarettes, uncomplicated; Z79.4 Long term (current) use of insulin; N18.9 Chronic kidney disease, unspecified; I12.9 Hypertensive chronic kidney disease with stage 1 through stage 4 chronic kidney disease, or unspecified chronic kidney disease; D64.9 Anemia, unspecified; B37.3 Candidiasis of vulva and vagina; D25.9 Leiomyoma of uterus, unspecified

== ENCOUNTER 2018-02-03 16:55 | Emergency (ER) | payer MEDICAID, OTHER ==
[2018-02-03 16:55] VITALS: BMI 36.8
[2018-02-03 17:39] LABS: HCG,QUALITATIVE URINE NEGATIVE (NEGATIVE)
[2018-02-03 17:43] LABS: SQUAMOUS EPITHIAL 1 /hpf (0-5); URINE BACTERIA OCC (<OCC); URINE BILIRUBIN NEGATIVE (NEGATIVE); URINE BLOOD 3+ (NEGATIVE); URINE CLARITY Clear (Clear); URINE COLOR Yellow (YELLOW); URINE GLUCOSE (UA) NORMAL (Normal); URINE LEUKOCYTE ESTERASE 1+ Leu/uL (Negative); URINE PROTEIN 1+ mg/dL (NEGATIVE); URINE UROBILINOGEN NORMAL mg/dL (0.2-1.0)
[2018-02-03 18:11] LABS: BASO % 0.3 % (0.0-2.0); EOS # 0.1 K/uL (0.0-0.7); EOS % 0.7 % (0.0-4.0); LYMPH # 1.9 K/uL (1.0-4.3); LYMPH % 17.4 % (20.0-40.0); MEAN CELL VOLUME 66.6 fL (81.0-99.0); MEAN CORPUSCULAR HEMOGLOBIN 20.6 pg (27.0-31.0); MEAN CORPUSCULAR HGB CONC 30.9 g/dL (33.0-37.0); MEAN PLATELET VOLUME 8.7 fL (7.2-11.7); MONO # 0.7 K/uL (0.0-0.8); MONO % 6.2 % (0.0-10.0); NEUT # 8.3 K/uL (1.8-7.0); NEUT % 75.4 % (50.0-75.0); NRBC % 0.1 % (0.0-2.0); RBC 4.4 Mil/uL (3.80-5.20); RED CELL DISTRIBUTION WIDTH 22.7 % (11.5-14.5)
[2018-02-03] MEDS ORDERED: Sodium Chloride 0.9% 1,000 ML IV ONE (18:12)
--- NOTE | 2018-02-03 18:17 | C.PDOC ---
History Of Present Illness 37 y/o female with a PMHx endometriosis and diabetes, presents to the ED for complaints of abdominal pain and vomiting for the past 3 days. Also reports some soft stool. Denies any fever, chills, vaginal bleeding, discharge, or urinary symptoms. Time Seen by Provider: 02/03/18 17:36 Chief Complaint (Nursing): Abdominal Pain History Per: Patient History/Exam Limitations: no limitations Onset/Duration Of Symptoms: Days Current Symptoms Are (Timing): Still Present Location Of Pain/Discomfort: Suprapubic Past Medical History Reviewed: Historical Data, Nursing Documentation, Vital Signs Vital Signs: Last Vital Signs Temp 98.6 F 02/03/18 17:01 Pulse 92 H 02/03/18 17:01 Resp 20 02/03/18 17:01 BP 147/83 02/03/18 17:01 Pulse Ox 97 02/03/18 17:01 - Medical History PMH: Anemia, Diabetes (type II), Kidney Stones, Chronic Kidney Disease Surgical History: Endoscopy - [facility] Procedures BLOW THERAPEUT INTO TUBE (06/09/14) D & C NEC (06/09/14) PACKED CELL TRANSFUSION (09/27/13) RETROGRADE PYELOGRAM (06/20/14) TRANSFUSE NONAUT RED BLOOD CELLS IN PERIPH VEIN, PERC (02/28/15) URETERAL CATHETERIZATION (06/20/14) Family History: States: Unknown Family Hx - Social History Hx Tobacco Use: Yes Hx Alcohol Use: No Hx Substance Use: No - Immunization History Hx Tetanus Toxoid Vaccination: No Hx Influenza Vaccination: No Hx Pneumococcal Vaccination: No Review Of Systems Except As Marked, All Systems Reviewed And Found Negative. Constitutional: Negative for: Fever, Chills Gastrointestinal: Positive for: Nausea, Vomiting, Abdominal Pain. Negative for: Diarrhea Genitourinary: Negative for: Dysuria, Frequency, Incontinence, Vaginal Disc harge, Vaginal Bleeding Physical Exam - Physical Exam Appears: Well, Non-toxic, No Acute Distress Skin: Normal Color, Warm, Dry Head: Atraumatic, Normacephalic Eye(s): bilateral: Normal Inspection, PERRL, EOMI Oral Mucosa: Moist Neck: Normal ROM Cardiovascular: Rhythm Regular, No Murmur Respiratory: Normal Breath Sounds, No Rales, No Rhonchi, No Wheezing Gastrointestinal/Abdominal: Soft, Tenderness (to LLQ and suprapubic region), No Distention, No Guarding, No Rebound Back: No CVA Tenderness, No Vertebral Tenderness Extremity: Bilateral: Atraumatic, Normal Color And Temperature Neurological/Psych: Oriented x3, Normal Speech ED Course And Treatment - Laboratory Results Result Diagrams: 02/03/18 18:04 02/03/18 18:04 O2 Sat by Pulse Oximetry: 97 (RA) Pulse Ox Interpretation: Normal Medical Decision Making Medical Decision Making: Impression: Abdominal pain, r/o torsion, r/o UTI Plan: - Labs - IV fluids - 30 mg IV Toradol - Transvaginal US pending Progress: Labs reviewed. UA shows +RBC On reevaluation, patient is still complaining of pain. Pending US reading. Patient given 4 mg IV morphine and 2 tabs of percocet. Ultrasound resulted: Name: MATTHEW PRETTY Exam Date: Feb 03, 2018 7:36:29 PM EST Modality Type: SD\US\OT\IN\SR Description: US - PELVIC REAL TIME TRANSABDOMINAL/TRANSVAGINAL W COLOR DOPPLER Gender: F Laterality: Not applicable : 84 Referring Physician: Josef Almonte) pelvic ultrasound Indications: Rule out torsion Findings: This study is nondiagnostic. The only recognizable structure in the entire study is the urinary bladder. Recommend clinical correlation. Impression: As above. Electronically signed on Feb 03, 2018 9:15:44 PM EST by: Gurpreet Chinchilla M.D., Certified by ABR 21:[address] Abdomen/Pelvis with IV contrast. CT abd/pel resulted: Name: MARIA DE JESUS CASTRO Exam Date: Feb 03, 2018 10:12:49 PM EST Modality Type: CT\SR Description: CT - ABDOMEN AND PELVIS WITH CORONAL AND SAGITTAL MPRS Gender: F Laterality: Not applicable : 84 Referring Physician: Josef Almonte) EXAM: CT Abdomen with IV contrast CLINICAL HISTORY: Pelvic Pain TECHNIQUE: Axial computed tomography images of the abdomen and pelvis with intravenous contrast. 0.00 mGy-cm CONTRAST: With; 100MLS VISI 320 COMPARISON: None provided. FINDINGS: LUNG BASES: The lung bases appear clear. No pleural effusions are seen. LIVER: Unremarkable. GALLBLADDER AND BILE DUCTS: The gallbladder appears within normal limits. No radioopaque gallstones are seen. No biliary ductal dilatation is evident. PANCREAS: Unremarkable. SPLEEN: Unremarkable. ADRENAL GLANDS: Unremarkable. KIDNEYS, URETERS, AND BLADDER: The urinary bladder is unremarkable as visualized. STOMACH AND BOWEL: There is a large, multiloculated cystic structure of the pelvis of uncertain origin. The right side of the pelvis demonstrates a teardrop shaped cystic structure with a fluid/fluid level and indistinct margins from the more medial solid structure with variable size cystic areas. The midst sigmoid colon crosses superior to this structure but appears to be uninvolved. APPENDIX: No evidence of acute appendicitis on CT examination. PERITONEUM: No free fluid. No free air. LYMPH NODES: No lymphadenopathy is evident. VASCULATURE: No evidence of abdominal aortic aneurysm. BONES: No aggressive appearing osseous lesion. No acute osseous pathology evident. IMPRESSION: 1. There is a large, multiloculated cystic structure of the pelvis of uncertain origin. The right side of the pelvis demonstrates a teardrop shaped cystic structure with a fluid/fluid level and indistinct margins from the more medial solid structure with variable size cystic areas. The midst sigmoid colon crosses superior to this structure but appears to be uninvolved. 2. The urinary bladder is unremarkable as visualized. 3. There is little if any interval change since the prior study of 12/02/17. Case discussed with fiscal agent service, Dr Donohue. She is aware of ct and us result. She recommends follow up with fiscal agent clinic. As per Dr Donohue, she can follow up in clinic and there is no need for admission. Disposition - Disposition Referrals: [facility] at [facility] [Outside] Lanny Donohue MD [Staff Provider] - Disposition: HOME/ ROUTINE Disposition Time: 23:49 Condition: GOOD Additional Instructions: Please fiscal agent clinic in a few days for an appointment. Take Motrin as directed for pain. Prescriptions: Ibuprofen [Motrin] 600 mg PO Q6 #20 tab Instructions: Ovarian Cysts Forms: [facility] (Sami) Print Language: YI - Clinical Impression Clinical Impression: Ovarian anomaly, Abdominal wall pain, Ovarian cyst - Scribe Statement The provider has reviewed the documentation as recorded by the Milagro Casanova Provider Attestation: All medical record entries made by the Milagro were at my direction and personally dictated by me. I have reviewed the chart and agree that the record accurately reflects my personal performance of the history, physical exam, medical decision making, and the department course for this patient. I have also personally directed, reviewed, and agree with the discharge instructions and disposition.
[2018-02-03 18:19] LABS: ALB/GLOB RATIO 1.2 (1.0-2.1); ALBUMIN 4.1 g/dL (3.5-5.0); ALT/SGPT 21 U/L (9-52); AST/SGOT 26 U/L (14-36); BLOOD UREA NITROGEN 13 mg/dL (7-17); CALCIUM 8.9 mg/dl (8.6-10.4); GFR NON-AFRICAN AMERICAN > 60; LIPASE 120 U/L (23-300)
[2018-02-03] MEDS ORDERED: Sodium Chloride 0.9% 1,000 ML ONE (18:23)
[2018-02-03] MEDS ORDERED: Morphine 4 MG/ML VIAL ONE (18:53)
[2018-02-03 19:28] VITALS: RESP 18; TEMP 98.3
[2018-02-03] MEDS ORDERED: Oxycodone/Acetaminophen 5/325 mg Tab PO ONE ×2 (21:08→21:30)
[2018-02-03] MEDS ORDERED: Oxycodone/Acetaminophen 5/325 mg Tab ONE (21:31)
[2018-02-03] MEDS ORDERED: Iodixanol 320 MG/ML 100 ML BOTTLE IV ONE (21:51)
[2018-02-03 23:39] VITALS: BP 128/77; PULSE 72
--- NOTE | 2018-02-04 13:01 | CT ---
Date of service: 02/03/2018 PROCEDURE: CT Abdomen and Pelvis with contrast HISTORY: pelvic pain COMPARISON: 12/02/2017 TECHNIQUE: Contrast dose: 100 mL Visipaque 320 Radiation dose: Total exam DLP = 1194.61 mGy-cm. This CT exam was performed using one or more of the following dose reduction techniques: Automated exposure control, adjustment of the mA and/or kV according to patient size, and/or use of iterative reconstruction technique. FINDINGS: LOWER THORAX: Unremarkable. LIVER: Unremarkable. No gross lesion or ductal dilatation. GALLBLADDER AND BILE DUCTS: Unremarkable. PANCREAS: Unremarkable. No gross lesion or ductal dilatation. SPLEEN: Unremarkable. ADRENALS: Unremarkable. No mass. KIDNEYS AND URETERS: Unremarkable. No hydronephrosis. No solid mass. VASCULATURE: Unremarkable. No aortic aneurysm. No aortic atherosclerotic calcification or mural plaque present. BOWEL: Unremarkable. No obstruction. No gross mural thickening. APPENDIX: Normal appendix. PERITONEUM: Unremarkable. No free fluid. No free air. LYMPH NODES: Unremarkable. No enlarged lymph nodes. BLADDER: Poorly distended. No gross abnormality. REPRODUCTIVE: Multiple small uterine fibroids as on prior CT and ultrasound examination. Probable right hydrosalpinx versus elongated tubular appearing cyst, 5.6 cm greatest dimension. No change from prior. No substantial peripheral enhancement to suggest pyosalpinx. No surrounding inflammatory change. Multiple small cysts within what is likely right ovary, unchanged. Cannot rule out tubo-ovarian abscess or pyosalpinx on the basis of this examination alone. BONES: No acute fracture. OTHER FINDINGS: None. IMPRESSION: Suspect right hydrosalpinx, unchanged from prior examination. Multiple small uterine fibroids. No other significant abnormality. The preliminary findings for this examination were reported by [facility] at 10:41 p.m. on 02/03/2018. There is concurrence of this report with the preliminary findings.
--- NOTE | 2018-02-04 17:17 | US ---
Date of service: 02/03/2018 HISTORY: r/o torsion COMPARISON: None available. TECHNIQUE: Transabdominal and transvaginal FINDINGS: UTERUS: Measures 11.4 x 6.5 x 7.7 cm. Heterogeneous echotexture. Posterior subserosal fibroid, 3.6 x 3.8 x 4.3 cm. Subserosal fundal fibroid, 3.4 x 3.5 x 3.8 cm. ENDOMETRIUM: Measures mm in diameter. Unremarkable. CERVIX: No cervical abnormality identified. RIGHT OVARY: Measures cm. Probable right hydrosalpinx. Low-level echoes within the hydrosalpinx may reflect old blood, post infectious debris or nuha tubo-ovarian abscess. Please correlate clinically. No solid mass. Additional cluster of small cysts in right adnexal region posterior to the uterus, corresponding to likely small ovarian cysts on CT examination as well.. LEFT OVARY: Not visualized FREE FLUID: No significant free fluid noted. OTHER FINDINGS: None. IMPRESSION: Right hydrosalpinx. Low-level internal echoes within the hydrosalpinx may reflect postinflammatory or hemorrhagic debris or pyosalpinx. Please correlate clinically. Small right ovarian cysts. Multiple uterine fibroids. The preliminary findings for this examination were reported by [facility] at 9:15 p.m. on 02/03/2018. There is discordant of this report with the preliminary findings.
[2018-02-05 19:54] VITALS: O2SAT 97
== END 2018-02-03 23:50 | disposition home or self-care (01) ==
LOC: C.ER 16:55
DX: R10.9 Unspecified abdominal pain (principal); N83.201 Unspecified ovarian cyst, right side; Q50.39 Other congenital malformation of ovary; E11.9 Type 2 diabetes mellitus without complications; Z72.0 Tobacco use
CPT/HCPCS: 74177; 76830; 76856; 80053; 81001; 83690; 84703; 85025; 87086; 96361; 96374; 96375; 99285; J1885; J2270; J7030; Q9967

== ENCOUNTER 2018-03-17 13:01 | Inpatient (IN) | payer MEDICAID, OTHER ==
[2018-03-17 13:01] VITALS: BMI 36.8
[2018-03-17 13:43] LABS: BASO % 0.4 % (0.0-2.0); EOS # 0.1 K/uL (0.0-0.7); EOS % 0.9 % (0.0-4.0); HEMOGLOBIN 7.5 g/dL (11.0-16.0); LYMPH # 1.4 K/uL (1.0-4.3); LYMPH % 12.9 % (20.0-40.0); MEAN CORPUSCULAR HEMOGLOBIN 19.7 pg (27.0-31.0); MEAN CORPUSCULAR HGB CONC 29.7 g/dL (33.0-37.0); MEAN PLATELET VOLUME 7.4 fL (7.2-11.7); MONO # 0.6 K/uL (0.0-0.8); MONO % 5.3 % (0.0-10.0); NEUT # 8.8 K/uL (1.8-7.0); NEUT % 80.5 % (50.0-75.0); RBC 3.82 Mil/uL (3.80-5.20); RED CELL DISTRIBUTION WIDTH 18.7 % (11.5-14.5); WHITE BLOOD COUNT 10.9 K/uL (4.8-10.8)
[2018-03-17 13:53] LABS: HCG,QUALITATIVE URINE NEGATIVE (NEGATIVE)
[2018-03-17 13:56] LABS: MEAN CELL VOLUME 66.5 fL (81.0-99.0)
[2018-03-17 13:57] LABS: ALB/GLOB RATIO 1.3 (1.0-2.1); ALBUMIN 4.2 g/dL (3.5-5.0); ALT/SGPT 21 U/L (9-52); AST/SGOT 37 U/L (14-36); BLOOD UREA NITROGEN 7 mg/dL (7-17); CALCIUM 8.9 mg/dl (8.6-10.4); GFR NON-AFRICAN AMERICAN > 60
[2018-03-17 14:08] LABS: SQUAMOUS EPITHIAL 1 /hpf (0-5); URINE BACTERIA RARE (<OCC); URINE BILIRUBIN NEGATIVE (NEGATIVE); URINE BLOOD 3+ (NEGATIVE); URINE CLARITY Clear (Clear); URINE COLOR Yellow (YELLOW); URINE GLUCOSE (UA) NORMAL (Normal); URINE LEUKOCYTE ESTERASE NEG Leu/uL (Negative); URINE PROTEIN 1+ mg/dL (NEGATIVE); URINE UROBILINOGEN NORMAL mg/dL (0.2-1.0)
[2018-03-17 14:38] LABS: INR 1.2; PROTHROMBIN TIME 13.4 SECONDS (9.7-12.2)
--- NOTE | 2018-03-17 14:40 | C.PDOC ---
History Of Present Illness 37 y/o female pt with hx of DM and endometriosis presents to the ER complaining of vaginal bleeding for the last x2 weeks, using 3 heavy pads per day. Associated sx includes dizziness, vomiting and weakness. Pt had tolerable pain the first two weeks but got worse in the last x3 days. Pt had similar pain last month, dx with hydrosalpinx and uterine fibroids but was not able to f/u with OBGYN. Also notes h/o anemia with transfusion last year. Pt denies fever, dysuria, vaginal discharge, frequency or back pain. Time Seen by Provider: 03/17/18 13:17 Chief Complaint (Nursing): Abdominal Pain History Per: Patient History/Exam Limitations: no limitations Onset/Duration Of Symptoms: Days (x2 weeks) Current Symptoms Are (Timing): Still Present Past Medical History Reviewed: Historical Data, Nursing Documentation, Vital Signs Vital Signs: Last Vital Signs Temp 99.4 F 03/17/18 13:18 Pulse 103 H 03/17/18 13:18 Resp 18 03/17/18 13:18 BP 125/84 03/17/18 13:18 Pulse Ox 100 03/17/18 13:18 - Medical History PMH: Anemia, Diabetes (type II), Kidney Stones, Chronic Kidney Disease Surgical History: Endoscopy - [facility] Procedures BLOW THERAPEUT INTO TUBE (06/09/14) D & C NEC (06/09/14) PACKED CELL TRANSFUSION (09/27/13) RETROGRADE PYELOGRAM (06/20/14) TRANSFUSE NONAUT RED BLOOD CELLS IN PERIPH VEIN, PERC (02/28/15) URETERAL CATHETERIZATION (06/20/14) Family History: States: Unknown Family Hx - Social History Hx Tobacco Use: Yes Hx Alcohol Use: No Hx Substance Use: No - Immunization History Hx Tetanus Toxoid Vaccination: No Hx Influenza Vaccination: No Hx Pneumococcal Vaccination: No Review Of Systems Except As Marked, All Systems Reviewed And Found Negative. Constitutional: Positive for: Weakness. Negative for: Fever Gastrointestinal: Positive for: Vomiting Genitourinary: Positive for: Vaginal Bleeding. Negative for: Dysuria, Frequency, Vaginal Discharge Musculoskeletal: Negative for: Back Pain Neurological: Positive for: Dizziness Physical Exam - Physical Exam Appears: Non-toxic, In Acute Distress (painful distress), Other (crying) Skin: Warm, Dry Head: Normacephalic Eye(s): bilateral: Normal Inspection, EOMI Nose: Normal Oral Mucosa: Moist Neck: Normal ROM, Supple Chest: Symmetrical Cardiovascular: Rhythm Regular Respiratory: Normal Breath Sounds, No Rales, No Rhonchi, No Wheezing Gastrointestinal/Abdominal: Soft, Tenderness (diffuse pelvic tenderness ), No Guarding, No Rebound Back: No CVA Tenderness Extremity: Normal ROM Neurological/Psych: Oriented x3, Normal Speech ED Course And Treatment - Laboratory Results Result Diagrams: 03/17/18 13:40 03/17/18 13:40 Lab Results: PT 13.4 SECONDS (9.7-12.2) H 03/17/18 14:20 INR 1.2 03/17/18 14:20 APTT 24 SECONDS (21-34) 03/17/18 14:20 Total Bilirubin 0.3 mg/dL (0.2-1.3) 03/17/18 13:40 AST 37 U/L (14-36) H D 03/17/18 13:40 ALT 21 U/L (9-52) 03/17/18 13:40 Alkaline Phosphatase 78 U/L (38-126) 03/17/18 13:40 Total Protein 7.5 g/dL (6.3-8.3) 03/17/18 13:40 Albumin 4.2 g/dL (3.5-5.0) 03/17/18 13:40 Globulin 3.3 gm/dL (2.2-3.9) 03/17/18 13:40 Albumin/Globulin Ratio 1.3 (1.0-2.1) 03/17/18 13:40 Urine Color Yellow (YELLOW) 03/17/18 13:39 Urine Clarity Clear (Clear) 03/17/18 13:39 Urine pH 6.0 (5.0-8.0) 03/17/18 13:39 Ur Specific [place] 1.017 (1.003-1.030) 03/17/18 13:39 Urine Protein 1+ mg/dL (NEGATIVE) H 03/17/18 13:39 Urine Glucose (UA) Normal mg/dL (Normal) 03/17/18 13:39 Urine Ketones Negative mg/dL (NEGATIVE) 03/17/18 13:39 Urine Blood 3+ (NEGATIVE) H 03/17/18 13:39 Urine Nitrate Negative (NEGATIVE) 03/17/18 13:39 Urine Bilirubin Negative (NEGATIVE) 03/17/18 13:39 Urine Urobilinogen Normal mg/dL (0.2-1.0) 03/17/18 13:39 Ur Leukocyte Esterase Neg Josie/uL (Negative) 03/17/18 13:39 Urine WBC (Auto) 2 /hpf (0-5) 03/17/18 13:39 Urine RBC (Auto) 400 /hpf (0-3) H 03/17/18 13:39 Ur Squamous Epith Cells 1 /hpf (0-5) 03/17/18 13:39 Urine Bacteria Rare (<OCC) 03/17/18 13:39 Urine HCG, Qual Negative (NEGATIVE) 03/17/18 13:39 Beta HCG, Quant < 2.39 mIU/ML 03/17/18 13:40 Urine HCG, Qual Negative (NEGATIVE) 03/17/18 13:39 O2 Sat by Pulse Oximetry: 100 (RA) Pulse Ox Interpretation: Normal Progress Note: Plans: -- Pelvic US. -- Morphine. -- toradol. -- Zofran. Progress/Update: Case discussed with Dr Ferris who notes she will consult inpatient. 4:16pm : Case discussed with Dr Shaw, hospitalist simulation specialist, agreed to admit the patient. Disposition - Disposition Disposition: HOSPITALIZED Disposition Time: 17:00 Condition: STABLE - Clinical Impression Clinical Impression: Symptomatic anemia, Dysfunctional uterine bleeding - PA / DIRECTOR OF PHYSICAL SECURITY / Resident Statement / has reviewed & agrees with the documentation as recorded. - Scribe Statement The provider has reviewed the documentation as recorded by the Milagro Muñoz Do All medical record entries made by the Milagro were at my direction and personally dictated by me. I have reviewed the chart and agree that the record accurately reflects my personal performance of the history, physical exam, medical decision making, and the department course for this patient. I have also personally directed, reviewed, and agree with the discharge instructions and disposition.
[2018-03-17] MEDS ORDERED: Sodium Chloride 0.9% 1,000 ML IV ONE (15:54)
[2018-03-17] MEDS ORDERED: Sodium Chloride 0.9% 1,000 ML ONE (15:59)
[2018-03-17] MEDS ORDERED: DiphenhydrAMINE 50 mg/ml Inj IVP STA (16:21)
[2018-03-17] MEDS ORDERED: Dextrose 50% SYRINGE Inj (50 ml) IV PRN (17:26)
[2018-03-17] MEDS ORDERED: Glucagon Recombinant 1 mg Inj IM PRN (17:26)
--- NOTE | 2018-03-17 17:41 | US ---
Date of service: 03/17/2018 PROCEDURE: TRANSVAGINAL PELVIC ULTRASOUND OF HISTORY: pain; last menstrual period 03/04/2018 suggesting COMPARISON: Pelvic ultrasound 02/03/2018. Abdomen pelvis CT 02/03/2018. TECHNIQUE: Transvaginal pelvic ultrasound was performed with longitudinal and transverse images submitted for interpretation. FINDINGS: Uterus measures 11.8 x 6.7 x 7.3 cm., anteverted. There is a posterior fundal fibroid measuring 4.6 x 3.6 x 4.5 cm with an additional fibroid identified measuring 3.8 x 3.9 x 3.8 cm at the high fundus as well. These are not significantly changed in size compared prior trans vaginal pelvic ultrasound dated 02/03/2018. There is a 3rd lesion which may be extra uterine measuring 3.7 cm greatest dimension which is partially cystic seen in CT examinations from 11/22/2017 as well as 02/03/2018. This may reflect represent hydrosalpinx or long gated tubular cyst from the right X compartment. Right ovary measures 7.3 x 5.6 x 6.0 cm enlarged by a complex septated cyst measuring 5.7 x 5 1 x 4.8 cm. Intra-ovarian arterial blood flows identified at the right ovary with no torsion evident. Left ovary is not identified. Cervix appears unremarkable grossly. The endometrium measures 9 mm thickness and is nonfocal as well. IMPRESSION: Two uterine fibroids are identified as discussed above as well as a likely extra uterine cystic lesion measuring 3.7 cm greatest dimension probably reflecting tubular right adnexal cyst versus hydrosalpinx. Enlarged right ovary due to 5.7 cm complex septated cyst. Left ovary is not identified.
--- NOTE | 2018-03-17 18:54 | CP.PCM.CON ---
History of Present Illness - History of Present Illness History of Present Illness: Asked to see patient by SILVIA Llamas: symptomatic anemia, h/o leiomoyomata and endometriosis Patient received in bed in room 350-B. Admitted for blood transfusion secondary to symptomatic anemia, hgb 7.5 grams/dL 37 y.o. 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 Patient came to E.D. with c/o dizziness, shortness of breath, palpitations x 4 days. Also, reports nausea, and vomiting x 2 episodes 03/16/18. Appetite has improved; now hungry. Patient states lower abdominal pain/ cramps occurs only with her menses - radiates to the back; intermittent; minimal relief with NSAIs (tylenol, motrin, tramadol); pain 10/10; now 6/10 to 7/10 (S/P toradol [id number] hours and morphine at 1559 hours, in E.D.). 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 Last obstetrics and gynecology professor/ Pap 2014 ; never had a mammogram. Denies STIs. (+) H/O endometriosis since age 17 - diagnosed at time of surgery - "there was a cyst". After diagnostic laparoscopy 2010, was on OCPs x 6 months. Then with change in obstetrics and gynecology professor provider, was then on another "pill" x 1 year. This was 3 years ago; has not been on any other medication since. (+) h/o leiomyoma - diagnosed 8 years ago. Interested in conceiving. PMH: Type II DM, 2012. PSH: 1) age 17 - open laparotomy "because of the heavy bleeding from my first period; ... there was a cyst". 2) Age 30 - diagnostic laparoscopy; patient does not recall what, if anythng, was done. NKDA Meds: 1) Metformin 850 mg po BID; 2) Novolin R 20 Units PC x 3; 3) Novolin N 25 Units QHS Soc Hx: (+) 2-3 cigs/day x 20 years. Denies illicit drug or EtOH use. x 3 years. Unemployed. Fam Hx: Mother alive 55 - DM. Father alive 62 - DM. PGM - stomach cancer. Review of Systems - Review of Systems All systems: reviewed and no additional remarkable complaints except - Reproductive: Female Reproductive:Female: As Per HPI - Menstruation Menstruation: As Per HPI Past Patient History - Infectious Disease Hx of Infectious Diseases: None - Tetanus Immunizations Tetanus Immunization: Unknown - Past Medical History & Family History Past Medical History?: Yes - Past Social History Smoking Status: Light Smoker < 10 Cigarettes Daily Alcohol: None Drugs: Denies Home Situation {Lives}: With Family ( x 3 years) - CARDIAC Hx Cardiac Disorders: No - PULMONARY Hx Respiratory Disorders: No - NEUROLOGICAL Hx Neurological Disorder: No - HEENT Hx HEENT Problems: Yes Hx Cataracts: No - RENAL Hx Chronic Kidney Disease: Yes Hx Kidney Stones: Yes - ENDOCRINE/METABOLIC Hx Diabetes Mellitus Type 2: Yes - HEMATOLOGICAL/ONCOLOGICAL Hx Anemia: Yes - INTEGUMENTARY Hx Dermatological Problems: No - MUSCULOSKELETAL/RHEUMATOLOGICAL Hx Musculoskeletal Disorders: No Hx Falls: No - GASTROINTESTINAL Hx Gastrointestinal Disorders: No - PSYCHIATRIC Hx Substance Use: No - SURGICAL HISTORY Other/Comment: Hx of surgeries x 2 to correct the endometriosis problem. - ANESTHESIA Hx Anesthesia: Yes Hx Anesthesia Reactions: No Hx Malignant Hyperthermia: No Meds Allergies/Adverse Reactions: Allergies Allergy/AdvReac Type Severity Reaction Status Date / Time No Known Allergies Allergy Verified 03/17/18 13:12 - Medications Medications: Current Medications Dextrose (Dextrose 50% Inj) 0 ml IV STAT PRN; Protocol PRN Reason: Hypoglycemia Protocol Dextrose (Glutose 15) 0 gm PO ONCE PRN; Protocol PRN Reason: Hypoglycemia Protocol Glucagon (Glucagen Diagnostic Kit) 0 mg IM STAT PRN; Protocol PRN Reason: Hypoglycemia Protocol Dextrose (Dextrose 5% In Water 1000 Ml) 1,000 mls @ 0 mls/hr IV .Q0M PRN; Protocol PRN Reason: Hypoglycemia Protocol Insulin Human Regular (Novolin R) 20 unit SC ACB CECI Insulin Human Regular (Novolin R) 0 unit SC ACHS CECI; Protocol Lisinopril (Zestril) 2.5 mg PO DAILY CECI Medroxyprogesterone Acetate (Provera) 10 mg PO STAT STA Stop: 03/17/18 17:31 Rosuvastatin Calcium (Crestor) 5 mg PO HS CECI Physical Exam - Constitutional Appears: Well, No Acute Distress Additional comments: Visibly uncomfortable - Head Exam Head Exam: NORMAL INSPECTION - Eye Exam Eye Exam: Normal appearance - Neck Exam Neck exam: Positive for: Full Rom - Respiratory Exam Respiratory Exam: NORMAL BREATHING PATTERN - Cardiovascular Exam Cardiovascular Exam: REGULAR RHYTHM - GI/Abdominal Exam GI & Abdominal Exam: Normal Bowel Sounds, Soft - Exam Bimanual exam: Cervical Motion Tendernes (Prominence of anterior aspect of uterus. AV uterus, 12 weeks. Unable to appreciate adnexa. Minimal amount of brown blood on examining hand. ), Uterine Enlargement - Extremities Exam Extremities exam: Positive for: full ROM, normal inspection - Neurological Exam Neurological exam: Alert, Normal Gait, Oriented x3 - Psychiatric Exam Psychiatric exam: Anxious - Skin Skin Exam: Dry, Intact, Pallor, Warm Results - Vital Signs Recent Vital Signs: Last Vital Signs Temp 98.9 F 03/17/18 15:51 Pulse 92 H 03/17/18 15:51 Resp 18 03/17/18 15:51 BP 107/68 03/17/18 15:51 Pulse Ox 100 03/17/18 16:20 - Labs Result Diagrams: 03/17/18 13:40 03/17/18 13:40 Labs: Laboratory Results - last 24 hr 03/17/18 03/17/18 03/17/18 13:39 13:40 13:40 WBC 10.9 H RBC 3.82 Hgb 7.5 L Hct 25.4 L MCV 66.5 L MCH 19.7 L MCHC 29.7 L RDW 18.7 H Plt Count 362 MPV 7.4 Neut % (Auto) 80.5 H Lymph % (Auto) 12.9 L Barron % (Auto) 5.3 Eos % (Auto) 0.9 Baso % (Auto) 0.4 Neut # (Auto) 8.8 H Lymph # (Auto) 1.4 Barron # (Auto) 0.6 Eos # (Auto) 0.1 Baso # (Auto) 0.0 PT INR APTT Sodium 139 Potassium 3.8 Chloride 104 Carbon Dioxide 27 Anion Gap 12 BUN 7 Creatinine 0.6 L Est GFR ( Amer) > 60 Est GFR (Non-Af Amer) > 60 Random Glucose 141 H D Calcium 8.9 Total Bilirubin 0.3 AST 37 H D ALT 21 Alkaline Phosphatase 78 Total Protein 7.5 Albumin 4.2 Globulin 3.3 Albumin/Globulin Ratio 1.3 Beta HCG, Quant < 2.39 Urine Color Yellow Urine Clarity Clear Urine pH 6.0 Ur Specific [place] 1.017 Urine Protein 1+ H Urine Glucose (UA) Normal Urine Ketones Negative Urine Blood 3+ H Urine Nitrate Negative Urine Bilirubin Negative Urine Urobilinogen Normal Ur Leukocyte Esterase Neg Urine WBC (Auto) 2 Urine RBC (Auto) 400 H Ur Squamous Epith Cells 1 Urine Bacteria Rare Urine HCG, Qual Negative Blood Type Antibody Screen 03/17/18 03/17/18 14:20 14:20 WBC RBC Hgb Hct MCV MCH MCHC RDW Plt Count MPV Neut % (Auto) Lymph % (Auto) Barron % (Auto) Eos % (Auto) Baso % (Auto) Neut # (Auto) Lymph # (Auto) Barron # (Auto) Eos # (Auto) Baso # (Auto) PT 13.4 H INR 1.2 APTT 24 Sodium Potassium Chloride Carbon Dioxide Anion Gap BUN Creatinine Est GFR ( Amer) Est GFR (Non-Af Amer) Random Glucose Calcium Total Bilirubin AST ALT Alkaline Phosphatase Total Protein Albumin Globulin Albumin/Globulin Ratio Beta HCG, Quant Urine Color Urine Clarity Urine pH Ur Specific [place] Urine Protein Urine Glucose (UA) Urine Ketones Urine Blood Urine Nitrate Urine Bilirubin Urine Urobilinogen Ur Leukocyte Esterase Urine WBC (Auto) Urine RBC (Auto) Ur Squamous Epith Cells Urine Bacteria Urine HCG, Qual Blood Type B NEGATIVE Antibody Screen Negative Assessment & Plan - Assessment and Plan (Free Text) Assessment: Laboratory results from today and ultrasound report from 01/2018 reviewed by me personally. Latter noted for posterior subserosal myomata: 3.6 x 3.8 x 4.3 cm and 3.4 x 3.5 x 3.8 cm; and a "probable right hydrosalpinx". Hgb 7.5 gram/dL today. Today's ultrasound: "COMPARISON: Pelvic ultrasound 02/03/2018. Abdomen pelvis CT 02/03/2018. TECHNIQUE: Transvaginal pelvic ultrasound was performed with longitudinal and transverse images submitted for interpretation. FINDINGS: Uterus measures 11.8 x 6.7 x 7.3 cm., anteverted. There is a posterior fundal fibroid measuring 4.6 x 3.6 x 4.5 cm with an additional fibroid identified measuring 3.8 x 3.9 x 3.8 cm at the high fundus as well. These are not significantly changed in size compared prior trans vaginal pelvic ultrasound dated 02/03/2018. There is a 3rd lesion which may be extra uterine measuring 3.7 cm greatest dimension which is partially cystic seen in CT examinations from 11/22/2017 as well as 02/03/2018. This may reflect represent hydrosalpinx or long gated tubular cyst from the right X compartment. Right ovary measures 7.3 x 5.6 x 6.0 cm enlarged by a complex septated cyst measuring 5.7 x 5 1 x 4.8 cm. Intra-ovarian arterial blood flows identified at the right ovary with no torsion evident. Left ovary is not identified. Cervix appears unremarkable grossly. The endometrium measures 9 mm thickness and is nonfocal as well. 37 y.o. P0, Type II DM, admitted for blood transfusion for symptomatic anemia with a long history of menometrorrhagia. Also, h/o endometriosis - was on pharmacotherapy in the past with decent results. Per today's ultrasound, probable right endometrioma. h/o leiomyoma x 8 years - stable. And, as of 01/2018 right hydrosalpinx, which appears to be unchanged on imaging today. Patient revealed current medical provider has recommended F/U at [facility]. It was discussed today, this is a very necessary plan to follow. Patient awaiting insurance approval. At this time, will aid with menses by administering provera taper. This was discussed with the patient, along with the expected withdrawal bleeding after this therapy, which can be long and heavy. Patient expressed an understanding and agrees. No questions offered. Patient is clinically stable. Plan: 1) Provera taper 10 m tab by mouth TID x 7 days, then BID x 7 days, then QD x 7 days 2) F/U outpatient obstetrics and gynecology professor as has been previously discussed, this may also involve management to achieve . 3) Rest of inpatient medical care, as per primary team Thank you for the pleasure of this consultation. - Date & Time Date: 03/17/18 Time: 18:35
--- NOTE | 2018-03-17 19:02 | CP.PCM.HP ---
History of Present Illness - History of Present Illness History of Present Illness: PGY1 Medicine History and Physical Exam Note for Dr. Ludmila Shaw Patient is a 37-year-old F with PMH of uterine fibroids, complex ovarian cyst, diabetes mellitus, and endometriosis presents to the ED for vaginal bleeding x2 weeks. Patient states she started her period 2 weeks ago and noticed heavy bleeding (using up to 5-6 pads per day) and decided to come to the ED since she was also experiencing dizziness, fatigue, light-headedness x4 days. Patient also states her bleeding was worsening. LMP 03/04/18. Patient also admits to 2 episo shaun of nausea and vomiting 2 days ago. Patient states she was not able to see an OBGYN as an outpatient following her last admission, where it was recommended for her to undergo endometrial biopsy as an outpatient. Patient otherwise denies chest pain, shortness of breath, numbness/tingling, headache, rash, fever, and/or chills. SxH: laparoscopy (endometriosis) SocH: smokes 2 cigs/day x15 yrs, denies etoh or recreational drug use FamH: DM in mother and father Allergies: NKDA Meds: -Novolin N 25 units, injected under the skin in the evening -Novolin R 20 units injected under the skin in the morning -Atorvastatin 10mg one tab by mouth at bedtime -Lisinopril 2.5 mg one tab by mouth at 8am daily PMD: none Present on Admission - Present on Admission Any Indicators Present on Admission: Yes History of DVT/PE: No History of Uncontrolled Diabetes: Yes Urinary Catheter: No Decubitus Ulcer Present: No Review of Systems - Constitutional Constitutional: Fatigue. absent: Anorexia, Chills, Fever, Frequent Falls, Headache - EENT Eyes: absent: Blurred Vision, Change in Vision - Cardiovascular Cardiovascular: absent: Chest Pain, Edema, Irregular Heart Rhythm - Respiratory Respiratory: absent: Cough, Dyspnea, Wheezing, Snoring - Gastrointestinal Gastrointestinal: Cramping. absent: Abdominal Pain - Genitourinary Genitourinary: absent: Change in Urinary Stream, Flank Pain, Hematuria - Reproductive: Female Reproductive:Female: Currently Menstual - Menstruation Menstruation: Heavy Menses - Musculoskeletal Musculoskeletal: absent: Arthralgias, Joint Swelling, Muscle Cramps - Integumentary Integumentary: absent: Bleeding Lesions, Change in Hair, Hirsutism, New Lesions - Neurological Neurological: absent: Abnormal Gait - Endocrine Endocrine: absent: Excessive Sweating Past Patient History - Infectious Disease Hx of Infectious Diseases: None - Tetanus Immunizations Tetanus Immunization: Unknown - Past Medical History & Family History Past Medical History?: Yes - Past Social History Smoking Status: Light Smoker < 10 Cigarettes Daily - CARDIAC Hx Cardiac Disorders: No - NEUROLOGICAL Hx Neurological Disorder: No - HEENT Hx Cataracts: No - RENAL Hx Chronic Kidney Disease: Yes Hx Kidney Stones: Yes - ENDOCRINE/METABOLIC Hx Diabetes Mellitus Type 2: Yes - HEMATOLOGICAL/ONCOLOGICAL Hx Anemia: Yes - INTEGUMENTARY Hx Dermatological Problems: No - MUSCULOSKELETAL/RHEUMATOLOGICAL Hx Musculoskeletal Disorders: No Hx Falls: No - GASTROINTESTINAL Hx Gastrointestinal Disorders: No - PSYCHIATRIC Hx Substance Use: No - SURGICAL HISTORY Other/Comment: Hx of surgeries x 2 to correct the endometriosis problem. - ANESTHESIA Hx Anesthesia: Yes Hx Anesthesia Reactions: No Hx Malignant Hyperthermia: No Meds Allergies/Adverse Reactions: Allergies Allergy/AdvReac Type Severity Reaction Status Date / Time No Known Allergies Allergy Verified 03/17/18 13:12 Physical Exam - Constitutional Appears: Non-toxic, No Acute Distress - Head Exam Head Exam: ATRAUMATIC, NORMAL INSPECTION, NORMOCEPHALIC - Eye Exam Eye Exam: EOMI, Normal appearance, PERRL Pupil Exam: NORMAL ACCOMODATION - ENT Exam ENT Exam: Mucous Membranes Moist, Normal Exam - Respiratory Exam Respiratory Exam: Clear to Auscultation Bilateral, NORMAL BREATHING PATTERN - Cardiovascular Exam Cardiovascular Exam: REGULAR RHYTHM, +S1, +S2 - GI/Abdominal Exam GI & Abdominal Exam: Normal Bowel Sounds, Soft. absent: Tenderness - Exam External exam: NORMAL EXTERNAL EXAM Speculum exam: Vaginal Bleeding (mild ) - Extremities Exam Extremities exam: Positive for: full ROM, normal inspection - Back Exam Back exam: NORMAL INSPECTION - Neurological Exam Neurological exam: Alert, CN II-XII Intact, Normal Gait, Oriented x3 - Psychiatric Exam Psychiatric exam: Normal Affect, Normal Mood - Skin Skin Exam: Intact, Pallor, Warm Results - Vital Signs Recent Vital Signs: Last Vital Signs Temp 98.9 F 03/17/18 15:51 Pulse 92 H 03/17/18 15:51 Resp 18 03/17/18 15:51 BP 107/68 03/17/18 15:51 Pulse Ox 100 03/17/18 16:20 - Labs Result Diagrams: 03/17/18 13:40 03/17/18 13:40 Labs: Laboratory Results - last 24 hr 03/17/18 03/17/18 03/17/18 13:39 13:40 13:40 WBC 10.9 H RBC 3.82 Hgb 7.5 L Hct 25.4 L MCV 66.5 L MCH 19.7 L MCHC 29.7 L RDW 18.7 H Plt Count 362 MPV 7.4 Neut % (Auto) 80.5 H Lymph % (Auto) 12.9 L [place] % (Auto) 5.3 Eos % (Auto) 0.9 Baso % (Auto) 0.4 Neut # (Auto) 8.8 H Lymph # (Auto) 1.4 [place] # (Auto) 0.6 Eos # (Auto) 0.1 Baso # (Auto) 0.0 PT INR APTT Sodium 139 Potassium 3.8 Chloride 104 Carbon Dioxide 27 Anion Gap 12 BUN 7 Creatinine 0.6 L Est GFR ( Amer) > 60 Est GFR (Non-Af Amer) > 60 Random Glucose 141 H D Calcium 8.9 Total Bilirubin 0.3 AST 37 H D ALT 21 Alkaline Phosphatase 78 Total Protein 7.5 Albumin 4.2 Globulin 3.3 Albumin/Globulin Ratio 1.3 Beta HCG, Quant < 2.39 Urine Color Yellow Urine Clarity Clear Urine pH 6.0 Ur Specific [place] 1.017 Urine Protein 1+ H Urine Glucose (UA) Normal Urine Ketones Negative Urine Blood 3+ H Urine Nitrate Negative Urine Bilirubin Negative Urine Urobilinogen Normal Ur Leukocyte Esterase Neg Urine WBC (Auto) 2 Urine RBC (Auto) 400 H Ur Squamous Epith Cells 1 Urine Bacteria Rare Urine HCG, Qual Negative Blood Type Antibody Screen 03/17/18 03/17/18 14:20 14:20 WBC RBC Hgb Hct MCV MCH MCHC RDW Plt Count MPV Neut % (Auto) Lymph % (Auto) [place] % (Auto) Eos % (Auto) Baso % (Auto) Neut # (Auto) Lymph # (Auto) [place] # (Auto) Eos # (Auto) Baso # (Auto) PT 13.4 H INR 1.2 APTT 24 Sodium Potassium Chloride Carbon Dioxide Anion Gap BUN Creatinine Est GFR ( Amer) Est GFR (Non-Af Amer) Random Glucose Calcium Total Bilirubin AST ALT Alkaline Phosphatase Total Protein Albumin Globulin Albumin/Globulin Ratio Beta HCG, Quant Urine Color Urine Clarity Urine pH Ur Specific [place] Urine Protein Urine Glucose (UA) Urine Ketones Urine Blood Urine Nitrate Urine Bilirubin Urine Urobilinogen Ur Leukocyte Esterase Urine WBC (Auto) Urine RBC (Auto) Ur Squamous Epith Cells Urine Bacteria Urine HCG, Qual Blood Type B NEGATIVE Antibody Screen Negative Assessment & Plan - Assessment and Plan (Free Text) Assessment: Patient is a 37-year-old F with PMH of uterine fibroids, diabetes mellitus, and endometriosis presents to the ED for vaginal bleeding x2 weeks. 1. Symptomatic Anemia likely secondary to fibroid uterus - LMP 03/04/18 has been using 5-6 pads /day and bleeding has been worsening - CT MANAGER consulted (Dr. Ferris); recommendations appreciated * Recommends Provera 10mg taper: TID x7 days --> BID x7 days --> Daily x7 days. * Patient will likely not need to remain in the hospital for the duration of the taper, thus will dicharge with remainder of the taper on that respective day. - Previous imaging: * CT abd/pelvis with PO and IV contrast 12/02/17: Again identified within the region of the right adnexa and midline superior pelvis are contiguous large loculated complex septated cystic lesions measuring approximately 5.5 x 4.0 centimeters and 7.8 x 4.8 centimeters. Overall, this appears similar in size and configuration to the prior study dated 11/22/2017. This is of uncertain clinical etiology and may represent complex adnexal/ovarian cysts/cystic lesions. Alternatively, this may represent underlying hydro and or pyosalpinx and or tubo-ovarian abscess and or additional etiology. Clinical correlation. Continued interval follow-up is recommended. Correlation with pelvic ultrasound may be helpful if clinically indicated. - Transfuse 2 units PRBC each over 4 hours * Pre-medicate with Tylenol 650mg PO and Benadryl 25mg PO prior to each unit 2. History of Right Ovarian Complex Cyst - Previous imaging: * Abd/Pelvis/Transvaginal US 11/22/17: Mild increase in size of complex right ovarian cyst with low-level echoes. Given the appearance and relative interval stability, this most likely represents an endometrioma. Left ovary not discretely identified. Septated cyst versus hydrosalpinx posterior to the uterus. This measures approximately 5.4 cm in greatest dimension and was not noted previously. Recommend follow-up transvaginal pelvic ultrasound examination in 6-8 weeks. Two discrete uterine fibroids. No other significant abnormality. * CT abdomen/pelvis with PO and IV contrast 11/22/17: Large right ovarian cyst which has slightly increased in size now 56.8 previously 4 x 5.7 in coronal plane small cysts are seen superior in the uterine fundus. No intra-abdominal findings - TVUS 03/17: - Please note: Patient was counseled both verbally and in writing to follow-up for an out-patient endometrial biopsy through clinic, however Patient states she did not follow-up. 3. Patient complained of blood in her stool upon November 2017 admission - Patient was counseled both verbally and in writing to follow-up regarding an out-patient colonoscopy, however Patient did not follow-up with clinic. 4. DMT2 - ISS (High intensity) - Hypoglycemic protocol - Accu check ACHS - Crestor 5mg HS - Lisinopril 2.5mg PO daily - Novalin NPH 25 units SC HS - Novalin R 20 units SC AC breakfast Prophylaxis: - DVT: SCD - GI: no indication at this time Patient seen and case discussed in detail with Dr. Colin Coates PGY1
[2018-03-17] MEDS ORDERED: (Novolin 70/30) NPH/Regular 70/30 Units/ml 10 ml vial SC SCH (22:00)
[2018-03-17] MEDS: (Novolin N) Insulin Human Isophane (NPH) 100 u/ml 10 ml vial SC SCH (22:29)
[2018-03-17] MEDS: (Novolin R) Insulin Human Regular 100 units/ml vial SC SCH (22:30)
[2018-03-18] MEDS ORDERED: Promethazine 6.25 MG/5 ML CUP PO ONE (00:45)
[2018-03-18] MEDS ORDERED: Oxycodone/Acetaminophen 5/325 mg Tab PO STA (01:55)
[2018-03-18] MEDS: (Novolin R) Insulin Human Regular 100 units/ml vial SC SCH ×5 (07:30→21:17)
[2018-03-18 07:43] LABS: BASO % 0.3 % (0.0-2.0); EOS # 0.1 K/uL (0.0-0.7); EOS % 1.8 % (0.0-4.0); HEMOGLOBIN 7.3 g/dL (11.0-16.0); LYMPH # 2.6 K/uL (1.0-4.3); MEAN CELL VOLUME 67.9 fL (81.0-99.0); MEAN CORPUSCULAR HEMOGLOBIN 20.8 pg (27.0-31.0); MEAN CORPUSCULAR HGB CONC 30.7 g/dL (33.0-37.0); MEAN PLATELET VOLUME 7.7 fL (7.2-11.7); MONO # 0.6 K/uL (0.0-0.8); MONO % 7.5 % (0.0-10.0); NEUT # 4.2 K/uL (1.8-7.0); NEUT % 55.4 % (50.0-75.0); RBC 3.49 Mil/uL (3.80-5.20); RED CELL DISTRIBUTION WIDTH 19.9 % (11.5-14.5); WHITE BLOOD COUNT 7.5 K/uL (4.8-10.8)
[2018-03-18 08:05] LABS: ALB/GLOB RATIO 1.2 (1.0-2.1); ALBUMIN 3.5 g/dL (3.5-5.0); ALT/SGPT 23 U/L (9-52); AST/SGOT 22 U/L (14-36); BLOOD UREA NITROGEN 12 mg/dL (7-17); CALCIUM 8.5 mg/dl (8.6-10.4); GFR NON-AFRICAN AMERICAN > 60
[2018-03-18] MEDS ORDERED: Potassium Chloride 20 mEq ER Tab PO ONE (08:32)
--- NOTE | 2018-03-18 08:39 | CP.PCM.PN ---
<Leon Coates - Last Filed: 03/18/18 10:44> Subjective - Date & Time of Evaluation Date of Evaluation: 03/18/18 Time of Evaluation: 08:31 - Subjective Subjective: PGY1 Medicine Progress Note for Patient was seen and evaluated at bedside this morning. No current complaints. Patient tolerating diet. Patient complains of fatigue. Patient otherwise denies chest pain, abdominal pain, shortness of breath, back pain, lower extremity pain, numbness/tingling, dizziness, headache, nausea, vomiting, fever, and/or chills. Objective - Vital Signs/Intake and Output Vital Signs (last 24 hours): Temp Pulse Resp BP Pulse Ox 97.7 F 89 20 108/73 98 03/18/18 00:00 03/18/18 00:00 03/18/18 00:00 03/18/18 00:00 03/18/18 07:41 Intake and Output: 03/18/18 03/18/18 06:59 18:59 Intake Total 400 Balance 400 - Medications Medications: Current Medications Acetaminophen (Tylenol 325mg Tab) 650 mg PO PRN PRN PRN Reason: Allergy symptoms Dextrose (Dextrose 50% Inj) 0 ml IV STAT PRN; Protocol PRN Reason: Hypoglycemia Protocol Dextrose (Glutose 15) 0 gm PO ONCE PRN; Protocol PRN Reason: Hypoglycemia Protocol Diphenhydramine HCl (Benadryl) 25 mg PO STAT PRN PRN Reason: Allergy symptoms Glucagon (Glucagen Diagnostic Kit) 0 mg IM STAT PRN; Protocol PRN Reason: Hypoglycemia Protocol Dextrose (Dextrose 5% In Water 1000 Ml) 1,000 mls @ 0 mls/hr IV .Q0M PRN; Protocol PRN Reason: Hypoglycemia Protocol Influenza Virus Vaccine (Flucelvax Quad 0883-1347 Syr) 60 mcg IM .ONCE ONE Stop: 03/19/18 10:01 Insulin Human NPH (Novolin N) 25 unit SC HS [facility] Last Admin: 03/17/18 22:29 Dose: 25 units Insulin Human Regular (Novolin R) 20 unit SC ACB [facility] Last Admin: 03/18/18 07:30 Dose: Not Given Insulin Human Regular (Novolin R) 0 unit SC ACHS [facility]; Protocol Last Admin: 03/18/18 07:30 Dose: Not Given Lisinopril (Zestril) 2.5 mg PO DAILY [facility] Last Admin: 03/17/18 19:00 Dose: 2.5 mg Medroxyprogesterone Acetate (Provera) 10 mg PO TID [facility] Stop: 03/23/18 18:00 Pneumococcal Polyvalent Vaccine (Pneumovax 23 Vaccine) 0.5 ml IM .ONCE ONE Stop: 03/19/18 10:01 Potassium Chloride (K-Dur 20 Meq Er Tab) 20 meq PO STAT STA Stop: 03/18/18 08:30 Rosuvastatin Calcium (Crestor) 5 mg PO HS [facility] Last Admin: 03/17/18 22:29 Dose: 5 mg - Labs Labs: 03/18/18 07:32 03/18/18 07:32 PT 13.4 SECONDS (9.7-12.2) H 03/17/18 14:20 INR 1.2 03/17/18 14:20 APTT 24 SECONDS (21-34) 03/17/18 14:20 - Additional Findings Additional findings: - Constitutional Appears: Non-toxic, No Acute Distress - Head Exam Head Exam: ATRAUMATIC, NORMAL INSPECTION, NORMOCEPHALIC - Eye Exam Eye Exam: EOMI, Normal appearance, PERRL Pupil Exam: NORMAL ACCOMODATION - ENT Exam ENT Exam: Mucous Membranes Moist, Normal Exam - Respiratory Exam Respiratory Exam: Clear to Auscultation Bilateral, NORMAL BREATHING PATTERN - Cardiovascular Exam Cardiovascular Exam: REGULAR RHYTHM, +S1, +S2 - GI/Abdominal Exam GI & Abdominal Exam: Normal Bowel Sounds, Soft. absent: Tenderness - Exam External exam: NORMAL EXTERNAL EXAM Speculum exam: from admission: Vaginal Bleeding (mild) - Extremities Exam Extremities exam: Positive for: full ROM, normal inspection - Back Exam Back exam: NORMAL INSPECTION - Neurological Exam Neurological exam: Alert, CN II-XII Intact, Normal Gait, Oriented x3 - Psychiatric Exam Psychiatric exam: Normal Affect, Normal Mood - Skin Skin Exam: Intact, Pallor, Warm Assessment and Plan - Assessment and Plan (Free Text) Assessment: Patient is a 37-year-old F with PMH of uterine fibroids, diabetes mellitus, and endometriosis presents to the ED for vaginal bleeding x2 weeks. Symptomatic Anemia likely secondary to fibroid uterus - LMP 03/04/18 has been using 5-6 pads /day and bleeding has been worsening - RESEARCH RN SPEC consulted (Dr. Ferris); recommendations appreciated * Recommends Provera 10mg taper: TID x7 days --> BID x7 days --> Daily x7 days. * Patient will likely not need to remain in the hospital for the duration of the taper, thus will dicharge with remainder of the taper on that respective day. - Previous imaging: * CT abd/pelvis with PO and IV contrast 12/02/17: Again identified within the region of the right adnexa and midline superior pelvis are contiguous large loculated complex septated cystic lesions measuring approximately 5.5 x 4.0 centimeters and 7.8 x 4.8 centimeters. Overall, this appears similar in size and configuration to the prior study dated 11/22/2017. This is of uncertain clinical etiology and may represent complex adnexal/ovarian cysts/cystic lesions. Alternatively, this may represent underlying hydro and or pyosalpinx and or tubo-ovarian abscess and or additional etiology. Clinical correlation. Continued interval follow-up is recommended. Correlation with pelvic ultrasound may be helpful if clinically indicated. - Transfuse 2 units PRBC each over 4 hours * Pre-medicate with Tylenol 650mg PO and Benadryl 25mg PO prior to each unit - Monitor CBC Hgb/Hct History of Right Ovarian Complex Cyst - Previous imaging: * Abd/Pelvis/Transvaginal US 11/22/17: Mild increase in size of complex right ovarian cyst with low-level echoes. Given the appearance and relative interval stability, this most likely represents an endometrioma. Left ovary not discretely identified. Septated cyst versus hydrosalpinx posterior to the uterus. This measures approximately 5.4 cm in greatest dimension and was not noted previously. Recommend follow-up transvaginal pelvic ultrasound examin ation in 6-8 weeks. Two discrete uterine fibroids. No other significant abnormality. * CT abdomen/pelvis with PO and IV contrast 11/22/17: Large right ovarian cyst which has slightly increased in size now 56.8 previously 4 x 5.7 in coronal plane small cysts are seen superior in the uterine fundus. No intra-abdominal findings - TVUS 03/17: - Please note: Patient was counseled both verbally and in writing to follow-up for an out-patient endometrial biopsy through clinic, however Patient states she did not follow-up. DMT2 - ISS (High intensity) - Hypoglycemic protocol - Accu check ACHS - Crestor 5mg HS - Lisinopril 2.5mg PO daily - Novalin NPH 25 units SC HS - Novalin R 20 units SC AC breakfast Prophylaxis: - DVT: SCD - GI: no indication at this time Patient seen and case discussed in detail with Dr. Tish Coates PGY1 <Adam Winston - Last Filed: 03/18/18 14:10> Objective - Vital Signs/Intake and Output Vital Signs (last 24 hours): Temp Pulse Resp BP Pulse Ox 97.9 F 79 18 103/60 98 03/18/18 12:13 03/18/18 12:13 03/18/18 12:13 03/18/18 12:13 03/18/18 07:41 Intake and Output: 03/18/18 03/18/18 06:59 18:59 Intake Total 400 0 Balance 400 0 - Medications Medications: Current Medications Acetaminophen (Tylenol 325mg Tab) 650 mg PO PRN PRN PRN Reason: Allergy symptoms Last Admin: 03/18/18 09:02 Dose: 650 mg Dextrose (Dextrose 50% Inj) 0 ml IV STAT PRN; Protocol PRN Reason: Hypoglycemia Protocol Dextrose (Glutose 15) 0 gm PO ONCE PRN; Protocol PRN Reason: Hypoglycemia Protocol Diphenhydramine HCl (Benadryl) 25 mg PO STAT PRN PRN Reason: Allergy symptoms Last Admin: 03/18/18 11:15 Dose: 25 mg Glucagon (Glucagen Diagnostic Kit) 0 mg IM STAT PRN; Protocol PRN Reason: Hypoglycemia Protocol Dextrose (Dextrose 5% In Water 1000 Ml) 1,000 mls @ 0 mls/hr IV .Q0M PRN; Protocol PRN Reason: Hypoglycemia Protocol Influenza Virus Vaccine (Flucelvax Quad [id number] Syr) 60 mcg IM .ONCE ONE Stop: 03/19/18 10:01 Insulin Human NPH (Novolin N) 25 unit SC HS [facility] Last Admin: 03/17/18 22:29 Dose: 25 units Insulin Human Regular (Novolin R) 20 unit SC ACB [facility] Last Admin: 03/18/18 07:30 Dose: Not Given Insulin Human Regular (Novolin R) 0 unit SC ACHS [facility]; Protocol Last Admin: 03/18/18 12:07 Dose: Not Given Lisinopril (Zestril) 2.5 mg PO DAILY [facility] Last Admin: 03/18/18 09:02 Dose: 2.5 mg Medroxyprogesterone Acetate (Provera) 10 mg PO TID [facility] Stop: 03/23/18 18:00 Last Admin: 03/18/18 13:37 Dose: 10 mg Morphine Sulfate (Morphine) 2 mg IVP STAT STA Stop: 03/18/18 14:07 Pneumococcal Polyvalent Vaccine (Pneumovax 23 Vaccine) 0.5 ml IM .ONCE ONE Stop: 03/19/18 10:01 Rosuvastatin Calcium (Crestor) 5 mg PO HS [facility] Last Admin: 03/17/18 22:29 Dose: 5 mg - Labs Labs: 03/18/18 07:32 03/18/18 07:32 PT 13.4 SECONDS (9.7-12.2) H 03/17/18 14:20 INR 1.2 03/17/18 14:20 APTT 24 SECONDS (21-34) 03/17/18 14:20 Attending/Attestation - Attestation I have personally seen and examined this patient.: Yes I have fully participated in the care of the patient.: Yes I have reviewed all pertinent clinical information, including history, physical exam and plan: Yes Notes (Text): 03/18/18 14:09 Medical attending: Patient had only recived one unit of PRBC so far, will need probably two more. Second unit being prepared when we came and saw her. She is ambulating on her own - we urged her to walk slowly and carefully as she still has anemia. She is currently on PO Provera as well From what I understand she wants to potentially have children so she has not had a hysterectomy and in the past has been reluctant to be on controll medication Adam Winston
[2018-03-18 18:46] VITALS: RESP 20
[2018-03-18] MEDS: (Novolin N) Insulin Human Isophane (NPH) 100 u/ml 10 ml vial SC SCH (21:16)
[2018-03-19 06:11] LABS: BASO # 0.1 K/uL (0.0-0.2); BASO % 0.5 % (0.0-2.0); EOS # 0.2 K/uL (0.0-0.7); EOS % 1.8 % (0.0-4.0); HEMOGLOBIN 8.8 g/dL (11.0-16.0); LYMPH # 3.2 K/uL (1.0-4.3); MEAN CELL VOLUME 69.8 fL (81.0-99.0); MEAN CORPUSCULAR HEMOGLOBIN 21.9 pg (27.0-31.0); MEAN CORPUSCULAR HGB CONC 31.4 g/dL (33.0-37.0); MEAN PLATELET VOLUME 8.7 fL (7.2-11.7); MONO # 0.7 K/uL (0.0-0.8); MONO % 6.6 % (0.0-10.0); NEUT # 6.4 K/uL (1.8-7.0); NEUT % 61.1 % (50.0-75.0); NRBC % 0.2 % (0.0-2.0); RBC 4.01 Mil/uL (3.80-5.20); RED CELL DISTRIBUTION WIDTH 21.7 % (11.5-14.5); WHITE BLOOD COUNT 10.5 K/uL (4.8-10.8)
[2018-03-19 06:26] LABS: ALB/GLOB RATIO 1.2 (1.0-2.1); ALBUMIN 3.8 g/dL (3.5-5.0); ALT/SGPT 14 U/L (9-52); AST/SGOT 18 U/L (14-36); BLOOD UREA NITROGEN 11 mg/dL (7-17); CALCIUM 8.9 mg/dl (8.6-10.4); GFR NON-AFRICAN AMERICAN > 60
--- NOTE | 2018-03-19 07:16 | CP.PCM.PN ---
<Melodie Cabral L - Last Filed: 03/19/18 13:29> Subjective - Date & Time of Evaluation Date of Evaluation: 03/19/18 Time of Evaluation: 07:16 - Subjective Subjective: Resident Progress Note for Hospitalist Service Patient examined at bedside. No acute events overnight. Patient states she is still having bleeding however it is improved in severity. Also admits to lower abdominal pain. Denies fevers, chills, nausea, vomiting. Objective - Vital Signs/Intake and Output Vital Signs (last 24 hours): Temp Pulse Resp BP Pulse Ox 98.4 F 78 20 105/68 97 03/19/18 00:00 03/19/18 00:00 03/19/18 00:00 03/19/18 00:00 03/19/18 00:00 - Medications Medications: Current Medications Acetaminophen (Tylenol 325mg Tab) 650 mg PO PRN PRN PRN Reason: Allergy symptoms Last Admin: 03/18/18 09:02 Dose: 650 mg Dextrose (Dextrose 50% Inj) 0 ml IV STAT PRN; Protocol PRN Reason: Hypoglycemia Protocol Dextrose (Glutose 15) 0 gm PO ONCE PRN; Protocol PRN Reason: Hypoglycemia Protocol Diphenhydramine HCl (Benadryl) 25 mg PO STAT PRN PRN Reason: Allergy symptoms Last Admin: 03/18/18 11:15 Dose: 25 mg Glucagon (Glucagen Diagnostic Kit) 0 mg IM STAT PRN; Protocol PRN Reason: Hypoglycemia Protocol Dextrose (Dextrose 5% In Water 1000 Ml) 1,000 mls @ 0 mls/hr IV .Q0M PRN; Prot ocol PRN Reason: Hypoglycemia Protocol Influenza Virus Vaccine (Flucelvax Quad 4138-8765 Syr) 60 mcg IM .ONCE ONE Stop: 03/19/18 10:01 Insulin Human NPH (Novolin N) 25 unit SC HS [facility] Last Admin: 03/18/18 21:16 Dose: 25 units Insulin Human Regular (Novolin R) 20 unit SC ACB [facility] Last Admin: 03/18/18 07:30 Dose: Not Given Insulin Human Regular (Novolin R) 0 unit SC ACHS [facility]; Protocol Last Admin: 03/18/18 21:17 Dose: Not Given Lisinopril (Zestril) 2.5 mg PO DAILY [facility] Last Admin: 03/18/18 09:02 Dose: 2.5 mg Medroxyprogesterone Acetate (Provera) 10 mg PO TID [facility] Stop: 03/23/18 18:00 Last Admin: 03/18/18 21:20 Dose: 10 mg Morphine Sulfate (Morphine) 2 mg IVP Q4 PRN PRN Reason: Pain, severe (8-10) Last Admin: 03/19/18 01:35 Dose: 2 mg Pneumococcal Polyvalent Vaccine (Pneumovax 23 Vaccine) 0.5 ml IM .ONCE ONE Stop: 03/19/18 10:01 Rosuvastatin Calcium (Crestor) 5 mg PO HS [facility] Last Admin: 03/18/18 21:16 Dose: 5 mg - Labs Labs: 03/19/18 06:05 03/19/18 06:05 PT 13.4 SECONDS (9.7-12.2) H 03/17/18 14:20 INR 1.2 03/17/18 14:20 APTT 24 SECONDS (21-34) 03/17/18 14:20 - Additional Findings Additional findings: - Constitutional Appears: Non-toxic, No Acute Distress - Head Exam Head Exam: ATRAUMATIC, NORMOCEPHALIC - Eye Exam Eye Exam: EOMI, Normal appearance - ENT Exam ENT Exam: Mucous Membranes Moist, Normal Exam - Respiratory Exam Respiratory Exam: Clear to Auscultation Bilateral, NORMAL BREATHING PATTERN - Cardiovascular Exam Cardiovascular Exam: REGULAR RHYTHM, +S1, +S2 - GI/Abdominal Exam GI & Abdominal Exam: Normal Bowel Sounds, Soft, Tenderness (mild, LLQ) absent: Distended, Firm, Rebound - Extremities Exam Extremities exam: Positive for: full ROM, normal inspection - Neurological Exam Neurological exam: Alert, Oriented x3 - Psychiatric Exam Psychiatric exam: Normal Affect, Normal Mood - Skin Skin Exam: Intact, Pallor, Warm Assessment and Plan - Assessment and Plan (Free Text) Assessment: Patient is a 37 year old female with past medical history of uterine fibroids, diabetes mellitus, and endometriosis admitted for symptomatic anemia due to vaginal bleeding. Plan: Symptomatic anemia - LMP 03/04/18 - PANTOMIMIST consulted (Dr. Ferris); recs appreciated - Provera 10mg taper: TID x7 days -> BID x7 days -> Daily x7 days - CT abd/pelvis 12/02/17: Again identified within the region of the right adnexa and midline superior pelvis are contiguous large loculated complex septated cystic lesions measuring approximately 5.5 x 4.0 centimeters and 7.8 x 4.8 centimeters. Overall, this appears similar in size and configuration to the prior study dated 11/22/2017. May represent complex adnexal/ovarian cysts/cystic lesions. - s/p 2 units pRBCs, 1 unit pRBCs given today - monitor and transfuse PRN Right ovarian cyst - Abd/Pelvis/Transvaginal US 11/22/17: Mild increase in size of complex right ovarian cyst with low-level echoes, likely endometrioma. 5.4 cm septated cyst versus hydrosalpinx posterior to the uterus. Two discrete uterine fibroids. - CT abdomen/pelvis 11/22/17: Large right ovarian cyst which has slightly increased in size now 56.8 previously 4 x 5.7 in coronal plane small cysts are seen superior in the uterine fundus. No intra-abdominal findings. - Patient was counseled both verbally and in writing to follow-up for an out- patient endometrial biopsy through clinic, however patient was noncompliant T2DM - ISS, hypoglycemic protocol - Accuchecks ACHS - Crestor 5 mg PO HS - Lisinopril 2.5 mg PO daily - Novalin NPH 25 units SC HS - Novalin R 20 units SC AC breakfast PPX - SCDs Case discussed with attending Dr. Tish Cabral PGY-1 <Adam Winston H - Last Filed: 03/19/18 15:43> Objective - Vital Signs/Intake and Output Vital Signs (last 24 hours): Temp Pulse Resp BP Pulse Ox 98.2 F 70 20 107/68 98 03/19/18 14:11 03/19/18 14:11 03/19/18 14:11 03/19/18 14:11 03/19/18 08:00 Intake and Output: 03/19/18 03/19/18 06:59 18:59 Intake Total 400 340 Balance 400 340 - Medications Medications: Current Medications Acetaminophen (Tylenol 325mg Tab) 650 mg PO PRN PRN PRN Reason: Allergy symptoms Last Admin: 03/18/18 09:02 Dose: 650 mg Dextrose (Dextrose 50% Inj) 0 ml IV STAT PRN; Protocol PRN Reason: Hypoglycemia Protocol Dextrose (Glutose 15) 0 gm PO ONCE PRN; Protocol PRN Reason: Hypoglycemia Protocol Diphenhydramine HCl (Benadryl) 25 mg PO STAT PRN PRN Reason: Allergy symptoms Last Admin: 03/18/18 11:15 Dose: 25 mg Glucagon (Glucagen Diagnostic Kit) 0 mg IM STAT PRN; Protocol PRN Reason: Hypoglycemia Protocol Dextrose (Dextrose 5% In Water 1000 Ml) 1,000 mls @ 0 mls/hr IV .Q0M PRN; Protocol PRN Reason: Hypoglycemia Protocol Influenza Virus Vaccine (Flucelvax Quad [id number] Syr) 60 mcg IM .ONCE ONE Stop: 03/20/18 10:01 Insulin Human NPH (Novolin N) 10 unit SC HS [facility] Insulin Human Regular (Novolin R) 0 unit SC ACHS [facility]; Protocol Last Admin: 03/19/18 12:34 Dose: Not Given Insulin Human Regular (Novolin R) 5 unit SC ACB [facility] Lisinopril (Zestril) 2.5 mg PO DAILY [facility] Last Admin: 03/19/18 09:27 Dose: 2.5 mg Medroxyprogesterone Acetate (Provera) 10 mg PO TID [facility] Stop: 03/23/18 18:00 Last Admin: 03/19/18 13:53 Dose: 10 mg Morphine Sulfate (Morphine) 2 mg IVP Q4 PRN PRN Reason: Pain, severe (8-10) Last Admin: 03/19/18 13:09 Dose: 2 mg Pneumococcal Polyvalent Vaccine (Pneumovax 23 Vaccine) 0.5 ml IM .ONCE ONE Stop: 03/20/18 10:01 Rosuvastatin Calcium (Crestor) [address] [facility] Last Admin: 03/18/18 21:16 Dose: 5 mg - Labs Labs: 03/19/18 06:05 03/19/18 06:05 PT 13.4 SECONDS (9.7-12.2) H 03/17/18 14:20 INR 1.2 03/17/18 14:20 APTT 24 SECONDS (21-34) 03/17/18 14:20 Attending/Attestation - Attestation I have personally seen and examined this patient.: Yes I have fully participated in the care of the patient.: Yes I have reviewed all pertinent clinical information, including history, physical exam and plan: Yes Notes (Text): Patient was seen and examined by me with the medical coding instructor She looks much more comfortable today We are giving one more unit of PRBC The patient has been getting Provera and will be on it for sometime. We talked at length with the patient that because of her history she would benefit from probably getting a hysterrectomy at some point - this has been discussed with the patient in the past however she is still wondering if she could have children in the future - it would be a high risk I would think and we discussed this with patient Also at some point she will need outpatient follow up as well Hopefully patient could be discharged probably tommorow if stable Adam Winston
[2018-03-19] MEDS: (Novolin R) Insulin Human Regular 100 units/ml vial SC SCH ×5 (07:38→22:04)
[2018-03-19] MEDS ORDERED: Influenza Vaccine 60 mcg/0.5 mL SYR (4YR UP) IM ONE (10:00)
[2018-03-19] MEDS ORDERED: (Novolin R) Insulin Human Regular 100 units/ml vial SC SCH (12:41)
[2018-03-19] MEDS ORDERED: (Novolin N) Insulin Human Isophane (NPH) 100 u/ml 10 ml vial SC SCH (12:42)
--- NOTE | 2018-03-19 16:43 | CT ---
Date of service: 03/19/2018 PROCEDURE: CT Abdomen and Pelvis with contrast HISTORY: abdominal pain COMPARISON: CT abdomen and pelvis with IV contrast performed 02/03/18. Pelvic ultrasound performed 03/17/18 TECHNIQUE: Contrast dose: 100 mL Visipaque 320 IV Radiation dose: Total exam DLP = 1207.02 mGy-cm. This CT exam was performed using one or more of the following dose reduction techniques: Automated exposure control, adjustment of the mA and/or kV according to patient size, and/or use of iterative reconstruction technique. FINDINGS: LOWER THORAX: No visible consolidation, pleural effusion, or pneumothorax. LIVER: Unremarkable. GALLBLADDER AND BILE DUCTS: Unremarkable. PANCREAS: Unremarkable. SPLEEN: Unremarkable. ADRENALS: Unremarkable. KIDNEYS AND URETERS: The kidneys enhance symmetrically. No hydronephrosis or obstructing calculus identified. VASCULATURE: No aortic aneurysm. No atherosclerotic calcification or mural plaque present. BOWEL: Stomach is nondistended. Lack of oral contrast limits evaluation for bowel pathology. Bowel loops appear within normal limits of caliber without evidence of obstruction. Nonspecific small bowel wall thickening. APPENDIX: The appendix appears within normal limits of caliber. No secondary signs of acute appendicitis. PERITONEUM: No significant free fluid. No definite free air. LYMPH NODES: Subcentimeter retroperitoneal adenopathy, nonspecific. BLADDER: Unremarkable. REPRODUCTIVE: Heterogeneous uterus with numerous low-density masses presumably fibroids possibly with cystic degeneration. Right adnexal cystic structure may reflect ovarian cysts and/or hydrosalpinx/pyosalpinx. BONES: No acute osseous abnormality is detected. OTHER FINDINGS: Tiny fat containing umbilical hernia. IMPRESSION: Re-identified heterogeneous uterus with numerous low-density masses presumably fibroids possibly with cystic degeneration. Right adnexal cystic structure may reflect ovarian cysts and/or hydrosalpinx/pyosalpinx. Nonspecific small bowel wall thickening; correlate for enteritis.
[2018-03-19 19:56] LABS: BASO # 0.1 K/uL (0.0-0.2); BASO % 0.5 % (0.0-2.0); EOS # 0.1 K/uL (0.0-0.7); EOS % 0.9 % (0.0-4.0); HEMOGLOBIN 9.8 g/dL (11.0-16.0); LYMPH # 2.5 K/uL (1.0-4.3); LYMPH % 22.3 % (20.0-40.0); MEAN CELL VOLUME 71.8 fL (81.0-99.0); MEAN CORPUSCULAR HEMOGLOBIN 22.1 pg (27.0-31.0); MEAN CORPUSCULAR HGB CONC 30.8 g/dL (33.0-37.0); MEAN PLATELET VOLUME 7.7 fL (7.2-11.7); MONO # 0.7 K/uL (0.0-0.8); MONO % 6.7 % (0.0-10.0); NEUT # 7.7 K/uL (1.8-7.0); NEUT % 69.6 % (50.0-75.0); NRBC % 0.1 % (0.0-2.0); RBC 4.42 Mil/uL (3.80-5.20); RED CELL DISTRIBUTION WIDTH 22.1 % (11.5-14.5)
[2018-03-20 07:21] LABS: BASO % 0.5 % (0.0-2.0); EOS # 0.1 K/uL (0.0-0.7); EOS % 1.6 % (0.0-4.0); LYMPH # 2.5 K/uL (1.0-4.3); LYMPH % 27.4 % (20.0-40.0); MEAN CELL VOLUME 71.1 fL (81.0-99.0); MEAN CORPUSCULAR HEMOGLOBIN 22.6 pg (27.0-31.0); MEAN CORPUSCULAR HGB CONC 31.8 g/dL (33.0-37.0); MONO # 0.7 K/uL (0.0-0.8); MONO % 7.7 % (0.0-10.0); NEUT # 5.7 K/uL (1.8-7.0); NEUT % 62.8 % (50.0-75.0); RBC 4.43 Mil/uL (3.80-5.20); RED CELL DISTRIBUTION WIDTH 22.4 % (11.5-14.5)
[2018-03-20 07:43] LABS: ALB/GLOB RATIO 1.3 (1.0-2.1); ALT/SGPT 9 U/L (9-52); AST/SGOT 19 U/L (14-36); BLOOD UREA NITROGEN 13 mg/dL (7-17); GFR NON-AFRICAN AMERICAN > 60
[2018-03-20] MEDS: (Novolin R) Insulin Human Regular 100 units/ml vial SC SCH ×2 (07:50→12:21)
[2018-03-20] MEDS ORDERED: Pneumococcal 23-Valent Vaccine IM ONE (10:00)
[2018-03-20] MEDS ORDERED: Influenza Vaccine 60 mcg/0.5 mL SYR (4YR UP) IM ONE (10:00)
--- NOTE | 2018-03-20 14:10 | CP.PCM.DIS ---
Provider - Provider Date of Admission: 03/19/18 16:27 Attending physician: Librado Lu MD Primary care physician: none Consults: 03/17/18 17:09 Physician Consult Stat Comment: Consulting Provider: Yanique Ferris Consulting Physician: Yanique Ferris Reason for Consult: DHRUV Time Spent in preparation of Discharge (in minutes): 45 Diagnosis - Discharge Diagnosis (1) Vaginal bleeding Status: Acute Priority: High (2) Anemia Status: Acute Priority: High (3) T2DM (type 2 diabetes mellitus) Status: Chronic Priority: Medium (4) Ovarian cyst Status: Chronic Priority: Medium (5) Uterine fibroid Status: Chronic Priority: Medium Hospital Course - Lab Results Lab Results: Most Recent Lab Values WBC 9.0 K/uL (4.8-10.8) 03/20/18 07:03 RBC 4.43 Mil/uL (3.80-5.20) 03/20/18 07:03 Hgb 10.0 g/dL (11.0-16.0) L 03/20/18 07:03 Hct 31.5 % (34.0-47.0) L 03/20/18 07:03 MCV 71.1 fL (81.0-99.0) L 03/20/18 07:03 MCH 22.6 pg (27.0-31.0) L 03/20/18 07:03 MCHC 31.8 g/dL (33.0-37.0) L 03/20/18 07:03 RDW 22.4 % (11.5-14.5) H 03/20/18 07:03 Plt Count 332 K/uL (130-400) 03/20/18 07:03 MPV 8.0 fL (7.2-11.7) 03/20/18 07:03 Neut % (Auto) 62.8 % (50.0-75.0) 03/20/18 07:03 Lymph % (Auto) 27.4 % (20.0-40.0) 03/20/18 07:03 Nicholas % (Auto) 7.7 % (0.0-10.0) 03/20/18 07:03 Eos % (Auto) 1.6 % (0.0-4.0) 03/20/18 07:03 Baso % (Auto) 0.5 % (0.0-2.0) 03/20/18 07:03 Neut # (Auto) 5.7 K/uL (1.8-7.0) 03/20/18 07:03 Lymph # (Auto) 2.5 K/uL (1.0-4.3) 03/20/18 07:03 Nicholas # (Auto) 0.7 K/uL (0.0-0.8) 03/20/18 07:03 Eos # (Auto) 0.1 K/uL (0.0-0.7) 03/20/18 07:03 Baso # (Auto) 0.0 K/uL (0.0-0.2) 03/20/18 07:03 Differential Comment 03/19/18 06:05 PT 13.4 SECONDS (9.7-12.2) H 03/17/18 14:20 INR 1.2 03/17/18 14:20 APTT 24 SECONDS (21-34) 03/17/18 14:20 Sodium 138 mmol/L (132-148) 03/20/18 07:03 Potassium 4.0 mmol/L (3.6-5.2) 03/20/18 07:03 Chloride 106 mmol/L (98-107) 03/20/18 07:03 Carbon Dioxide 24 mmol/L (22-30) 03/20/18 07:03 Anion Gap 13 (10-20) 03/20/18 07:03 BUN 13 mg/dL (7-17) 03/20/18 07:03 Creatinine 0.6 mg/dL (0.7-1.2) L 03/20/18 07:03 Est GFR ( Amer) > 60 03/20/18 07:03 Est GFR (Non-Af Amer) > 60 03/20/18 07:03 POC Glucose (mg/dL) 106 mg/dL (65-110) 03/20/18 11:20 Random Glucose 104 mg/dL (65-105) 03/20/18 07:03 Calcium 9.0 mg/dl (8.6-10.4) 03/20/18 07:03 Phosphorus 4.6 mg/dL (2.5-4.5) H 03/20/18 07:03 Magnesium 2.2 mg/dL (1.6-2.3) 03/20/18 07:03 Total Bilirubin 0.3 mg/dL (0.2-1.3) 03/20/18 07:03 AST 19 U/L (14-36) 03/20/18 07:03 ALT 9 U/L (9-52) D 03/20/18 07:03 Alkaline Phosphatase 68 U/L (38-126) 03/20/18 07:03 Total Protein 7.1 g/dL (6.3-8.3) 03/20/18 07:03 Albumin 4.0 g/dL (3.5-5.0) 03/20/18 07:03 Globulin 3.1 gm/dL (2.2-3.9) 03/20/18 07:03 Albumin/Globulin Ratio 1.3 (1.0-2.1) 03/20/18 07:03 Beta HCG, Quant < 2.39 mIU/ML 03/17/18 13:40 Urine Color Yellow (YELLOW) 03/17/18 13:39 Urine Clarity Clear (Clear) 03/17/18 13:39 Urine pH 6.0 (5.0-8.0) 03/17/18 13:39 Ur Specific [place] 1.017 (1.003-1.030) 03/17/18 13:39 Urine Protein 1+ mg/dL (NEGATIVE) H 03/17/18 13:39 Urine Glucose (UA) Normal mg/dL (Normal) 03/17/18 13:39 Urine Ketones Negative mg/dL (NEGATIVE) 03/17/18 13:39 Urine Blood 3+ (NEGATIVE) H 03/17/18 13:39 Urine Nitrate Negative (NEGATIVE) 03/17/18 13:39 Urine Bilirubin Negative (NEGATIVE) 03/17/18 13:39 Urine Urobilinogen Normal mg/dL (0.2-1.0) 03/17/18 13:39 Ur Leukocyte Esterase Neg Josie/uL (Negative) 03/17/18 13:39 Urine WBC (Auto) 2 /hpf (0-5) 03/17/18 13:39 Urine RBC (Auto) 400 /hpf (0-3) H 03/17/18 13:39 Ur Squamous Epith Cells 1 /hpf (0-5) 03/17/18 13:39 Urine Bacteria Rare (<OCC) 03/17/18 13:39 Urine HCG, Qual Negative (NEGATIVE) 03/19/18 07:43 Blood Type B NEGATIVE 03/17/18 14:20 Antibody Screen Negative 03/17/18 14:20 - Hospital Course Hospital Course: Patient is a 37-year-old F with PMH of uterine fibroids, complex ovarian cyst, diabetes mellitus, and endometriosis presents to the ED for vaginal bleeding x2 weeks. Patient states she started her period 2 weeks ago and noticed heavy bleeding (using up to 5-6 pads per day) and decided to come to the ED since she was also experiencing dizziness, fatigue, light-headedness x4 days. Patient also states her bleeding was worsening. LMP 03/04/18. Patient also admits to 2 episodes of nausea and vomiting 2 days ago. Patient states she was not able to see an OBGYN as an outpatient following her last admission, where it was recommended for her to undergo endometrial biopsy as an outpatient. Patient otherwise denies chest pain, shortness of breath, numbness/tingling, headache, rash, fever, and/or chills. Uterine fibroids and ovarians cysts evaluated by imaging: Transvaginal US: Two uterine fibroids are identified as discussed above as well as a likely extra uterine cystic lesion measuring 3.7 cm greatest dimension probably reflecting tubular right adnexal cyst versus hydrosalpinx. Enlarged right ovary due to 5.7 cm complex septated cyst. Left ovary is not identified. CT A/P: Re-identified heterogeneous uterus with numerous low-density masses presumably fibroids possibly with cystic degeneration. Right adnexal cystic structure may reflect ovarian cysts and/or hydrosalpinx/pyosalpinx. Patient anemic- Hgb was 7.5 on admission. She was transfused 3 units of pRBC and Hgb improved to 10. OBGYN consulted and started patient on Provera taper. Patient will follow-up on digital artist clinic at [place]. Patient's blood glucose was monitored and stable throughout hospitalization. Patient was continued on home diabetes medications. Upon discharge, patient stated she felt better. She continued to have some vaginal bleeding and was counseled on Provera- likelihood of increased heavy bleeding and increased risk of clots. Patient's vitals were stable. She was ambulating without difficulty, denied dizziness/lightheadedness. Discharge Exam - Head Exam Head Exam: NORMAL INSPECTION - Eye Exam Eye Exam: EOMI, Normal appearance - ENT Exam ENT Exam: Mucous Membranes Moist - Neck Exam Neck exam: Normal Inspection - Respiratory Exam Respiratory Exam: Clear to PA & Lateral, NORMAL BREATHING PATTERN, UNREMARKABLE - Cardiovascular Exam Cardiovascular Exam: RRR, +S1, +S2 - GI/Abdominal Exam GI & Abdominal Exam: Normal Bowel Sounds, Soft. absent: Distended, Tenderness - Extremities Exam Extremities exam: normal inspection - Back Exam Back exam: NORMAL INSPECTION - Neurological Exam Neurological exam: Alert, CN II-XII Intact, Normal Gait, Oriented x3 - Psychiatric Exam Psychiatric exam: Normal Affect, Normal Mood - Skin Skin Exam: Dry, Intact, Normal Color, Warm Discharge Plan - Discharge Medications Prescriptions: MedroxyPROGESTERone [Provera] 10 mg PO DAILY #33 tab traMADol [Ultram] 50 mg PO Q6 PRN #18 tab PRN Reason: Pain, Severe (8-10) - Follow Up Plan Condition: IMPROVED Disposition: HOME/ ROUTINE Patient education suggested?: Yes Instructions: Medroxyprogesterone, Tramadol, Normocytic Normochromic Anemia (DC) Additional Instructions: Follow-up with the [facility] at [facility] within 3-5 days of discharge. Call [phone] to schedule an appointment. They will monitor your blood levels. Follow-up at the OBGYN clinic at [facility] as discussedw ith Dr. Ferris. You will be given a prescription for Provera. Take as instructed below: Take 1 tab 3 times daily for 4 days (03/21-03/24), then take 1 tab 2 times daily for 7 days (03/25-03/31), then take 1 tab 1 time daily for 7 days (04/01-03/28), then stop Keep in mind that you will likely experience irregular, heavy bleeding while on this medication, as discussed with the soldering technician. Additionally, there is increased risk of forming clots while while on this medication. You will be given a prescription for Tramadol to use for pain as needed. You may also use [id number] Tylenol (acetaminophen) for pain as needed. Avoid NSAIDs (aspirin, Motrin, Naproxen, Aleve, Advil, etc.) as these medications may increase your risk of bleeding. If symptoms recur or worsen, return to the nearest emergency room. Referrals: [facility] [Outside] [facility] [place] [Outside] Yanique Ferris MD [Staff Provider] -
[2018-03-20 16:02] VITALS: BP 112/71; PULSE 73; TEMP 97.9; O2SAT 98
== END 2018-03-20 16:21 | disposition home or self-care (01) | DRG 663 ==
LOC: C.ER 13:01 → C.9E 16:25 → C.3T 16:44 → OBSVTOIN 03-19 16:27
PROVIDERS: ADMIT Internal Medicine; ATTEND Internal Medicine
PROC: 30233N1 Transfusion of Nonautologous Red Blood Cells into Peripheral Vein, Percutaneous Approach (ICD-10-PCS; principal; 2018-03-19)
DX: D50.0 Iron deficiency anemia secondary to blood loss (chronic) (principal); E11.22 Type 2 diabetes mellitus with diabetic chronic kidney disease; D25.9 Leiomyoma of uterus, unspecified; F17.210 Nicotine dependence, cigarettes, uncomplicated; N18.9 Chronic kidney disease, unspecified; N70.11 Chronic salpingitis; N80.9 Endometriosis, unspecified; N83.291 Other ovarian cyst, right side; N93.8 Other specified abnormal uterine and vaginal bleeding; K92.1 Melena; Z80.0 Family history of malignant neoplasm of digestive organs; Z83.3 Family history of diabetes mellitus; Z87.442 Personal history of urinary calculi

== ENCOUNTER 2018-05-13 14:51 | Emergency (ER) | payer MEDICAID, OTHER ==
[2018-05-13 14:59] VITALS: BMI 36.1
[2018-05-13 15:00] VITALS: RESP 18
[2018-05-13 15:46] LABS: BASO % 0.6 % (0.0-2.0); EOS # 0.1 K/uL (0.0-0.7); HEMOGLOBIN 10.3 g/dL (11.0-16.0); LYMPH # 2.1 K/uL (1.0-4.3); LYMPH % 25.6 % (20.0-40.0); MEAN CELL VOLUME 72.2 fL (81.0-99.0); MEAN CORPUSCULAR HEMOGLOBIN 22.5 pg (27.0-31.0); MEAN CORPUSCULAR HGB CONC 31.1 g/dL (33.0-37.0); MEAN PLATELET VOLUME 7.6 fL (7.2-11.7); MONO # 0.7 K/uL (0.0-0.8); MONO % 7.9 % (0.0-10.0); NEUT # 5.4 K/uL (1.8-7.0); NEUT % 64.9 % (50.0-75.0); RBC 4.59 Mil/uL (3.80-5.20); RED CELL DISTRIBUTION WIDTH 20.9 % (11.5-14.5); WHITE BLOOD COUNT 8.3 K/uL (4.8-10.8)
[2018-05-13 15:53] LABS: SQUAMOUS EPITHIAL 1 /hpf (0-5); URINE BILIRUBIN NEGATIVE (NEGATIVE); URINE BLOOD 3+ (NEGATIVE); URINE CLARITY Clear (Clear); URINE COLOR Yellow (YELLOW); URINE GLUCOSE (UA) NORMAL (Normal); URINE LEUKOCYTE ESTERASE TRACE Leu/uL (Negative); URINE PROTEIN NEGATIVE (NEGATIVE); URINE UROBILINOGEN NORMAL mg/dL (0.2-1.0)
--- NOTE | 2018-05-13 15:54 | C.PDOC ---
History Of Present Illness 37 year old female with PMHx of endometriosis presents to the ED complaining of lower abdominal pain worse on the left side for the past 2 days. Associated symptoms include dysuria, but denies any fever, chills, shortness of breath, chest pain, hematuria or any other urinary symptoms. States the endometriosis pain is worse than usual. Also reports she started menses 2 days ago. Time Seen by Provider: 05/13/18 15:05 Chief Complaint (Nursing): Abdominal Pain History Per: Patient History/Exam Limitations: no limitations Onset/Duration Of Symptoms: Days (2) Current Symptoms Are (Timing): Still Present Location Of Pain/Discomfort: Suprapubic Associated Symptoms: Urinary Symptoms. denies: Vomiting, Diarrhea Past Medical History Reviewed: Historical Data, Nursing Documentation, Vital Signs Vital Signs: Last Vital Signs Temp 98.1 F 05/13/18 14:58 Pulse 92 H 05/13/18 14:58 Resp 18 05/13/18 14:58 BP 123/88 05/13/18 14:58 Pulse Ox 100 05/13/18 14:58 - Medical History PMH: Anemia, Diabetes (type II), Kidney Stones, Chronic Kidney Disease Other PMH: endometriosis Surgical History: Endoscopy - [facility] Procedures BLOW THERAPEUT INTO TUBE (06/09/14) D & C NEC (06/09/14) PACKED CELL TRANSFUSION (09/27/13) RETROGRADE PYELOGRAM (06/20/14) TRANSFUSE NONAUT RED BLOOD CELLS IN PERIPH VEIN, PERC (03/19/18) URETERAL CATHETERIZATION (06/20/14) Family History: States: Unknown Family Hx - Social History Hx Tobacco Use: Yes Hx Alcohol Use: No Hx Substance Use: No - Immunization History Hx Tetanus Toxoid Vaccination: No Hx Influenza Vaccination: No Hx Pneumococcal Vaccination: No Review Of Systems Constitutional: Negative for: Fever, Chills Cardiovascular: Negative for: Chest Pain Respiratory: Negative for: Shortness of Breath Gastrointestinal: Positive for: Abdominal Pain. Negative for: Nausea, Vomiting, Diarrhea Genitourinary: Positive for: Dysuria. Negative for: Hematuria Physical Exam - Physical Exam Appears: Non-toxic, Other (crying ) Skin: Warm, Dry, No Rash Head: Atraumatic, Normacephalic Eye(s): bilateral: PERRL, EOMI Oral Mucosa: Moist Neck: Supple Chest: Symmetrical Cardiovascular: Rhythm Regular Respiratory: No Rales, No Rhonchi, No Wheezing, Other (CTA B/L) Gastrointestinal/Abdominal: Bowel Sounds (Active, normal ), Soft, Tenderness (lower abdominal tenderness, left more than right ), No Distention, No Guarding, No Rebound, Other (obese ) Neurological/Psych: Oriented x3, Normal Speech Gait: Steady ED Course And Treatment - Laboratory Results Result Diagrams: 05/13/18 15:42 05/13/18 15:42 O2 Sat by Pulse Oximetry: 100 (RA) Pulse Ox Interpretation: Normal Medical Decision Making Medical Decision Making: Plan - Bloodwork - UA - Urine cultures - Toradol 30mg IVP Blood found in the urine, patient is currently menstruating. 1620 pt still moaning and writhing in pain after toradol. Morphine ordered. 1740 pt with markedly reduced pain. no longer writing. still with some left sided tenderness on exam. pt has had multiple ed visits and imaging studies for this same pain, most recently in Mar 2018. pt with hydrologic engineer appt scheduled for 07/18 follow up at [place]. Given normal labs and urine, and pt's typical, but worse, endometriosis pain, no imaging studies ordered in ED. pt and family advised to call both [facility] and [place] clinics to arrange for sooner hydrologic engineer appointment and return for worse. patient and family understand. Disposition Counseled Patient/Family Regarding: Studies Performed, Diagnosis, Need For Followup, Rx Given - Disposition Referrals: [facility] [Outside] [facility] [Outside] Disposition: HOME/ ROUTINE Disposition Time: 17:50 Condition: GOOD Additional Instructions: Trate de hacer aurelia dioni ginecolgica antes en el hospital [facility] o en el hospital [place]. reinaldo Naproxen y Tylenol para el dolor; Regrese a la guera de emergencias para peor dolor, fiebre. Nuseas, vmitos o cualquier otra inquietud. Try to make sooner PHOTOVOLTAIC SOLAR CELL DESIGNER appointment at either [facility] or [facility]. take Naproxen and Tylenol for pain; Return to ER for worse pain, fever. nausea, vomiting or any other concerns. Prescriptions: Acetaminophen [Tylenol 325mg tab] 650 mg PO Q4 #50 tab Naproxen 500 mg PO BID #20 tab Instructions: Endometriosis (DC) Forms: Gen Discharge Inst Northern Irish, [facility] (Northern Irish) Print Language: BELARUSIAN - Clinical Impression Clinical Impression: Abdominal pain, Endometriosis - PA / PAY AGENT / Resident Statement MD/DO has reviewed & agrees with the documentation as recorded. - Scribe Statement The provider has reviewed the documentation as recorded by the Scribe Linda Haro All medical record entries made by the Gurdeepibmary ann were at my direction and personally dictated by me. I have reviewed the chart and agree that the record accurately reflects my personal performance of the history, physical exam, medical decision making, and the department course for this patient. I have also personally directed, reviewed, and agree with the discharge instructions and disposition.
[2018-05-13 15:58] LABS: ALB/GLOB RATIO 1.3 (1.0-2.1); ALBUMIN 4.2 g/dL (3.5-5.0); ALT/SGPT 16 U/L (9-52); AST/SGOT 29 U/L (14-36); BLOOD UREA NITROGEN 10 mg/dL (7-17); CALCIUM 9.2 mg/dl (8.6-10.4); GFR NON-AFRICAN AMERICAN > 60
[2018-05-13] MEDS ORDERED: Morphine 4 MG/ML VIAL ONE (16:30)
[2018-05-13 18:05] VITALS: BP 106/75; PULSE 85; TEMP 99
[2018-05-22 10:01] VITALS: O2SAT 100
== END 2018-05-13 18:06 | disposition home or self-care (01) ==
LOC: C.ER 14:51
DX: N80.9 Endometriosis, unspecified (principal); R10.32 Left lower quadrant pain
CPT/HCPCS: 80053; 81001; 81025; 82948; 85025; 87086; 96374; 96375; 99285; J1885; J2270

== ENCOUNTER 2018-05-14 23:20 | Emergency (ER) | payer OTHER ==
[2018-05-14 23:20] VITALS: BMI 36.1
[2018-05-14 23:30] VITALS: BP 127/83; PULSE 97; RESP 22; TEMP 97.9; O2SAT 99
--- NOTE | 2018-05-14 23:39 | C.PDOC ---
History Of Present Illness 37 year old female since yesterday for endometriosis pain presents today with persistent endometriosis pain. Patient was given toradol yesterday but was only relieved with morphine. She is pending appointment with [facility] in July, she tried calling today for earlier appointment but was unable to get earlier date. Patient had negative POC yesterday. She reports some nausea today, denies other complaints. PMH of uterine fibroids, complex ovarian cyst, diabetes mellitus, and endometriosis MULT PRIOR EVAL FOR SAME PAIN. glass [facility] appt scheduled for 07/18 Chief Complaint (Nursing): Abdominal Pain History Per: Patient History/Exam Limitations: no limitations Onset/Duration Of Symptoms: Hrs Current Symptoms Are (Timing): Still Present Quality Of Discomfort: Unable To Describe Associated Symptoms: Nausea. denies: Fever Alleviating Factors: None Recent travel outside of the [place]: No Abnormal Vaginal Bleeding: No Past Medical History Reviewed: Historical Data, Nursing Documentation, Vital Signs Vital Signs: Last Vital Signs Temp 97.9 F 05/14/18 23:27 Pulse 97 H 05/14/18 23:27 Resp 22 05/14/18 23:27 BP 127/83 05/14/18 23:27 Pulse Ox 99 05/14/18 23:27 - Medical History PMH: Anemia, Diabetes (type II), Kidney Stones, Chronic Kidney Disease Surgical History: Endoscopy - [facility] Procedures BLOW THERAPEUT INTO TUBE (06/09/14) D & C NEC (06/09/14) PACKED CELL TRANSFUSION (09/27/13) RETROGRADE PYELOGRAM (06/20/14) TRANSFUSE NONAUT RED BLOOD CELLS IN PERIPH VEIN, PERC (03/19/18) URETERAL CATHETERIZATION (06/20/14) Family History: States: Unknown Family Hx - Social History Hx Tobacco Use: Yes Hx Alcohol Use: No Hx Substance Use: No - Immunization History Hx Tetanus Toxoid Vaccination: No Hx Influenza Vaccination: No Hx Pneumococcal Vaccination: No Review Of Systems Except As Marked, All Systems Reviewed And Found Negative. Constitutional: Negative for: Fever, Chills Gastrointestinal: Positive for: Nausea, Abdominal Pain Physical Exam - Physical Exam Appears: Non-toxic, Other (Crying) Skin: Normal Color, Warm Head: Atraumatic, Normacephalic Eye(s): bilateral: Normal Inspection Oral Mucosa: Moist Chest: Symmetrical, No Tenderness Cardiovascular: Rhythm Regular Respiratory: Normal Breath Sounds, No Rales, No Rhonchi, No Wheezing Gastrointestinal/Abdominal: Soft, Tenderness (Minimal lower pelvic), No Guarding, No Rebound Neurological/Psych: Oriented x3, Normal Speech ED Course And Treatment O2 Sat by Pulse Oximetry: 99 (Room air) Pulse Ox Interpretation: Normal Medical Decision Making Medical Decision Making: Plan: * Dilaudid * Motrin * Zofran Disposition Counseled Patient/Family Regarding: Diagnosis, Need For Followup, Rx Given - Disposition Referrals: YOUR,OBGYN [Other] Disposition: HOME/ ROUTINE Disposition Time: 23:53 Condition: IMPROVED Prescriptions: Ondansetron ODT [Zofran ODT] 4 mg PO TID PRN #12 odt PRN Reason: Nausea/Vomiting Tramadol HCl [Ultram] 50 mg PO QID #20 tab Instructions: Endometriosis Forms: [facility] (Azerbaijani), Work Excuse Print Language: RWANDAN - Clinical Impression Clinical Impression: Chronic pelvic pain in female, Endometriosis - Scribe Statement The provider has reviewed the documentation as recorded by the Scribmary ann Bach All medical record entries made by the Gurdeepibmary ann were at my direction and personally dictated by me. I have reviewed the chart and agree that the record accurately reflects my personal performance of the history, physical exam, medical decision making, and the department course for this patient. I have also personally directed, reviewed, and agree with the discharge instructions and disposition.
== END 2018-05-15 00:03 | disposition home or self-care (01) ==
LOC: C.ER 23:20
DX: N80.9 Endometriosis, unspecified (principal); G89.29 Other chronic pain; R10.2 Pelvic and perineal pain; Z72.0 Tobacco use